=== PATIENT | female | born 1985 | race Caucasian/White ===

== ENCOUNTER 2017-06-24 13:00 | Outpatient (RCR) | payer OTHER, SELFPAY ==
--- NOTE | 2017-06-10 14:56 | HP.PTEVAL_ITS ---
Patient's Visit Information ANIYA LOVETT is a 31 year old F referred to Physical Therapy by Olaf CHING with a diagnosis of vertigo. Date of Evaluation: 06/10/17 Physical Therapist: Antonio Parker DPT, OC - Visit Plan Frequency: 1x/Week Duration: 4-6 Weeks Plan: weekly x 4-6 for adaptationa nd habituation as needed progression of HEP - Subjective Subjective: Vertigo. Had baby 7 weeks old. 10 days after baby while sitting for dinner got dizzy all of a sudden and could not open eyes. Went to ER, had CTscan, diagnosed with vertigo. Was then 80% better and manageable. 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 Has had three episodes of severe dizzyness sitting up in bed since. Severe dizzyness lasts a couple of hours. Has just slight goofy feeling all the time. Sleep is OK form the vertigo. Spends day taking care of child and can do this. Dr. Pina thought it was ear virus weeks ago. Doesn't want to move as much becasue of dizzy feeling. Jose and crafts are OK. 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 No falls but could not walk straight with first incident 6 weeks ago. - Objective Walks I and trasnfers I without balance problems. 30/30 FGA. foam stance ec 30 sec. - B hallpike ethan. - roll test. Oculomotor: no nystagmus today with gaze or head shake. - skew eye deviation. convergence OK. + R head thrust slight. Pursuit and saccades normal. VOR is symptomatic with mild speed horizontal at 20 seconds 2/10 for 10 seconds. Worse with walking VOR and VOR x 2 - Balance Scores Functional Gait Assessment Score: 30 % Disability: 0 CATSIB Score (Max score 120 seconds): 120 - Goals Goal 1:: abolish dizzyness with normal daily activites Goal Time Frame: 4-6 Weeks Goal 2:: Exit bed in am safely and feeling normal Goal Time Frame: 4-6 Weeks Goal 3:: 100% back to normal Goal Time Frame: 4-6 Weeks - Rehabilitation Potential Physical Therapy Diagnosis: Unilateral vestibular hypofucntion Rehabilitation Potential: Fair - Anticipated Interventions Patient/Client Instruction: Educate patient on: Condition, Plan of Care For the Purpose of:: To increase tolerance to activity/condition/position Comment: adaptation adn habituation For the Purpose of:: To increase tolerance to activity/condition/position, To decrease level of supervision to perform tasks, To improve ability of physical actions for home/community/work/leisure Thank you for the opportunity to evaluate your patient. For Medicare and Medicare HMO plans, please review the plan of care and approve it. It will need to be FAXED BACK to us at [phone] for Medicare purposes. Please let me know if there are questions or concerns regarding this plan of care. Physician Signature: Date:
--- NOTE | 2017-08-24 18:30 | HP.PT.NRP ---
HP - Discharge Summary (1) - Patient Information ANIYA LOVETT was seen in my office for initial evaluation on 06/10/17. The following Plan of Care was established for this patient: Initial Frequency: 1x/Week Initial Duration: 4-6 Weeks - Anticipated Interventions Patient/Client Instruction: Educate patient on: Condition, Plan of Care For the Purpose of:: To increase tolerance to activity/condition/position For the Purpose of:: To increase tolerance to activity/condition/position, To decrease level of supervision to perform tasks, To improve ability of physical actions for home/community/work/leisure This patient was last seen in our office 06/24/17. Pertinent comments regarding their Physical therapy will appear below: Pt seen two visits of plan of care and neglected to attend and further visits. It has been over two months and I will discontinue her due to nonattendance. At this point I will be discontinuing this patient from physical therapy. I would be happy to see this patient again in the future if found appropriate by the physician. Thank you! Antonio Parker, DPT, OC
== END 2017-06-24 19:00 | disposition home or self-care (01) ==
LOC: PT 13:00
PROVIDERS: Family Provider Family Medicine; PCP Family Medicine; Visit Provider Family Medicine
DX: R42 Dizziness and giddiness (principal)
CPT/HCPCS: 97110; 97162; 97530

== ENCOUNTER → 2018-03-17 10:52 | Outpatient (CLI) | payer OTHER, SELFPAY ==
[2018-03-22 03:07] LABS: HPV Genotype 16, Aptima Positive (Negative)
[2018-03-22 10:00] LABS: HPV APTIMA, High Risk Positive (Negative); HPV Genotype 18,45 Aptima Negative (Negative)
== END ==
PROVIDERS: Visit Provider Obstetrics & Gynecology
DX: Z12.4 Encounter for screening for malignant neoplasm of cervix (principal)
CPT/HCPCS: 87624; 88175; G0145

== ENCOUNTER → 2018-05-11 09:53 | Outpatient (CLI) | payer OTHER, SELFPAY ==
[2017-05-04 20:20] VITALS: BMI 32.3
[2018-05-11 17:15] LABS: Chlamydia Trachomatis by PCR Negative (Negative); Neisserai gonorrhoeae by PCR Negative (Negative); Probe Check PASS; Sample Adequacy Control PASS; Specimen Processing Control PASS
== END ==
PROVIDERS: Visit Provider Obstetrics & Gynecology
DX: Z32.01 Encounter for pregnancy test, result positive (principal); Z11.3 Encounter for screening for infections with a predominantly sexual mode of transmission
CPT/HCPCS: 87491; 87591

== ENCOUNTER 2018-06-09 20:01 | Emergency (ER) | payer OTHER, SELFPAY ==
[2018-06-09 20:02] VITALS: BP 163/77; PULSE 106; RESP 16; TEMP 36.2; O2SAT 99; BMI 29.8
--- NOTE | 2018-06-09 21:25 | EKG12_ITS ---
Test Reason : CP Blood Pressure : / mmHG Vent. Rate : 094 BPM Atrial Rate : 094 BPM P-R Int : 126 ms QRS Dur : 096 ms QT Int : 362 ms P-R-T Axes : 061 052 044 degrees QTc Int : 452 ms Normal sinus rhythm Possible Left atrial enlargement Nonspecific ST abnormality Abnormal ECG Confirmed by BOLIVAR DENNIS, MARILOU ([id number]), manuscript editor ANGELICA ARMENTA ([id number]) on 06/12/2018 1:13:51 PM Referred By: Sheridan Guerrero Confirmed By:MARILOU LUTZ MD
--- NOTE | 2018-06-09 21:35 | RAD_ITS ---
STUDY: X-RAY CHEST REASON FOR EXAM: Female, 32 years old. Chest pain, shortness of breath TECHNIQUE: Portable chest COMPARISON: None. FINDINGS: The lungs are clear and expanded. There is no demonstrated pleural abnormality. Normal size heart. Normal mediastinum and kassi. Normal visualized pulmonary arteries. Normal visualized aortic arch and descending thoracic aorta. Normal visualized thoracic spine. Normal visualized ribs, clavicles, and shoulders. There is no demonstrated abnormality of the visualized soft tissue structures of the upper abdomen. RAD/Chest 1 View (Portable) IMPRESSION: Normal x-ray examination of the chest. Electronically Signed: Tito Gil, at 22:51 EST Tel , Service support ,
[2018-06-09 21:40] VITALS: BP 129/70; PULSE 75; RESP 16; O2SAT 98
--- NOTE | 2018-06-09 21:48 | US_ITS ---
STUDY: VENOUS DOPPLER ULTRASOUND - BILATERAL LOWER EXTREMITIES REASON FOR EXAM: Female, 32 years old. Chest pain TECHNIQUE: Ultrasound evaluation of the deep vein system to include pacheco-scale imaging and compression was performed. Pacheco-scale imaging and Doppler sonographic evaluation, including duplex spectral analysis and qualitative color flow sonography, was performed. COMPARISON: None. FINDINGS: RIGHT LEG Common Femoral Vein: Normal compression, spontaneity and augmentation. Normal color Doppler. Common Femoral Vein/Greater Saphenous Junction: Normal compression, spontaneity and augmentation. Normal color Doppler. Deep Femoral Vein: Normal compression, spontaneity and augmentation. Normal color Doppler. Femoral Proximal: Normal compression, spontaneity and augmentation. Normal color Doppler. Femoral Middle: Normal compression, spontaneity and augmentation. Normal color Doppler. Femoral Distal: Normal compression, spontaneity and augmentation. Normal color Doppler. Popliteal Vein: Normal compression, spontaneity and augmentation. Normal color Doppler. Posterior Tibial Vein: Normal compression, spontaneity and augmentation. Normal color Doppler. Peroneal Vein: Normal compression, spontaneity and augmentation. Normal color Doppler. LEFT LEG Common Femoral Vein: Normal compression, spontaneity and augmentation. Normal color Doppler. Common Femoral Vein/Greater Saphenous Junction: Normal compression, spontaneity and augmentation. Normal color Doppler. Deep Femoral Vein: Normal compression, spontaneity and augmentation. Normal color Doppler. Femoral Proximal: Normal compression, spontaneity and augmentation. Normal color Doppler. Femoral Middle: Normal compression, spontaneity and augmentation. Normal color Doppler. Femoral Distal: Normal compression, spontaneity and augmentation. Normal color Doppler. Popliteal Vein: Normal compression, spontaneity and augmentation. Normal color Doppler. Posterior Tibial Vein: Normal compression, spontaneity and augmentation. Normal color Doppler. Peroneal Vein: Normal compression, spontaneity and augmentation. Normal color Doppler. US/Venous Duplex Imag/Ash Extrem IMPRESSION: Normal venous Doppler ultrasound of the bilateral lower extremities. No DVT Electronically Signed: Tito Gil, at 23:00 EST Tel , Service support ,
[2018-06-09 21:56] LABS: Absolute Lymphocyte Count 2.15 X10^3/ul (0.83-4.51); Absolute Neutrophil Count 6.6 X10^3/uL (2.0-7.7); Eosinophil# 0.16 X10^3/uL; Eosinophils% 1.7 % (0-5); Hematocrit 34.4 % (37-47); Hemoglobin 11.7 g/dl (12.0-15.0); Lymphocyte # 2.15 X10^3/ul (4.0); Lymphocyte % 22.4 % (19-41); Mean Corpuscular Hgb 28.8 pg (27.0-32.0); Mean Corpuscular Volume 84.7 fL (81-99); Mean Platelet Vol. 9.7 fl (6.2-12.0); Monocyte# 0.66 X10^3/uL; Monocyte% 6.9 % (0-10); Neutrophil # 6.61 X10^3/uL (2.7-7.7); Neutrophil % 68.7 % (47-70); Platelet Count 245 K/mm3 (150-450); RBC Distribution Width CV 13.8 % (11.6-14.6); RBC Distribution Width SD 42.2 fl (35.1-43.9); Red Blood Count 4.06 M/mm3 (4.2-5.4); White Blood Count 9.6 K/mm3 (4.4-11.0)
[2018-06-09] MEDS: Famotidine 20 MG Tablet 40 MG PO (21:57)
[2018-06-09 22:02] LABS: POSITIVE COUNT NO; POSITIVE DIFFERENTIAL NO; POSITIVE MORPHOLOGY NO
[2018-06-09 22:18] LABS: Anion Gap 8 (5-15); BUN 10 mg/dL (7-18); BUN/Creat Ratio 20.8 RATIO (10-20); Calcium,Total 8.6 mg/dL (8.5-10.1); Chloride 109 mmol/L (98-107); Creatinine, Serum 0.48 mg/dL (0.55-1.02); EST Glomerular Filtration Rate 157 mL/min (>60); Est Glom Filt Rate - Afr Amer 190 mL/min (>60); Estimated Creatinine Clearance 156.06 ml/min; Glucose 87 mg/dL (74-106); Potassium 3.3 mmol/L (3.5-5.1); Sodium Level 139 mmol/L (136-145); Thyroid Stim Hormone (TSH) 1.11 uIU/mL (0.358-3.74)
[2018-06-09 22:43] VITALS: BP 119/77; PULSE 72; RESP 15; O2SAT 95
--- NOTE | 2018-06-09 22:44 | ED.RN ---
OB RN UNABLE TO OBTAIN FHT; MD YEUNG AWARE. U/S TO BEDSIDE FOR MD USE.
--- NOTE | 2018-06-09 22:55 | ED.VISSUMM ---
- ER Visit Summary Date of Service: 06/09/18 Chief Complaint: Chest pain History of Present Illness: The patient is a [address] Winsome Pereira and Dr. Olaf Fernandez. She is a at 14 weeks . She reports that she has chest pain that began 1-2 weeks ago. Sick continuous tightness. She reports is 4-10 hours and 2 out of 10 currently. Is worsened by stress. She reports that it is unchanged by exertion, movement, or breathing. Relieved by nothing. She has had nausea without vomiting. She denies any diaphoresis or shortness of breath. Patient reports that she is been having palpitations over the past 2-3 weeks as well. She describes this as a constant fluttering with strong heartbeats that last 1-2 minutes that are occurring 2-3 times per week. She reports that her chest is fluttering at this time. Patient reports that she has had chest pain and palpitations with prior pregnancies. She is never seen a field education director. No personal or family history of DVT. No recent travel. No ankle swelling or calf pain. Physical Examination: Vitals: Stable. Afebrile. General: Well-nourished and well-developed. Head: Normocephalic atraumatic. Neck: Supple, no lymphadenopathy. No JVD. Nontender. Cardiovascular: Regular rate and rhythm. No murmurs. Respiratory: No respiratory distress. Clear to auscultation bilaterally. Abdominal: Soft, nontender, nondistended, normal bowel sounds. No guarding, rebound, or peritoneal signs. Gravid uterus. Back: Nontender. Extremities: Nontender, no edema. Skin: Normal color, no rash. Neurologic: Alert and oriented ?3. Cranial nerves II through XII are intact. Normal strength and sensation. Psych: Normal affect. Test Results: EKG is sinus at [address] changes. Its unchanged from 2016. Troponin is negative. TSH is normal. Chem-7 is more for potassium 3.3, chloride 109, creatinine 0.48. CBC is more for an H&H 12.7 34.4. Bilateral lower extreme Dopplers negative. Chest x-ray shows no acute disease. Emergency Department Course and Treatment: Had a prolonged discussion the patient about the possibility of a PE. Her pain is not pleuritic in nature. She has no other lower extremity edema. I do not think that exposing her to the radiation of a CT is in her best interest. Because of this a d-dimer was not ordered. I did discuss the patient the possibility of reflux as the source of some of the symptoms. She was given Pepcid p.o. We were unable to obtain heart tones by Doppler. Because of this bedside ultrasound was obtained which showed good movement and heartbeat. Treatment Plan: Patient be discharged on Pepcid. Instructed follow-up Dr. Winsome Pereira as previously scheduled. Follow-up with Dr. Fernandez in 1 week if not improving. Return to the emergency department for any worsening symptoms. Disposition: To home in improved and stable condition. Impression: 1. Atypical chest pain. 2. Palpitations. 3. Second trimester . This note was generated with [employer] dictation software. It may contain incorrect words, spelling, and punctuation that were not noted in review of the chart prior to signing ED Disposition - Plan for ED Patient: Disposition: Home or Assisted Living Instructions: ED Chest Pain Atypical Unkn Cause Prescriptions: Famotidine [Pepcid] 40 mg PO DAILY #30 tablet Referrals: Olaf Pina MD [Primary Care Provider] - 3-5 Days if not improving Sheridan Guerrero MD [STAFF PHYSICIAN] - Keep Thanh appointment
[2018-06-09 23:12] VITALS: BP 120/76; PULSE 80; RESP 14; O2SAT 96
== END 2018-06-09 23:13 | disposition home or self-care (01) ==
PROVIDERS: Emergency Provider Emergency Medicine; Family Provider Family Medicine; PCP Family Medicine; Referring Provider Obstetrics & Gynecology
DX: O26.892 Other specified pregnancy related conditions, second trimester (principal); R07.89 Other chest pain; R00.2 Palpitations; O21.9 Vomiting of pregnancy, unspecified; Z79.899 Other long term (current) drug therapy; Z3A.14 14 weeks gestation of pregnancy
CPT/HCPCS: 71045; 80048; 84443; 84484; 85025; 93005; 93970; 99285; J7030; A4216

== ENCOUNTER → 2018-06-15 10:08 | Outpatient (CLI) | payer OTHER, SELFPAY ==
[2018-06-09 20:02] VITALS: BMI 29.8
[2018-06-15 10:56] LABS: Color, Urine Yellow (Yellow); Glucose, Dipstick Normal (Normal); Ketone-Dipstick Negative (Negative); Leukocyte Esterase-Dipstick 25 /ul (Negative); Nitrite-Dipstick Negative (Negative); Occult Blood-Urine Negative /ul (Negative); Protein-Dipstick Negative (Negative); Urine Bilirubin Dipstick Negative (Negative); Urine Clarity Clear (Clear); Urine Urobilinogen Normal (Normal)
[2018-06-15 11:17] LABS: Amphetamine Urine VISTA NEGATIVE (<1000 ng/mL); Barbiturate Urine VISTA NEGATIVE (< 200 ng/mL); Benzodiazepine Urine VISTA NEGATIVE (< 200 ng/mL); Cocaine Urine VISTA NEGATIVE (< 300 ng/mL); Ecstacy Urine VISTA NEGATIVE (< 500 ng/mL); Methadone Urine VISTA NEGATIVE (< 300 ng/mL); PCP Urine VISTA NEGATIVE (< 25 ng/mL); THC Urine VISTA NEGATIVE (< 50 ng/mL); Vista UDS pH Range 6
[2018-06-15 12:14] LABS: HIV - WCH Non-Reactive (Nonreactive); Vitamin D,25 Hydroxy 19.1 ng/mL (29.95-100.01)
[2018-06-16 01:32] LABS: Prenatal RPR NONREACTIVE (NONREACTIVE)
[2018-06-16 12:40] LABS: HEPATITIS B SURFACE AG Negative (Negative); Hep C Antibodies <0.1 s/co ratio (0.0-0.9)
== END ==
PROVIDERS: Visit Provider Obstetrics & Gynecology
DX: Z34.82 Encounter for supervision of other normal pregnancy, second trimester (principal)
CPT/HCPCS: 36415; 80307; 81002; 82306; 86703; 86762; 86803; 87340

== ENCOUNTER → 2018-06-20 09:18 | Outpatient (CLI) | payer OTHER, SELFPAY ==
[2018-06-09 20:02] VITALS: BMI 29.8
== END ==
PROVIDERS: Family Provider Family Medicine; PCP Family Medicine; Referring Provider Obstetrics & Gynecology; Visit Provider Obstetrics & Gynecology
DX: O26.899 Other specified pregnancy related conditions, unspecified trimester (principal); R00.2 Palpitations; R07.9 Chest pain, unspecified; R06.00 Dyspnea, unspecified; Z3A.00 Weeks of gestation of pregnancy not specified
CPT/HCPCS: 93225; 93226

== ENCOUNTER → 2018-06-26 12:57 | Outpatient (CLI) | payer OTHER, SELFPAY ==
[2018-06-09 20:02] VITALS: BMI 29.8
[2018-06-21 10:43] VITALS: BMI 30.4
--- NOTE | 2018-06-26 12:59 | ECHOD_ITS ---
Reason For Study: ARRHYTHMIA Procedure This was a 2D Doppler, Color Flow transthoracic echocardiogram. Exam performed in department. Left Ventricle Normal LV size. Left ventricular systolic function is normal. The estimated ejection fraction is 55 %. Normal diastology for age. No regional wall motion abnormalities noted. Right Ventricle Normal RV size. Normal systolic function. Atria Normal left atrium. Normal right atrium. Mitral Valve Normal mitral valve. Tricuspid Valve Normal tricuspid valve. Mild tricuspid valve insufficiency. Aortic Valve Normal aortic valve. Trisinus/trileaflet aortic valve. Pulmonic Valve Normal pulmonic valve. Great Vessels Normal aortic root. The pulmonary artery is normal size. Normal inferior vena cava. Pericardium/Pleural No pericardial effusion. MMode/2D Measurements & Calculations LVIDd: 4.3 cm IVSd: 1.0 cm Ao root diam: 3.3 cm LVIDs: 3.1 cm LVPWd: 1.0 cm FS: 26.8 % LAV(MOD-bp): 43.9 ml LVAd ap4: 38.8 cm2 SV(MOD-sp4): 66.3 ml LAV(MOD-bp) Indexed: 23.0 ml/m2 EDV(MOD-sp4): 129.4 ml LAV(MOD-sp2): 52.8 ml EDV(sp4-el): 136.2 ml LAV(MOD-sp4): 32.6 ml LVAs ap4: 24.2 cm2 ESV(MOD-sp4): 63.1 ml ESV(sp4-el): 65.7 ml EF(MOD-sp4): 51.3 % EF(sp4-el): 51.7 % SV(sp4-el): 70.4 ml LA A4 area: 14.1 cm2 LA dimension(2D): 3.2 cm RA A4 area: 13.9 cm2 Time Measurements MV dec time: 0.21 sec Doppler Measurements & Calculations MV E max paulie: 66.5 cm/sec Lat Peak E' Paulie: 19.8 cm/sec Med Peak E' Paulie: 12.5 cm/sec MV A max paulie: 60.5 cm/sec E/E' lat: 3.4 E/E' med: 5.3 MV E/A: 1.1 Ao V2 max: 124.7 cm/sec LV V1 max: 116.7 cm/sec PA V2 max: 106.9 cm/sec Ao max P.2 mmHg LV V1 max P.4 mmHg TR max paulie: 198.2 cm/sec TR max P.7 mmHg Interpretation Summary Normal LV size. Left ventricular systolic function is normal. The estimated ejection fraction is 55 %. Normal diastology for age. Mild tricuspid valve insufficiency. Ordering Physician: Booker Drake Referring Physician: Sheridan Guerrero Performed By: Ayde Pete RDCS
== END ==
PROVIDERS: Family Provider Family Medicine; PCP Family Medicine; Referring Provider Obstetrics & Gynecology; Visit Provider Obstetrics & Gynecology
DX: O26.899 Other specified pregnancy related conditions, unspecified trimester (principal); R00.2 Palpitations; R07.9 Chest pain, unspecified; R06.00 Dyspnea, unspecified
CPT/HCPCS: 93306

== ENCOUNTER → 2018-09-14 13:27 | Outpatient (CLI) | payer OTHER, SELFPAY ==
[2018-06-21 10:43] VITALS: BMI 30.4
[2018-09-14 15:47] LABS: Mean Corp Hgb Conc 33.3 g/gl (32-36); Mean Corpuscular Hgb 28.2 pg (27.0-32.0); Mean Corpuscular Volume 84.5 fL (81-99); Platelet Count 240 K/mm3 (150-450); RBC Distribution Width CV 14.1 % (11.6-14.6); RBC Distribution Width SD 43.6 fl (35.1-43.9); Red Blood Count 4.26 M/mm3 (4.2-5.4); White Blood Count 12.1 K/mm3 (4.4-11.0)
[2018-09-14 15:51] LABS: Scan Indicated on CBC? Y/N NO
[2018-09-14 15:56] LABS: Glucose Challenge Gest 1H 50g 82 mg/dL (70-140)
== END ==
PROVIDERS: Family Provider Family Medicine; PCP Family Medicine; Visit Provider Obstetrics & Gynecology
DX: Z34.82 Encounter for supervision of other normal pregnancy, second trimester (principal)
CPT/HCPCS: 36415; 82950; 85027

== ENCOUNTER → 2018-11-08 13:03 | Outpatient (CLI) | payer OTHER, SELFPAY ==
[2018-06-21 10:43] VITALS: BMI 30.4
[2018-11-08 13:28] LABS: Mucous, Urine 0 SEEN /hpf (<or=2+)
[2018-11-08 13:58] LABS: Color, Urine Yellow (Yellow); Glucose, Dipstick Normal (Normal); Ketone-Dipstick Negative (Negative); Leukocyte Esterase-Dipstick 100 /ul (Negative); Nitrite-Dipstick Negative (Negative); Occult Blood-Urine Negative /ul (Negative); Protein-Dipstick Negative (Negative); Urine Bilirubin Dipstick Negative (Negative); Urine Clarity Sl. Cloudy (Clear); Urine Urobilinogen Normal (Normal); Urine pH 6.5 (5.0 - 8.0)
[2018-11-08 14:05] LABS: White Blood Cells 50-100 SEEN /hpf (0-5)
[2018-11-08 14:06] LABS: Red Blood Cells-Urine 0-5 SEEN /hpf (0-5); Squamous Epithelial Cells - UA 25-50 SEEN /hpf (5-10)
[2018-11-08 14:07] LABS: Bacteria 3+ /hpf (None Seen)
== END ==
PROVIDERS: Family Provider Family Medicine; PCP Family Medicine; Referring Provider Obstetrics & Gynecology; Visit Provider Obstetrics & Gynecology
DX: O23.43 Unspecified infection of urinary tract in pregnancy, third trimester (principal); Z3A.00 Weeks of gestation of pregnancy not specified
CPT/HCPCS: 81001; 87086; 87088

== ENCOUNTER → 2018-11-20 13:25 | Outpatient (CLI) | payer OTHER, SELFPAY ==
[2018-06-21 10:43] VITALS: BMI 30.4
== END ==
PROVIDERS: Family Provider Family Medicine; PCP Family Medicine; Referring Provider Obstetrics & Gynecology; Visit Provider Obstetrics & Gynecology
DX: Z36.85 Encounter for antenatal screening for Streptococcus B (principal)
CPT/HCPCS: 87081

== ENCOUNTER 2018-11-27 11:00 | Inpatient (IN) | payer OTHER, SELFPAY ==
[2018-06-21 10:43] VITALS: BMI 30.4
[2018-11-27] VITALS (16 sets, daily range): BP systolic 95–120; BP diastolic 46–74; PULSE 64–107; RESP 10–18; TEMP 36.1–37.5; O2SAT 96–99; BMI 35.9
[2018-11-27] MEDS: Lactated Ringers 1,000 ML 999 ML IV (11:20)
[2018-11-27 11:34] LABS: Absolute Lymphocyte Count 1.94 X10^3/uL (0.83-4.51); Absolute Neutrophil Count 10.1 X10^3/uL (2.0-7.7); Basophil# 0.03 X10^3/uL; Basophil% 0.2 % (0-1); Eosinophil# 0.11 X10^3/uL; Eosinophils% 0.8 % (0-5); Hematocrit 38.3 % (37-47); Hemoglobin 12.9 g/dL (12.0-15.0); Lymphocyte # 1.94 X10^3/ul (4.0); Lymphocyte % 14.7 % (19-41); Mean Corp Hgb Conc 33.7 g/dL (32-36); Mean Corpuscular Hgb 28.3 pg (27.0-32.0); Mean Platelet Vol. 10.1 fl (6.2-12.0); Monocyte# 0.85 X10^3/uL; Monocyte% 6.4 % (0-10); NRBC Flagged by Analyzer 0 % (0-5); Neutrophil # 10.12 X10^3/uL (2.7-7.7); Neutrophil % 76.8 % (47-70); Platelet Count 194 K/mm3 (150-450); RBC Distribution Width CV 14.4 % (11.6-14.6); RBC Distribution Width SD 43.9 fl (35.1-43.9); Red Blood Count 4.56 M/mm3 (4.2-5.4); White Blood Count 13.2 K/mm3 (4.4-11.0)
[2018-11-27 11:42] LABS: Partial Thromboplast Time 31.5 Seconds (24.1-36.2)
[2018-11-27] MEDS: Sodium Citrate/Citric Acid 30 ML UDC PO (11:43)
[2018-11-27 11:50] LABS: International Normalized Ratio 1.1; Prothrombin Time (Protime)PT. 13.6 SECONDS (11.7-14.9)
[2018-11-27] MEDS: Lactated Ringers 1,000 ML 150 ML IV (11:50)
--- NOTE | 2018-11-27 12:00 | NURSING ---
Clindamycin started in room. Pt transported to C/S room for Repeat C/S. When pt got to OR started to complain of itching to her eyes which then progressed to itching of her side and legs. Clindamycin stopped at that time. Only approximately 1/[address] Guerrero updated on pts reaction to antibiotic. Ok to not give pt remainder of bag but wants Gentamycin to be hung. Antibiotic hung per anesthesia. No reaction noted.
--- NOTE | 2018-11-27 12:55 | OP.PCM_ITS ---
Delivery Classification: NICHOLE Final SARIKA Source: US <20 weeks Indications for : Repeat Elective Description of Procedure: The patient was taken to the operating room and spinal analgesia was administered. She is placed in a dorsal supine position with left lateral tilt. The perineum and abdomen were prepped and draped in sterile fashion. And the spinal was found to be adequate. A Pfannenstiel incision was made using a scalpel and brought down to incise the subcutaneous tissue and rectus fascia at the midline. Subcutaneous tissue was bluntly dissected off the fascia laterally. The fascial incision was dissected laterally and cephalad using curved Meyers scissors. The superior leaflet of the rectus fascia was grasped using Cassandra clamps and bluntly dissected and sharply dissected from the underlying rectus muscle. In a similar fashion the inferior rectus fascia was dissected from the underlying muscle. The rectus muscles were bluntly at the midline. The peritoneum was identified and entered [sharply]. The bladder blade was placed into the abdomen and the vesicouterine peritoneal fold identified. The fold was incised and a bladder flap created. Bladder blade was then repositioned to the abdomen. A low transverse hysterotomy was made using the [Metzenbaum scissors] to level of the membranes. The hysterotomy was extended bluntly cephalad and caudad. The membranes were then ruptured revealin g clear fluid. The head was elevated and brought to the level of the hysterotomy and the infant delivered revealing vigorous [male] infant. The cord was doubly clamped and cut after 30 seconds. The was passed to awaiting [nursery personnel]. The placenta was [expressed] from the uterus and appeared intact on inspection. The uterus was cleared of debris. The hysterotomy was then repaired using 0 Vicryl running lock suture. A second imbricating layer was also placed for additional hemostasis. The bladder blade was removed. The anterior cul-de-sac was cleared of debris. The peritoneum and rectus muscles were reapproximated using 2-0 Vicryl running suture. The rectus fascia was closed using 0 Stratafix running suture. The subcutaneous tissue was sponge irrigated and small capillary bleeding controlled using the Bovie device. The subcutaneous tissue was reapproximated using 2-0 Vicryl. The skin was closed using 4-0 Monocryl subcuticularly by the CONCRETE PAVING MACHINE OPERATOR under my supervision. A Mepilex occlusive dressing was placed over the incision. The fundus was firm. The patient was then transferred to the recovery room without complication. Sponge, instrument, and needle counts were correct ?2. Amniotic Membrane Rupture Type: Spontaneous Amniotic Fluid Description: Clear Placenta Disposition: [facility] Drain: Blank to straight drain Fluids Replaced: 1000 ml Cord Entanglement: None, Around neck x 1, loose Nuchal Cord Compression: Without compression Cord Vessel Description: 3 Vessels Esitmated Blood Loss (ml): 500 Infant Gender: Male (1 minute): 9 (5 minute): 9 Pre-op Antibiotic Given: Ancef 2 grams IV x1 Pt instructed on risks of surgery: Bleeding, Anesthesia Risks, Infection, Failure Rate of 1 to 2%, Injury to surrounding structure(s) including bowel and bladder Complications: None - Admit VTE Documentation VTE Present on Admission: Yes VTE Mechan Device Prophylaxis: SCD's VTE Pharm Prophylaxis ordered?: No
--- NOTE | 2018-11-27 13:03 | PCM.HP.OB ---
- Problem List (1) 38 weeks gestation of Status: Acute (2) Previous section Status: Acute History Date of Admission: 11/27/18 Final SARIKA: 12/10/18 Final SARIKA Source: US <20 weeks Gestational age: 41 Weeks and 3 Days History of this : This is a 33 year-old, G [3], P [2], at 38+ weeks gestational age with c/o painful contractions. Medical History: Medical History (Last Updated 06/21/18 @ 10:50 by Josseline Bravo) ADHD (attention deficit hyperactivity disorder) F90.9 Simms teeth extracted K08.409 Surgical History: Surgical History (Last Updated 06/21/18 @ 10:50 by Josseline Bravo) History of Z98.891 x 2 History of tonsillectomy and adenoidectomy Z98.890 Allergies Penicillins Allergy (Verified 11/27/18 09:39) Rash rash and hives morphine Adverse Reaction (Verified 11/27/18 09:39) Nausea Home Medications: Home Medications Vits [Prenatabs FA ] 1 tab PO DAILY 06/09/18 methylphenidate 10 mg tablet 10 mg PO DAILY 30 Days #30 tab 06/21/18 Ibuprofen [Motrin] 600 mg PO Q6 PRN #30 tab 11/29/18 Senna/Docusate Sodium [Senokot-S] 1 - 2 tab PO DAILY PRN #60 tab 11/29/18 Smoking Status: Former smoker Alcohol: None Number of Fetus(es): 1 NST - FHR Rate Baby A Baseline: 130 Variability:: Moderate Accelerations:: 15 x 15 Decelerations:: None NST Reactive:: Yes FHR Category:: Category I Uterine Activity:: 2-07/19 History Past Pregnancies: Past Pregnancies Delivery Date Name GA/Weeks Outcome Route Weight Infant Gender Labor Length Anesthesia Delivery Location Provider FOB 07/22/15 Vimal 39 Living C/S 8#3 M 28 Epidural [facility] [place] 04/22/17 Larry 38 Living C/S 7#12 M 2 Spinal [facility] [place] Labs: Mom's Current Diagnoses Attention-deficit hyperactivity disorder, unspecified type 11/27/18 Maternal care for unspecified type scar from previous delivery 11/27/18 Labor and delivery complicated by cord around neck, without compression, not applicable or unspecified 11/27/18 Other mental disorders complicating childbirth 11/27/18 Single live 11/27/18 38 weeks gestation of 11/27/18 Other skilled nursing (current) drug therapy 11/27/18 Personal history of nicotine dependence 11/27/18 Mom's Labs & Results 11/27/18 11/27/18 11/27/18 11:20 11:20 11:20 WBC 13.2 H RBC 4.56 Hgb 12.9 Hct 38.3 MCV 84.0 MCH 28.3 MCHC 33.7 RDW Std Deviation 43.9 RDW Coeff of Tiffanie 14.4 Plt Count 194 MPV 10.1 Immature Gran % (Auto) 1.100 H Neut % (Auto) 76.8 H Lymph % (Auto) 14.7 L [place] % (Auto) 6.4 Eos % (Auto) 0.8 Baso % (Auto) 0.2 Absolute Neuts (auto) 10.1 H Absolute Lymphs (auto) 1.94 Nucleated RBC % 0 PT 13.6 INR 1.1 APTT 31.5 Blood Type A POSITIVE Antibody Screen NEGATIVE 11/28/18 06:30 WBC 13.6 H RBC 4.23 Hgb 11.9 L Hct 35.8 L MCV 84.6 MCH 28.1 MCHC 33.2 RDW Std Deviation 45.0 H RDW Coeff of Tiffanie 14.7 H Plt Count 160 MPV 10.0 Immature Gran % (Auto) Neut % (Auto) Lymph % (Auto) [place] % (Auto) Eos % (Auto) Baso % (Auto) Absolute Neuts (auto) Absolute Lymphs (auto) Nucleated RBC % PT INR APTT Blood Type Antibody Screen Course Did the patient receive Yes care? Labs Blood Type: A RH: POSITIVE RPR/VDRL/Syphilis Nonreactive Rubella status Immune HbSAg Negative Date Done: 06/15/18 Chlamydia Negative Gonorrhea Negative HIV/AIDS Non-Reactive Group B Strep: Negative Current Obstetrical History Gestational Diabetes No Incompetent Cervix No Infertility No IUGR No Macrosomia No Hypertension/Pre-eclampsia No Placenta Previa/Abruption No PTL/PROM No Uterine anomaly No Oligohydramnios No Polyhydramnios No Multiple gestation No Past Medical History Asthma No Diabetes No Hypertension No Heart disease No Mitral valve prolapse No Neurologic/Seizure disorder/ No Migraines Kidney disease No Liver disease No Varicosities No Clotting disorders/Hx of DVT No Thyroid Dysfunction No Other medical diseases No Psychiatric disorders Yes: DEPRESSION Major trauma No Abnormal PAP smear Yes Sleep apnea No Mammogram in the last 2 years No Social History Marital Status: Alleged father SERVANDO Hx Smoking No Smoking Status Former smoker How long have you used NA substances (years)? Expected Infant Delivery Method: NICHOLE Section Number of Visits: 10 Physical Exam Vitals: avss General: Alert, No apparent distress HEENT: Atraumatic, Normocephalic Cardiovascular: Regular rate, Regular Rhythm Lungs: Clear to auscultation, Normal air movement Abdomen: Soft, Non Tender, Non-Distended, Gravid Neurological: Neuro grossly intact FIBER OPTICS ENGINEER: Normal external genitalia Estimated gestational size: Appropriate for gestational size Presentation: Cephalic Cervix Dilation (cm): 4 Assessment/Plan All Active Problems (Last Updated 06/21/18 @ 10:50 by Josseline Bravo) 38 weeks gestation of (Acute) Previous section (Acute) Dehiscence of section wound, (Resolved) Previous delivery affecting , delivered (Resolved) Wound infection/hemorrhage, obstetric surgical, delivered/ (Resolved) This is a 33 year-old, G [3], P [2], at 38+ weeks gestational age.-hx 2 prior section in active labor -Proceed with repeat section as planned.
[2018-11-27] MEDS: Oxytocin 30 units/NS 500 ml 30 UNITS/500 ML IV.SOLN 167 UNITS IV (13:10)
[2018-11-27] MEDS: HYDROmorphone 1 MG/ML Syringe IV (15:34)
[2018-11-27] MEDS: 0.9% Saline Lock 10 ML Syringe 5 ML IV ×2 (15:37→18:56)
[2018-11-27] MEDS: Lactated Ringers 1,000 ML 100 ML IV (16:34)
[2018-11-27] MEDS: Ketorolac 30 MG/ML Syringe IV (18:55)
[2018-11-27] MEDS: HYDROmorphone 2 MG TABLET PO ×2 (19:19→22:39)
[2018-11-27] MEDS: Acetaminophen 500 MG Tablet 1000 MG PO (20:49)
[2018-11-28] MEDS: Ketorolac 30 MG/ML Syringe IV ×2 (01:38→06:18)
[2018-11-28] MEDS: 0.9% Saline Lock 10 ML Syringe 5 ML IV ×2 (01:39→06:19)
[2018-11-28] MEDS: HYDROmorphone 2 MG TABLET PO ×2 (02:30→07:14)
[2018-11-28 04:45] VITALS: BP 105/56; PULSE 74; RESP 16; TEMP 36.5; O2SAT 98
[2018-11-28 06:47] LABS: Hematocrit 35.8 % (37-47); Hemoglobin 11.9 g/dL (12.0-15.0); Mean Corp Hgb Conc 33.2 g/dL (32-36); Mean Corpuscular Hgb 28.1 pg (27.0-32.0); Mean Corpuscular Volume 84.6 fL (81-99); Platelet Count 160 K/mm3 (150-450); RBC Distribution Width CV 14.7 % (11.6-14.6); Red Blood Count 4.23 M/mm3 (4.2-5.4); White Blood Count 13.6 K/mm3 (4.4-11.0)
--- NOTE | 2018-11-28 07:25 | PCM.PN.OB ---
Patient Problems: Active and Suspected Problems (Last Updated 06/21/18 @ 10:50 by Josseline Bravo) 38 weeks gestation of (Acute) Previous section (Acute) Subjective: Patient without complaints. Minimal vaginal bleeding. Pain marginally controlled with oral Dilaudid. Tolerating diet well. - Physical Exam Vital Signs Temp Pulse Resp BP Pulse Ox 97.7 F L 74 16 105/56 L 98 11/28/18 04:45 11/28/18 04:45 11/28/18 04:45 11/28/18 04:45 11/28/18 04:45 Oxygen Delivery Method Room Air Weight: 222 lb 14.197 oz Body Mass Index (BMI) 35.9 Intake and Output for Last 24 Hours 11/26/18 11/27/18 11/28/18 23:59 23:59 23:59 Intake Total 1500 / 1500 1700 / 1700 Output Total 500 / 500 1500 / 1500 Balance 1000 / 1000 200 / 200 Laboratory Tests Past 24 Hrs 11/27/18 11/27/18 11/27/18 11:20 11:20 11:20 WBC 13.2 H RBC 4.56 Hgb 12.9 Hct 38.3 MCV 84.0 MCH 28.3 MCHC 33.7 RDW Std Deviation 43.9 RDW Coeff of Tiffanie 14.4 Plt Count 194 MPV 10.1 Immature Gran % (Auto) 1.100 H Neut % (Auto) 76.8 H Lymph % (Auto) 14.7 L [place] % (Auto) 6.4 Eos % (Auto) 0.8 Baso % (Auto) 0.2 Absolute Neuts (auto) 10.1 H Absolute Lymphs (auto) 1.94 Nucleated RBC % 0 PT 13.6 INR 1.1 APTT 31.5 Blood Type A POSITIVE Antibody Screen NEGATIVE 11/28/18 06:30 WBC 13.6 H RBC 4.23 Hgb 11.9 L Hct 35.8 L MCV 84.6 MCH 28.1 MCHC 33.2 RDW Std Deviation 45.0 H RDW Coeff of Tiffanie 14.7 H Plt Count 160 MPV 10.0 Immature Gran % (Auto) Neut % (Auto) Lymph % (Auto) [place] % (Auto) Eos % (Auto) Baso % (Auto) Absolute Neuts (auto) Absolute Lymphs (auto) Nucleated RBC % PT INR APTT Blood Type Antibody Screen Wound is clean, dry, intact. Covered with Mepilex bandage. Hemoglobin okay. Medical Necessity - Tobacco Use Smoking Status: Former smoker Assessment/Plan All Active Problems (Last Updated 06/21/18 @ 10:50 by Josseline Bravo) 38 weeks gestation of (Acute) Previous section (Acute) 14 weeks gestation of (Acute) Intermittent palpitations (Acute) Dehiscence of section wound, (Resolved) Previous delivery affecting , delivered (Resolved) Wound infection/hemorrhage, obstetric surgical, delivered/ (Resolved) Doing well postoperative day #1 status post repeat . Continuing present care.
[2018-11-28 08:00] VITALS: BP 114/64; PULSE 94; RESP 18; TEMP 36.3; O2SAT 95
[2018-11-28] MEDS: Acetaminophen 500 MG Tablet 1000 MG PO ×2 (08:19→16:22)
--- NOTE | 2018-11-28 08:42 | PN.OBGYN_ITS ---
Patient Problems: Active and Suspected Problems (Last Updated 06/21/18 @ 10:50 by Josseline Bravo) 38 weeks gestation of (Acute) Previous section (Acute) Subjective: Kimmy reports no sleep last night. She is sore. OOB and ambulating, voiding without difficulty. No flatus yet. Denies nausea or vomiting. Objective: avss - Physical Exam General: Alert, Oriented x3, Cooperative, No apparent distress HEENT: Atraumatic, Normocephalic Lungs: Clear to auscultation, Normal air movement Cardiovascular: Regular rate, Regular Rhythm, Normal S1, Normal S2 Abdomen: Soft, Non Tender, Non-Distended, Hypoactive Bowel Sounds, - - fundus firm and nontender, incisional dressing minimally saturated < 10 % Extremities: No Calf Tenderness, - - trace LE edema Neurological: Neuro grossly intact Psych/Mental Status: Normal Affect, Appropriate, Alert and oriented to time, place, person, mood and affect Vital Signs Temp Pulse Resp BP Pulse Ox 97.3 F L 94 18 114/64 95 11/28/18 08:00 11/28/18 08:00 11/28/18 08:00 11/28/18 08:00 11/28/18 08:00 Oxygen Delivery Method Room Air Weight: 101.1 kg Body Mass Index (BMI) 35.9 Intake and Output for Last 24 Hours 11/26/18 11/27/18 11/28/18 23:59 23:59 23:59 Intake Total 1500 / 1500 1940 / 1940 Output Total 500 / 500 1675 / 1675 Balance 1000 / 1000 265 / 265 Laboratory Tests Past 24 Hrs 11/27/18 11/27/18 11/27/18 11:20 11:20 11:20 WBC 13.2 H RBC 4.56 Hgb 12.9 Hct 38.3 MCV 84.0 MCH 28.3 MCHC 33.7 RDW Std Deviation 43.9 RDW Coeff of Tiffanie 14.4 Plt Count 194 MPV 10.1 Immature Gran % (Auto) 1.100 H Neut % (Auto) 76.8 H Lymph % (Auto) 14.7 L [place] % (Auto) 6.4 Eos % (Auto) 0.8 Baso % (Auto) 0.2 Absolute Neuts (auto) 10.1 H Absolute Lymphs (auto) 1.94 Nucleated RBC % 0 PT 13.6 INR 1.1 APTT 31.5 Blood Type A POSITIVE Antibody Screen NEGATIVE 11/28/18 06:30 WBC 13.6 H RBC 4.23 Hgb 11.9 L Hct 35.8 L MCV 84.6 MCH 28.1 MCHC 33.2 RDW Std Deviation 45.0 H RDW Coeff of Tiffanie 14.7 H Plt Count 160 MPV 10.0 Immature Gran % (Auto) Neut % (Auto) Lymph % (Auto) [place] % (Auto) Eos % (Auto) Baso % (Auto) Absolute Neuts (auto) Absolute Lymphs (auto) Nucleated RBC % PT INR APTT Blood Type Antibody Screen Medical Necessity - Tobacco Use Smoking Status: Former smoker Assessment/Plan All Active Problems (Last Updated 06/21/18 @ 10:50 by Josseline Bravo) 38 weeks gestation of (Acute) Previous section (Acute) Dehiscence of section wound, (Resolved) Previous delivery affecting , delivered (Resolved) Wound infection/hemorrhage, obstetric surgical, delivered/ (Resolved) This is a 33 year-old, G [3], P [3],POD#1 s/p RLTCS doing well. -Routine postop care -A positive -
[2018-11-28] MEDS: oxyCODONE 5 MG Tablet PO ×4 (10:55→23:57)
[2018-11-28 12:13] VITALS: BP 117/69; PULSE 87; RESP 18; TEMP 36.3
--- NOTE | 2018-11-28 12:17 | NURSING ---
Patient ambulated to bathroom to take shower. Tolerated well. Sitting up in bed now holding . Call light in reach. Denies further needs at this time.
[2018-11-28] MEDS: Ibuprofen 600 MG Tablet PO ×3 (12:49→23:25)
[2018-11-28 16:08] VITALS: BP 121/64; PULSE 86; RESP 18; TEMP 36.2
[2018-11-28 20:45] VITALS: BP 142/75; PULSE 90; RESP 16; TEMP 36.6; O2SAT 95
[2018-11-29 01:56] VITALS: BP 100/57; PULSE 89; RESP 16; TEMP 36.7; O2SAT 96
[2018-11-29] MEDS: oxyCODONE 5 MG Tablet PO ×2 (04:19→08:35)
[2018-11-29] MEDS: Ibuprofen 600 MG Tablet PO (06:02)
[2018-11-29 08:50] VITALS: BP 114/65; PULSE 93; RESP 16; TEMP 36.9
--- NOTE | 2018-11-29 08:50 | PCM.PN.OB ---
Patient Problems: Active and Suspected Problems (Last Updated 06/21/18 @ 10:50 by Josseline Bravo) 38 weeks gestation of (Acute) Previous section (Acute) Subjective: Kimmy is sore, but pain overall controlled. Passing flatus. No bowel movement yet. She reports anxiety about returning home and how to manage parenting 3 young boys. She notes her is off the rest of the week and her parents are available to assist as needed. Objective: AVSS - Physical Exam General: Alert, Oriented x3, Cooperative, No apparent distress HEENT: Atraumatic, Normocephalic Lungs: Clear to auscultation, Normal air movement Cardiovascular: Regular rate, Regular Rhythm, Normal S1, Normal S2 Abdomen: Soft, Non Tender, Non-Distended, - - Fundus firm and nontender, incisional dressing unchanged from prior Extremities: No edema, No Calf Tenderness Neurological: Neuro grossly intact Psych/Mental Status: Normal Affect, Appropriate, Alert and oriented to time, place, person, mood and affect Vital Signs Temp Pulse Resp BP Pulse Ox 98.0 F 89 16 100/57 L 96 11/29/18 01:56 11/29/18 01:56 11/29/18 01:56 11/29/18 01:56 11/29/18 01:56 Oxygen Delivery Method Room Air Weight: 101.1 kg Body Mass Index (BMI) 35.9 Intake and Output for Last 24 Hours 11/27/18 11/28/18 11/29/18 23:59 23:59 23:59 Intake Total 1500 / 1500 1940 / 1940 Output Total 500 / 500 1675 / 1675 Balance 1000 / 1000 265 / 265 Medical Necessity - Tobacco Use Smoking Status: Former smoker Assessment/Plan All Active Problems (Last Updated 06/21/18 @ 10:50 by Josseline Bravo) 38 weeks gestation of (Acute) Previous section (Acute) Dehiscence of section wound, (Resolved) Previous delivery affecting , delivered (Resolved) Wound infection/hemorrhage, obstetric surgical, delivered/ (Resolved) This is a 33 year-old, G [3], P [3],POD#2 s/p RLTCS doing well. -Routine postop care -A positive - -Maternal anxiety. Support offered, Social work consult pending -d/c home today -Will f/u next week
--- NOTE | 2018-11-29 09:03 | DCINST_ITS ---
Discharge Diet: No Restrictions Discharge Activity: Return to Normal Activity, May not drive while taking narcotic pain medications., May Shower, - - No tub bath May resume sexual activity in: 4-6 weeks Lifting Restrictions: 10-20 lb Call your doctor if your incision/area has: Continuous Slow Oozing, Sudden Increased Bleeding, Increased Pain/ Swelling, Increased Redness, Foul Smelling Discharge Suture Line Care: Avoid Pulling/Pushing Remove Dressing in (days):: 7 - will remove in office Cleanse incision/area with: Soap & Water Additional Instructions: If you experience any of the following, contact your healthcare provider. * Bleeding that soaks a pad every hour for 2 hours * Fever 100.4 or higher * Unrelieved incision or abdominal pain * Swelling, redness, discharge or bleeding from your incision or episiotomy site * Your incision begins to separate * Problems urinating (including inability to urinate or burning while urinatin g). * Visual changes * Severe headache * Flu-like symptoms * Pain or redness in one of both of your breasts * Pain, warmth, tenderness or swelling in your legs, especially the calf area * Frequent nausea and vomiting * Symptoms of depression or anxiety If you experience any of the following, call 911 or go to the nearest Emergency Room. * Chest pain * Problems breathing * Seizure activity * Partial or complete paralysis of a body part, slurred speech, weakness or drooping of the face, or a sudden inability to walk or hold your balance Allergies/Adverse Reactions: Allergies Penicillins Allergy (Verified 11/27/18 09:39) Rash rash and hives morphine Adverse Reaction (Verified 11/27/18 09:39) Nausea Medications to take at Discharge Vits [Prenatabs FA ] 1 tab PO DAILY 06/09/18 methylphenidate 10 mg tablet 10 mg PO DAILY 30 Days #30 tab 06/21/18 Ibuprofen [Motrin] 600 mg PO Q6 PRN #30 tab 11/29/18 Oxycodone [Oxyir] 1 tab PO Q4H PRN PRN 7 Days #28 tablet 11/29/18 Senna/Docusate Sodium [Senokot-S] 1 - 2 tab PO DAILY PRN #60 tab 11/29/18 The following prescriptions were given: Ibuprofen [Motrin] 600 mg PO Q6 PRN #30 tab PRN Reason: Pain Transmission Status: Pending to [facility] Oxycodone [Oxyir] 1 tab PO Q4H PRN PRN 7 Days #28 tablet PRN Reason: Severe Pain (-01/18) Transmission Status: Sent to [facility]30 Senna/Docusate Sodium [Senokot-S] 1 - 2 tab PO DAILY PRN #60 tab PRN Reason: Constipation Transmission Status: Pending to [facility]30 Follow-Up: Call to make an appointment with your doctor for an incision check in 1-2 weeks. You will also need a 6 week post- follow up appointment. Test results from this visit will be discussed in further detail at your follow- up appointment, if applicable. Please Follow Up With: Sheridan Guerrero MD When: 1 weeks Primary Care Physician: Olaf Pina MD [Primary Care Provider] -
--- NOTE | 2018-11-29 10:57 | CASEMGMT ---
Social Work Labor and Delivery Unit Brief Assessment Date of Referral/Notification: 11/27/2018 Time of Referral: 1524 Referred By: Dr. Guerrero Reason for Referral: Anxious and history of depression Date of Intervention: 11/29/2018 Time of Intervention: 1015 Informant: Medical record, mother of baby (MOB) Kimmy Priest, and father of baby (FOB) Miko Priest History: MOB is a 33 year old female, G3, P2 to 3 after delivering baby boy Deysi Priest this admission. MOB is to FOB, Miko Priest who is 37 years old. MOB and FOB now have 3 children together: Valdemar (born 11[birth year]27-18), Larry (born 04-22-2017), and Vimal (born 07-21-2018). MOB with closely spaced pregnancies between 2 and 3 pregnancies, with care starting at 14 weeks in the third . MOB has a bachelors degree in business and [employer]. MOB currently stays at home to care for the children. FOB works fulltime for an [employer], working up to 60 hours a week. Record indicates DOC has a history of ADHD, depression, and anxiety. MOB endorses some anxiety after Larry was born that surfaced about 6 months . MOB denies any thoughts of harming the children, the anxiety was more MOB worried that something would happen to the kids on MOB's watch. MOB endorses isolation, being at home with the kids, and not getting out much as other factors contributing to mood and anxiety issues. MOB denies any thoughts of suicide or thoughts of harm to others. Noted in care record that an [place] [employer] screen was done in April with a score of 3 and then in June a score of 8 (score of 10 or higher indicative of depression). Assessment: Met with MOB and FOB together. MOB endorses history of anxiety. Risk factors reviewed, discussing interventions that have been known to help women with mood and anxiety disorders. Medications discussed, as well as counseling. MOB reports would be open to either and did a few counseling sessions years ago form some anxiety. MOB reports at this time just wants to wait and see how things go at home, hoping that as MOB adjusts to the new norm of having three kids that MOB will be okay and not need intervention. Encouraged MOB to talk about symptoms, and to consider interventions if symptoms arise or worsen at home. Let MOB know that many women experience some form of mood and anxiety issue, that many of the thoughts and worries MOB has discussed today are common, that MOB has done nothing wrong, and okay to let others know what MOB is experiencing. MOB reports to talk to FOB, as well as has support from MOB's parents, and also has some friends in the area. MOB reports it is really helpful to share thoughts and worries with others and talking seems to be MOB's main coping skills. Encouraged MOB to get fresh air every day, as well as some movement. Discussed scheduling things to do and getting out of the house as other ways to reduces feelings of isolation. 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 FOB presented as supportive of MOB, offered input at appropriate times, and voiced recognition that FOB's long work hours do not help MOB and that FOB feels badly for how much he has to work. FOB reports to try and play with the older kids when he gets home but knows this is not a lot. FOB will be home the rest of the week to help out and then over the next couple of weeks MOB's parents will be staying the night a few nights each week to give MOB some breaks and help. MOB and FOB reports to have needed supplies for the baby, no issues with housing, or resource needs. electroplating worker provided MOB with resource packet on depression and counseling. MOB reports will read through the information. MOB tearful at appropriate times in conversation, held good eye contact, polite, pleasant, congruent affect to content being discussed. Plan: MOB and baby to home today with help from FOB and then from MOB's parents. MOB accepting of depression/anxiety resources. MOB reports would be willing to do medicine or counseling if needed, and agrees to talk with doctor if symptoms arise at home and MOB feels not coping well. No further needs requested or indicated. -STEFFEN Haines, STOCK SUPERVISOR
== END 2018-11-29 10:25 | disposition home or self-care (01) | DRG 788 ==
LOC: WPOUT 11:09 → WP 12:29
PROVIDERS: Admitting Provider Obstetrics & Gynecology; Family Provider Family Medicine; PCP Family Medicine; Referring Provider Obstetrics & Gynecology; Visit Provider Obstetrics & Gynecology
DX: O34.219 Maternal care for unspecified type scar from previous cesarean delivery (principal); O69.81X0 Labor and delivery complicated by cord around neck, without compression, not applicable or unspecified; O99.344 Other mental disorders complicating childbirth; F90.9 Attention-deficit hyperactivity disorder, unspecified type; Z79.899 Other long term (current) drug therapy; Z87.891 Personal history of nicotine dependence; Z3A.38 38 weeks gestation of pregnancy; Z37.0 Single live birth
CPT/HCPCS: 59050; 85025; 85027; 85610; 85730; 86850; 86900; 86901; 99218; J7120; A4216; G0378; J2405

== ENCOUNTER → 2019-01-11 10:13 | Outpatient (CLI) | payer OTHER, SELFPAY ==
[2018-11-27 09:37] VITALS: BMI 35.9
[2019-01-16 19:13] LABS: HPV Genotype 16, Aptima Positive (Negative)
[2019-01-17 12:59] LABS: HPV APTIMA, High Risk Positive (Negative); HPV Genotype 18,45 Aptima Negative (Negative)
== END ==
PROVIDERS: Family Provider Family Medicine; PCP Family Medicine; Visit Provider Obstetrics & Gynecology
DX: R87.810 Cervical high risk human papillomavirus (HPV) DNA test positive (principal)
CPT/HCPCS: 87624; 88175; G0145

== ENCOUNTER → 2021-01-08 09:54 | Outpatient (CLI) | payer OTHER, SELFPAY ==
[2021-01-08 12:37] LABS: Absolute Lymphocyte Count 1.87 X10^3/uL (0.83-4.51); Absolute Neutrophil Count 4.3 X10^3/uL (2.0-7.7); Basophil# 0.02 X10^3/uL; Basophil% 0.3 % (0-1); Eosinophil# 0.15 X10^3/uL; Eosinophils% 2.2 % (0-5); Hematocrit 42.1 % (37-47); Hemoglobin 13.7 g/dL (12.0-15.0); Lymphocyte # 1.87 X10^3/ul (0.83-4.51); Lymphocyte % 27.5 % (19-41); Mean Corp Hgb Conc 32.5 g/dL (32-36); Mean Corpuscular Hgb 28.1 pg (27.0-32.0); Mean Corpuscular Volume 86.3 fL (81-99); Mean Platelet Vol. 10.9 fl (6.2-12.0); Monocyte# 0.47 X10^3/uL; Monocyte% 6.9 % (0-10); NRBC Flagged by Analyzer 0 % (0-5); Neutrophil # 4.26 X10^3/uL (2.7-7.7); Neutrophil % 62.8 % (47-70); Platelet Count 308 K/mm3 (150-450); RBC Distribution Width CV 13.2 % (11.6-14.6); RBC Distribution Width SD 41.3 fl (35.1-43.9); Red Blood Count 4.88 M/mm3 (4.2-5.4); White Blood Count 6.8 K/mm3 (4.4-11.0)
[2021-01-08 13:14] LABS: Anion Gap 7 (5-15); BUN 12 mg/dL (7-18); BUN/Creat Ratio 17.9 RATIO (10-20); Calcium,Total 9.4 mg/dL (8.5-10.1); Chloride 105 mmol/L (98-107); Cholesterol 182 mg/dL (200); Creatinine, Serum 0.67 mg/dL (0.55-1.02); EST Glomerular Filtration Rate 106 mL/min (>60); Est Glom Filt Rate - Afr Amer 128 mL/min (>60); Glucose 87 mg/dL (74-106); High Density Lipoprotein 42 mg/dL; Potassium 4.1 mmol/L (3.5-5.1); Sodium Level 137 mmol/L (136-145); Thyroid Stim Hormone (TSH) 1.11 uIU/mL (0.358-3.74); Triglycerides 128 mg/dL; Very Low Density Lipoprotein 26 mg/dL (5-40)
== END ==
PROVIDERS: PCP Family Medicine; Referring Provider Family Medicine; Visit Provider Family Medicine
DX: Z00.00 Encounter for general adult medical examination without abnormal findings (principal); R53.83 Other fatigue
CPT/HCPCS: 36415; 80048; 80061; 84443; 85025

== ENCOUNTER → 2021-03-11 | Outpatient (CLI) | payer OTHER, SELFPAY ==
[2021-03-18 16:55] LABS: HPV APTIMA, High Risk Positive (Negative)
== END | disposition home or self-care (01) ==
LOC: LABSPEC 16:13
PROVIDERS: PCP Family Medicine; Visit Provider Obstetrics & Gynecology
DX: Z12.4 Encounter for screening for malignant neoplasm of cervix (principal)
CPT/HCPCS: 87624; 88175; G0145

== ENCOUNTER → 2021-04-07 14:16 | Outpatient (CLI) | payer OTHER, SELFPAY ==
--- NOTE | 2021-04-07 14:21 | BI_ITS ---
MAMMOGRAPHY - BILATERAL DIAGNOSTIC REASON FOR EXAM: Female, 35 years old. LUMP PERTINENT HISTORY: Non-contributory. TECHNIQUE: Digital examination. Mediolateral oblique (MLO) and craniocaudad (CC) views of both breasts were obtained. CAD: CAD was performed on this study. COMPARISON: None. FINDINGS: Breast Composition: The breasts are heterogeneously dense, which may obscure small masses. There are no dominant masses or suspicious calcifications. No other significant abnormalities are identified. BI/DIAG MAMM W/CAD, BILAT IMPRESSION: Stable bilateral diagnostic mammogram. Ultrasound of the palpable abnormality will be performed. ASSESSMENT CATEGORY: BIRADS Category 0: Incomplete. Need additional imaging evaluation. A letter regarding these results will be sent to the patient by the facility within 30 days. FOLLOW UP RECOMMENDATION: Ultrasound Recommended. (I) Approximately 10% of breast cancers are not detected by mammography. A normal mammogram should not delay biopsy of a clinically suspicious abnormality. Electronically Signed: David Holt MD at 15:03 EST Tel , Service support ,
--- NOTE | 2021-04-07 14:21 | US_ITS ---
STUDY: ULTRASOUND BREAST - LEFT REASON FOR EXAM: Female, 35 years old. Palpable mass TECHNIQUE: Axial and longitudinal images of the LEFT breast were performed with a high resolution ultrasound transducer. # OF IMAGES: 30 COMPARISON: Diagnostic mammogram earlier today FINDINGS: LEFT Breast: Heterogeneous background echotexture. Multiple longitudinal and transverse ultrasound images of the lower inner quadrant of the left breast failed to demonstrate a discrete solid or cystic mass.: US/Breast Limited Unilateral IMPRESSION: Normal diagnostic mammogram left breast ultrasound. ASSESSMENT CATEGORY: BIRADS Category 1: Negative. A letter regarding these results will be sent to the patient by the facility within 30 days. Electronically Signed: David Holt MD at 16:22 EST Tel , Service support ,
== END ==
PROVIDERS: PCP Family Medicine; Referring Provider Obstetrics & Gynecology; Visit Provider Obstetrics & Gynecology
DX: N63.20 Unspecified lump in the left breast, unspecified quadrant (principal)
CPT/HCPCS: 76642; 77062; 77066; G0279

== ENCOUNTER 2021-10-13 12:30 | Day surgery (SDC) | payer OTHER, SELFPAY ==
[2021-10-13 12:54] LABS: Internal QC Validated? YES +Cl - CLEAR BKGD; Pregnancy, Urine Negative Negative
--- NOTE | 2021-10-13 12:55 | HP.PCM_ITS ---
History and Physical Date of Admission: 10/13/21 ANIYA LOVETT, is a 35 F who presents to the office today for Initial consult. Aniya established with this clinic 07.23.21 with referral from her PCP for evaluation of a feeling of fullness and pressure in her LUQ. PCP started her on omeprazole 20mg QHS for one month without effect. Symptoms at presentation include bloating, discomfort and feeling full in her epigastric region since early 2020. No aggravating or alleviating factors. Weight has been stable but she would like to discuss weight loss options. Diet does include hot sauce and coffee, she has been working on reducing intake of these items. She has had three recent pregnancies during which she had significantly worse reflux. Medical history includes ADHD. Weight 07.23.2021 218 lbs ROS Const Constitutional: No anorexia, fatigue, fever(s), weight change or sleep problems Eyes Eyes: No change in vision ENT ENT: No abnormal hearing, difficulty swallowing, mouth lesions, tongue swelling or throat swelling Resp Respiratory: No cough or shortness of breath Cardio Cardiology: No chest pain at rest, chest pain with exertion, shortness of breath or dyspnea on exertion Gastro GI: No difficulty swallowing Genitourinary-Female: No difficulty urinating or burning urination Musc Musculoskeletal: No joint pain, joint swelling, muscle weakness or decreased muscle mass Skin Skin: No hair loss in leg, yellowing of the eye, itchy eyes, rash, skin ulcer or skin swelling Neuro Neurology: No abnormal hearing, abnormal movements, confusion, unsteady gait/balance or memory loss Psych Psychiatric: No anxiety, No confusion and No memory loss Endo Endocrine: No fatigue or weight change Aller/Imm Allergy/Immunologic: No itchy eyes, throat swelling or tongue swelling Osbaldo/Lymp Hematologic/Lymphatic: No easy bleeding, easy bruising or enlarged lymph nodes Exam Const General: cooperative and comfortable Nutritional Appearance: average body habitus and well nourished HENMT Head: normal to inspection Ears: hearing grossly normal bilaterally Nose: external nose normal Face and sinus: normal facial exam Mouth: oral mucosae normal Throat: posterior oropharynx normal Eyes General: appearance normal, both eyes and all related structures Neck Neck: normal visual inspection Chest Chest palpation & inspection: normal inspection of the chest and normal palpation of entire chest wall Resp Effort & Inspection: normal respiratory effort Auscultation: Bilateral: Clear to Auscultation Cardio Palpation: normal PMI Rate: regular rate Rhythm: regular rhythm GI Inspection: normal to inspection Auscultation: normal bowel sounds Percussion: normal to percussion Palpation: no hepatosplenomegaly Skin General: no rashes or lesions noted Neuro General: patient alert Extrem General: normal to inspection Psych Affect: normal affect Quality Reporting Tobacco Screening ([facility] 138) Smoking Status: Former smoker Assessment and Plan Assessment and Plan (1) GERD (gastroesophageal reflux disease): ?Status:?Inactive ?Plan - Dr. Schreiber Friend, DO: The differential diagnosis for her symptoms she is experiencing would be a hia javy hernia secondary to weight gain, atypical gastritis, bile gastritis, functional disease, gastroparesis.? We will get an upper endoscopy evaluate upper GI tract.? We will also get her a prescription for sulcal fate liquid to balance out her omeprazole and Pepcid that she is taking.? She will undergo an upper endoscopy.? She was explained alternatives and risks, benefits including not withstanding bleeding, infection, sepsis, perforation, need for urgent .? Have an ASA 1. Plan Details Other Medications: ?New: ? sucralfate 10 mL PO BID 1,000 mL 1RF ? ? I have re-examined the patient. There are no clinical changes since date of exam.
[2021-10-13 12:59] VITALS: BP 131/80; PULSE 89; RESP 16; TEMP 36.7; O2SAT 96; BMI 35.2
[2021-10-13] MEDS: Lactated Ringers 1,000 ML 15 ML IV (13:00)
--- NOTE | 2021-10-13 13:30 | EGD_PTH ---
PATIENT: ANIYA LOVETT LOC: EN U#:[id number] AGE/SX: 36/F ROOM: RE10/13/[address]: Dr. Abdoul Mcmanus DO : 1985 BED: DIS: 10/13/2021 SPEC #: [id number] RECD: 10/13/21 14:52 STATUS: PAIGE JAIME #: [id number] INGA: 10/13/21 13:[address]: Abdoul Mcmanus DEPT: SURGICAL PATHOLOGY RECD BY: Betty Luque ENTERED: 10/14/21 12:07 SP TYPE: EGD BIOPSY [facility] DR: Dr. Olaf Pina MD Tissues: A - Duodenum, NOS B - Esophagus, NOS Procedures: Special Stain Group II Surgery Specimen Level IV Alcian Blue/PAS (control) HEADER OPERATION: EGD ([facility] [place]) with biopsies PRE-OP DIAGNOSIS: GERD TISSUE SUBMITTED: A ? Duodenum biopsy, B ? Distal esophagus biopsy MICROSCOPIC DIAGNOSIS A. 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 B. Distal esophagus, biopsy: Gastroesophageal junctional mucosa with mild chronic inflammation. Focal changes of reflux. No evidence of goblet cell metaplasia. See comment. AM:heather 10/15/2021 COMMENT B. Alcian blue/PAS stain with matched control supports the above diagnosis. MICROSCOPIC DESCRIPTION Slides are reviewed. GROSS DESCRIPTION A - Received in fixative is one container labeled with the patient's name and designated duodenum biopsy. The specimen consists of two irregular fragments of light calvo soft tissue that in aggregate measure 0.6 x 0.3 x 0.1 cm. The specimen is totally submitted in one cassette. B - Received in fixative is one container labeled with the patient's name and designated distal esophagus. The specimen consists of multiple irregular fragments of light calvo soft tissue that in aggregate measure 2 x 0.7 x 0.1 cm. The specimen is totally submitted in one cassette. / SJ:heather 10/14/2021 TC:3 CPT: 12456 x2, 87018
[2021-10-13 13:55] VITALS: BP 113/78; BP 131/80; PULSE 98; RESP 16; TEMP 36.1; O2SAT 98
--- NOTE | 2021-10-13 13:55 | OP.EGD_ITS ---
Patient Name: Kimmy Priest Procedure Date: 10/13/2021 1:22 PM Date of : 1985 Age: 36 Procedure: Upper GI endoscopy Indications: Dysphagia, Heartburn Providers: Abdoul Mcmanus DO Medicines: Monitored Anesthesia Care Patient Profile: This is a 36 year old female. Refer to note in patient chart for documentation of history and physical. Patient has symptoms. Complications: No immediate complications. Procedure: Pre-Anesthesia Assessment: - Prior to the procedure, a History and Physical was performed, and patient medications and allergies were reviewed. The risks and benefits of the procedure and the sedation options and risks were discussed with the patient. All questions were answered and informed consent was obtained. Patient identification and proposed procedure were verified by the physician in the pre-procedure area. Mental Status Examination: alert and oriented. Airway Examination: normal oropharyngeal airway and neck mobility. Respiratory Examination: clear to auscultation. CV Examination: normal. Prophylactic Antibiotics: The patient does not require prophylactic antibiotics. Prior Anticoagulants: The patient has taken no previous anticoagulant or antiplatelet agents. ASA Grade Assessment: II - A patient with mild systemic disease. After reviewing the risks and benefits, the patient was deemed in satisfactory condition to undergo the procedure. The anesthesia plan was to use moderate sedation / analgesia (conscious sedation). Immediately prior to administration of medications, the patient was re-assessed for adequacy to receive sedatives. The heart rate, respiratory rate, oxygen saturations, blood pressure, adequacy of pulmonary ventilation, and response to care were monitored throughout the procedure. The physical status of the patient was re-assessed after the procedure. After obtaining informed consent, the endoscope was passed under direct vision. Throughout the procedure, the patient's blood pressure, pulse, and oxygen saturations were monitored continuously. The Endoscope was introduced through the mouth, and advanced to the second part of duodenum. The upper GI endoscopy was accomplished without difficulty. The patient tolerated the procedure well. Scope In: 1:37:40 PM Scope Out: 1:47:27 PM Total Procedure Duration Time 0 hours 9 minutes 47 seconds Findings: LA Grade B (one or more mucosal breaks greater than 5 mm, not extending between the tops of two mucosal folds) esophagitis with no bleeding was found 36 to 38 cm from the incisors. Biopsies were taken with a cold forceps for histology. Verification of patient identification for the specimen was done. Estimated blood loss was minimal. A moderate Schatzki ring was found in the lower third of the esophagus. A guidewire was placed and the scope was withdrawn. Dilation was performed with a Savary dilator with no resistance at 36 Fr. The entire examined stomach was normal. Patchy mildly erythematous mucosa without active bleeding and with no stigmata of bleeding was found in the first portion of the duodenum. Impression: - LA Grade B reflux esophagitis. Biopsied. - Moderate Schatzki ring. Dilated. - Normal stomach. - Erythematous duodenopathy. Recommendation: - Discharge patient to home. - Resume previous diet. - Continue present medications. - Return to my office. Procedure Code(s): --- Professional --- 83947, Esophagogastroduodenoscopy, flexible, transoral; with insertion of guide wire followed by passage of dilator(s) through esophagus over guide wire 98337, 59,51, Esophagogastroduodenoscopy, flexible, transoral; with biopsy, single or multiple CPT copyright 2017 [employer]. All rights reserved. The codes documented in this report are preliminary and upon pastry cook review may be revised to meet current compliance requirements. Abdoul Mcmanus DO 10/13/2021 1:55:03 PM This report has been signed electronically. Number of Addenda: 1 Note Initiated On: 10/13/2021 1:22 PM Addendum Number: 1 Addendum Date: 01/13/2022 6:31:25 AM MAC was used as sedation for this procedure. Abdoul Mcmanus DO 01/13/2022 6:31:31 AM This report has been signed electronically.
--- NOTE | 2021-10-13 13:56 | OP.CCLET_ITS ---
01/13/2022 Olaf Pina MD [address] [place] [address] Re : Upper GI endoscopy procedure for Kimmy Priets Dear Dr. Pina This procedure was performed on Wednesday, October 13, 2021. My impressions and recommendations are as follows: Impressions : - LA Grade B reflux esophagitis. Biopsied. - Moderate Schatzki ring. Dilated. - Normal stomach. - Erythematous duodenopathy. Recommendations : - Discharge patient to home. - Resume previous diet. - Continue present medications. - Return to my office. My findings are described in the full procedure note, which is enclosed. If I can be of further assistance, please feel free to contact me at . Sincerely, Abdoul Mcmanus, 10/13/2021 1:55:03 PM This report has been signed electronically.
[2021-10-13 14:00] VITALS: BP 116/78; BP 131/80; PULSE 77; RESP 16; O2SAT 98
[2021-10-13 14:05] VITALS: BP 114/78; BP 131/80; PULSE 74; RESP 16; O2SAT 97
[2021-10-13 14:10] VITALS: BP 110/82; BP 131/80; PULSE 73; RESP 16; TEMP 36.1; O2SAT 98
[2021-10-13 14:27] VITALS: BP 131/80
== END 2021-10-13 14:30 | disposition home or self-care (01) ==
LOC: EN 12:31 → AC 12:33
PROVIDERS: Anesthesiology; PCP Family Medicine; Referring Provider Family Medicine; Visit Provider Internal Medicine Gastroenterology
PROC: 0DJ08ZZ Inspection of Upper Intestinal Tract, Via Natural or Artificial Opening Endoscopic (ICD-10-PCS; CPT 43235; principal; 2021-10-13 13:25)
DX: K22.2 Esophageal obstruction (principal); K21.00 Gastro-esophageal reflux disease with esophagitis, without bleeding; R13.10 Dysphagia, unspecified; F90.9 Attention-deficit hyperactivity disorder, unspecified type; Z79.899 Other long term (current) drug therapy; Z87.891 Personal history of nicotine dependence
CPT/HCPCS: 43248; 43239; 81025; 88305; 88313; J7120; J2405

== ENCOUNTER 2024-02-02 10:17 | Day surgery (SDC) | payer OTHER, SELFPAY ==
--- NOTE | 2024-01-06 12:44 | PCM.HP.BLA ---
History and Physical Date of Admission: 02/02/24 HPI: The patient is a 38 year old female presenting for pre-operative visit. She is scheduled for LEEP, for high grade cervical dysplasia on 02/01/25. Procedure discussed along with risks, benefits and complications. Other alternatives discussed for management. Consent form signed? Yes. PAST MEDICAL HISTORY PAST MEDICAL HISTORY Diagnosis Date ? 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 GERD (gastroesophageal reflux disease) ? HSIL (high grade squamous intraepithelial lesion) on Pap smear of cervix 03/202103/24/2023 PAST SURGICAL HISTORY PAST SURGICAL HISTORY Procedure Laterality Date ? EGD W/O BRSH SPEC VARICIES INJ GERD ? VAGINOSCOPY 04/21/2023 CURRENT MEDICATIONS Current Outpatient Medications Medication Sig Dispense Refill ? SEMAGLUTIDE, WEIGHT LOSS, SUBCUTANEOUS Inject 0.5 mg subcutaneously. ? NYSTOP powder USE ONE GRAM TWICE DAILY ? clindamycin (CLEOCIN-T) 1 % gel Apply to the face once in the evening ? tretinoin (RETIN-A) 0.025 % topical cream ? dextroamphetamine-amphetamine (ADDERALL) 10 mg tablet TAKE TWO TABLETS BY MOUTH EVERY MORNING AND AT NOON, AND TAKE ONE TABLET AT 4pm ? sertraline (ZOLOFT) 25 mg tablet Take 1 tablet by mouth every afternoon. ? SOOLANTRA 1 % Apply a thin layer to the face twice a day. No current facility-administered medications for this visit. ALLERGIES: Morphine and Penicillins PERSONAL HISTORY: SOCIAL HISTORY Social History Tobacco Use ? Smoking status: Former ? Smokeless tobacco: Never Vaping Use ? Vaping status: Never Used Substance Use Topics ? Alcohol use: Yes Comment: seldom ? Drug use: Never FAMILY HISTORY: FAMILY HISTORY History reviewed. No pertinent family history. REVIEW OF SYMPTOMS: GENERAL: denies fevers or chills ENDOCRINOLOGY: has not been on steroids Cardiology : denies palpitations or chest pain Respiratory: denies SOB or cough Hematology: denies history of prolonged bleeding or easy bruising or VTE Allergy: Denies history of personal or family history of allergy to anesthesia PHYSICAL EXAMINATION: VITALS: Blood pressure 120/70, pulse 86, resp. rate 20, height 167 cm (5' 5.75 ), weight 99.5 kg (219 lb 6.4 oz), last menstrual period 05/18/2023, SpO2 96%. GENERAL: The patient is well nourished, well hydrated in no acute distress. , The patient is oriented to time, place, and person. NECK: Supple. No lynphadenopathy, normal thyroid, no thyromegaly. LUNGS: Clear to auscultation bilaterally. no wheezes, rhonchi or rales HEART: Regular rate and rhythm, Normal heart sounds, and No murmurs or gallops IMPRESSION: +HRHPV 16, high grade squamous intraepithelial lesion of the cervix PLAN: The risks/benefits/alternatives and personal involved for the planned LEEP in the operating room were reviewed with the patient. Her questions were answered to her satisfaction and she desires to proceed. Consent was signed. I reviewed with her postop instructions and expectations. I have reviewed and updated past medical and surgical history, medications and allergies Assessment & Plan Assessment/Plan (1) High grade squamous intraepithelial lesion of cervix:
[2024-02-02] VITALS (9 sets, daily range): BP systolic 126–141; BP diastolic 66–86; PULSE 96–102; RESP 16; TEMP 36.3; O2SAT 98–100; BMI 35.2
--- NOTE | 2024-02-02 | IMM_PTH ---
PATHOLOGY RESULTS PATIENT: ANIYA LOVETT LOC: [facility] [place] U#:[id number] AGE/SX: 38/F ROOM: RE02/02/[address]: Dr. Jacinta Thompson MD : 1985 BED: DIS: 02/02/2024 SPEC #: [id number] RECD: 02/03/24 12:37 STATUS: PAIGE REQ #: [id number] INGA: 02/02/24 00:[address]: Jacinta Thompson DEPT: IMMUNOHISTOCHEMISTRY RECD BY: Rich Lee ENTERED: 02/03/24 12:37 SP TYPE: IMMUNO OTHR DR: Dr. Olaf Pina MD Tissues: UTERINE CERVIX LEEP Procedures: p16 (initial) KI-67 (add) PHYSICIAN & INSTITUTION [place] [address] SPECIMEN INFORMATION: Tissue Source: A- Exocervix Clinical Info: High grade squamous intraepithelial lesion of cervix Specimen Number: [id number] A 1 CPT code: 48774,54852 METHODOLOGY: Deparaffinized sections of prefer/formalin-fixed tissue or PAP/DQ stained slides are incubated with monoclonal/polyclonal antibodies/oligonucleotide probes. Localization is made via biotin free immunoperoxidase method. Appropriate controls are performed and reacted as expected. Results on target cell population are indicated in the following table: RESULTS: ANTIBODY / CLONE RESULT Block A 1 P16 (E6H4) positive, block staining Ki-67 (30-9) positive, moderate These tests were developed and their performance characteristics determined by [facility]. They may not have been cleared or approved by the U.S. Food and Drug Administration. The FDA has determined that such clearance or approval is not necessary. The above immunohistochemical/dualISH markers are ordered and reviewed by the Pathologist. INTERPRETATION: Awa Exocervix, leep colonization: Moderate squamous dysplasia (DOLORES II). 02/06/2024
[2024-02-02 10:50] LABS: Internal QC Validated? YES +Cl - CLEAR BKGD; Pregnancy, Urine Negative Negative
[2024-02-02] MEDS: Ketorolac 30 MG/ML Syringe IV (10:52)
[2024-02-02 11:04] LABS: Hematocrit 40.5 % (37-47); Hemoglobin 13.4 g/dL (12.0-15.0); Mean Corp Hgb Conc 33.1 g/dL (32-36); Mean Corpuscular Hgb 27.7 pg (27.0-32.0); Mean Corpuscular Volume 83.7 fL (81-99); Mean Platelet Vol. 9.9 fl (6.2-12.0); Platelet Count 312 K/mm3 (150-450); RBC Distribution Width SD 39.3 fl (35.1-43.9); Red Blood Count 4.84 M/mm3 (4.2-5.4); White Blood Count 8.4 K/mm3 (4.4-11.0)
--- NOTE | 2024-02-02 11:39 | PCM.DC ---
Discharge Instructions Diet Discharge Diet: No restrictions Activity Discharge Activity: May Drive, May Shower and May Take a Tub Bath (in 2 weeks) Return to work on:: 02/03/24 May shower in (days): 1 August resume sexual activity in: 2 weeks Lifting Restrictions: 20 lbx for 1 week Additional Activity Instructions:: Use ibuprofen, heating pad and tylenol as needed for pain Dressing / Incision Call your doctor if your incision/area has: Sudden Increased Bleeding and Foul Smelling Discharge Call your doctor if you observe: Fever of 101 or Higher and Using more than 1 pad per hour Follow Up Care Please Follow Up With: Jacinta Thompson MD When: in 3-4 weeks or as needed. We will contact you next week with the pathology. Send a [employer] message or call [phone] as needed for nonemergent question Test Results: Test results from this visit will be discussed in further detail at your follow-up appointment, if applicable. Discharge Plan Admission Primary Reason for Your Visit: LEEP of the cervix Attending Provider: Jacinta Thompson Primary Care Provider: Olaf Pina Instructions Print Language: Sudanese Discharge Orders/Prescriptions Prescriptions: Continued multivitamin Tablet 1 tab PO DAILY dextroamphetamine-amphetamine 10 mg tablet 30 - 40 mg PO DAILY Patient Comments: TAKE 2 (TWO) TABLETS BY MOUTH EVERY DAY IN THE MORNING, 1 (ONE) TABLET at noon and 1 (ONE) TABLET at AT 4 PM semaglutide 0.25 mg or 0.5 mg (2 mg/3 mL) pen injector 0.25 mg subcut WE Rx Instructions: for 4 weeks Referrals / Follow Up: Olaf Pina MD [Primary Care Provider] - Disposition Disposition (needs filled in before D/C Order can be placed): Home, Self Care
--- NOTE | 2024-02-02 11:40 | CONE_PTH ---
PATHOLOGY RESULTS PATIENT: ANIYA LOVETT [place] [facility] [place][id number] AGE/SX: 38/F ROOM: RE02/02/[address]: Dr. Jacinta Thompson MD : 1985 BED: DIS: 02/02/2024 SPEC #: [id number] RECD: 02/02/24 13:47 STATUS: PAIGE SANDOVAL #: [id number] INGA: 02/02/24 11:[address]: Jacinta Thompson DEPT: SURGICAL PATHOLOGY RECD BY: Roque Fraser ENTERED: 02/02/24 14:40 SP TYPE: Leep Cone WON DR: Dr. Olaf Pina MD Tissues: UTERINE CERVIX LEEP Endocervical Procedures: Surgery Specimen Level IV Surgery Specimen Level V HEADER OPERATION: Leep cone PRE-OP DIAGNOSIS: High grade squamous intraepithelial lesion of cervix TISSUE SUBMITTED: A- Exocervix *stitch in anterior*, B- Endocervical curettings MICROSCOPIC DIAGNOSIS A. 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 Resection margins are free of dysplastic changes. See comment. B. Endocervical curettings: Fragments of benign ecto and endocervical epithelium, blood and mucous. Negative for dysplasia. AM.02/03/2024 COMMENT A. Immunohistochemistry ([id number]) for surrogate HPV marker (p16) supports the above diagnosis. Detached fragments of tissue with dysplastic changes are also noted adjacent to the resection margin. Dysplastic changes are noted predominantly in the anterior cervix (block 1&4). Clinical correlation and appropriate follow up are necessary. Case has been reviewed in consultation with Dr. Cade who concurs with the above diagnosis. IDC:AM MICROSCOPIC DESCRIPTION Slides are reviewed. GROSS DESCRIPTION A. Received in fixative is one container labeled with the patient's name and designated Exocervix. The specimen consists of two pieces of calvo indurated tissue measuring 2.5 x 1.0 x .6cm (anterior cervix) and 1.5 x 1.0 x 0.5cm (posterior cervix). No mucosal lesions are identified. Non-mucosal surface is inked black. Stitch is presumed to be at 12o'clock. The specimen is serially sectioned and submitted entirely in four cassettes as follows: 1- 12-3o'clock, 2- 3-6o'clock, 3-6-9o'clock, 4-9-12o'clock. B. Received in fixative is one container labeled with the patient's name and designated Endocervical curettings. The specimen consists of multiple irregular fragments of hemorrhagic soft tissue that in aggregate measure 3.0 x 2.5 x 0.2 cm. The specimen is totally submitted in one cassette. SJ 02/02/2024 TC:5 CPT: 56616,53508
[2024-02-02] MEDS: Lidocaine 1% /Epi 1:100 (20ml) 20 ML Vial (11:49)
[2024-02-02] MEDS: Iodine/Potassium Iodide 14ML Bottle 1 DRP TOPICAL (11:49)
[2024-02-02] MEDS: FERRIC SUBSULFATE 8 GM SOLN (11:55)
--- NOTE | 2024-02-02 12:07 | PCM.OPRPT ---
Problems Associated Problem List Diagnoses (1) High grade squamous intraepithelial lesion of cervix: Operative Report (Standard) Operative Information Surgery/Procedure Performed: LEEP of the cervix Surgeon: Jacinta Thompson Date of Procedure: 02/02/24 Procedure Start Time: 11:44 Procedure Stop Time: 12:05 Pre-Operative Diagnosis: High grade dysplasia of the cervix Post-Operative Diagnosis: same Select all DRAINS/GRAFTS/IMPLANTS that apply: None Type of Anesthesia: Local Special Medications: none Estimated Blood Loss: 10 Fluids Replaced: 0 Specimen collected: Yes Description of specimen(s) removed: ectocervix and endocervical curettings Description of surgery: The patient was taken to the operating room where she was prepped and draped in a dorsal lithotomy position. The LEEP speculum was placed in the vagina. A paracervical block was performed with 1% Xylocaine with 1-100,000 epinephrine solution. The ectocervix was amputated with large Celeste exact loop. An endocervical curettage was then performed. The specimens were handed off and labeled and sent to pathology. Hemostasis of the cervix was obtained with ball cautery. Some Monsel solution was placed over the cauterized cervix. Hemostasis was assured. The instruments were removed from the vagina. A vaginal sweep was completed by me. Sponge and needle counts were correct. Surgical Findings: normal vagina, cervix flush w/ the vagina Eye Specialist solar energy engineer: Yes Sandblasting Supervisor: Brent Ann MS3 Tasks completed by furniture removalist's assistant: Retracting Additional preschool assistant?: No Complications Complications: No Admit VTE Documentation VTE Present on Admission: No VTE Mechan Device Prophylaxis: SCD's VTE Pharm Prophylaxis ordered?: No
== END 2024-02-02 12:38 | disposition home or self-care (01) ==
LOC: SDC 10:23 → AC 10:24
PROVIDERS: PCP Family Medicine; Referring Provider Obstetrics & Gynecology; Visit Provider Obstetrics & Gynecology
PROC: 0UBC7ZZ Excision of Cervix, Via Natural or Artificial Opening (ICD-10-PCS; CPT 57522; principal; 2024-02-02 11:25)
DX: N87.1 Moderate cervical dysplasia (principal); K21.9 Gastro-esophageal reflux disease without esophagitis; Z79.85 Long-term (current) use of injectable non-insulin antidiabetic drugs; Z79.899 Other long term (current) drug therapy; Z87.891 Personal history of nicotine dependence
CPT/HCPCS: 57522; 81025; 85027; 88305; 88307; 88341; 88342; A4216; J2405

== ENCOUNTER → 2024-10-18 | Outpatient (CLI) | payer OTHER, SELFPAY ==
--- OUTSIDE RECORDS SUMMARY | 2024-10-18 09:14 | XMS RPT_ITS | CCD ---
Author Organization [facility] Care Team Providers Care Fish Farm Manager Name Role Phone MISTI Orona RN, Akua Larios Unavailable Unavailamanda Orona RN RN, Akua Larios Unavailable UnavailFelix Blum Unavailable Unavailable Rob Parsons Unavailable Unavailable MISTI Orona RN, Akua Larios Unavailable Unavailamanda Galloway, Dr. Babin Primary Care Provider Dr. Olaf Galloway Referring Provider [phone] Friend, Dr. Schreiber Attending Provider [phone] FriendDr. Schreiber Other Provider [phone] Olaf Galloway MD Primary Care Provider Olaf Galloway MD Primary Care Provider Olaf Galloway Referring Unavailable Jailene Ruano Attending Unavailable Olaf Galloway Primary Care Unavailable Dre Buenrostro Attending Unavailable Dre Buenrostro Referring Unavailable Olaf Galloway Primary Care Unavailable Dre Buenrostro Attending Unavailable Olaf Galloway Primary Care Unavailable OLAF GALLOWAY Primary Care Unavailable CHITRA DER L Attending Unavailable CHITRA DRE L Attending Unavailable OLAF GALLOWAY Primary Care Unavailable DRE BUENROSTRO L Referring Unavailable DRE BUENROSTRO Attending Unavailable OLAF GALLOWAY Primary Care Unavailable DRE BUENROSTRO L Referring Unavailable OLAF GALLOWAY Primary Care Unavailable LAVERNE, OLAF Winter Primary Care Unavailable LAVERNE, OLAF Winter Primary Care Unavailable DRE BUENROSTRO Attending Unavailable OLAF GALLOWAY Primary Care Unavailable FRANCES[place] Referring Unavailable OLAF GALLOWAY Primary Care Unavailable Allergies Allergy Classification Reported Allergen(s) Allergy Type Date of Onset Reaction(s) Facility (3 sources) [facility] drug [facility] Work Phone: (18 sources) Penicillins; Translations: [penicillins] Propensity to adverse reactions to drug (disorder) 7 Hives [facility] Repository (15 sources) Morphine; Translations: [MORPHINE] Drug Allergy 2 Vomiting [facility] (1 source) Morphine Drug Allergy 4 [facility] Repository Medications Current Medications Medication Drug Class(es) Dates Sig (Normalized) Sig (Original) amphetamine aspartate 2.5 mg / amphetamine sulfate 2.5 mg / dextroamphetamine saccharate 2.5 mg / dextroamphetamine sulfate 2.5 mg oral tablet (15 sources) Central Nervous System Stimulant Start: 03-06-2023 dextroamphetamin e-amphetamine (ADDERALL) 10 mg tablet TAKE TWO TABLETS BY MOUTH EVERY MORNING AND AT NOON, AND TAKE ONE TABLET AT 4pm 03/06/2023 Active Start: 10-08-2021 take 30-40 mg by duglas th once daily Dextroamphetamine-Amphetamine Active 30 - 40 MG PO DAILY October 08, 2021 12:00am take 1 tablet by duglas th twice daily ADDERALL 10 MG TABS One tablet by mouth twice daily AMPHETAMINE-DEXTROAMPHETAMINE [id number] Sabino Nava Comment on above: TAKE TWO TABLETS BY MOUTH EVERY MORNING AND AT NOON, AND TAKE ONE TABLET AT 4pm dapsone-spironolacton e-niacin 6-5-2 % crea (2 sources) dapsone-spironol acto ne-niacin 6-5-2 % crea Apply to affected area. Active Multivitamin preparation (1 source) Start: 10-09-19 take 1 tablet by mouth once daily Multivitamin Active 1 TABLET PO DAILY October 08, 2021 12:00am nystatin 100 unt/mg topical powder (12 sources) Polyene Antifungal Start: 05-11-19 24 NYSTOP powder USE ONE GRAM TWICE DAILY 05/11/2023 Active Comment on above: USE ONE GRAM TWICE D AILY oseltamivir 75 mg oral capsule (1 source) Neuraminidase Inhibitor Start: 03-30-20 End: 04-04-20 take 1 capsule by mouth twice daily oseltamivir (TAMIFLU) 75 mg capsule Take 1 capsule by mouth two times a day for 5 days. 10 capsule 03/30/2024 04/04/2024 Active SEMAGLUTIDE, WEIGHT LOSS, SUBCUTANEOUS (9 sources) SEMAGLUTIDE, GABE GHT LOSS, SUBCUTANEOUS Inject 0.5 mg subcutaneously. Active tretinoin 0.25 mg/ml topical cream (12 sources) Retinoid Start: 04-19-19 tretinoin (RETIN-A) 0.025 % topical cream 04/19/2023 Active Completed/Discontinued Medications Medication Drug Class(es) Dates Sig (Normalized) Sig (Original) AMPHETAMINE-DEXTROAM PHETAMINE (2 sources) Central Nervous System Stimulant take 1 tablet by mouth twice daily ADDERALL 10 MG TABS One tablet by mouth twice daily AMPHETAMINE-DEXTROAM PHETAMINE [id number] Sabino Nava clindamycin 0.01 mg/mg topical gel (11 sources) Lincosamide Antibacterial Start: 04-18-2023 End: 02-27-2024 clindamycin (CLEOCIN-T) 1 % gel Apply to the face once in the evening 04/18/2023 02/27/2024 Discontinued Comment on above: Apply to the face on ce in the evening famotidine 40 mg oral tablet (1 source) Histamine-2 Receptor Antagonist Start: 06-09-2018 End: 11-29-2018 take 40 mg by mouth once daily Famotidine Discontinued 40 MG PO DAILY June 09, 2018 1:00am November 29, 2018 9:02am ivermectin 10 mg/ml topical cream (5 sources) Antiparasitic, Pediculicide Start: 02-22-2023 End: 01-06-2024 SOOLANTRA 1 % Apply a thin layer to the face twice a day. 02/22/2023 01/06/2024 Discontinued Comment on above: Apply a thin layer t o the face twice a day. loratadine 10 mg oral tablet (2 sources) Start: 08-02-2018 End: 03-24-2023 take 1 tablet by mouth once daily loratadine (CLARITIN) 10 mg tablet Indications: Nasal congestion , Eustachian tube disorder, left Take 1 tablet by mouth once daily. 30 tablet 08/02/2018 03/24/2023 Discontinued (Other) Comment on above: Take 1 tablet by [facility] once daily. 8 hr methylphenidate hydrochloride 10 mg extended release oral tablet (1 source) Central Nervous System Stimulant Start: 06-09-2018 End: 06-21-2018 take 10 mg by mouth every other day Methylphenidate Hcl Discontinued 10 MG PO EVERY OTHER DAY June 09, 2018 1:00am June 21, 2018 10:44am oxyCODONE hydrochloride 5 mg oral tablet (2 sources) Opioid Agonist Start: 11-29-2018 End: 12-09-2018 take 1 tablet by mouth every four hours as needed Oxycodone Discontinued 1 TABLET PO EVERY 4 HOURS NEEDED 28 7 November 29, 2018 December 09, 2018 12:08am Start: 07-24-2015 End: 04-22-2017 take 1 tablet by mouth every four hours as needed for pain Oxycodone Discontinued 1 - 2 TABLET PO EVERY 4 HOURS NEEDED July 24, 2015 12:00am April 22, 2017 7:48pm For severe pain sertraline 25 mg oral tablet (6 sources) Serotonin Reuptake Inhibitor Start: 03-30-2023 End: 01-06-2024 take 1 tablet by mouth once sertraline (ZOLOFT) 25 mg tablet Take 1 tablet by mouth every afternoon. 03/30/2023 01/06/2024 Discontinued Start: 02-28-2023 End: 03-24-2023 take 1 tablet by mouth once sertraline (ZOLOFT) 25 mg tablet Take 1 tablet by mouth every afternoon. 0 02/28/2023 03/24/2023 Discontinued (Other) Start: 07-02-2021 take 25 mg by mouth once daily Sertraline Active 25 MG PO DAILY July 02, 2021 12:00am Comment on above: Take 1 tablet by duglas th every afternoon. sodium chloride 0.111 meq/ml nasal spray (2 sources) Start: 08-02-2018 End: 03-24-2023 sodium chloride (SALINE MIST) 0.65 % nasal spray Indications: Nasal congestion , Eustachian tube disorder, left Use 1 [place] in the nose as needed for Cold/Allergy Symptoms. 1 Bottle 08/02/2018 03/24/2023 Discontinued (Other) Comment on above: Use 1 [place] in the n ose as needed for Cold/Allergy Symptoms. Problems Active Problems Problem Classification Problem Date Documented Date Episodic/Chronic Cardiac dysrhythmias (1 source) Intermittent palpitations; Translations: [Palpitations] Episodic Esophageal disorders (1 source) Gastroesophageal reflux disease; Translations: [Gastro-esophageal reflux disease without esophagitis] Chronic Immunizations and screening for infectious disease (2 sources) Patient encounter status; Translations: [Encounter for screening for human papillomavirus (HPV)] 03-24-2023 Episodic Influenza (1 source) Influenza due to Influenza A virus; Translations: [Influenza due to other identified influenza virus with other respiratory manifestations] 03-30-2024 Episodic Other bone disease and musculoskeletal deformities (4 sources) Segmental and somatic dysfunction; Translations: [Segmental and somatic dysfunction of cervical region] Episodic Other bone disease and musculoskeletal deformities (1 source) Segmental and somatic dysfunction of pelvic region; Translations: [Segmental and somatic dysfunction of pelvic region] Onset: 02-29-2024 Episodic Other bone disease and musculoskeletal deformities (1 source) Segmental and somatic dysfunction of lumbar region; Translations: [Segmental and somatic dysfunction of lumbar region] Onset: 02-29-2024 Episodic Other bone disease and musculoskeletal deformities (1 source) Segmental and somatic dysfunction of thoracic region; Translations: [Segmental and somatic dysfunction of thoracic region] Onset: 02-29-2024 Episodic Other bone disease and musculoskeletal deformities (1 source) Segmental and somatic dysfunction of cervical region; Translations: [Segmental and somatic dysfunction of cervical region] Onset: 02-29-2024 Episodic Other complications of ; puerperium affecting management of mother (1 source) wound disruption ; Translations: [Disruption of delivery wound] Episodic Other injuries and conditions due to external causes (1 source) Injury of left ankle; Translations: [Unspecified injury of left ankle, initial encounter] 01-09-2024 Episodic Other injuries and conditions due to external causes (1 source) Injury of right ankle; Translations: [Unspecified injury of right ankle, initial encounter] 01-09-2024 Episodic Other non-traumatic joint disorders (1 source) Acute ankle pain; Translations: [Pain in right ankle and joints of right foot] 02-11-2020 Episodic Other nutritional; endocrine; and metabolic disorders (3 sources) Overweight; Translations: [Overweight] Onset: 08-25-2016 08-25-2016 Chronic Other screening for suspected conditions (not mental disorders or infectious disease) (1 source) Cancer cervix screening status; Translations: [Encounter for screening for malignant neoplasm of cervix] 03-24-2023 Episodic Other skin disorders (1 source) Cystic acne; Translations: [Acne vulgaris] 03-24-2023 Episodic Residual codes; unclassified (1 source) Gestation period, 38 weeks; Translations: [38 weeks gestation of ] Episodic Residual codes; unclassified (1 source) Postoperative state; Translations: [Other specified postprocedural states] 02-27-2024 Episodic Spondylosis; intervertebral disc disorders; other back problems (1 source) Backache; Translations: [Dorsalgia, unspecified] Episodic Past or Other Problems Problem Classification Problem Date Documented Date Episodic/Chronic Cancer of cervix (20 sources) High grade squamous intraepithelial lesion on cervical Papanicolaou smear; Translations: [High grade squamous intraepithelial lesion on cytologic smear of cervix (HGSIL)] Onset: 03-24-2023 03-24-2023 Episodic Nonmalignant breast conditions (2 sources) Cyst of breast; Translations: [Solitary cyst of left breast] Onset: 08-25-2016 09-07-2016 Episodic Other skin disorders (1 source) Acne vulgaris; Translations: [Cystic acne] Onset: 04-21-2023 Episodic Sexually transmitted infections (not HIV or hepatitis) (15 sources) Human papillomavirus deoxyribonucleic acid test positive, high risk on cervical specimen; Translations: [Cervical high risk human papillomavirus (HPV) DNA test positive] Onset: 03-24-2023 03-24-2023 Episodic Unclassified (1 source) Wound infection/hemorrhage, obstetric surgical, delivered/; Translations: [Wound infection/hemorrhage, obstetric surgical, delivered/] Results Test Name Value Interpretation Reference Range Facility [facility] 03-30-2024 CNOV Office Visit (UCWSTR ) ANIYA LOVETT ([id number]) 1985 F Date Time Provider Department 03/30/24 8:00 AM MARGY ASHBY WSTR During your visit today, we recorded the following information about you: Temperature Pulse Respiration Blood pressure 99.8 degrees 120/minute 18/minute 123/83 Weight 95.8 kg Margy Ashby PA-C 03/30/2024 8:38 AM Signed This note was created using NoteWriter. Subjective Aniya Lovett is a 38 year old female. HPI Presents with a chief complaint of bodyaches, fever, sore throat cough over the past day. She did fly home from [place] yesterday. She took a home COVID test which was negative. No diarrhea or vomiting. Denies chest pain or shortness of breath. She is got muscle aches as well. Review of Systems Constitutional: Positive for chills, fatigue and fever. HENT: Positive for congestion, ear pain, rhinorrhea and sore throat. Respiratory: Positive for cough. Negative for shortness of breath and wheezing. Cardiovascular: Negative. Gastrointestinal: Negative. Genitourinary: Negative. Musculoskeletal: Positive for myalgias. Neurological: Positive for headaches. All other systems reviewed and are negative. PAST MEDICAL HISTORY Diagnosis Date Cervical high risk human papillomavirus (HPV) DNA test positive 03/202103/24/2023 GERD (gastroesophageal reflux disease) HSIL (high grade squamous intraepithelial lesion) on Pap smear of cervix 03/202103/24/2023 Current Outpatient Medications Medication Sig Dispense Refill SEMAGLUTIDE, WEIGHT LOSS, SUBCUTANEOUS Inject 0.5 mg subcutaneously. tretinoin (RETIN-A) 0.025 % topical cream dextroamphetamine-amphetamine (ADDERALL) 10 mg tablet TAKE TWO TABLETS BY MOUTH EVERY MORNING AND AT NOON, AND TAKE ONE TABLET AT 4pm oseltamivir (TAMIFLU) 75 mg capsule Take 1 capsule by mouth two times a day for 5 days. 10 capsule 0 zjmsxzr-iuqsdkyxujrmqs-mmpbyj 6-5-2 % crea Apply to affected area. NYSTOP powder USE ONE GRAM TWICE DAILY No current facility-administered medications for this visit. PAST SURGICAL HISTORY Procedure Laterality Date CERVIX UTERI CONIZA LP ELCTRO EXCI CERVIX UTERI CONIZA LP ELCTRO EXCI 02/02/2024 LEEP, cervix very flush and leep difficult EGD [facility]/O [facility] SPEC VARICIES INJ GERD VAGINOSCOPY 04/21/2023 No family history on file. Social History Tobacco Use Smoking status: Former Smokeless tobacco: Never Vaping Use Vaping status: Never Used Substance Use Topics Alcohol use: Yes Comment: seldom Drug use: Never Objective BP 123/83 Pulse 120 Temp 37.7 ?C (99.8 ?F) Resp 18 Wt 95.8 kg (211 lb 3.2 oz) LMP 02/19/2024 (Exact Date) SpO2 98% BMI 34.09 kg/m? Physical Exam Vitals reviewed. Constitutional: Appearance: Normal appearance. She is ill-appearing. HENT: Head: Normocephalic and atraumatic. Right Ear: Tympanic membrane, ear canal and external ear normal. Left Ear: Tympanic membrane, ear canal and external ear normal. Nose: Nose normal. Mouth/Throat: Mouth: Mucous membranes are moist. Pharynx: Posterior oropharyngeal erythema present. No oropharyngeal exudate. Cardiovascular: Rate and Rhythm: Regular rhythm. Tachycardia present. Heart sounds: Normal heart sounds. Pulmonary: Effort: Pulmonary effort is normal. Breath sounds: Normal breath sounds. Musculoskeletal: Cervical back: Neck supple. Lymphadenopathy: Cervical: No cervical adenopathy. Skin: General: Skin is warm and dry. Findings: No rash. Neurological: General: No focal deficit present. Mental Status: She is alert. Assessment and Plan ASSESSMENT/PLAN: 1. Influenza A - ICD9: 487.1, ICD10: J10.1 Influenza A positive. Strep test was negative. Will treat with Tamiflu. Discussed gsea-rvp-xogzwrm medications to help with symptoms. Follow-up with PCP if not improving. Discussed contagiousness. Patient agreeable with plan. - STREP A MOLECULAR (POC) - INFLUENZA AANDB MOLECULAR (POC) GAYATRI PettitC Allergies As of Date: 03/30/2024 Noted Allergy Reaction MORPHINE 07/02/2021 11 - Vomiting PENICILLINS 02/20/2017 4 - Hives Date Reviewed: 03/30/2024 Reviewed by: Ivette Langston MA - Fully Assessed Reason for Visit: Cough [28] Cmt: ST, bodyaches, MAGAÑA, chills, fever x2 days, recent travel Primary Visit Diagnosis:Influenza A [J10.1] Order(s):STREP A MOLECULAR (POC) [2313497] Order #: [id number]. #:[id number] INFLUENZA AANDB MOLECULAR (POC) [[id number]] Order #: [id number]. #:[id number] oseltamivir (TAMIFLU) 75 mg capsuleTake 1 capsule by mouth two times a day for 5 days.Disp: 10 capsuleRfl: 0 Prescriptions as of 03/30/2024 - oseltamivir (TAMIFLU) 75 mg capsule Take 1 capsule by mouth two times a day for 5 days. - bwgzgaa-mdnbtqeacscnpy-gepvbv 6-5-2 % crea Apply to affected area. - SEMAGLUTIDE, WEIGHT LOSS, SUBCUTANEOUS Inj (more content not included)... Normal [facility] INFLUENZA A&B MOLECULAR (POC )on 03-30-2024 Flu A (POCT) Positive Abnormal Negative [facility] Comment on above: Location:[place] [address] Interpretation and review of laboratory results Abnormal [facility] Procedural Control Valid [facility] Location:[address] POINT OF CARE [facility] STREP A MOLECULAR (POC)on Procedural Control Valid [facility] Strep A (POCT) Negative Negative [facility] Chiropractic Reporton 2023 Chiropractic Report [facility] [address] [place] [address] OFFICE VISIT Date of Service: 02/29/24 MR#: [id number] Acct: [id number] Name: BONYANIYA K Rep #: [id number] : 1985 Provider: BRUNA Daniels Age/Sex: 38/F Location: [facility] Status: Signed Intake Vital Signs 02/02/24 10:43 02/29/24 09:41 Height 5 ft 6 in 5 ft 6 in Weight: 213 lb BMI 34.3 BP 120/76 Blood Pressure Location Lt brachial Position Sitting Intake Visit Reasons: reeval Chief Complaint: Upper back pain/ dizziness Is patient in pain?: Yes Pain scale (1-10): 1 Allergies Penicillins Allergy (Verified 02/29/24 09:42) Rash morphine Adverse Reaction (Verified 02/29/24 09:42) Nausea Patient : No PFSH Medical History High grade squamous intraepithelial lesion of cervix Anxiety Alcohol use Gastric reflux Former smoker Normal Holter exam History of echocardiogram Cardiology follow-up encounter GERD (gastroesophageal reflux disease) Vertigo History of frequent headaches ADHD (attention deficit hyperactivity disorder) Surgical History History of esophagogastroduodenoscopy (EGD) [place] teeth extracted History of tonsillectomy and adenoidectomy History of Social History Smoking Status: Former smoker quit date: 04/11/14 alcohol intake: never substance use type: does not use what type of physical activity do you participate in: none HPI reeval Chief Complaint: Upper back pain Visit Number: 1 Details: Aniya is a 38 year old female here today for reevaluation of upper back pain/dizziness. Pt states that she has intermittent pain and tightness in her BL upper back mostly around the shoulder blade area. She states that the pain sometimes feels like a dull ache, but other times she will get sharp pains. She denies any radiculopathy into her arms at this time. She states that her neck and trap area feel fine and she is not having any low back issues. She also has complains of some periodic dizziness, almost like vertigo but not full on. She states that if she turns her head too fast or makes sudden movements, she will become dizzy. She is a side sleeper and there are multiple dogs in the bed every night so this causes her to sleep in some unfavorable positions which can exacerbate her discomfort. 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 At home she uses ibuprofen and stretching to help alleviate her symptoms. She recently slide down a couple stairs at her [employer] and wants her low back checked out. Minimal pain, but may be misaligned. She has used chiropractic treatment in the past and found that it helped relieve some of her symptoms. Location: Back Duration: intermittent Aggravating or associated factors: ADL's, sleeping Relieving factors: ibuprofen, stretching Pain Quality: aching, dull and sharp Exam Musc General: Yes normal posture, normal gait, joint tenderness and decreased range of motion; No muscle weakness Cervical Spine: Yes loss of normal cervical lordosis, Yes cervical muscular tenderness right greater than left diffuse , Yes pain with cervical ROM with lateral flexion to right, with lateral flexion to left and with anterior flexion, Yes cervical spasm right greater than left diffuse trapezius and paracervical muscles and Yes misalignment misalignment: C5, C6 and C7 Thoracic/Lumber: Yes thoracic and lumbar spine normal to inspection, Yes Lasegue's sign negative, Yes straight leg raise negative bilaterally, Yes pain with thoraco-lumbar ROM with forward flexion, Yes paraspinal tenderness bilaterally (minimal) in the lower lumbar and on the right greater than left (upper/mid thoracic), No thoraco-lumbar ROM limited, No scoliosis, Yes thoraco-lumbar spasm on the right greater than left (trap, rhomboid) and on the left greater than right (lumbar paraspinal) and Yes misalignment T2, T3, T4, T5, T6, L3, L4 and L5 Office Procedures Procedures - Chiropractic Procedures Manipulation: Cervical C6, Lumbar L3 and L5 and Thoracic T3 and T6 Manipulation: 3-4 regions Electronic Stimulation: Yes Electrical Stimulation: Cervical 15 mins (11) mA and Thoracic 15 mins (11) mA Therapy Performed by:: Dr. Jailene Ruano DC Traction, Mechanical: Yes Patient Response: positive Assessment and Plan Assessment and Plan (1) Segmental and somatic dysfunction of cervical region: Status: Acute (2) Segmental and somatic dysfunction of thoracic region: Status: Acute (3) Segmental and somatic dysfunction of lumbar region: Status: Acute (4) Segmental and somatic dysfunction of pelvic region: S (more content not included)... [facility] (OB[facility] ) ANIYA LOVETT ([id number]) 1985 F Date Time Provider Department 02/27/24 9:20 AM DRE BUENROSTRO OBGYWM During your visit today, we recorded the following information about you: Blood pressure Weight Height Last Period 11260 97.1 kg 1.676 m 02/19/24 Dre Buenrostro MD 02/27/2024 9:46 AM Signed Manager Federal offered: Patient declines. Aniya is a 38 year old who presents for an annual gynecologic exam without complaints. S/p LEEP last month for DOLORES 2 w/ negative margins. Has had some cystic acne, started by derm on spironolactone Menses: cycles every 28-30 days and 3-5 days of flow. Contraception: none- plans vasectomy HPV vaccine: Yes Last Pap: 04/05/2023 HSIL HPV: 03/30/2023 +Type 16 History of abnormal pap: yes Last mammogram: 2 years Sexually active: Yes OB History T3 L3 SAB0 IAB0 Ectopic0 Multiple0 Live Births3 Pulp Tester History LMP: 02/19/2024 (Exact Date), Having periods Age at Menarche: Age at First : Age at Menopause: Pulp Tester History Comments: Sexual Activity: Yes; Male Contraception: No contraception data on record PAST MEDICAL HISTORY Diagnosis Date Cervical high risk human papillomavirus (HPV) DNA test positive 03/202103/24/2023 GERD (gastroesophageal reflux disease) HSIL (high grade squamous intraepithelial lesion) on Pap smear of cervix 03/202103/24/2023 PAST SURGICAL HISTORY Procedure Laterality Date CERVIX UTERI CONIZA LP ELCTRO EXCI CERVIX UTERI CONIZA LP ELCTRO EXCI 02/02/2024 LEEP, cervix very flush and leep difficult EGD W/O [facility] SPEC VARICIES INJ GERD VAGINOSCOPY 04/21/2023 No family history on file.SOCIAL HISTORY Social History Tobacco Use Smoking status: Former Smokeless tobacco: Never Vaping Use Vaping status: Never Used Substance Use Topics Alcohol use: Yes Comment: seldom Drug use: Never REVIEW OF SYSTEMS Abdomen: No abdominal pain, nausea, vomiting, diarrhea, or constipation. No bloating, early satiety, indigestion, or increased flatulence. Bladder: No dysuria, gross hematuria, urinary frequency, urinary urgency, or incontinence. Breast: No breast lumps, nipple d/c, overlying skin changes, redness or skin retraction. Allergies and current medication updated:Yes SENSITIVE EXAM: The sensitive examination was discussed with the Patient or Patient's Authorized Door To Door Salesperson. As applicable, any other physician, advance practice provider, medical student, or other health professional student that will be observing or involved in the sensitive examination for educational or training purposes was discussed with the Patient or Authorized Door To Door Salesperson. The Patient or Authorized Door To Door Salesperson has agreed to proceed with the sensitive examination. (Sensitive examination includes inspection and/or palpation of the breasts, pelvis, prostate and anorectal regions). EXAM: BP 112/60 Wt 214 lb (97.1kg) LMP 02/19/2024 GENERAL: pleasant, female in no apparent distress HEENT: Normocephalic, atraumatic, mucus membranes moist, and no lesions NECK: Supple, full range of motion, no adenopathy, and thyroid normal DERMATOLOGY: Normal, without lesions, non-icteric, and non-hirsute BREAST: soft, non-tender, symmetric, no dominant mass, normal nipple-areolar complex, no lymphadenopathy, and no nipple discharge CHEST: Normal inspiratory effort ABDOMEN: soft, non-tender, and no masses PELVIC: external genitalia normal, normal Bartholin's glands, urethra, Liborio Negron Torres's glands, no vulvar lesions, no cervical lesions, good vaginal support, physiologic discharge present, normal appearing perineal body and perianal region, cervix healed, flush BIMANUAL: uterus normal size, shape and consistency, no adnexal masses, and non-tender RECTOVAGINAL: deferred. NEURO: alert and oriented x3,exam grossly non-focal EXTREMITIES: normal ASSESSMENT/PLAN: 1) Health maintenance: Pap/HPV up to date. Mammogram starting age 40. HPV vaccine: completed series HPV in 1 year 2) Contraception: plans vasectomy. Contraceptive options reviewed and information provided. 3) STD screening: Declined STD check. 4) Follow up one year or sooner as needed Dre Buenrostro MD Allergies As of Date: 02/27/2024 Noted Allergy Reaction MORPHINE 07/02/2021 11 - Vomiting PENICILLINS 02/20/2017 4 - Hives Date Reviewed: 02/27/2024 Reviewed by: Dre Buenrostro MD - Fully Assessed Reason for Visit: Yearly Exam [187] Primary Visit Diagnosis:Post-operative state [Z98.890] Other Visit Diagnoses:Encounter for gynecological examination (general) (routine) without abnormal findings [Z01.419] Encounter for screening mammogram for breast cancer [Z12.31] Order(s):ADENIKE SCREENING W DOM [[id number]] Order #: [id number] FUTURE Prescriptions as of 02/27/2024 - nihoqwg-tsgsrajiljvcua-lneili 6-5-2 % crea (more content not included)... Normal [facility] CBC-Complete Blood Cnt No Di ffon 02-02-2024 Erythrocyte distribution width (RBC) [Ratio] 13.0 % Normal 11.6-14.6 [facility] Comment on above: Performed By: #### L 400.7600, L100.0500 #### [facility] [address] [place], [address] Hematocrit (Bld) [Volume fraction] 40.5 % Normal 37-47 [facility] Comment on above: Performed By: #### L 400.7600, L100.0500 #### [facility] [address] [place], [address] Hemoglobin (Bld) [Mass/Vol] 13.4 g/dL Normal 12.0-15.0 [facility] Comment on above: Performed By: #### L 400.7600, L100.0500 #### [facility] [address] [place], [address] MCH (RBC) [Entitic mass] 27.7 pg Normal 27.0-32.0 [facility] Comment on above: Performed By: #### L 400.7600, L100.0500 #### [facility] [address] [place], [address] MCHC (RBC) [Mass/Vol] 33.1 g/dL Normal 32-36 [facility] Comment on above: Performed By: #### L 400.7600, L100.0500 #### [facility] [address] [place], [address] MCV (RBC) [Entitic vol] 83.7 fL Normal 81-99 [facility] Comment on above: Performed By: #### L 400.7600, L100.0500 #### [facility] [address] [place], [address] Platelet mean volume (Bld) [Entitic vol] 9.9 fL Normal 6.2-12.0 [facility] Comment on above: Performed By: #### L 400.7600, L100.0500 #### [facility] [address] [place], [address] Platelets (Bld) [#/Vol] 312 10*3/uL Normal 150-450 [facility] Comment on above: Performed By: #### L 400.7600, L100.0500 #### [facility] [address] [place], [address] RBC (Bld) [#/Vol] 4.84 10*6/uL Normal 4.2-5.4 [facility] Comment on above: Performed By: #### L 400.7600, L100.0500 #### [facility] [address] [place], [address] RDW SD 39.3 fl Normal 35.1-43.9 [facility] Comment on above: Performed By: #### L 400.7600, L100.0500 #### [facility] [address] [place], [address] WBC (Bld) [#/Vol] 8.4 10*3/uL Normal 4.4-11.[address] [facility] Comment on above: Performed By: #### L 400.7600, L100.0500 #### [facility] [address] [place], [address] CNOPon 02-02-2024 CNOP Operative Note (Enc) (OBGYWM) Encounter Status:Closed by DRE BUENROSTRO on 02/02/24 Normal [facility] Discharge Instructionon 01-10 Discharge Instruction [facility] Medical Records Department [address] [place] [address] Instructions for Home/Discharge Instructions 02/02/24 1139 MR#: [id number] Acct: [id number] Name: ANIYA LOVETT Rep #: [id number] : 1985 38 From: Dre Buenrostro MD PCP: Dr. Olaf Galloway MD Status:REG [facility] [place] Discharge Instructions Diet Discharge Diet: No restrictions Activity Discharge Activity: May Drive, May Shower and May Take a Tub Bath (in 2 weeks) Return to work on:: 02/03/24 May shower in (days): 1 May resume sexual activity in: 2 weeks Lifting Restrictions: 20 lbx for 1 week Additional Activity Instructions:: Use ibuprofen, heating pad and tylenol as needed for pain Dressing / Incision Call your doctor if your incision/area has: Sudden Increased Bleeding and Foul Smelling Discharge Call your doctor if you observe: Fever of 101 or Higher and Using more than 1 pad per hour Follow Up Care Please Follow Up With: Dre Buenrostro MD When: in 3-4 weeks or as needed. We will contact you next week with the pathology. Send a Pockether[employer] message or call [phone] as needed for nonemergent question Test Results: Test results from this visit will be discussed in further detail at your follow-up appointment, if applicable. Discharge Plan Admission Primary Reason for Your Visit: LEEP of the cervix Attending Provider: Dre Buenrostro Primary Care Provider: Olaf Galloway Instructions Print Language: Micronesian Discharge Orders/Prescriptions Prescriptions: Continued multivitamin Tablet 1 tab PO DAILY dextroamphetamine-amphetamine 10 mg tablet 30 - 40 mg PO DAILY Patient Comments: TAKE 2 (TWO) TABLETS BY MOUTH EVERY DAY IN THE MORNING, 1 (ONE) TABLET at noon and 1 (ONE) TABLET at AT 4 PM semaglutide 0.25 mg or 0.5 mg (2 mg/3 mL) pen injector 0.25 mg subcut WE Rx Instructions: for 4 weeks Referrals / Follow Up: Olaf Galloway MD [Primary Care Provider] - Disposition Disposition (needs filled in before D/C Order can be placed): Home, Self Care 02/02/24 1210 Dre Buenrostro MD CC: Dr. Olaf aGlloway MD Signed Normal [facility] Operative Reporton 4 Operative Report [facility] Medical Records Department [address] [place] [address] Operative Report 02/02/24 1207 MR#: [id number] Acct: [id number] Name: ANIYA LOVETT Rep #: [id number] : 1985 38 From: Dre Buenrostro MD PCP: Dr. Olaf Galloway MD Status:[facility] Location: [place] [address] Problems Associated Problem List Diagnoses (1) High grade squamous intraepithelial lesion of cervix: Operative Report (Standard) Operative Information Surgery/Procedure Performed: LEEP of the cervix Surgeon: Dre Buenrostro Date of Procedure: 02/02/24 Procedure Start Time: 11:44 Procedure Stop Time: 12:05 Pre-Operative Diagnosis: High grade dysplasia of the cervix Post-Operative Diagnosis: same Select all DRAINS/GRAFTS/IMPLANTS that apply: None Type of Anesthesia: Local Special Medications: none Estimated Blood Loss: 10 Fluids Replaced: 0 Specimen collected: Yes Description of specimen(s) removed: ectocervix and endocervical curettings Description of surgery: The patient was taken to the operating room where she was prepped and draped in a dorsal lithotomy position. The LEEP speculum was placed in the vagina. A paracervical block was performed with 1% Xylocaine with 1-100,000 epinephrine solution. The ectocervix was amputated with large Celeste exact loop. An endocervical curettage was then performed. The specimens were handed off and labeled and sent to pathology. Hemostasis of the cervix was obtained with ball cautery. Some Monsel solution was placed over the cauterized cervix. Hemostasis was assured. The instruments were removed from the vagina. A vaginal sweep was completed by me. Sponge and needle counts were correct. Surgical Findings: normal vagina, cervix flush w/ the vagina Apartment Leasing Consultant food services manager: Yes Special Needs Bus Driver: Brent Ann Tasks completed by airplane first officer: Retracting Additional title assistant?: No Complications Complications: No Admit VTE Documentation VTE Present on Admission: No VTE Mechan Device Prophylaxis: SCD's VTE Pharm Prophylaxis ordered?: No 02/02/24 2808 Cosigner Signature (if applicable): CC: Dr. Olaf Galloway MD; Dr. Dre Buenrostro MD Signed Normal [facility] ,Urineon 02-02-2024 Beta HCG ( test) Ql (U) Negative Normal [facility] Comment on above: Result Comment: Very dilute urine specimens, as indicated by a low specific gravity, may not contain area representative levels of hCG. If is still suspected, a first morning urine specimen should be collected 48 hours later and tested. Performed By: #### L 400.7600, L100.0500 #### [facility] [place], [address] Surgery Specimen Level Charity 02-02-2024 Surgery Specimen Level IV ----- Patient Age/Sex Location Account Attending Physician ----- ANIYA LOVETT 38/F [facility] [place] [id number] Dr. Dre Buenrostro MD ----- Specimen: [id number] Received: 02/02/24 Status: PAIGE Levine Num: [id number] Spec Type: Leep Cone Subm Dr: Dr. Dre Buenrostro MD HEADER OPERATION: Leep cone PRE-OP DIAGNOSIS: High grade squamous intraepithelial lesion of cervix TISSUE SUBMITTED: A- Exocervix *stitch in anterior*, B- Endocervical curettings ----- MICROSCOPIC DIAGNOSIS A. 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 Resection margins are free of dysplastic changes. See comment. B. Endocervical curettings: Fragments of benign ecto and endocervical epithelium, blood and mucous. Negative for dysplasia. AM.02/03/2024 COMMENT A. Immunohistochemistry ([id number]) for surrogate HPV marker (p16) supports the above diagnosis. Detached fragments of tissue with dysplastic changes are also noted adjacent to the resection margin. Dysplastic changes are noted predominantly in the anterior cervix (block 1 4). Clinical correlation and appropriate follow up are necessary. Case has been reviewed in consultation with Dr. Cade who concurs with the above diagnosis. IDC:AM MICROSCOPIC DESCRIPTION Slides are reviewed. GROSS DESCRIPTION A. Received in fixative is one container labeled with the patient's name and designated Exocervix. The specimen consists of two pieces of calvo indurated tissue measuring 2.5 x 1.0 x .6cm (anterior cervix) and 1.5 x 1.0 x 0.5cm (posterior cervix). No mucosal lesions are identified. Non-mucosal surface is inked black. Stitch is presumed to be at 12o'clock. The specimen is serially sectioned and submitted entirely in four cassettes as follows: 1- 12-3o'clock, 2- 3-6o'clock, 3-6-9o'clock, 4-9-12o'clock. B. Received in fixative is one container labeled with the patient's name and designated Endocervical curettings. The specimen consists of multiple irregular fragments of hemorrhagic soft tissue that in aggregate measure 3.0 x 2.5 x 0.2 cm. The specimen is totally submitted in one cassette. 02/02/2024 TC:5 ----- Patient Age/Sex Location Account Attending Physician ----- ANIYA LOVETT 38/F [facility] [place] [id number] Dr. Dre Buenrostro MD ----- CPT: 66473,07272 ----- Patient Age/Sex Location Account Attending Physician ----- ANIYA LOVETT 38/F [facility] [place] [id number] Dr. Dre Buenrostro MD ----- Signed (signature on file) Dr. Moo Gonzalez MD 02/06/24 1236 ----- Normal [facility] Comment on above: Performed By: #### P SUIV #### [facility] [address] [place], [place], [id number] p16 (initial)on 02-02-2024 p16 (initial) --------- ----- Patient Age/Sex Location Account Attending Physician ----- MIRA LOVETTHELEN Gaxiola 38/F [facility] [place] [facility] [id number] Dr. Dre Buenrostro MD ----- Specimen: [id number] Received: 02/03/24 Status: PAIGE Levine Num: [id number] Spec Type: IMMUNO Subm Dr: Dr. Dre Buenrostro MD PHYSICIAN INSTITUTION [place] [address] SPECIMEN INFORMATION: Tissue Source: A- Exocervix Clinical Info: High grade squamous intraepithelial lesion of cervix Specimen Number: [id number] A 1 CPT code: 24164,84210 METHODOLOGY: Deparaffinized sections of prefer/formalin-fixed tissue or PAP/DQ stained slides are incubated with monoclonal/polyclonal antibodies/oligonucleotide probes. Localization is made via biotin free immunoperoxidase method. Appropriate controls are performed and reacted as expected. Results on target cell population are indicated in the following table: RESULTS: ANTIBODY / CLONE RESULT Block A 1 P16 (E6H4) positive, block staining Ki-67 (30-9) positive, moderate These tests were developed and their performance characteristics determined by [facility]. They may not have been cleared or approved by the U.S. Food and Drug Administration. The FDA has determined that such clearance or approval is not necessary. The above immunohistochemical/dualISH markers are ordered and reviewed by the Pathologist. INTERPRETATION: A. Exocervix, leep colonization: Moderate squamous dysplasia (DOLORES II). 02/06/2024 Signed (signature on file) Dr. Moo Gonzalez MD 02/06/24 1236 ----- Normal [facility] Comment on above: Performed By: #### P P16 #### [facility] [place], [address] [facility] 01-24-2024 CNPN Telephone (OBGYWM) ANIYA LOVETT ([id number]) 1985 F Date Time Provider Department 01/24/24 DRE BUENROSTRO OBGameoticWM During your visit today, we recorded the following information about you: Marychuy Roger RN 01/24/2024 2:47 PM Addendum Patient is scheduled for LEEP procedure on 02/01 at [facility]. Patient had her PAT with [facility] today, PAT nurse calling to relay to office that patient told her that she is very confused to why she is having a LEEP under anesthesia and that she does not want to be put to sleep on the day of the surgery. KHRIS. MISTI Bourgeois Rebecca L, MD 01/24/2024 2:52 PM Signed Patient and I have discussed this. They can do some IV sedation perhaps. Thanks. Mostly it is so I have adequate light and equipment. Dre Buenrostro MD Allergies As of Date: 01/24/2024 Noted Allergy Reaction MORPHINE 07/02/2021 11 - Vomiting PENICILLINS 02/20/2017 4 - Hives Date Reviewed: 01/09/2024 Reviewed by: Gregoria Garcia MA - Fully Assessed Reason for Visit: upcoming surgery [Other] Prescriptions as of 01/24/2024 - SEMAGLUTIDE, WEIGHT LOSS, SUBCUTANEOUS Inject 0.5 mg subcutaneously. - NYSTOP powder USE ONE GRAM TWICE DAILY - clindamycin (CLEOCIN-T) 1 % gel Apply to the face once in the evening - tretinoin (RETIN-A) 0.025 % topical cream - dextroamphetamine-amphetamine (ADDERALL) 10 mg tablet TAKE TWO TABLETS BY MOUTH EVERY MORNING AND AT NOON, AND TAKE ONE TABLET AT 4pm Problem List As Of Date 01/24/2024 Noted Resolved High grade squamous intraepithelial cervical dy*03/24/2023 Cervical high risk HPV (human papillomavirus) t*03/24/2023 High grade squamous intraepithelial lesion (HGS*05/19/2023 Encounter Status:Closed by DRE BUENROSTRO on 01/24/24 [facility] 01-16-2024 [facility] Telephone [facility] ANIYA LOVETT ([id number]) 1985 F Date Time Provider Department 01/16/24 [facility] [place] [facility] [[email or web address]] During your visit today, we recorded the following information about you: Andrea Jordan MA 01/16/2024 10:35 AM Signed Pt requesting report and disk with images of x-ray done 01/09/2024. She has appt with [facility] tomorrow at 1pm. Will come in at 12 tomorrow to waste picker. 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 - NYSTOP powder USE ONE GRAM TWICE DAILY - clindamycin (CLEOCIN-T) 1 % gel Apply to the face once in the evening - tretinoin (RETIN-A) 0.025 % topical cream - dextroamphetamine-amphetamine (ADDERALL) 10 mg tablet TAKE TWO TABLETS BY MOUTH EVERY MORNING AND AT NOON, AND TAKE ONE TABLET AT 4pm Problem List As Of Date 01/16/2024 Noted Resolved High grade squamous intraepithelial cervical dy*03/24/2023 Cervical high risk HPV (human papillomavirus) t*03/24/2023 High grade squamous intraepithelial lesion (HGS*05/19/2023 Encounter Status:Closed by ANDREA JORDAN on 01/17/24 [facility] CNOVon 01-09-2024 CNOV Office Visit (WSTR ) ANIYA LOVETT ([id number]) 1985 F Date Time Provider Department 01/09/24 10:45 AM [place] [facility] [[email or web address]] During your visit today, we recorded the following information about you: Temperature Pulse Respiration Blood pressure 98.1 degrees 115/minute 21/minute 124/78 Weight 102.1 kg Francesco Ny APRN.CNP 01/09/2024 12:01 PM Signed Subjective HPI HPI Aniya Gaxiola Bony is a 38 year old female who presents today for CC of bilat ankle injury/rolled today. Has tried nothing for relief. Symptoms are worsened by rom/walking. Risk factors hx of ankle sprains. .Patient presents with: Trauma: Bilateral ankle injury from fall PAST MEDICAL HISTORY Diagnosis Date Cervical high risk human papillomavirus (HPV) DNA test positive 03/202103/24/2023 GERD (gastroesophageal reflux disease) HSIL (high grade squamous intraepithelial lesion) on Pap smear of cervix 03/202103/24/2023 PAST SURGICAL HISTORY Procedure Laterality Date EGD W/O BRSH SPEC VARICIES INJ GERD VAGINOSCOPY 04/21/2023 ALLERGIES Morphine and Penicillins MEDICATIONS SEMAGLUTIDE, WEIGHT LOSS, SUBCUTANEOUS Inject 0.5 mg subcutaneously. NYSTOP powder USE ONE GRAM TWICE DAILY clindamycin (CLEOCIN-T) 1 % gel Apply to the face once in the evening tretinoin (RETIN-A) 0.025 % topical cream dextroamphetamine-amphetamine (ADDERALL) 10 mg tablet TAKE TWO TABLETS BY MOUTH EVERY MORNING AND AT NOON, AND TAKE ONE TABLET AT 4pm No family history on file. Social History Tobacco Use Smoking status: Former Smokeless tobacco: Never Vaping Use Vaping status: Never Used Substance Use Topics Alcohol use: Yes Comment: seldom Drug use: Never ROS Objective Blood pressure 124/78, pulse 115, temperature 36.7 ?C (98.1 ?F), resp. rate 21, weight 102.1 kg (225 lb 1.4 oz), last menstrual period 05/18/2023, SpO2 99%. Physical Exam Constitutional: General: She is not in acute distress. Appearance: She is not toxic-appearing or diaphoretic. HENT: Head: Normocephalic and atraumatic. Pulmonary: Effort: Pulmonary effort is normal. No accessory muscle usage or respiratory distress. Musculoskeletal: Legs: Neurological: Mental Status: She is alert and oriented to person, place, and time. ASSESSMENT/PLAN: 1. Injury of left ankle, initial encounter - ICD9: 959.7, ICD10: S99.912A (primary diagnosis) -no bony abnormality noted on xray -Rest, Ice, Compression, Elevation discussed -discussed use of ibuprofen -follow up with primary care if symptoms persist/worsen in 10-14 days - XR ANKLE GENERAL 3V AP/LAT/OBL LEFT IMPRESSION: No acute osseous abnormality Dictated by : ELMER GUNN MD - XR ANKLE GENERAL 3V AP/LAT/OBL BILATERAL 2. Ankle injuries, right, initial encounter - ICD9: 959.7, ICD10: S99.911A Francesco Ny APRN.CHIEF OF PARTY Allergies As of Date: 01/09/2024 Noted Allergy Reaction MORPHINE 07/02/2021 11 - Vomiting PENICILLINS 02/20/2017 4 - Hives Date Reviewed: 01/09/2024 Reviewed by: Gregoria Garcia MA - Fully Assessed Reason for Visit: Trauma [112] Cmt: Bilateral ankle injury from fall Primary Visit Diagnosis:Injury of left ankle, initial encounter [S99.912A] Other Visit Diagnosis:Ankle injuries, right, initial encounter [S99.911A] Order(s):XR ANKLE GENERAL 3V AP/LAT/OBL LEFT [[id number]] Order #: [id number] XR ANKLE GENERAL 3V AP/LAT/OBL RIGHT [[id number]] Order #: [id number] XR ANKLE GENERAL 3V AP/LAT/OBL BILATERAL [[id number]] Order #: [id number]. #:[id number] Prescriptions as of 01/09/2024 - SEMAGLUTIDE, WEIGHT LOSS, SUBCUTANEOUS Inject 0.5 mg subcutaneously. - NYSTOP powder USE ONE GRAM TWICE DAILY - clindamycin (CLEOCIN-T) 1 % gel Apply to the face once in the evening - tretinoin (RETIN-A) 0.025 % topical cream - dextroamphetamine-amphetamine (ADDERALL) 10 mg tablet TAKE TWO TABLETS BY MOUTH EVERY MORNING AND AT NOON, AND TAKE ONE TABLET AT 4pm Problem List As Of Date 01/09/2024 Noted Resolved High grade squamous intraepithelial cervical dy*03/24/2023 Cervical high risk HPV (human papillomavirus) t*03/24/2023 High grade squamous intraepithelial lesion (HGS*05/19/2023 Encounter Status:Closed by [place] on 01/09/24 [facility] XR ANKLE 3V AP/LAT/OBL BILon 01-09-2024 XR ANKLE 3V AP/LAT/OBL MARY * * *Final Report* * * DATE OF EXAM: Jan 09 2024 11:04AM WOX 5553 - XR ANKLE 3V AP/LAT/OBL MARY / PROCEDURE REASON: multiple diagnoses * * * * Physician Interpretation * * * * EXAMINATION: XR ANKLE 3V AP/LAT/OBL MARY CLINICAL HISTORY: Bilateral ankle pain Technique: XR ANKLE 3V AP/LAT/OBL MARY -- BILATERAL with 3 views on 5 images Comparison: X-ray right ankle 02/11/2020 RESULT: No acute fracture or dislocation. Unchanged appearance of a well-corticated bone fragment adjacent to the right lateral malleolus most likely due to remote trauma. Small left plantar calcaneal spur. IMPRESSION: No acute osseous abnormality Cylinder Loader: [facility] Transcribe Date/Time: Jan 09 2024 11:30A Dictated by : ELMER GUNN MD This examination was interpreted and the report reviewed and electronically signed by: ELMER GUNN MD on Jan 09 2024 11:33AM EST [id number] Normal [facility] XR Ankle - bilateral AP and Lateral and obliqueon 01-09-2024 IMPRESSION: No acute osseous abnormality Cylinder Loader: [facility] Transcribe Date/Time: Jan 09 2024 11:30A Dictated by : ELMER GUNN MD This examination was interpreted and the report reviewed and electronically signed by: ELMER GUNN MD on Jan 09 2024 11:33AM EST DIVISION OF RADIOLOGY * * *Final Report* * * DATE OF EXAM: Jan 09 2024 11:04AM WOX 5553 - XR ANKLE 3V AP/LAT/OBL MARY / PROCEDURE REASON: multiple diagnoses * * * * Physician Interpretation * * * * EXAMINATION: XR ANKLE 3V AP/LAT/OBL MARY CLINICAL HISTORY: Bilateral ankle pain Technique: XR ANKLE 3V AP/LAT/OBL MARY -- BILATERAL with 3 views on 5 images Comparison: X-ray right ankle 02/11/2020 RESULT: No acute fracture or dislocation. Unchanged appearance of a well-corticated bone fragment adjacent to the right lateral malleolus most likely due to remote trauma. Small left plantar calcaneal spur. DIVISION OF RADIOLOGY Provider, [facility] [facility] * *Final Report* * * DATE OF EXAM: Jan 09 2024 11:04AM WOX 5553 - XR ANKLE 3V AP/LAT/OBL MARY / PROCEDURE REASON: multiple diagnoses * * * * Physician Interpretation * * * * EXAMINATION: XR ANKLE 3V AP/LAT/OBL MARY CLINICAL HISTORY: Bilateral ankle pain Technique: XR ANKLE 3V AP/LAT/OBL MARY -- BILATERAL with 3 views on 5 images Comparison: X-ray right ankle 02/11/2020 RESULT: No acute fracture or dislocation. Unchanged appearance of a well-corticated bone fragment adjacent to the right lateral malleolus most likely due to remote trauma. Small left plantar calcaneal spur. IMPRESSION IMPRESSION: No acute osseous abnormality Cylinder Loader: PSCB Transcribe Date/Time: Jan 09 2024 11:30A Dictated by : ELMER GUNN MD This examination was interpreted and the report reviewed and electronically signed by: ELMER GUNN MD on Jan 09 2024 11:33AM EST [facility] Radiology Study observation (narrative) [facility] XR Ankle - bilateral AP and Lateral and obliqueOrdered By: Ccf Provider on 01-09-2024 [facility] CNOVon 01-06-2024 CNOV Office Visit (OBGYWM ) ANIYA LOVETT ([id number]) 1985 F Date Time Provider Department 01/06/24 10:10 AM DRE BUENROSTRO OBGYWM During your visit today, we recorded the following information about you: Pulse Respiration Blood pressure Weight 86/minute 20/minute 120/70 99.5 kg Height 1.67 m Dre Buenrostro MD 01/06/2024 12:44 PM Signed Aniya Gaxiola Bony is a 38 year old female who presents for problem visit for HSIL. HPI: 38-year old female with history of HSIL of the cervix. Has a history of cryo before her C-sections. Has a very high and difficult to access cervix. Presents to discuss options. OB History T3 L3 SAB0 IAB0 Ectopic0 Multiple0 Live Births3 Pulp Tester History LMP: 05/18/2023 (Exact Date), Having periods Age at Menarche: Age at First : Age at Menopause: Pulp Tester History Comments: Sexual Activity: Yes; Male Contraception: No contraception data on record PAST MEDICAL HISTORY Diagnosis Date Cervical high risk human papillomavirus (HPV) DNA test positive 03/202103/24/2023 GERD (gastroesophageal reflux disease) HSIL (high grade squamous intraepithelial lesion) on Pap smear of cervix 03/202103/24/2023 PAST SURGICAL HISTORY Procedure Laterality Date EGD W/O [facility]SH SPEC VARICIES INJ GERD VAGINOSCOPY 04/21/2023 History reviewed. No pertinent family history. Social History Tobacco Use Smoking status: Former Smokeless tobacco: Never Vaping Use Vaping status: Never Used Substance Use Topics Alcohol use: Yes Comment: seldom Drug use: Never Current Outpatient Medications Medication Sig SEMAGLUTIDE, WEIGHT LOSS, SUBCUTANEOUS Inject 0.5 mg subcutaneously. NYSTOP powder USE ONE GRAM TWICE DAILY clindamycin (CLEOCIN-T) 1 % gel Apply to the face once in the evening tretinoin (RETIN-A) 0.025 % topical cream dextroamphetamine-amphetamine (ADDERALL) 10 mg tablet TAKE TWO TABLETS BY MOUTH EVERY MORNING AND AT NOON, AND TAKE ONE TABLET AT 4pm sertraline (ZOLOFT) 25 mg tablet Take 1 tablet by mouth every afternoon. SOOLANTRA 1 % Apply a thin layer to the face twice a day. No current facility-administered medications for this visit. Allergies As of Date: 01/06/2024 Allergen Noted Reaction MORPHINE 07/02/2021 Vomiting PENICILLINS 02/20/2017 Hives Fully Assessed 05/19/2023 Allergies and current medication updated:Yes SENSITIVE EXAM: Sensitive exam not performed. EXAM: BP 120/70 Pulse 86 Resp 20 Ht 5' 5.748 (1.67m) Wt 219 lb 6.4 oz (99.5kg) SpO2 96% LMP 05/18/2023 BMI 35.68 kg/(m2). GENERAL: pleasant, female in no apparent distress H ASSESSMENT AND PLAN: [place] LEEP and HRHPV and High-grade squamous intraepithelial lesion of the cervix, difficult to access cervix. Risk benefits and alternatives to LEEP in the operating room were discussed with the patient, her questions were answered to her satisfaction she desires to proceed. She is anxious about being in surgery and risks of anesthesia and being in the operating room. I again offered patient consult with [facility] to see if they would be more comfortable performing the procedure in the office. Patient declines this and agrees to proceed in the operating room. Decision for surgery today. See HANDP note. MD Chitra Godinez Rebecca L, MD 01/06/2024 12:44 PM Signed Pre-Op History and Physical HPI: The patient is a 38 year old female presenting for pre-operative visit. She is scheduled for LEEP, for high grade cervical dysplasia on 02/01/25. Procedure discussed along with risks, benefits and complications. Other alternatives discussed for management. Consent form signed? Yes. PAST MEDICAL HISTORY Diagnosis Date Cervical high risk human papillomavirus (HPV) DNA test positive 03/202103/24/2023 GERD (gastroesophageal reflux disease) HSIL (high grade squamous intraepithelial lesion) on Pap smear of cervix 03/202103/24/2023 PAST SURGICAL HISTORY Procedure Laterality Date EGD W/O [facility] SPEC VARICIES INJ GERD VAGINOSCOPY 04/21/2023 Current Outpatient Medications Medication Sig Dispense Refill SEMAGLUTIDE, WEIGHT LOSS, SUBCUTANEOUS Inject 0.5 mg subcutaneously. NYSTOP powder USE ONE GRAM TWICE DAILY clindamycin (CLEOCIN-T) 1 % gel Apply to the face once in the evening tretinoin (RETIN-A) 0.025 % topical cream dextroamphetamine-amphetamine (ADDERALL) 10 mg tablet TAKE TWO TABLETS BY MOUTH EVERY MORNING AND AT NOON, AND TAKE ONE TABLET AT 4pm sertraline (ZOLOFT) 25 mg tablet Take 1 tablet by mouth every afternoon. SOOLANTRA 1 % Apply a thin layer to the face twice a day. No current facility-administered medications for this visit. ALLERGIES: Morphine and Penicillins PERSONAL HISTORY: Social History Tobacco Use Smoking status: Former Smokeless tobacco: Never Vaping Use Vaping status: Never Used Substance Use T (more content not included)... Normal [facility] [place] 01-06-2024 [facility] Telephone (OBGYWM) ANIYA LOVETT ([id number]) 1985 F Date Time Provider Department 01/06/24 DRE BUENROSTRO OBGYWM During your visit today, we recorded the following information about you: Dre Buenrostro MD 01/06/2024 12:39 PM Signed Please let patient know that she needs to be off her Semaglutide for one week before surgery. She should be of the Qymia for a 3 days. I saw that in her history and not sure if she is still on that. If on adderall then off of that for 3 days as well. MD Kemar Godinez Trisha, RN 01/06/2024 1:06 PM Signed Left message for patient to call office. MISTI Segovia Trisha, RN 01/06/2024 1:22 PM Signed Patient notified. She no longer take Qymia. For adderall, she said she is unable to stop it for 3 days and that she would not be able to function. States with previous surgeries she has never stopped it before. Stated that she may be able to decrease her dose, but not able to stop it. MISTI Segovia Rebecca L, MD 01/06/2024 1:28 PM Signed Reasonable, should be able to continue w/ it. I am ok w/ her taking it if anesthesia is. PAT nurse will review anesthesia guidelines. MD Kemar Godinez Trisha, RN 01/06/2024 3:05 PM Signed Patient notified. Mary Reinoso RN Allergies As of Date: 01/06/2024 Noted Allergy Reaction MORPHINE 07/02/2021 11 - Vomiting PENICILLINS 02/20/2017 4 - Hives Date Reviewed: 05/19/2023 Reviewed by: Dre Buenrostro MD - Fully Assessed Reason for Visit: Appointment [186] Prescriptions as of 01/06/2024 - SEMAGLUTIDE, WEIGHT LOSS, SUBCUTANEOUS Inject 0.5 mg subcutaneously. - NYSTOP powder USE ONE GRAM TWICE DAILY - clindamycin (CLEOCIN-T) 1 % gel Apply to the face once in the evening - tretinoin (RETIN-A) 0.025 % topical cream - dextroamphetamine-amphetamine (ADDERALL) 10 mg tablet TAKE TWO TABLETS BY MOUTH EVERY MORNING AND AT NOON, AND TAKE ONE TABLET AT 4pm Problem List As Of Date 01/06/2024 Noted Resolved High grade squamous intraepithelial cervical dy*03/24/2023 Cervical high risk HPV (human papillomavirus) t*03/24/2023 High grade squamous intraepithelial lesion (HGS*05/19/2023 Encounter Status:Closed by MARY REINOSO on 01/06/24 [facility] HISTORY PHYSICALon HISTORY PHYSICAL HNO ID: [id number] Author: DRE BUENROSTRO MD Service: ? Author Type: Physician Type: H&P Filed: 01/06/2024 12:44 Note Text: Pre-Op History and Physical HPI: The patient is a 38 year old female presenting for pre-operative visit. She is scheduled for LEEP, for high grade cervical dysplasia on 02/01/25. Procedure discussed along with risks, benefits and complications. Other alternatives discussed for management. Consent form signed? Yes. PAST MEDICAL HISTORY Diagnosis Date Cervical high risk human papillomavirus (HPV) DNA test positive 03/202103/24/2023 GERD (gastroesophageal reflux disease) HSIL (high grade squamous intraepithelial lesion) on Pap smear of cervix 03/202103/24/2023 PAST SURGICAL HISTORY Procedure Laterality Date EGD W/O [facility] SPEC VARICIES INJ GERD VAGINOSCOPY 04/21/2023 Current Outpatient Medications Medication Sig Dispense Refill SEMAGLUTIDE, WEIGHT LOSS, SUBCUTANEOUS Inject 0.5 mg subcutaneously. NYSTOP powder USE ONE GRAM TWICE DAILY clindamycin (CLEOCIN-T) 1 % gel Apply to the face once in the evening tretinoin (RETIN-A) 0.025 % topical cream dextroamphetamine-amphetamine (ADDERALL) 10 mg tablet TAKE TWO TABLETS BY MOUTH EVERY MORNING AND AT NOON, AND TAKE ONE TABLET AT 4pm sertraline (ZOLOFT) 25 mg tablet Take 1 tablet by mouth every afternoon. SOOLANTRA 1 % Apply a thin layer to the face twice a day. No current facility-administered medications for this visit. ALLERGIES: Morphine and Penicillins PERSONAL HISTORY: Social History Tobacco Use Smoking status: Former Smokeless tobacco: Never Vaping Use Vaping status: Never Used Substance Use Topics Alcohol use: Yes Comment: seldom Drug use: Never FAMILY HISTORY: History reviewed. No pertinent family history. REVIEW OF SYMPTOMS: GENERAL: denies fevers or chills ENDOCRINOLOGY: has not been on steroids Cardiology : denies palpitations or chest pain Respiratory: denies SOB or cough Hematology: denies history of prolonged bleeding or easy bruising or VTE Allergy: Denies history of personal or family history of allergy to anesthesia PHYSICAL EXAMINATION: VITALS: Blood pressure 120/70, pulse 86, resp. rate 20, height 167 cm (5' 5.75), weight 99.5 kg (219 lb 6.4 oz), last menstrual period 05/18/2023, SpO2 96%. GENERAL: The patient is well nourished, well hydrated in no acute distress. , The patient is oriented to time, place, and person. NECK: Supple. No lynphadenopathy, normal thyroid, no thyromegaly. LUNGS: Clear to auscultation bilaterally. no wheezes, rhonchi or rales HEART: Regular rate and rhythm, Normal heart sounds, and No murmurs or gallops IMPRESSION: +HRHPV 16, high grade squamous intraepithelial lesion of the cervix PLAN: The risks/benefits/alternatives and personal involved for the planned LEEP in the operating room were reviewed with the patient. Her questions were answered to her satisfaction and she desires to proceed. Consent was signed. I reviewed with her postop instructions and expectations. I have reviewed and updated past medical and surgical history, medications and allergies Dre Buenrostro M.D. [facility] 12-23-2023 [facility] Telephone (OBGYWM) ANIYA LOVETT ([id number]) 1985 F Date Time Provider Department 12/23/23 DRE BUENROSTRO OBTRAVIS During your visit today, we recorded the following information about you: Sheree Dumont RN 12/23/2023 10:31 AM Signed Patient is wanting her LEEP moved 1-2 weeks out because she will be on her menses. Advised that she can most likely be on her menses, but patient would not feel comfortable with this. MISTI Cope Rebecca L, MD 12/23/2023 12:32 PM Signed Would probably be better if not at height of menstrual flow but at end would be ok. Please move it to suit her when I have OR time. [place] in [place] I have openings as well. MD Acacia Godinez Lindsey, RN 12/23/2023 2:27 PM Signed ordnance corps officer notified and surgery changed. Designated Broker will notify patient. Marychuy Roger RN Allergies As of Date: 12/23/2023 Noted Allergy Reaction MORPHINE 07/02/2021 11 - Vomiting PENICILLINS 02/20/2017 4 - Hives Date Reviewed: 05/19/2023 Reviewed by: Dre Buenrostro MD - Fully Assessed Reason for Visit: Preparations For Surgery [898] Prescriptions as of 12/23/2023 - NYSTOP powder USE ONE GRAM TWICE DAILY - sertraline (ZOLOFT) 25 mg tablet Take 1 tablet by mouth every afternoon. - clindamycin (CLEOCIN-T) 1 % gel Apply to the face once in the evening - tretinoin (RETIN-A) 0.025 % topical cream - dextroamphetamine-amphetamine (ADDERALL) 10 mg tablet TAKE TWO TABLETS BY MOUTH EVERY MORNING AND AT NOON, AND TAKE ONE TABLET AT 4pm - SOOLANTRA 1 % Apply a thin layer to the face twice a day. Problem List As Of Date 12/23/2023 Noted Resolved High grade squamous intraepithelial cervical dy*03/24/2023 Cervical high risk HPV (human papillomavirus) t*03/24/2023 High grade squamous intraepithelial lesion (HGS*05/19/2023 Encounter Status:Closed by DRE BUENROSTRO on 12/23/23 [facility] [place] 11-30-2023 [facility] Telephone (WOOB) ANIYA LOVETT ([id number]) 1985 F Date Time Provider Department 11/30/23 DRE BUENROSTRO During your visit today, we recorded the following information about you: Brigida Mathews 11/30/2023 9:12 AM Signed Patient called requesting an order for a leep procedure please advise Mary Reinoso RN 11/30/2023 9:19 AM Signed Spoke to patient to clarify. She does want to proceed with LEEP in OR as previously discussed with RR. Surgery sheet to provider to complete. She wants [facility] and is flexible with next available date. MISTI Segovia Rebecca L, MD 11/30/2023 9:27 AM Signed done. MD Kemar Godinez Trisha, RN 11/30/2023 9:37 AM Signed Surgery sheet placed in raised printer's mailbox. Mary Reinoso RN Allergies As of Date: 11/30/2023 Noted Allergy Reaction MORPHINE 07/02/2021 11 - Vomiting PENICILLINS 02/20/2017 4 - Hives Date Reviewed: 05/19/2023 Reviewed by: Dre Buenrostro MD - Fully Assessed Reason for Visit: Orders [681] Cmt: leep Prescriptions as of 11/30/2023 - NYSTOP powder USE ONE GRAM TWICE DAILY - sertraline (ZOLOFT) 25 mg tablet Take 1 tablet by mouth every afternoon. - clindamycin (CLEOCIN-T) 1 % gel Apply to the face once in the evening - tretinoin (RETIN-A) 0.025 % topical cream - dextroamphetamine-amphetamine (ADDERALL) 10 mg tablet TAKE TWO TABLETS BY MOUTH EVERY MORNING AND AT NOON, AND TAKE ONE TABLET AT 4pm - SOOLANTRA 1 % Apply a thin layer to the face twice a day. Problem List As Of Date 11/30/2023 Noted Resolved High grade squamous intraepithelial cervical dy*03/24/2023 Cervical high risk HPV (human papillomavirus) t*03/24/2023 High grade squamous intraepithelial lesion (HGS*05/19/2023 Encounter Status:Closed by DRE BUENROSTRO on 11/30/23 [facility] CNOVon 05-19-2023 CNOV Office Visit (OBGYWM ) ANIYA LOVETT ([id number]) 1985 F Date Time Provider Department 05/19/23 11:30 AM DRE BUENROSTRO OBGYWM During your visit today, we recorded the following information about you: Pulse Respiration Blood pressure Weight 110/minute 16/minute 108/70 108.9 kg Height Last Period 1.676 m 05/18/23 Dre Buenrostro MD 05/19/2023 12:25 PM Signed Dre Monroy MD 05/19/2023 12:25 PM Signed Aniya Smithfer is a 37 year old female who presents for problem visit for f/u LEEP. HPI: did well after surgery. Has a h/o of 3 c/s and prior cryo. Had cryo before c/s and in office. Wants to have in office LEEP. Denies abnormal dsicharge or problems after colp and bxs. No other c/o today. OB History T3 L3 SAB0 IAB0 Ectopic0 Multiple0 Live Births3 Pulp Tester History LMP: 05/18/2023 (Exact Date), Having periods Age at Menarche: Age at First : Age at Menopause: Pulp Tester History Comments: Sexual Activity: Yes; Male Contraception: No contraception data on record PAST MEDICAL HISTORY Diagnosis Date Cervical high risk human papillomavirus (HPV) DNA test positive 03/202103/24/2023 GERD (gastroesophageal reflux disease) HSIL (high grade squamous intraepithelial lesion) on Pap smear of cervix 03/202103/24/2023 PAST SURGICAL HISTORY Procedure Laterality Date EGD W/O [facility] SPEC VARICIES INJ GERD VAGINOSCOPY 04/21/2023 History reviewed. No pertinent family history. Social History Tobacco Use Smoking status: Former Smokeless tobacco: Never Vaping Use Vaping Use: Never used Substance Use Topics Alcohol use: Yes Comment: seldom Drug use: Never Current Outpatient Medications Medication Sig NYSTOP powder USE ONE GRAM TWICE DAILY sertraline (ZOLOFT) 25 mg tablet Take 1 tablet by mouth every afternoon. clindamycin (CLEOCIN-T) 1 % gel Apply to the face once in the evening tretinoin (RETIN-A) 0.025 % topical cream dextroamphetamine-amphetamine (ADDERALL) 10 mg tablet TAKE TWO TABLETS BY MOUTH EVERY MORNING AND AT NOON, AND TAKE ONE TABLET AT 4pm SOOLANTRA 1 % Apply a thin layer to the face twice a day. No current facility-administered medications for this visit. Allergies As of Date: 05/19/2023 Allergen Noted Reaction MORPHINE 07/02/2021 Vomiting PENICILLINS 02/20/2017 Hives Fully Assessed 05/19/2023 Allergies and current medication updated:Yes EXAM: BP 108/70 Pulse 110 Resp 16 Ht 5' 6 (1.68m) Wt 240 lb (108.9kg) SpO2 98% LMP 05/18/2023 BMI 38.76 kg/(m2). GENERAL: pleasant, female in no apparent distress ASSESSMENT AND PLAN: high grade cervical dysplasia Risk benefits and alternatives to resection with LEEP were reviewed. I discussed with her because of the position and difficulty in getting to her cervix high in her vagina, likely due to scarring of her uterus from previous sections, not for comfortable proceeding in the office. She can consult with another provider. I recommend MAC anesthesia and operating room for better lighting patient positioning and access. Patient states she would like to wait until summer when her schedule is more flexible. I discussed with her this very reasonable and there is very minimal risk of progression in the next 6 months. She will contact the office with preferred dates for the summer.mar revieewed pap/;leep had gardasil series in the past Dre Buenrostro MD Allergies As of Date: 05/19/2023 Noted Allergy Reaction MORPHINE 07/02/2021 11 - Vomiting PENICILLINS 02/20/2017 4 - Hives Date Reviewed: 05/19/2023 Reviewed by: Dre Buenrostro MD - Fully Assessed Reason for Visit: Pre-Op Visit [1235] Primary Visit Diagnosis:High grade squamous intraepithelial lesion (HGSIL), grade 3 DOLORES, on biopsy of cervix [D06.9] Prescriptions as of 05/19/2023 - NYSTOP powder USE ONE GRAM TWICE DAILY - sertraline (ZOLOFT) 25 mg tablet Take 1 tablet by mouth every afternoon. - clindamycin (CLEOCIN-T) 1 % gel Apply to the face once in the evening - tretinoin (RETIN-A) 0.025 % topical cream - dextroamphetamine-amphetamine (ADDERALL) 10 mg tablet TAKE TWO TABLETS BY MOUTH EVERY MORNING AND AT NOON, AND TAKE ONE TABLET AT 4pm - SOOLANTRA 1 % Apply a thin layer to the face twice a day. Problem List As Of Date 05/19/2023 Noted Resolved High grade squamous intraepithelial cervical dy*03/24/2023 Cervical high risk HPV (human papillomavirus) t*03/24/2023 High grade squamous intraepithelial lesion (HGS*05/19/2023 Encounter Status:Closed by DRE BUENROSTRO on 05/19/23 [facility] HISTORY PHYSICALon HISTORY PHYSICAL HNO ID: [id number] Author: DRE BUENROSTRO MD Service: ? Author Type: Physician Type: H&P Filed: 05/19/2023 12:25 Note Text: v Normal [facility] CNPNon 04-26-2023 CNPN Telephone (OBGYWM) ANIYA LOVETT ([id number]) 1985 F Date Time Provider Department 04/26/23 DRE BUENROSTRO OBGYWM During your visit today, we recorded the following information about you: Sheree Dumont RN 04/26/2023 3:33 PM Signed ----- Message from Dre Buenrostro MD sent at 04/26/2023 2:33 PM EST ----- Her biopsy shows high grade dysplasia. I would recommend a LEEP to remove the cells. However, b/c of the location of her cervix and difficulty getting good visualization, I would recommend we do this in the operating room if she is in agreement. We can schedule, I have May 16 in or June at [facility]. Please let me know her preferenece. If she wants a virtual or in office visit to discuss, we can do that. MD Julia Godinez Jennifer, RN 04/26/2023 3:33 PM Signed Left message for patient to call office. MISTI Cope Kimberly, LPN 04/26/2023 3:43 PM Signed Pt returned call and wanted to wait until June and have this done at [facility]. Pt voiced understanding of results. Surgery paper placed on providers desk. RILEY Buckley Rebecca L, MD 04/26/2023 4:55 PM Signed Noted. Surgery sheet completed. Dre Buenrostro MD Allergies As of Date: 04/26/2023 Noted Allergy Reaction MORPHINE 07/02/2021 11 - Vomiting PENICILLINS 02/20/2017 4 - Hives Date Reviewed: 04/21/2023 Reviewed by: Dre Buenrostro MD - Fully Assessed Reason for Visit: Results [95] Prescriptions as of 04/26/2023 - sertraline (ZOLOFT) 25 mg tablet Take 1 tablet by mouth every afternoon. - clindamycin (CLEOCIN-T) 1 % gel Apply to the face once in the evening - tretinoin (RETIN-A) 0.025 % topical cream - dextroamphetamine-amphetamine (ADDERALL) 10 mg tablet TAKE TWO TABLETS BY MOUTH EVERY MORNING AND AT NOON, AND TAKE ONE TABLET AT 4pm - SOOLANTRA 1 % Apply a thin layer to the face twice a day. Problem List As Of Date 04/26/2023 Noted Resolved High grade squamous intraepithelial cervical dy*03/24/2023 Cervical high risk HPV (human papillomavirus) t*03/24/2023 Encounter Status:Closed by DRE BUENROSTRO on 04/26/23 Normal [facility] Basic metabolic 2000 panelon 04-21-2023 Anion gap [Moles/Vol] 14 mmol/L Normal 9-18 [facility] Comment on above: Order Comment: Speci men Type: BLOOD SPECIMENOrdering Facility: [facility] Address: [address] [place] [address] Performed By: #### 2 4321-2 ####[facility] LABCLIA [id number] [place] [address] [place] Calcium [Mass/Vol] 9.8 mg/dL Normal 8.5-10.2 [facility] Comment on above: Order Comment: Speci men Type: BLOOD SPECIMENOrdering Facility: [facility] Address: [address] [place] [address] Performed By: #### 2 4321-2 ####[facility] LABCLIA [id number] [place] [address] [place] Chloride [Moles/Vol] 104 mmol/L Normal 97-105 [facility] Comment on above: Order Comment: Speci men Type: BLOOD SPECIMENOrdering Facility: [facility] Address: [address] [place] [address] Performed By: #### 2 4321-2 ####[facility] LABCLIA [id number] [place] [address] [place] CO2 [Moles/Vol] 22 mmol/L Normal 22-30 [facility] Comment on above: Order Comment: Speci men Type: BLOOD SPECIMENOrdering Facility: [facility] Address: [address] [place] [address] Performed By: #### 2 4321-2 ####[facility] LABCLIA [id number] [place] [address] [place] Creatinine [Mass/Vol] 0.85 mg/dL Normal 0.58-0.96 [facility] Comment on above: Order Comment: Speci men Type: BLOOD SPECIMENOrdering Facility: [facility] Address: [address] [place] [address] Performed By: #### 2 4321-2 ####[facility] LABCLIA [id number] [place] [address] [place] Creatinine and Glomerular filtration rate.predicted panel (S/P/Bld) 90 mL/min/1.73m??? Normal >=60 [facility] Comment on above: Order Comment: Micheal rahman Type: BLOOD SPECIMENOrdering Facility: [facility] Address: [address] [place] [address] Result Comment: Alida mated Glomerular Filtration Rate (eGFR) is calculated using the 2020 CKD-EPI creatinine equation. This equation utilizes serum creatinine, sex, and age as parameters. The creatinine assay has traceable calibration to isotope dilution-mass spectrometry. Refer to KDIGO guidelines for clinical interpretation. In patients with unstable renal function, e.g. those with acute kidney injury, the eGFR may not accurately reflect actual GFR. Performed By: #### 2 4321-2 ####[facility] [facility] LABCLIA [id number] [place] [address] [place] Glucose [Mass/Vol] 109 mg/dL High 74-99 [facility] Comment on above: Order Comment: Micheal rahman Type: BLOOD SPECIMENOrdering Facility: [facility] Address: [address] [place] [address] Result Comment: The [place] Diabetes Association (ADA) provides guidance for cutoff values for fasting glucose and random glucose. The ADA defines fasting as no caloric intake for at least 8 hours. Fasting plasma glucose results between 100 to 125 mg/dL indicate increased risk for diabetes (prediabetes). Fasting plasma glucose results greater than or equal to 126 mg/dL meet the criteria for diagnosis of diabetes. In the absence of unequivocal hyperglycemia, results should be confirmed by repeat testing. In a patient with classic symptoms of hyperglycemia or hyperglycemic crisis, random plasma glucose results greater than or equal to 200 mg/dL meet the criteria for diagnosis of diabetes. Reference: Standards of Medical Care in Diabetes 2016, [place] Diabetes Association. Diabetes Care. 2016.39(Suppl 1). Performed By: #### 2 4321-2 ####[facility] LABCLIA [id number] [place] [address] [place] Potassium [Moles/Vol] 4.1 mmol/L Normal 3.7-5.1 [facility] Comment on above: Order Comment: Speci men Type: BLOOD SPECIMENOrdering Facility: [facility] Address: [address] [place] [address] Performed By: #### 2 4321-2 ####[facility] LABCLIA [id number] [place] [address] [place] Sodium [Moles/Vol] 140 mmol/L Normal 136-144 [facility] Comment on above: Order Comment: Speci men Type: BLOOD SPECIMENOrdering Facility: [facility] Address: [address] [place] [address] Performed By: #### 2 4321-2 ####[facility] LABCLIA [id number] [place] [address] [place] Urea nitrogen [Mass/Vol] 14 mg/dL Normal 7-21 [facility] Comment on above: Order Comment: Speci men Type: BLOOD SPECIMENOrdering Facility: [facility] Address: [address] [place] [address] Performed By: #### 2 4321-2 ####[facility] LABIA [id number] [address] [place] CNOVon 04-21-2023 CNOV Office Visit (OBGYWM ) ANIYA LOVETT ([id number]) 1985 F Date Time Provider Department 04/21/23 11:50 AM DRE BUENROSTRO OBGYWM During your visit today, we recorded the following information about you: Blood pressure Weight Last Period 116/ 108.9 kg 03/26/23 Dre Buenrostro MD 04/21/2023 12:25 PM Signed Aniya is a 37 year old who presents today for a colposcopy. The patient's last pap smear was HGSIL and + HRHPV 16 from March 2023. Patient has a history of abnormal pap: Yes. The patient has had prior treatment: none. test: negative UNIVERSAL PROTOCOL / SAFETY CHECKLIST Procedure to be Performed: colposcopy with possible biopsies Sign In: A Moment of CARE was completed. Personnel directly involved with the procedure wore the appropriate PPE (Personal Protective Equipment). Patient/Surrogate Stated/Verified: PATIENT VERIFIED(optional for EMERGENT procedures): Patient name, Date of , Relevant allergies, and The intended procedure Time Out Communication: Intended patient and procedure match the source documents. Consent documented and matches the intended procedure. Relevant labs, photos, and/or imaging studies have been reviewed. No implant(s) inserted. Sign Out: SIGN OUT (optional for EMERGENT procedures): All specimen containers correctly labeled. All instruments, equipment, possible retained foreign bodies accounted for. Post-procedure follow-up management communicated and Plan of Care Visit completed when applicable. Dre Buenrostro M.D. PROCEDURE: EXTERNAL GENITALIA: Normal in appearance without lesions VAGINA: Normal in appearance without lesions CERVIX: Speculum placed in vagina and excellent visualization of cervix achieved. Cervix swabbed x 3 with 3% acetic acid solution. Cervix grossly normal. Squamocolumnar junction visualized. No acetowhite changes, punctations, mosaicism or atypical vasculature noted. BIOPSY: Done at 6:00, 9:00, and 12:00 ECC: done HEMOSTASIS: Obtained with silver nitrate and pressure Procedure Summary: Patient tolerated procedure well and colposcopy was adequate. ASSESSMENT: HPV effect PLAN: Specimens labeled and sent to Pathology. Will notify patient of results in 1-2 weeks. Post-procedure instructions reviewed and written material given to the patient. If indicated, lesion by colpo is not amenable to office LEEP. cervix very high and up to her left Dre Buenrostro MD [facility], [place] 04/21/2023 11:44 AM Signed YOUR RECOVERY It may take a few weeks for your cervix to heal. While your cervix heals, you may have: - Vaginal bleeding (less than a normal menstrual period) - Mild cramping - A brown-black vaginal discharge (similar to coffee grounds) which is a result of the paste used to help stop bleeding from the procedure Do NOT put anything in the vagina for 1 week after your colposcopy if your doctor does a biopsy of your cervix. This includes sex, tampons, and douches. If you have any discomfort, you may take an over the counter pain medication (motrin, advil, ibuprofen, tylenol, etc). If this does not relieve your discomfort, contact your doctor's office for a prescription strength pain medication. It is okay to wear a sanitary pad until the discharge and spotting stops. RISKS Although problems seldom occur with colposcopy, there can be some complications. You may feel faint during and shortly after the procedure as well as have some bleeding and vaginal discharge after the procedure. There is also a risk of infection after the procedure. These complications are rare and can be easily treated. You should contact you doctor is you have any of the following: - Heavy bleeding (more than your normal period) - Bleeding with clots - Severe abdominal pain - Fever (more than 100.4F) - Foul smelling vaginal discharge RESULTS If a biopsy was taken, we will have the results of your biopsy in 1-2 weeks. If you do not hear the results of your biopsy after 2 weeks, please contact your physicians office for the results. Depending on the biopsy results, your doctor will determine your follow up plan which may include further testing or treatments. STAYING HEALTHY After the procedure, you will need to see your doctor for follow up visits during the year. At these visits your doctor will check the health of your cervix with a pap smear. After three normal pap smears, your doctor will allow you to return to having exams once a year. If you have another abnormal pap smear, you may need closer follow up for longer or you may need additional treatment. By making a few lifestyle changes after the procedure, you can help protect the health of your cervix: - Have regular pelvic exams and pap smears as ordered by your doctor. - Stop smoking as smoking increases your risk of developing a cancer of the (more content not included)... Normal [facility] DHEA-S Madi 04-21-2023 DHEA-S [Mass/Vol] 276.3 ug/dL Normal 60.9-337.0 [facility] Comment on above: Order Comment: Speci men Type: BLOOD SPECIMENOrdering Facility: [facility] Address: [facility] [place] [address] Result Comment: Refe rence ranges are age and gender specific. For additional information, reference range tables can be found in the laboratory test directory. The normal values are based on the following source: Dehydroepiandrosterone sulfate (DHEA S) [package insert V 17.0 Micronesian]. [facility], [place], [place]: November 2012. Performed By: #### D ANA MARIA, 2986-8 ####[facility] LABIA [id number] [address] [place] SURGICAL PATHOLOGYon 024 CASE REPORT Normal [facility] Comment on above: Order Comment: Speci men Type: TISSUE SPECIMENOrdering Facility: [facility] Address: [address] [place] [address] Result Comment: Surg ical Pathology Report Case: [id number] Authorizing Provider: Dre Buenrostro MD Collected: 04/21/2023 12:33 PM Ordering Location: OB/Gynecology Received: 04/21/2023 04:28 PM Pathologist: Matias Banks MD Specimens: A) - CERVIX BIOPSY, 9, 6 and 12 oclock B) - ENDOCERVIX BIOPSY Performed By: #### S ####[facility] [id number] [address] OF [facility] CLINICAL HISTORY HGSIL HPV POS Normal [facility] Comment on above: Order Comment: Speci men Type: TISSUE SPECIMENOrdering Facility: [facility] Address: [address] [place] [address] Performed By: #### S ####[facility] [id number] [address] DIAGNOSIS COMMENT Normal [facility] Comment on above: Order Comment: Speci men Type: TISSUE SPECIMENOrdering Facility: [facility] Address: [address] [place] [address] Result Comment: p16 is strong and diffuse, MIB-1 index in increased, and chromogenic in situ hybridization for high risk HPV is negative. Laboratory Developed Test (LDT) Disclaimer: Performance characteristics of immunohistochemical, immunofluorescent and chromogenic in-situ hybridization tests have been determined by the performing laboratory within [facility]???[facility] Pathology and Laboratory Medicine [place] ([facility], [facility], [facility], [facility], [facility], [facility], or [facility]) in a manner consistent with CLIA requirements. One or more of these tests have not been cleared or approved by the FDA. [facility] is regulated under CLIA as qualified to perform high-complexity testing. These tests are used for clinical purposes. They should not be regarded as investigational or for research. Positive and negative controls stain appropriately. Performed By: #### S ####[facility] LABCLIA [id number] [address] STATES OF [facility] FINAL DIAGNOSIS Normal [facility] Comment on above: Order Comment: Speci men Type: TISSUE SPECIMENOrdering Facility: [facility] Address: [address] [place] [address] Result Comment: A. C ervix, biopsies at 9, 6 and 12 o'clock: - High-grade squamous intraepithelial lesion. B. Endocervix, biopsy: - Benign endocervix. ACV/kr 04/22/2023 Performed By: #### S ####[facility] LABCLIA [id number] [address] STATES OF [facility] FINAL PERFORMING LAB Normal [facility] Comment on above: Order Comment: Speci men Type: TISSUE SPECIMENOrdering Facility: [facility] Address: [address] [place] [address] Result Comment: Diag nostic interpretation performed at [facility], [address] [address] CLIA# [id number] Stabilizing Machine Operator: Delroy Armenta M.D. Performed By: #### S ####[facility] LABCLIA [id number] [place] [address] [place] GROSS DESCRIPTION Normal [facility] Comment on above: Order Comment: Speci men Type: TISSUE SPECIMENOrdering Facility: [facility] Address: [address] [place] [address] Result Comment: A. C ERVIX BIOPSY Received in formalin are multiple pieces of calvo, soft mucosal covered tissue aggregating to 2.4 x 0.3 x 0.3 cm. Totally submitted in one cassette. B. ENDOCERVIX BIOPSY Received in formalin are multiple calvo, soft feathery segments of tissue admixed with mucinous material aggregating to 0.5 x 0.5 x <0.1 cm. Totally submitted in one cassette. Gross examination performed at [facility], [address] [place] [address] FFS 04/21/2023 9:49 PM Performed By: #### S ####[facility] LABCLIA [id number] [place] [address] [place] Testost SerPl-mCncon 024 Testosterone [Mass/Vol] 30 ng/dL Normal <40 [facility] Comment on above: Order Comment: Speci men Type: BLOOD SPECIMENOrdering Facility: [facility] Address: [address] [place] [address] Performed By: #### D ANA MARIA, 2986-8 ####[facility] LABCLIA [id number] [address] [place] Meliton 04-05-2023 KRISTENN Telephone (OBGYWM) ANIYA LOVETT ([id number]) 1985 F Date Time Provider Department 04/05/23 NAZ KLEIN During your visit today, we recorded the following information about you: Loree Hodges LPN 04/05/2023 3:43 PM Signed See pt's pap and hpv results. Main campus called with abnormal values. Please see in RR absence. Loree Hodges LPN' Naz Klein APRN.CNP 04/05/2023 3:56 PM Signed I already sent a phone encounter. Naz Klein APRN.CNP Allergies As of Date: 04/05/2023 Noted Allergy Reaction MORPHINE 07/02/2021 11 - Vomiting PENICILLINS 02/20/2017 4 - Hives Date Reviewed: 03/24/2023 Reviewed by: Dre Buenrostro MD - Fully Assessed Reason for Visit: Results [95] Prescriptions as of 04/05/2023 - dextroamphetamine-amphetamine (ADDERALL) 10 mg tablet TAKE TWO TABLETS BY MOUTH EVERY MORNING AND AT NOON, AND TAKE ONE TABLET AT 4pm - SOOLANTRA 1 % Apply a thin layer to the face twice a day. Problem List As Of Date 04/05/2023 Noted Resolved Papanicolaou smear of cervix with high grade sq*03/24/2023 Cervical high risk HPV (human papillomavirus) t*03/24/2023 Encounter Status:Closed by SHEREE DUMONT on 04/05/23 [facility] YOSEPH Telephone (OBGYWM) ANIYA LOVETT ([id number]) 1985 F Date Time Provider Department 04/05/23 NAZ KLEIN OBGYWM During your visit today, we recorded the following information about you: Naz Klein APRN.CNP 04/05/2023 12:56 PM Signed RR pt- Pap high grade and HPV 16+, she will need a colp. WANDA Ferguson Jennifer, RN 04/05/2023 1:44 PM Signed Patient is scheduled for a colp with RR in April already. Sheree Dumont RN Allergies As of Date: 04/05/2023 Noted Allergy Reaction MORPHINE 07/02/2021 11 - Vomiting PENICILLINS 02/20/2017 4 - Hives Date Reviewed: 03/24/2023 Reviewed by: Dre Buenrostro MD - Fully Assessed Reason for Visit: Results [95] Primary Visit Diagnosis:Papanicolaou smear of cervix with high grade squamous intraepithelial lesion (HGSIL) [R87.613] Order(s):COLPOSCOPY [[id number]] Order #: [id number] Prescriptions as of 04/05/2023 - dextroamphetamine-amphetamine (ADDERALL) 10 mg tablet TAKE TWO TABLETS BY MOUTH EVERY MORNING AND AT NOON, AND TAKE ONE TABLET AT 4pm - SOOLANTRA 1 % Apply a thin layer to the face twice a day. 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 If is still suspected, a first morning urinespecimen should be collected 48 hours later and tested. XR Ankle - right AP and Late ral and obliqueon 02-11-2020 IMPRESSION: Well marginated calcification adjacent to the lateral malleolus likely sequelae of prior ligamentous injury. No acute fracture identified. Soft tissue swelling of the lateral ankle. Cylinder Loader: PSCB Transcribe Date/Time: Feb 11 2020 8:14P Dictated by : LYNDSAY LEON MD This examination was interpreted and the report reviewed and electronically signed by: LYNDSAY LEON MD on Feb 11 2020 8:16PM [facility] DIVISION OF RADIOLOGY * * *Final Report* * * DATE OF EXAM: Feb 11 2020 7:51PM WOX 5297 - XR ANKLE 3V AP/LAT/OBL RT / PROCEDURE REASON: Acute right ankle pain * * * * Physician Interpretation * * * * Right ankle radiographs HISTORY: 34 years old Clinical information: Acute right ankle pain Right lateral ankle pain after falling off a sidewalk yesterday. TECHNIQUE: Images: XR ANKLE 3V AP/LAT/OBL RT Comparison: None. RESULT: Findings: Well marginated calcification adjacent to the lateral malleolus likely sequelae of prior ligamentous injury. No acute fracture or dislocation identified. Ankle mortise is congruent. Soft tissue swelling of the lateral ankle. DIVISION OF RADIOLOGY Provider, [facility] - 02/11/2020 * * *Final Report* * * DATE OF EXAM: Feb 11 2020 7:51PM WOX 5297 - XR ANKLE 3V AP/LAT/OBL RT / PROCEDURE REASON: Acute right ankle pain * * * * Physician Interpretation * * * * Right ankle radiographs HISTORY: 34 years old Clinical information: Acute right ankle pain Right lateral ankle pain after falling off a sidewalk yesterday. TECHNIQUE: Images: XR ANKLE 3V AP/LAT/OBL RT Comparison: None. RESULT: Findings: Well marginated calcification adjacent to the lateral malleolus likely sequelae of prior ligamentous injury. No acute fracture or dislocation identified. Ankle mortise is congruent. Soft tissue swelling of the lateral ankle. IMPRESSION IMPRESSION: Well marginated calcification adjacent to the lateral malleolus likely sequelae of prior ligamentous injury. No acute fracture identified. Soft tissue swelling of the lateral ankle. 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 Tobacco use [facility] Former smoker Invalid Interpretation Code [facility] Work Phone: Office Visit: Abnormal Breas t US-lefton 08-25-2016 Dietary management education, guidance, and counseling (procedure) yes Invalid Interpretation Code [facility] Work Phone: Documentation of current medications (procedure) Done Invalid Interpretation Code [facility] Work Phone: Fall risk assessment No [facility] Work Phone: Tobacco smoking status NHIS Never [facility] Work Phone: Tobacco smoking status NHIS Former smoker [facility] Work Phone: Tobacco use [facility] Former smoker Invalid Interpretation Code [facility] Work Phone: Office Visit: Abnormal Breas t -kurt 03-20-2016 General categories [interpretation] of Cervical or vaginal smear or scraping by Cyto stain Normal [facility] Work Phone: Vital Signs Date Time Vital Sign Value Performing Clinician Facility 03-30-2024 08:00-0500 Body mass index (BMI) [Ratio] 34.09 kg/m2 Margy Athy PA-C Work Phone: [facility] 03-30-2024 08:00-0500 Body temperature 99.81 [degF] Margy Athy PA-C Work Phone: [facility] 03-30-2024 08:00-0500 Body weight 95.8 kg Margy Athy PA-C Work Phone: [facility] 03-30-2024 08:00-0500 Diastolic blood pressure 83 mm[Hg] Margy Athy PA-C Work Phone: [facility] 03-30-2024 08:00-0500 Heart rate 120 /min Margy Athy PA-C Work Phone: [facility] 03-30-2024 08:00-0500 Respiratory rate 18 /min Margy Athy PA-C Work Phone: [facility] 03-30-2024 08:00-0500 SaO2% (BldA) [Mass fraction] 98 % Margy Athy PA-C Work Phone: [facility] 03-30-2024 08:00-0500 Systolic blood pressure 123 mm[Hg] Margy Athy PA-C Work Phone: [facility] 02-27-2024 09:24-0500 Body height 167.6 cm Dre Buenrostro MD Work Phone: [facility] 02-27-2024 09:24-0500 Body mass index (BMI) [Ratio] 34.54 kg/m2 Dre Buenrostro MD Work Phone: [facility] 02-27-2024 09:24-0500 Body weight 97.07 kg Dre Buenrostro MD Work Phone: [facility] 02-27-2024 09:24-0500 Diastolic blood pressure 60 mm[Hg] Dre Buenrostro MD Work Phone: [facility] 02-27-2024 09:24-0500 Systolic blood pressure 112 mm[Hg] Dre Buenrostro MD Work Phone: [facility] 01-09-2024 10:43-0400 Body mass index (BMI) [Ratio] 36.61 kg/m2 Francesco Ny APRN.CHIEF OF PARTY Work Phone: [facility] 01-09-2024 10:43-0400 Body temperature 98.1 [degF] Francesco Ny MILIEU TECHNICIAN.CHIEF OF PARTY Work Phone: [facility] 01-09-2024 10:43-0400 Body weight 102.1 kg Francesco Ny APRN.CHIEF OF PARTY Work Phone: [facility] 01-09-2024 10:43-0400 Diastolic blood pressure 78 mm[Hg] Francecso Ny APRN.CHIEF OF PARTY Work Phone: [facility] 01-09-2024 10:43-0400 Heart rate 115 /min Francesco Ny MILIEU TECHNICIAN.CHIEF OF PARTY Work Phone: [facility] 01-09-2024 10:43-0400 Respiratory rate 21 /min Francesco Ny APRN.CHIEF OF PARTY Work Phone: [facility] 01-09-2024 10:43-0400 SaO2% (BldA) [Mass fraction] 99 % Francesco Ny MILIEU TECHNICIAN.CHIEF OF PARTY Work Phone: [facility] 01-09-2024 10:43-0400 Systolic blood pressure 124 mm[Hg] Francesco King WANDA Work Phone: [facility] 01-06-2024 10:25-0400 Body height 167 cm Dre Buenrostro MD Work Phone: [facility] 01-06-2024 10:25-0400 Body mass index (BMI) [Ratio] 35.68 kg/m2 Dre Buenrostro MD Work Phone: [facility] 01-06-2024 10:25-0400 Body weight 99.52 kg Dre Buenrostro MD Work Phone: [facility] 01-06-2024 10:25-0400 Diastolic blood pressure 70 mm[Hg] Dre Buenrostro MD Work Phone: [facility] 01-06-2024 10:25-0400 Heart rate 86 /min Dre Buenrostro MD Work Phone: [facility] 01-06-2024 10:25-0400 Respiratory rate 20 /min Dre Buenrostro MD Work Phone: [facility] 01-06-2024 10:25-0400 SaO2% (BldA) [Mass fraction] 96 % Dre Buenrostro MD Work Phone: [facility] 01-06-2024 10:25-0400 Systolic blood pressure 120 mm[Hg] Dre Buenrostro MD Work Phone: [facility] 05-19-2023 11:34-0500 Body height 167.6 cm Dre Buenrostro MD Work Phone: [facility] 05-19-2023 11:34-0500 Body weight 108.86 kg Dre Buenrostro MD Work Phone: [facility] 05-19-2023 11:34-0500 Diastolic blood pressure 70 mm[Hg] Dre Buenrostro MD Work Phone: [facility] 05-19-2023 11:34-0500 Heart rate 110 /min Dre Buenrostro MD Work Phone: [facility] 05-19-2023 11:34-0500 Respiratory rate 16 /min Dre Buenrostro MD Work Phone: [facility] 05-19-2023 11:34-0500 SaO2% (BldA) [Mass fraction] 98 % Dre Buenrostro MD Work Phone: [facility] 05-19-2023 11:34-0500 Systolic blood pressure 108 mm[Hg] Dre Buenrostro MD Work Phone: [facility] 03-24-2023 15:06-0500 Body height 167.6 cm Dre Buenrostro MD Work Phone: [facility] 03-24-2023 15:06-0500 Body weight 107.05 kg Dre Buenrostro MD Work Phone: [facility] 03-24-2023 15:06-0500 Diastolic blood pressure 78 mm[Hg] Dre Buenrostro MD Work Phone: [facility] 03-24-2023 15:06-0500 Systolic blood pressure 116 mm[Hg] Dre Buenrostro MD Work Phone: [facility] 10-13-2021 14:10-0400 Body temperature 97 [degF] Dr. Olaf Galloway Work Phone: [facility] Work Phone: 10-13-2021 14:10-0400 Diastolic blood pressure 82 mm[Hg] Dr. Olaf Galloway Work Phone: [facility] Work Phone: 10-13-2021 14:10-0400 Heart rate 73 /min Dr. Olaf Galloway Work Phone: [facility] Work Phone: 10-13-2021 14:10-0400 Respiratory rate 16 /min Dr. Olaf Galloway Work Phone: [facility] Work Phone: 10-13-2021 14:10-0400 SaO2% (BldA) [Mass fraction] 98 % Dr. Olaf Galloway Work Phone: [facility] Work Phone: 10-13-2021 14:10-0400 Systolic blood pressure 110 mm[Hg] Dr. Olaf Galloway Work Phone: [facility] Work Phone: 10-13-2021 12:59-0400 Body height 167.[address] Olaf Galloway Work Phone: [facility] Work Phone: 10-13-2021 12:59-0400 Body mass index (BMI) [Ratio] 35.2 kg/m2 Dr. Olaf Galloway Work Phone: [facility] Work Phone: 10-13-2021 12:59-0400 Body weight 98.[address] Olaf Galloway Work Phone: [facility] Work Phone: 08-25-2016 11:08-0400 BMI (Body Mass Index) 28.46 kg/m2 Akua Orona RN RN [facility] Work Phone: 08-25-2016 11:08-0400 Body Temperature 98 [degF] Akua Orona RN RN [facility] Work Phone: 08-25-2016 11:08-0400 Body Temperature 98.01 [degF] Akua Orona RN RN [facility] Work Phone: 08-25-2016 11:08-0400 Body weight 79.38 kg Akua Orona RN RN [facility] Work Phone: 08-25-2016 11:08-0400 BP Diastolic 81 mm[Hg] Akua Orona RN RN [facility] Work Phone: 08-25-2016 11:08-0400 BP Systolic 117 mm[Hg] Akua Orona RN RN [facility] Work Phone: 08-25-2016 11:08-0400 BSA (Body Surface Area) 1.89 m2 Akua Orona RN RN [facility] Work Phone: 08-25-2016 11:08-0400 Height 167 cm Akua Orona RN RN [facility] Work Phone: 08-25-2016 11:08-0400 Height 167.01 cm Akua Orona RN RN [facility] Work Phone: 08-25-2016 11:08-0400 Pulse (Heart Rate) 98 /min Akua Orona RN RN [facility] Work Phone: 08-25-2016 11:08-0400 Pulse Oximetry 98 % Akua Orona RN RN [facility] Work Phone: 08-25-2016 11:08-0400 Respiratory Rate 16 /min Akua Orona RN RN [facility] Work Phone: 08-25-2016 11:08-0400 Weight 79.38 kg Akua Orona RN RN [facility] Work Phone: Encounters Encounter Date Encounter Type Care Provider Facility Start: 03-30-2024 End: 03-30-2024 ambulatory OLAF Moy GALLOWAY Facility:[facility] Start: 03-30-2024 End: 03-30-2024 Patient encounter procedure Margy Ashby PA-C Work Phone: [facility] Comment on above: Influenza A (Primary Dx) Start: 02-29-2024 End: 02-29-2024 ambulatory Olaf Galloway Facility:[facility] [place] Start: 02-27-2024 End: 02-27-2024 ambulatory OLAF GALLOWAY Facility:[facility] Start: 02-27-2024 End: 02-27-2024 Patient encounter procedure Dre Buenrostro MD Work Phone: OB/Gynecology Comment on above: Post-operative state (Primary Dx); Encounter for gynecological examination (general) (routine) without abnormal findings; Encounter for screening mammogram for breast cancer Start: 02-27-2024 End: 02-27-2024 Patient encounter status Dre Buenrostro MD Work Phone: [facility] Start: 02-02-2024 End: 02-02-2024 Patient encounter procedure Dre Buenrostro MD Work Phone: OB/Gynecology Start: 02-02-2024 End: 02-02-2024 ambulatory Dre Buenrostro MD Work Phone: OB/Gynecology Comment on above: High grade squamous intraepithelial lesion (HGSIL), grade 3 DOLORES, on biopsy of cervix (Primary Dx) Start: 01-24-2024 End: 01-24-2024 Telephone encounter Dre Buenrostro MD Work Phone: OB/Gynecology Comment on above: upcoming surgery Start: 01-16-2024 End: 01-17-2024 Telephone encounter Francesco Ny APRN.CHIEF OF PARTY Work Phone: [facility] Comment on above: X_Ray disc Start: 01-09-2024 End: 01-09-2024 Subsequent hospital visit by physician Xr [facility] Work Phone: Radiology Comment on above: Injury of left ankle , initial encounter [S99.912A] Start: 01-09-2024 End: 01-09-2024 ambulatory OLAF GALLOWAY Facility:[facility] Start: 01-09-2024 End: 01-09-2024 Patient encounter procedure Francesco Ny APRN.CHIEF OF PARTY Work Phone: [facility] Comment on above: Injury of left ankle , initial encounter (Primary Dx); Ankle injuries, right, initial encounter Start: 01-06-2024 End: 01-06-2024 Telephone encounter Dre Buenrostro MD Work Phone: OB/Gynecology Comment on above: Appointment Start: 01-06-2024 End: 01-06-2024 ambulatory OLAF GALLOWAY Facility:[facility] Start: 01-06-2024 End: 01-06-2024 Patient encounter procedure Dre Buenrostro MD Work Phone: OB/Gynecology Comment on above: Cervical high risk H PV (human papillomavirus) test positive (Primary Dx); High grade squamous intraepithelial cervical dysplasia Start: 12-23-2023 End: 12-23-2023 Telephone encounter Dre Buenrostro MD Work Phone: OB/Gynecology Comment on above: Preparations For Tiffanie shakira Start: 11-30-2023 End: 11-30-2023 Telephone encounter Dre Buenrostro MD Work Phone: OB/Gynecology Comment on above: Orders (leep) Start: 06-09-2023 ambulatory Dre Buenrostro Facilit y:[facility] Start: 05-19-2023 End: 05-19-2023 ambulatory DRE BUENROSTRO Facility:[facility] Start: 05-19-2023 End: 05-19-2023 Patient encounter procedure Dre Buenrostro MD Work Phone: OB/Gynecology Comment on above: High grade squamous intraepithelial lesion (HGSIL), grade 3 DOLORES, on biopsy of cervix (Primary Dx) Start: 04-21-2023 End: 04-21-2023 ambulatory DRE BUENROSTRO Facility:[facility] Start: 03-24-2023 End: 03-24-2023 Patient encounter procedure Dre Buenrostro MD Work Phone: OB/Gynecology Comment on above: Encounter for gyneco logical examination (general) (routine) without abnormal findings (Primary Dx); Papanicolaou smear of cervix with high grade squamous intraepithelial lesion (HGSIL); Cervical high risk HPV (human papillomavirus) test positive; Screening for cervical cancer; Encounter for screening for human papillomavirus (HPV); HSIL on Pap smear of cervix; Cystic acne Start: 03-24-2023 End: 03-24-2023 Patient encounter status Dre Buenrostro MD Work Phone: [facility] Start: 10-13-2021 Non-patient / Non-visit Dr. Feliciano Galloway Work Phone: [facility] Start: 10-13-2021 End: 10-13-2021 Admission to same day surgery center Dr. Olaf Galloway Work Phone: [facility] Start: 07-23-2021 End: 07-23-[address] Olaf Galloway Work Phone: [facility] G[facility] Start: 02-11-2020 End: 02-11-2020 Subsequent hospital visit by physician [facility] Work Phone: Radiology Comment on above: Acute right ankle pa in [M25.571] Start: 01-04-2018 Patient encounter Felix Kent Facility:[facility] Internal Medicine Procedures Date Procedure Procedure Detail Performing Clinician Start: 03-30-2024 INFLUENZA A&B MOLECULAR (POC) Margy R Ath y PA-C Work Phone: Start: 03-30-2024 STREP A MOLECULAR (POC) Margy R Athy PA-C Work Phone: Start: 01-09-2024 Radex ankle complete minimum 3 views Francesco Ny MILIEU TECHNICIAN.CHIEF OF PARTY Work Phone: Start: 10-13-[address] Olaf quinteros Work Phone: Start: 02-11-2020 Radex ankle complete minimum 3 views Kenna Chavira MILIEU TECHNICIAN.CHIEF OF PARTY Work Phone: Start: 08-25-2016 End: 08-25-2016 Dietary management education, guidance, and counseling Akua Orona RN RN Start: 08-25-2016 End: 08-25-2016 Documentation of current medications Akua Orona RN RN H/O: section Previous c esarean delivery affecting , delivered Dr. Olaf Galloway Work Phone: H/O: section Previous c esarean section Dr. Olaf Galloway Work Phone: Plan of Treatment Date Care Activity Detail Author Start: 03-24-2028 Screening for malignant neoplasm of cervix [facility] Start: 03-24-2024 Screening for malignant neoplasm of cervix Cervical Cancer Screening [facility] Start: 02-27-2024 End: 02-27-2024 Patient encounter procedure 02/27/2024 9:20 AM EST Office Visit OB/Gynecology [address] [place] [address] Dre Buenrostro MD [address] [place] [address] Post Op OB/Gynecology Comment on above: Post Op Start: 01-06-2024 End: 01-06-2024 Patient encounter procedure 01/06/2024 10:10 AM EDT Office Visit OB/Gynecology [address] [place] [address] Dre Buenrostro MD [address] [place] [address] surgery 01/18 @[facility] OB/Gynecology Comment on above: surgery 01/18 @[facility] Start: 12-11-2023 Covid-19 Vaccine ( season) Covid-19 Vaccine () [facility] Start: 12-11-2023 Covid-19 Vaccine () Covid-19 Vaccine () [facility] Start: 12-11-2023 Influenza vaccination Influenza Vacc ine (#1) [facility] Start: 04-11-2023 Depression Assessment Depression Ass essment [facility] Start: 03-24-2023 End: 06-23-2023 Basic metabolic 2000 panel - Serum or Plasma BASIC METABOLIC PNL Lab Routine Cystic acne Expected: 03/24/2023, Expires: 06/23/2023 [facility] Work Phone: Comment on above: Expected: 03/24/2023 , Expires: 06/23/2023 Start: 03-24-2023 End: 06-23-2023 DHEA-S BLD DHEA-S BLD Lab Routine Cystic acne Expected: 03/24/2023, Expires: 06/23/2023 [facility] Work Phone: Comment on above: Expected: 03/24/2023 , Expires: 06/23/2023 Start: 03-24-2023 End: 06-23-2023 Testosterone [Mass/volume] in Serum or Plasma TESTOSTERONE TOTAL Lab Routine Cystic acne Expected: 03/24/2023, Expires: 06/23/2023 [facility] Work Phone: Comment on above: Expected: 03/24/2023 , Expires: 06/23/2023 Start: 12-10-2022 Covid-19 Vaccine ( season) Covid-19 Vaccine ( season) [facility] Start: 12-10-2022 Influenza vaccination Influenza Vacc ine (#1) [facility] Start: 04-11-2022 Depression Assessment Depression Ass essment [facility] Start: 10-13-2021 [facility] Start: 08-25-2016 End: 08-25-2016 Appointment Appointment [facility] Work Phone: Start: 08-25-2016 End: 09-07-2016 Follow Up Appt 2 weeks Follow Up Appt 2 weeks [facility] Work Phone: Start: 2014 Screening for malignant neoplasm of cervix HPV Testing [facility] Start: 2005 Screening for malignant neoplasm of cervix Pap Testing [facility] Start: 10-08-2003 Hepatitis B Vaccine (1 of 3 - 19+ 3-dose series) Hepatitis B Vaccine (1 of 3 - 19+ 3-dose series) [facility] Start: 10-08-2003 Urine microalbumin profile DTaP,Tdap,Td Vaccine (1 - Tdap) [facility] Start: 2002 Anxiety Screening Anxiety Screening [facility] Start: 2002 Depression Screening Depression Scre ening [facility] Start: 2002 Hepatitis C screening Hepatitis C Sc reening [facility] Start: 2002 HIV screening HIV Screening [facility] Start: 1984 Hepatitis B Vaccine (1 of 3 - 3-dose series) Hepatitis B Vaccine (1 of 3 - 3-dose series) [facility] COLPOSCOPY COLPOSCOPY Shahbaz rubio Routine HSIL on Pap smear of cervix Ordered: 03/24/2023 [facility] Work Phone: Comment on above: Ordered: 03/24/2023 End: 03-28-2025 DBT Breast - bilateral screening ADENIKE SCREENING W [facility] Radiology Routine Encounter for screening mammogram for breast cancer 1 Occurrences starting 02/27/2024 until 03/28/2025 [facility] Work Phone: Comment on above: 1 Occurrences starti ng 02/27/2024 until 03/28/2025 PAP TEST PAP TEST Lab Vandana bullard Papanicolaou smear of cervix with high grade squamous intraepithelial lesion (HGSIL) Cervical high risk HPV (human papillomavirus) test positive Ordered: 03/24/2023 [facility] Work Phone: Comment on above: Ordered: 03/24/2023 Patient Education WEIGHT%20MANAGEMENT [facility] Work Phone: Patient referral [facility] Work Phone: XR Ankle - left AP a nd Lateral and oblique XR ANKLE GENERAL 3V AP/LAT/OBL LEFT Radiology STAT Injury of left ankle, initial encounter Ordered: 01/09/2024 [facility] Work Phone: Comment on above: Ordered: 01/09/2024 XR Ankle - right AP and Lateral and oblique XR ANKLE GENERAL 3V AP/LAT/OBL RIGHT Radiology STAT Ankle injuries, right, initial encounter Ordered: 01/09/2024 [facility] Comment on above: Ordered: 01/09/2024 [facility] c Payers Date Payer Category Payer Self-pay [id number] 2018 Unknown 2015 Unknown [id number] Unknown [id number] Unknown [id number] Unknown [id number] Social History Date Type Detail Facility [facility] Work Phone: Start: 10-08-2021 Tobacco smoking status NHIS Unknown if ever smoked [facility] Work Phone: Start: 08-12-[address] [facility] Work Phone: Start: 08-12-2015 Spouse/ Signif icant Other [facility] Work Phone: Start: 09-10-2015 Non-smoker [facility] Work Phone: Start: 1985 Sex Assigned At Female [facility] Work Phone: Start: 08-02-2018 End: 01-06-2024 Tobacco smoking status NHIS Ex-smoker [facility] History of tobacco use Current smoker [facility] Start: 08-02-2018 End: 01-06-2024 Tobacco use and exposure Smokeless tobacco non-user [facility] Start: 03-24-2023 End: 03-30-2024 Alcohol intake Current drinker of alcohol (finding) [facility] Start: 03-24-2023 End: 03-30-2024 History of Social function [facility] Start: 03-24-2023 End: 03-30-2024 Tobacco use panel [facility] National Score (1-100), lower number is lower risk 54 [facility] Start: 03-24-2023 Alcohol Comment seldom [facility] Start: 1985 Sex Assigned At Not on file C [facility] Start: 01-12-2020 End: 02-11-2020 Exposure to SARS-CoV-2 (event) Not sure [facility] Goals Date Patient Goal Desired Activity /State Mental Status Date Assessment Result Facility 10-13-2021 Cognitive function Voice/Name [facility] Work Phone: Clinical Notes 02-11-2020 to 03-30-2024 Margy Ashby PA-C - 03/30/2024 8:35 AM Dre Vernon MD - 02/27/2024 9:22 AM Dre Vernon MD - 02/02/2024 5:51 PM SHAHIDATFrancesco Ny APRN.CNP - 01/09/2024 11:55 AM EDT Note Date & Type Note Facility 03-30-2024 Note HNO ID: [id number] Author: MARGY ASHBY PA-C Service: ? Author Type: Physician Blood Bank Technologist Type: Progress Notes Filed: 03/30/2024 08:38 Note Text: This note was created using Livevolriter. Subjective Aniya Lovett is a 38 year old female. HPI Presents with a chief complaint of bodyaches, fever, sore throat cough over the past day. She did fly home from [place] yesterday. She took a home COVID test which was negative. No diarrhea or vomiting. Denies chest pain or shortness of breath. She is got muscle aches as well. Review of Systems Constitutional: Positive for chills, fatigue and fever. HENT: Positive for congestion, ear pain, rhinorrhea and sore throat. Respiratory: Positive for cough. Negative for shortness of breath and wheezing. Cardiovascular: Negative. Gastrointestinal: Negative. Genitourinary: Negative. Musculoskeletal: Positive for myalgias. Neurological: Positive for headaches. All other systems reviewed and are negative. PAST MEDICAL HISTORY Diagnosis Date Cervical high risk human papillomavirus (HPV) DNA test positive 03/202103/24/2023 GERD (gastroesophageal reflux disease) HSIL (high grade squamous intraepithelial lesion) on Pap smear of cervix 03/202103/24/2023 Current Outpatient Medications Medication Sig Dispense Refill SEMAGLUTIDE, WEIGHT LOSS, SUBCUTANEOUS Inject 0.5 mg subcutaneously. tretinoin (RETIN-A) 0.025 % topical cream dextroamphetamine-amphetamine (ADDERALL) 10 mg tablet TAKE TWO TABLETS BY MOUTH EVERY MORNING AND AT NOON, AND TAKE ONE TABLET AT 4pm oseltamivir (TAMIFLU) 75 mg capsule Take 1 capsule by mouth two times a day for 5 days. 10 capsule 0 irnsjvw-yjhlxotaslihdk-pqoqct 6-5-2 % crea Apply to affected area. NYSTOP powder USE ONE GRAM TWICE DAILY No current facility-administered medications for this visit. PAST SURGICAL HISTORY Procedure Laterality Date CERVIX UTERI CONIZA LP ELCTRO EXCI CERVIX UTERI CONIZA LP ELCTRO EXCI 02/02/2024 LEEP, cervix very flush and leep difficult EGD [facility] SPEC VARICIES INJ GERD VAGINOSCOPY 04/21/2023 No family history on file. Social History Tobacco Use Smoking status: Former Smokeless tobacco: Never Vaping Use Vaping status: Never Used Substance Use Topics Alcohol use: Yes Comment: seldom Drug use: Never Objective BP 123/83 Pulse 120 Temp 37.7 ?C (99.8 ?F) Resp 18 Wt 95.8 kg (211 lb 3.2 oz) LMP 02/19/2024 (Exact Date) SpO2 98% BMI 34.09 kg/m? Physical Exam Vitals reviewed. Constitutional: Appearance: Normal appearance. She is ill-appearing. HENT: Head: Normocephalic and atraumatic. Right Ear: Tympanic membrane, ear canal and external ear normal. Left Ear: Tympanic membrane, ear canal and external ear normal. Nose: Nose normal. Mouth/Throat: Mouth: Mucous membranes are moist. Pharynx: Posterior oropharyngeal erythema present. No oropharyngeal exudate. Cardiovascular: Rate and Rhythm: Regular rhythm. Tachycardia present. Heart sounds: Normal heart sounds. Pulmonary: Effort: Pulmonary effort is normal. Breath sounds: Normal breath sounds. Musculoskeletal: Cervical back: Neck supple. Lymphadenopathy: Cervical: No cervical adenopathy. Skin: General: Skin is warm and dry. Findings: No rash. Neurological: General: No focal deficit present. Mental Status: She is alert. Assessment and Plan ASSESSMENT/PLAN: 1. Influenza A - ICD9: 487.1, ICD10: J10.1 Influenza A positive. Strep test was negative. Will treat with Tamiflu. Discussed mkde-lba-uhdjkne medications to help with symptoms. Follow-up with PCP if not improving. Discussed contagiousness. Patient agreeable with plan. - STREP A MOLECULAR (POC) - INFLUENZA AANDB MOLECULAR (POC) Margy Ashby PA-C [facility] 03-30-2024 History of Presen t illness Narrative This note was created using Livevolriter. Subjective Aniya Lovett is a 38 year old female. HPI Presents with a chief complaint of bodyaches, fever, sore throat cough over the past day. She did fly home from [place] yesterday. She took a home COVID test which was negative. No diarrhea or vomiting. Denies chest pain or shortness of breath. She is got muscle aches as well. Review of Systems Constitutional: Positive for chills, fatigue and fever. HENT: Positive for congestion, ear pain, rhinorrhea and sore throat. Respiratory: Positive for cough. Negative for shortness of breath and wheezing. Cardiovascular: Negative. Gastrointestinal: Negative. Genitourinary: Negative. Musculoskeletal: Positive for myalgias. Neurological: Positive for headaches. All other systems reviewed and are negative. PAST MEDICAL HISTORY Diagnosis Date Cervical high risk human papillomavirus (HPV) DNA test positive 03/202103/24/2023 GERD (gastroesophageal reflux disease) HSIL (high grade squamous intraepithelial lesion) on Pap smear of cervix 03/202103/24/2023 Current Outpatient Medications Medication Sig Dispense Refill SEMAGLUTIDE, WEIGHT LOSS, SUBCUTANEOUS Inject 0.5 mg subcutaneously. tretinoin (RETIN-A) 0.025 % topical cream dextroamphetamine-amphetamine (ADDERALL) 10 mg tablet TAKE TWO TABLETS BY MOUTH EVERY MORNING AND AT NOON, AND TAKE ONE TABLET AT 4pm oseltamivir (TAMIFLU) 75 mg capsule Take 1 capsule by mouth two times a day for 5 days. 10 capsule 0 kyaelbe-euacwspkcsjthd-qmendv 6-5-2 % crea Apply to affected area. NYSTOP powder USE ONE GRAM TWICE DAILY No current facility-administered medications for this visit. PAST SURGICAL HISTORY Procedure Laterality Date CERVIX UTERI CONIZA LP ELCTRO EXCI CERVIX UTERI CONIZA LP ELCTRO EXCI 02/02/2024 LEEP, cervix very flush and leep difficult EGD [facility] SPEC VARICIES INJ GERD VAGINOSCOPY 04/21/2023 No family history on file. Social History Tobacco Use Smoking status: Former Smokeless tobacco: Never Vaping Use Vaping status: Never Used Substance Use Topics Alcohol use: Yes Comment: seldom Drug use: Never Objective BP 123/83 Pulse 120 Temp 37.7 C (99.8 F) Resp 18 Wt 95.8 kg (211 lb 3.2 oz) LMP 02/19/2024 (Exact Date) SpO2 98% BMI 34.09 kg/m Physical Exam Vitals reviewed. Constitutional: Appearance: Normal appearance. She is ill-appearing. HENT: Head: Normocephalic and atraumatic. Right Ear: Tympanic membrane, ear canal and external ear normal. Left Ear: Tympanic membrane, ear canal and external ear normal. Nose: Nose normal. Mouth/Throat: Mouth: Mucous membranes are moist. Pharynx: Posterior oropharyngeal erythema present. No oropharyngeal exudate. Cardiovascular: Rate and Rhythm: Regular rhythm. Tachycardia present. Heart sounds: Normal heart sounds. Pulmonary: Effort: Pulmonary effort is normal. Breath sounds: Normal breath sounds. Musculoskeletal: Cervical back: Neck supple. Lymphadenopathy: Cervical: No cervical adenopathy. Skin: General: Skin is warm and dry. Findings: No rash. Neurological: General: No focal deficit present. Mental Status: She is alert. Assessment and Plan ASSESSMENT/PLAN: 1. Influenza A - ICD9: 487.1, ICD10: J10.1 Influenza A positive. Strep test was negative. Will treat with Tamiflu. Discussed stfy-viw-xxrsbcv medications to help with symptoms. Follow-up with PCP if not improving. Discussed contagiousness. Patient agreeable with plan. - STREP A MOLECULAR (POC) - INFLUENZA A&B MOLECULAR (POC) Margy Ashby PA-C documented in this encounter [facility] 02-27-2024 Note HNO ID: [id number] Author: DRE BUENROSTRO MD Service: ? Author Type: Physician Type: Progress Notes Filed: 02/27/2024 09:46 Note Text: Manager Federal offered: Patient declines. Aniya is a 38 year old who presents for an annual gynecologic exam without complaints. S/p LEEP last month for DOLORES 2 w/ negative margins. Has had some cystic acne, started by derm on spironolactone Menses: cycles every 28-30 days and 3-5 days of flow. Contraception: none- plans vasectomy HPV vaccine: Yes Last Pap: 04/05/2023 HSIL HPV: 03/30/2023 +Type 16 History of abnormal pap: yes Last mammogram: 2 years Sexually active: Yes OB History T3 L3 SAB0 IAB0 Ectopic0 Multiple0 Live Births3 Pulp Tester History LMP: 02/19/2024 (Exact Date), Having periods Age at Menarche: Age at First : Age at Menopause: Pulp Tester History Comments: Sexual Activity: Yes; Male Contraception: No contraception data on record PAST MEDICAL HISTORY Diagnosis Date Cervical high risk human papillomavirus (HPV) DNA test positive 03/202103/24/2023 GERD (gastroesophageal reflux disease) HSIL (high grade squamous intraepithelial lesion) on Pap smear of cervix 03/202103/24/2023 PAST SURGICAL HISTORY Procedure Laterality Date CERVIX UTERI CONIZA LP ELCTRO EXCI CERVIX UTERI CONIZA LP ELCTRO EXCI 02/02/2024 LEEP, cervix very flush and leep difficult EGD [facility]/O [facility] SPEC VARICIES INJ GERD VAGINOSCOPY 04/21/2023 No family history on file.SOCIAL HISTORY Social History Tobacco Use Smoking status: Former Smokeless tobacco: Never Vaping Use Vaping status: Never Used Substance Use Topics Alcohol use: Yes Comment: seldom Drug use: Never REVIEW OF SYSTEMS Abdomen: No abdominal pain, nausea, vomiting, diarrhea, or constipation. No bloating, early satiety, indigestion, or increased flatulence. Bladder: No dysuria, gross hematuria, urinary frequency, urinary urgency, or incontinence. Breast: No breast lumps, nipple d/c, overlying skin changes, redness or skin retraction. Allergies and current medication updated:Yes SENSITIVE EXAM: The sensitive examination was discussed with the Patient or Patient's Authorized Door To Door Salesperson. As applicable, any other physician, advance practice provider, medical student, or other health professional student that will be observing or involved in the sensitive examination for educational or training purposes was discussed with the Patient or Authorized Door To Door Salesperson. The Patient or Authorized Door To Door Salesperson has agreed to proceed with the sensitive examination. (Sensitive examination includes inspection and/or palpation of the breasts, pelvis, prostate and anorectal regions). EXAM: BP 112/60 Wt 214 lb (97.1kg) LMP 02/19/2024 GENERAL: pleasant, female in no apparent distress HEENT: Normocephalic, atraumatic, mucus membranes moist, and no lesions NECK: Supple, full range of motion, no adenopathy, and thyroid normal DERMATOLOGY: Normal, without lesions, non-icteric, and non-hirsute BREAST: soft, non-tender, symmetric, no dominant mass, normal nipple-areolar complex, no lymphadenopathy, and no nipple discharge CHEST: Normal inspiratory effort ABDOMEN: soft, non-tender, and no masses PELVIC: external genitalia normal, normal Bartholin's glands, urethra, Liborio Negron Torres's glands, no vulvar lesions, no cervical lesions, good vaginal support, physiologic discharge present, normal appearing perineal body and perianal region, cervix healed, flush BIMANUAL: uterus normal size, shape and consistency, no adnexal masses, and non-tender RECTOVAGINAL: deferred. NEURO: alert and oriented x3,exam grossly non-focal EXTREMITIES: normal ASSESSMENT/PLAN: 1) Health maintenance: Pap/HPV up to date. Mammogram starting age 40. HPV vaccine: completed series HPV in 1 year 2) Contraception: plans vasectomy. Contraceptive options reviewed and information provided. 3) STD screening: Declined STD check. 4) Follow up one year or sooner as needed Dre Buenrostro MD [facility] 02-27-2024 History of Presen t illness Narrative Manager Federal offered: Patient declines. Aniya is a 38 year old who presents for an annual gynecologic exam without complaints. S/p LEEP last month for DOLORES 2 w/ negative margins. Has had some cystic acne, started by derm on spironolactone Menses: cycles every 28-30 days and 3-5 days of flow. Contraception: none- plans vasectomy HPV vaccine: Yes Last Pap: 04/05/2023 HSIL HPV: 03/30/2023 +Type 16 History of abnormal pap: yes Last mammogram: 2 years Sexually active: Yes OB History T3 L3 SAB0 IAB0 Ectopic0 Multiple0 Live Births3 Pulp Tester History LMP: 02/19/2024 (Exact Date), Having periods Age at Menarche: Age at First : Age at Menopause: Pulp Tester History Comments: Sexual Activity: Yes; Male Contraception: No contraception data on record PAST MEDICAL HISTORY Diagnosis Date Cervical high risk human papillomavirus (HPV) DNA test positive 03/202103/24/2023 GERD (gastroesophageal reflux disease) HSIL (high grade squamous intraepithelial lesion) on Pap smear of cervix 03/202103/24/2023 PAST SURGICAL HISTORY Procedure Laterality Date CERVIX UTERI CONIZA LP ELCTRO EXCI CERVIX UTERI CONIZA LP ELCTRO EXCI 02/02/2024 LEEP, cervix very flush and leep difficult EGD W/O [facility] SPEC VARICIES INJ GERD VAGINOSCOPY 04/21/2023 No family history on file.SOCIAL HISTORY Social History Tobacco Use Smoking status: Former Smokeless tobacco: Never Vaping Use Vaping status: Never Used Substance Use Topics Alcohol use: Yes Comment: seldom Drug use: Never REVIEW OF SYSTEMS Abdomen: No abdominal pain, nausea, vomiting, diarrhea, or constipation. No bloating, early satiety, indigestion, or increased flatulence. Bladder: No dysuria, gross hematuria, urinary frequency, urinary urgency, or incontinence. Breast: No breast lumps, nipple d/c, overlying skin changes, redness or skin retraction. Allergies and current medication updated:Yes SENSITIVE EXAM: The sensitive examination was discussed with the Patient or Patient's Authorized Door To Door Salesperson. As applicable, any other physician, advance practice provider, medical student, or other health professional student that will be observing or involved in the sensitive examination for educational or training purposes was discussed with the Patient or Authorized Door To Door Salesperson. The Patient or Authorized Door To Door Salesperson has agreed to proceed with the sensitive examination. (Sensitive examination includes inspection and/or palpation of the breasts, pelvis, prostate and anorectal regions). EXAM: BP 112/60 Wt 214 lb (97.1kg) LMP 02/19/2024 GENERAL: pleasant, female in no apparent distress HEENT: Normocephalic, atraumatic, mucus membranes moist, and no lesions NECK: Supple, full range of motion, no adenopathy, and thyroid normal DERMATOLOGY: Normal, without lesions, non-icteric, and non-hirsute BREAST: soft, non-tender, symmetric, no dominant mass, normal nipple-areolar complex, no lymphadenopathy, and no nipple discharge CHEST: Normal inspiratory effort ABDOMEN: soft, non-tender, and no masses PELVIC: external genitalia normal, normal Bartholin's glands, urethra, Liborio Negron Torres's glands, no vulvar lesions, no cervical lesions, good vaginal support, physiologic discharge present, normal appearing perineal body and perianal region, cervix healed, flush BIMANUAL: uterus normal size, shape and consistency, no adnexal masses, and non-tender RECTOVAGINAL: deferred. NEURO: alert and oriented x3,exam grossly non-focal EXTREMITIES: normal ASSESSMENT/PLAN: 1) Health maintenance: Pap/HPV up to date. Mammogram starting age 40. HPV vaccine: completed series HPV in 1 year 2) Contraception: plans vasectomy. Contraceptive options reviewed and information provided. 3) STD screening: Declined STD check. 4) Follow up one year or sooner as needed Dre Buenrostro MD documented in this encounter [facility] 02-02-2024 Note HNO ID: [id number] Author: DRE BUENROSTRO MD Service: ? Author Type: Physician Type: Progress Notes Filed: 02/02/2024 17:54 Note Text: Patient underwent a LEEP procedure at [facility] in the operating room today. Cervix was very high in the vagina difficult to reach and very flush with the vagina. I was able to do a LEEP and ECC in the cervical os was identified. Pathology is pending. Would be very difficult to do another excisional procedure in the future. Dre Buenrostro MD [facility] 02-02-2024 History of Presen t illness Narrative Patient underwent a LEEP procedure at [facility] in the operating room today. Cervix was very high in the vagina difficult to reach and very flush with the vagina. I was able to do a LEEP and ECC in the cervical os was identified. Pathology is pending. Would be very difficult to do another excisional procedure in the future. Dre Buenrostro MD documented in this encounter [facility] 01-24-2024 Telephone encounter Note Patient and I have discussed this. They can do some IV sedation perhaps. Thanks. Mostly it is so I have adequate light and equipment. Dre Buenrostro MD [facility] 01-24-2024 Miscellaneous Notes Patient and I have discussed this. They can do some IV sedation perhaps. Thanks. Mostly it is so I have adequate light and equipment. Dre Buenrostro MD Patient is scheduled for LEEP procedure on 02/01 at [facility]. Patient had her PAT with [facility] today, PAT nurse calling to relay to office that patient told her that she is very confused to why she is having a LEEP under anesthesia and that she does not want to be put to sleep on the day of the surgery. KHRIS. Marychuy Roger RN documented in this encounter [facility] 01-24-2024 Telephone encounter Note Patient is scheduled for LEEP procedure on 02/01 at [facility]. Patient had her PAT with [facility] today, PAT nurse calling to relay to office that patient told her that she is very confused to why she is having a LEEP under anesthesia and that she does not want to be put to sleep on the day of the surgery. KHRIS. 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 She has appt with [facility] tomorrow at 1pm. Will come in at 12 tomorrow to waste picker. Andrea Jordan MA documented in this encounter [facility] 01-16-2024 Telephone encounter Note Pt requesting report and disk with images of x-ray done 01/09/2024. She has appt with [facility] tomorrow at 1pm. Will come in at 12 tomorrow to waste picker. Andrea Jordan MA [facility] 01-09-2024 Note HNO ID: [id number] Author: FRANCESCO [place] APRN.CHIEF OF PARTY Service: ? Author Type: Nurse Practitioner Type: Progress Notes Filed: 01/09/2024 12:01 Note Text: Subjective HPI HPI Aniya Lovett is a 38 year old female who presents today for CC of bilat ankle injury/rolled today. Has tried nothing for relief. Symptoms are worsened by rom/walking. Risk factors hx of ankle sprains. 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 NYSTOP powder USE ONE GRAM TWICE DAILY clindamycin (CLEOCIN-T) 1 % gel Apply to the face once in the evening tretinoin (RETIN-A) 0.025 % topical cream dextroamphetamine-amphetamine (ADDERALL) 10 mg tablet TAKE TWO TABLETS BY MOUTH EVERY MORNING AND AT NOON, AND TAKE ONE TABLET AT 4pm No family history on file. Social History Tobacco Use Smoking status: Former Smokeless tobacco: Never Vaping Use Vaping status: Never Used Substance Use Topics Alcohol use: Yes Comment: seldom Drug use: Never ROS Objective Blood pressure 124/78, pulse 115, temperature 36.7 ?C (98.1 ?F), resp. rate 21, weight 102.1 kg (225 lb 1.4 oz), last menstrual period 05/18/2023, SpO2 99%. Physical Exam Constitutional: General: She is not in acute distress. Appearance: She is not toxic-appearing or diaphoretic. HENT: Head: Normocephalic and atraumatic. Pulmonary: Effort: Pulmonary effort is normal. No accessory muscle usage or respiratory distress. Musculoskeletal: Legs: Neurological: Mental Status: She is alert and oriented to person, place, and time. ASSESSMENT/PLAN: 1. Injury of left ankle, initial encounter - ICD9: 959.7, ICD10: S99.912A (primary diagnosis) -no bony abnormality noted on xray -Rest, Ice, Compression, Elevation discussed -discussed use of ibuprofen -follow up with primary care if symptoms persist/worsen in 10-14 days - XR ANKLE GENERAL 3V AP/LAT/OBL LEFT IMPRESSION: No acute osseous abnormality Dictated by : ELMER GUNN MD - XR ANKLE GENERAL 3V AP/LAT/OBL BILATERAL 2. Ankle injuries, right, initial encounter - ICD9: 959.7, ICD10: S99.911A Francesco Ny APRN.CHIEF OF PARTY [facility] 01-09-2024 History of Presen t illness Narrative Images from the original note were not included. Subjective HPI HPI Aniya Lovett is a 38 year old female who presents today for CC of bilat ankle injury/rolled today. Has tried nothing for relief. Symptoms are worsened by rom/walking. Risk factors hx of ankle sprains. 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 NYSTOP powder USE ONE GRAM TWICE DAILY clindamycin (CLEOCIN-T) 1 % gel Apply to the face once in the evening tretinoin (RETIN-A) 0.025 % topical cream dextroamphetamine-amphetamine (ADDERALL) 10 mg tablet TAKE TWO TABLETS BY MOUTH EVERY MORNING AND AT NOON, AND TAKE ONE TABLET AT 4pm No family history on file. Social History Tobacco Use Smoking status: Former Smokeless tobacco: Never Vaping Use Vaping status: Never Used Substance Use Topics Alcohol use: Yes Comment: seldom Drug use: Never ROS Objective Blood pressure 124/78, pulse 115, temperature 36.7 C (98.1 F), resp. rate 21, weight 102.1 kg (225 lb 1.4 oz), last menstrual period 05/18/2023, SpO2 99%. Physical Exam Constitutional: General: She is not in acute distress. Appearance: She is not toxic-appearing or diaphoretic. HENT: Head: Normocephalic and atraumatic. Pulmonary: Effort: Pulmonary effort is normal. No accessory muscle usage or respiratory distress. Musculoskeletal: Legs: Neurological: Mental Status: She is alert and oriented to person, place, and time. ASSESSMENT/PLAN: 1. Injury of left ankle, initial encounter - ICD9: 959.7, ICD10: S99.912A (primary diagnosis) -no bony abnormality noted on xray -Rest, Ice, Compression, Elevation discussed -discussed use of ibuprofen -follow up with primary care if symptoms persist/worsen in 10-14 days - XR ANKLE GENERAL 3V AP/LAT/OBL LEFT IMPRESSION: No acute osseous abnormality Dictated by : ELMER GUNN MD - XR ANKLE GENERAL 3V AP/LAT/OBL BILATERAL 2. Ankle injuries, right, initial encounter - ICD9: 959.7, ICD10: S99.911A Francesco Ny APRN.CHIEF OF PARTY documented in this encounter [facility] 01-09-2024 History of Presen t illness Narrative Radiology Service Progress Note PATIENT NAME: Aniya Lovett DATE OF SERVICE: January 09, 2024 TIME: 10:56 AM PATIENT IDENTITY VERIFICATION COMPLETED USING TWO (2) IDENTIFIERS: Name and Date of confirmed by patient verbally. FALL SCREENING: Has the patient had 2 falls in the last year or 1 fall with injury or currently using an Ambulatory Assistive Device (Walker, Cane, Wheelchair, Crutches, etc.)? No PATIENT GENDER DATA: Female. status: : No status: NO. PATIENT RELEVANT IMPLANT DATA REVIEWED: Yes PATIENT PRESENTS WITH AN IMPLANTABLE OR ATTACHED RADIO FREQUENCY ENGINEER: No RADIOLOGY DEPARTMENT: General X-ray: Exam(s) Completed: Lower Extremity X-Ray(s): Ankle, Bilateral and Wt. Bearing PERIPHERAL IV DATA: Not applicable SIGNED BY: RT Yesenia(R) January 09, 2024 10:56 AM documented in this encounter [facility] 01-09-2024 Note HNO ID: [id number] Author: AGUEDA LOVE RT(R) Service: Radiology Author Type: Technologist Type: Progress Notes Filed: 01/09/2024 11:05 Note Text: Radiology Service Progress Note PATIENT NAME: Aniya Lovett DATE OF SERVICE: January 09, 2024 TIME: 10:56 AM PATIENT IDENTITY VERIFICATION COMPLETED USING TWO (2) IDENTIFIERS: Name and Date of confirmed by patient verbally. FALL SCREENING: Has the patient had 2 falls in the last year or 1 fall with injury or currently using an Ambulatory Assistive Device (Walker, Cane, Wheelchair, Crutches, etc.)? No PATIENT GENDER DATA: Female. status: : No status: NO. PATIENT RELEVANT IMPLANT DATA REVIEWED: Yes PATIENT PRESENTS WITH AN IMPLANTABLE OR ATTACHED RADIO FREQUENCY ENGINEER: No RADIOLOGY DEPARTMENT: General X-ray: Exam(s) Completed: Lower Extremity X-Ray(s): Ankle, Bilateral and Wt. Bearing PERIPHERAL IV DATA: Not applicable SIGNED BY: RT Yesenia(R) January 09, 2024 10:56 AM [facility] 01-06-2024 Telephone encounter Note Patient notified. Mary Reinoso RN [facility] 01-06-2024 Miscellaneous Notes Patient notified. Mary Reinoso RN Reasonable, should be able to continue w/ it. I am ok w/ her taking it if anesthesia is. PAT nurse will review anesthesia guidelines. Dre Buenrostro MD Patient notified. She no longer take Qymia. For adderall, she said she is unable to stop it for 3 days and that she would not be able to function. States with previous surgeries she has never stopped it before. Stated that she may be able to decrease her dose, but not able to stop it. Mary Reinoso RN Left message for patient to call office. Mary Reinoso RN Please let patient know that she needs to be off her Semaglutide for one week before surgery. She should be of the Qymia for a 3 days. I saw that in her history and not sure if she is still on that. If on adderall then off of that for 3 days as well. Dre Buenrostro MD documented in this encounter [facility] 01-06-2024 Telephone encounter Note Reasonable, should be able to continue w/ it. I am ok w/ her taking it if anesthesia is. PAT nurse will review anesthesia guidelines. Dre Buenrostro MD [facility] 01-06-2024 Telephone encounter Note Patient notified. She no longer take Qymia. For adderall, she said she is unable to stop it for 3 days and that she would not be able to function. States with previous surgeries she has never stopped it before. Stated that she may be able to decrease her dose, but not able to stop it. Mary Reinoso RN [facility] 01-06-2024 Telephone encounter Note Left message for patient to call office. Mary Reinoso RN [facility] 01-06-2024 Note [facility] Medical Records Department [address] [place] [address] History Physical Exam 01/06/24 1244 MR#: [id number] Acct: [id number] Name: ANIYA LOVETT Rep #: [id number] : 1985 38 From: Dre Buenrostro MD PCP: Dr. Olaf Galloway MD Status:[facility] Location: [place] [address] History and Physical Date of Admission: 02/02/24 HPI: The patient is a 38 year old female presenting for pre-operative visit. She is scheduled for LEEP, for high grade cervical dysplasia on 02/01/25. Procedure discussed along with risks, benefits and complications. Other alternatives discussed for management. Consent form signed? Yes. PAST MEDICAL HISTORY PAST MEDICAL HISTORY Diagnosis Date ??? 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 GERD (gastroesophageal reflux disease) ??? HSIL (high grade squamous intraepithelial lesion) on Pap smear of cervix 03/202103/24/2023 PAST SURGICAL HISTORY PAST SURGICAL HISTORY Procedure Laterality Date ??? EGD W/O [facility] SPEC VARICIES INJ GERD ??? VAGINOSCOPY 04/21/2023 CURRENT MEDICATIONS Current Outpatient Medications Medication Sig Dispense Refill ??? SEMAGLUTIDE, WEIGHT LOSS, SUBCUTANEOUS Inject 0.5 mg subcutaneously. ??? NYSTOP powder USE ONE GRAM TWICE DAILY ??? clindamycin (CLEOCIN-T) 1 % gel Apply to the face once in the evening ??? tretinoin (RETIN-A) 0.025 % topical cream ??? dextroamphetamine-amphetamine (ADDERALL) 10 mg tablet TAKE TWO TABLETS BY MOUTH EVERY MORNING AND AT NOON, AND TAKE ONE TABLET AT 4pm ??? sertraline (ZOLOFT) 25 mg tablet Take 1 tablet by mouth every afternoon. ??? SOOLANTRA 1 % Apply a thin layer to the face twice a day. No current facility-administered medications for this visit. ALLERGIES: Morphine and Penicillins PERSONAL HISTORY: SOCIAL HISTORY Social History Tobacco Use ??? Smoking status: Former ??? Smokeless tobacco: Never Vaping Use ??? Vaping status: Never Used Substance Use Topics ??? Alcohol use: Yes Comment: seldom ??? Drug use: Never FAMILY HISTORY: FAMILY HISTORY History reviewed. No pertinent family history. REVIEW OF SYMPTOMS: GENERAL: denies fevers or chills ENDOCRINOLOGY: has not been on steroids Cardiology : denies palpitations or chest pain Respiratory: denies SOB or cough Hematology: denies history of prolonged bleeding or easy bruising or VTE Allergy: Denies history of personal or family history of allergy to anesthesia PHYSICAL EXAMINATION: VITALS: Blood pressure 120/70, pulse 86, resp. rate 20, height 167 cm (5' 5.75), weight 99.5 kg (219 lb 6.4 oz), last menstrual period 05/18/2023, SpO2 96%. GENERAL: The patient is well nourished, well hydrated in no acute distress. , The patient is oriented to time, place, and person. NECK: Supple. No lynphadenopathy, normal thyroid, no thyromegaly. LUNGS: Clear to auscultation bilaterally. no wheezes, rhonchi or rales HEART: Regular rate and rhythm, Normal heart sounds, and No murmurs or gallops IMPRESSION: +HRHPV 16, high grade squamous intraepithelial lesion of the cervix PLAN: The risks/benefits/alternatives and personal involved for the planned LEEP in the operating room were reviewed with the patient. Her questions were answered to her satisfaction and she desires to proceed. Consent was signed. I reviewed with her postop instructions and expectations. I have reviewed and updated past medical and surgical history, medications and allergies Assessment Plan Assessment/Plan (1) High grade squamous intraepithelial lesion of cervix: 01/06/24 1245 Cosigner Signature (if applicable): CC: Dr. Olaf Galloway MD; Dr. Dre Buenrostro MD Signed ADDENDUM by Dr. Dre Buenrostro MD on 02/02/24 at 1041 Addendum UPDATE- I have seen the patient and performed any clinically relevant updates to the history and physical exam. 02/02/24 1041 Cosigner Signature (if applicable): cc: Dr. Olaf Galloway MD; Dr. Dre Buenrostro MD * Signed [facility] 01-06-2024 Telephone encounter Note Please let patient know that she needs to be off her Semaglutide for one week before surgery. She should be of the Qymia for a 3 days. I saw that in her history and not sure if she is still on that. If on adderall then off of that for 3 days as well. Dre Buenrostro MD [facility] 01-06-2024 History and physical note Pre-Op History and Physical HPI: The patient is a 38 year old female presenting for pre-operative visit. She is scheduled for LEEP, for high grade cervical dysplasia on 02/01/25. Procedure discussed along with risks, benefits and complications. Other alternatives discussed for management. Consent form signed? Yes. PAST MEDICAL HISTORY Diagnosis Date Cervical high risk human papillomavirus (HPV) DNA test positive 03/202103/24/2023 GERD (gastroesophageal reflux disease) HSIL (high grade squamous intraepithelial lesion) on Pap smear of cervix 03/202103/24/2023 PAST SURGICAL HISTORY Procedure Laterality Date EGD W/O [facility] SPEC VARICIES INJ GERD VAGINOSCOPY 04/21/2023 Current Outpatient Medications Medication Sig Dispense Refill SEMAGLUTIDE, WEIGHT LOSS, SUBCUTANEOUS Inject 0.5 mg subcutaneously. NYSTOP powder USE ONE GRAM TWICE DAILY clindamycin (CLEOCIN-T) 1 % gel Apply to the face once in the evening tretinoin (RETIN-A) 0.025 % topical cream dextroamphetamine-amphetamine (ADDERALL) 10 mg tablet TAKE TWO TABLETS BY MOUTH EVERY MORNING AND AT NOON, AND TAKE ONE TABLET AT 4pm sertraline (ZOLOFT) 25 mg tablet Take 1 tablet by mouth every afternoon. SOOLANTRA 1 % Apply a thin layer to the face twice a day. No current facility-administered medications for this visit. ALLERGIES: Morphine and Penicillins PERSONAL HISTORY: Social History Tobacco Use Smoking status: Former Smokeless tobacco: Never Vaping Use Vaping status: Never Used Substance Use Topics Alcohol use: Yes Comment: seldom Drug use: Never FAMILY HISTORY: History reviewed. No pertinent family history. REVIEW OF SYMPTOMS: GENERAL: denies fevers or chills ENDOCRINOLOGY: has not been on steroids Cardiology : denies palpitations or chest pain Respiratory: denies SOB or cough Hematology: denies history of prolonged bleeding or easy bruising or VTE Allergy: Denies history of personal or family history of allergy to anesthesia PHYSICAL EXAMINATION: VITALS: Blood pressure 120/70, pulse 86, resp. rate 20, height 167 cm (5' 5.75), weight 99.5 kg (219 lb 6.4 oz), last menstrual period 05/18/2023, SpO2 96%. GENERAL: The patient is well nourished, well hydrated in no acute distress. , The patient is oriented to time, place, and person. NECK: Supple. No lynphadenopathy, normal thyroid, no thyromegaly. LUNGS: Clear to auscultation bilaterally. no wheezes, rhonchi or rales HEART: Regular rate and rhythm, Normal heart sounds, and No murmurs or gallops IMPRESSION: +HRHPV 16, high grade squamous intraepithelial lesion of the cervix PLAN: The risks/benefits/alternatives and personal involved for the planned LEEP in the operating room were reviewed with the patient. Her questions were answered to her satisfaction and she desires to proceed. Consent was signed. I reviewed with her postop instructions and expectations. I have reviewed and updated past medical and surgical history, medications and allergies Dre Buenrostro M.D. T [facility] 01-06-2024 History and physical note Pre-Op History and Physical HPI: The patient is a 38 year old female presenting for pre-operative visit. She is scheduled for LEEP, for high grade cervical dysplasia on 02/01/25. Procedure discussed along with risks, benefits and complications. Other alternatives discussed for management. Consent form signed? Yes. PAST MEDICAL HISTORY Diagnosis Date Cervical high risk human papillomavirus (HPV) DNA test positive 03/202103/24/2023 GERD (gastroesophageal reflux disease) HSIL (high grade squamous intraepithelial lesion) on Pap smear of cervix 03/202103/24/2023 PAST SURGICAL HISTORY Procedure Laterality Date [facility] INJ GERD VAGINOSCOPY 04/21/2023 Current Outpatient Medications Medication Sig Dispense Refill SEMAGLUTIDE, WEIGHT LOSS, SUBCUTANEOUS Inject 0.5 mg subcutaneously. NYSTOP powder USE ONE GRAM TWICE DAILY clindamycin (CLEOCIN-T) 1 % gel Apply to the face once in the evening tretinoin (RETIN-A) 0.025 % topical cream dextroamphetamine-amphetamine (ADDERALL) 10 mg tablet TAKE TWO TABLETS BY MOUTH EVERY MORNING AND AT NOON, AND TAKE ONE TABLET AT 4pm sertraline (ZOLOFT) 25 mg tablet Take 1 tablet by mouth every afternoon. SOOLANTRA 1 % Apply a thin layer to the face twice a day. No current facility-administered medications for this visit. ALLERGIES: Morphine and Penicillins PERSONAL HISTORY: Social History Tobacco Use Smoking status: Former Smokeless tobacco: Never Vaping Use Vaping status: Never Used Substance Use Topics Alcohol use: Yes Comment: seldom Drug use: Never FAMILY HISTORY: History reviewed. No pertinent family history. REVIEW OF SYMPTOMS: GENERAL: denies fevers or chills ENDOCRINOLOGY: has not been on steroids Cardiology : denies palpitations or chest pain Respiratory: denies SOB or cough Hematology: denies history of prolonged bleeding or easy bruising or VTE Allergy: Denies history of personal or family history of allergy to anesthesia PHYSICAL EXAMINATION: VITALS: Blood pressure 120/70, pulse 86, resp. rate 20, height 167 cm (5' 5.75), weight 99.5 kg (219 lb 6.4 oz), last menstrual period 05/18/2023, SpO2 96%. GENERAL: The patient is well nourished, well hydrated in no acute distress. , The patient is oriented to time, place, and person. NECK: Supple. No lynphadenopathy, normal thyroid, no thyromegaly. LUNGS: Clear to auscultation bilaterally. no wheezes, rhonchi or rales HEART: Regular rate and rhythm, Normal heart sounds, and No murmurs or gallops IMPRESSION: +HRHPV 16, high grade squamous intraepithelial lesion of the cervix PLAN: The risks/benefits/alternatives and personal involved for the planned LEEP in the operating room were reviewed with the patient. Her questions were answered to her satisfaction and she desires to proceed. Consent was signed. I reviewed with her postop instructions and expectations. I have reviewed and updated past medical and surgical history, medications and allergies Dre Buenrostro M.D. documented in this encounter [facility] 01-06-2024 Note HNO ID: [id number] Author: DRE BUENROSTRO MD Service: ? Author Type: Physician Type: Progress Notes Filed: 01/06/2024 12:44 Note Text: Aniya Lovett is a 38 year old female who presents for problem visit for HSIL. HPI: 38-year old female with history of HSIL of the cervix. Has a history of cryo before her C-sections. Has a very high and difficult to access cervix. Presents to discuss options. OB History T3 L3 SAB0 IAB0 Ectopic0 Multiple0 Live Births3 Pulp Tester History LMP: 05/18/2023 (Exact Date), Having periods Age at Menarche: Age at First : Age at Menopause: Pulp Tester History Comments: Sexual Activity: Yes; Male Contraception: No contraception data on record PAST MEDICAL HISTORY Diagnosis Date Cervical high risk human papillomavirus (HPV) DNA test positive 03/202103/24/2023 GERD (gastroesophageal reflux disease) HSIL (high grade squamous intraepithelial lesion) on Pap smear of cervix 03/202103/24/2023 PAST SURGICAL HISTORY Procedure Laterality Date EGD W/O [facility] SPEC VARICIES INJ GERD VAGINOSCOPY 04/21/2023 History reviewed. No pertinent family history. Social History Tobacco Use Smoking status: Former Smokeless tobacco: Never Vaping Use Vaping status: Never Used Substance Use Topics Alcohol use: Yes Comment: seldom Drug use: Never Current Outpatient Medications Medication Sig SEMAGLUTIDE, WEIGHT LOSS, SUBCUTANEOUS Inject 0.5 mg subcutaneously. NYSTOP powder USE ONE GRAM TWICE DAILY clindamycin (CLEOCIN-T) 1 % gel Apply to the face once in the evening tretinoin (RETIN-A) 0.025 % topical cream dextroamphetamine-amphetamine (ADDERALL) 10 mg tablet TAKE TWO TABLETS BY MOUTH EVERY MORNING AND AT NOON, AND TAKE ONE TABLET AT 4pm sertraline (ZOLOFT) 25 mg tablet Take 1 tablet by mouth every afternoon. SOOLANTRA 1 % Apply a thin layer to the face twice a day. No current facility-administered medications for this visit. Allergies As of Date: 01/06/2024 Allergen Noted Reaction MORPHINE 07/02/2021 Vomiting PENICILLINS 02/20/2017 Hives Fully Assessed 05/19/2023 Allergies and current medication updated:Yes SENSITIVE EXAM: Sensitive exam not performed. EXAM: BP 120/70 Pulse 86 Resp 20 Ht 5' 5.748 (1.67m) Wt 219 lb 6.4 oz (99.5kg) SpO2 96% LMP 05/18/2023 BMI 35.68 kg/(m2). GENERAL: pleasant, female in no apparent distress H ASSESSMENT AND PLAN: [facility] LEEP and HRHPV and High-grade squamous intraepithelial lesion of the cervix, difficult to access cervix. Risk benefits and alternatives to LEEP in the operating room were discussed with the patient, her questions were answered to her satisfaction she desires to proceed. She is anxious about being in surgery and risks of anesthesia and being in the operating room. I again offered patient consult with [facility] to see if they would be more comfortable performing the procedure in the office. Patient declines this and agrees to proceed in the operating room. Decision for surgery today. See HANDP note. Dre Buenrostro MD [facility] 01-06-2024 History of Presen t illness Narrative Aniya Lovett is a 38 year old female who presents for problem visit for HSIL. HPI: 38-year old female with history of HSIL of the cervix. Has a history of cryo before her C-sections. Has a very high and difficult to access cervix. Presents to discuss options. OB History T3 L3 SAB0 IAB0 Ectopic0 Multiple0 Live Births3 Pulp Tester History LMP: 05/18/2023 (Exact Date), Having periods Age at Menarche: Age at First : Age at Menopause: Pulp Tester History Comments: Sexual Activity: Yes; Male Contraception: No contraception data on record PAST MEDICAL HISTORY Diagnosis Date Cervical high risk human papillomavirus (HPV) DNA test positive 03/202103/24/2023 GERD (gastroesophageal reflux disease) HSIL (high grade squamous intraepithelial lesion) on Pap smear of cervix 03/202103/24/2023 PAST SURGICAL HISTORY Procedure Laterality Date [facility] INJ GERD VAGINOSCOPY 04/21/2023 History reviewed. No pertinent family history. Social History Tobacco Use Smoking status: Former Smokeless tobacco: Never Vaping Use Vaping status: Never Used Substance Use Topics Alcohol use: Yes Comment: seldom Drug use: Never Current Outpatient Medications Medication Sig SEMAGLUTIDE, WEIGHT LOSS, SUBCUTANEOUS Inject 0.5 mg subcutaneously. NYSTOP powder USE ONE GRAM TWICE DAILY clindamycin (CLEOCIN-T) 1 % gel Apply to the face once in the evening tretinoin (RETIN-A) 0.025 % topical cream dextroamphetamine-amphetamine (ADDERALL) 10 mg tablet TAKE TWO TABLETS BY MOUTH EVERY MORNING AND AT NOON, AND TAKE ONE TABLET AT 4pm sertraline (ZOLOFT) 25 mg tablet Take 1 tablet by mouth every afternoon. SOOLANTRA 1 % Apply a thin layer to the face twice a day. No current facility-administered medications for this visit. Allergies As of Date: 01/06/2024 Allergen Noted Reaction MORPHINE 07/02/2021 Vomiting PENICILLINS 02/20/2017 Hives Fully Assessed 05/19/2023 Allergies and current medication updated:Yes SENSITIVE EXAM: Sensitive exam not performed. EXAM: BP 120/70 Pulse 86 Resp 20 Ht 5' 5.748 (1.67m) Wt 219 lb 6.4 oz (99.5kg) SpO2 96% LMP 05/18/2023 BMI 35.68 kg/(m^2). GENERAL: pleasant, female in no apparent distress H ASSESSMENT AND PLAN: [facility] LEEP and HRHPV and High-grade squamous intraepithelial lesion of the cervix, difficult to access cervix. Risk benefits and alternatives to LEEP in the operating room were discussed with the patient, her questions were answered to her satisfaction she desires to proceed. She is anxious about being in surgery and risks of anesthesia and being in the operating room. I again offered patient consult with [facility] to see if they would be more comfortable performing the procedure in the office. Patient declines this and agrees to proceed in the operating room. Decision for surgery today. See H&P note. Dre Buenrostro MD documented in this encounter [facility] 12-23-2023 Telephone encounter Note ordnance corps officer notified and surgery changed. Designated Broker will notify patient. Marychuy Roger RN [facility] 12-23-2023 Miscellaneous Notes ordnance corps officer notified and surgery changed. Designated Broker will notify patient. Marychuy Roger RN Would probably be better if not at height of menstrual flow but at end would be ok. Please move it to suit her when I have OR time. [place] in [place] I have openings as well. Dre Buenrostro MD Patient is wanting her LEEP moved 1-2 weeks out because she will be on her menses. Advised that she can most likely be on her menses, but patient would not feel comfortable with this. Sheree Dumont RN documented in this encounter [facility] 12-23-2023 Telephone encounter Note Would probably be better if not at height of menstrual flow but at end would be ok. Please move it to suit her when I have OR time. [place] in [place] I have openings as well. Dre Buenrostro MD [facility] 12-23-2023 Telephone encounter Note Patient is wanting her LEEP moved 1-2 weeks out because she will be on her menses. Advised that she can most likely be on her menses, but patient would not feel comfortable with this. Sheree Dumont RN [facility] 11-30-2023 Telephone encounter Note Surgery sheet placed in raised printer's mailbox. Mary Reinoso RN [facility] 11-30-2023 Miscellaneous Notes Surgery sheet placed in raised printer's mailbox. Mary Reinoso RN done. Dre Buenrostro MD Spoke to patient to clarify. She does want to proceed with LEEP in OR as previously discussed with RR. Surgery sheet to provider to complete. She wants WC and is flexible with next available date. Mary Reinoso RN Patient called requesting an order for a leep procedure please advise documented in this encounter [facility] 11-30-2023 Telephone encounter Note done. Dre Buenrostro MD [facility] 11-30-2023 Telephone encounter Note Spoke to patient to clarify. She does want to proceed with LEEP in OR as previously discussed with RR. Surgery sheet to provider to complete. She wants [facility] and is flexible with next available date. Mary Reinoso RN [facility] 11-30-2023 Telephone encounter Note Patient called requesting an order for a leep procedure please advise [facility] Work Phone: 05-19-2023 Note HNO ID: [id number] Author: DRE BUENROSTRO MD Service: ? Author Type: Physician Type: Progress Notes Filed: 05/19/2023 12:25 Note Text: Aniya Lovett is a 37 year old female who presents for problem visit for f/u LEEP. HPI: did well after surgery. Has a h/o of 3 c/s and prior cryo. Had cryo before c/s and in office. Wants to have in office LEEP. Denies abnormal dsicharge or problems after colp and bxs. No other c/o today. OB History T3 L3 SAB0 IAB0 Ectopic0 Multiple0 Live Births3 Pulp Tester History LMP: 05/18/2023 (Exact Date), Having periods Age at Menarche: Age at First : Age at Menopause: Pulp Tester History Comments: Sexual Activity: Yes; Male Contraception: No contraception data on record PAST MEDICAL HISTORY Diagnosis Date Cervical high risk human papillomavirus (HPV) DNA test positive 03/202103/24/2023 GERD (gastroesophageal reflux disease) HSIL (high grade squamous intraepithelial lesion) on Pap smear of cervix 03/202103/24/2023 PAST SURGICAL HISTORY Procedure Laterality Date EGD W/O [facility] SPEC VARICIES INJ GERD VAGINOSCOPY 04/21/2023 History reviewed. No pertinent family history. Social History Tobacco Use Smoking status: Former Smokeless tobacco: Never Vaping Use Vaping Use: Never used Substance Use Topics Alcohol use: Yes Comment: seldom Drug use: Never Current Outpatient Medications Medication Sig NYSTOP powder USE ONE GRAM TWICE DAILY sertraline (ZOLOFT) 25 mg tablet Take 1 tablet by mouth every afternoon. clindamycin (CLEOCIN-T) 1 % gel Apply to the face once in the evening tretinoin (RETIN-A) 0.025 % topical cream dextroamphetamine-amphetamine (ADDERALL) 10 mg tablet TAKE TWO TABLETS BY MOUTH EVERY MORNING AND AT NOON, AND TAKE ONE TABLET AT 4pm SOOLANTRA 1 % Apply a thin layer to the face twice a day. No current facility-administered medications for this visit. Allergies As of Date: 05/19/2023 Allergen Noted Reaction MORPHINE 07/02/2021 Vomiting PENICILLINS 02/20/2017 Hives Fully Assessed 05/19/2023 Allergies and current medication updated:Yes EXAM: BP 108/70 Pulse 110 Resp 16 Ht 5' 6 (1.68m) Wt 240 lb (108.9kg) SpO2 98% LMP 05/18/2023 BMI 38.76 kg/(m2). GENERAL: pleasant, female in no apparent distress ASSESSMENT AND PLAN: high grade cervical dysplasia Risk benefits and alternatives to resection with LEEP were reviewed. I discussed with her because of the position and difficulty in getting to her cervix high in her vagina, likely due to scarring of her uterus from previous sections, not for comfortable proceeding in the office. She can consult with another provider. I recommend MAC anesthesia and operating room for better lighting patient positioning and access. Patient states she would like to wait until summer when her schedule is more flexible. I discussed with her this very reasonable and there is very minimal risk of progression in the next 6 months. She will contact the office with preferred dates for the summer.mar revieewed pap/;leep had gardasil series in the past Dre Buenrostro MD [facility] 05-19-2023 History of Presen t illness Narrative Aniya Lovett is a 37 year old female who presents for problem visit for f/u LEEP. HPI: did well after surgery. Has a h/o of 3 c/s and prior cryo. Had cryo before c/s and in office. Wants to have in office LEEP. Denies abnormal dsicharge or problems after colp and bxs. No other c/o today. OB History T3 L3 SAB0 IAB0 Ectopic0 Multiple0 Live Births3 Pulp Tester History LMP: 05/18/2023 (Exact Date), Having periods Age at Menarche: Age at First : Age at Menopause: Pulp Tester History Comments: Sexual Activity: Yes; Male Contraception: No contraception data on record PAST MEDICAL HISTORY Diagnosis Date Cervical high risk human papillomavirus (HPV) DNA test positive 03/202103/24/2023 GERD (gastroesophageal reflux disease) HSIL (high grade squamous intraepithelial lesion) on Pap smear of cervix 03/202103/24/2023 PAST SURGICAL HISTORY Procedure Laterality Date EGD W/O [facility] SPEC VARICIES INJ GERD VAGINOSCOPY 04/21/2023 History reviewed. No pertinent family history. Social History Tobacco Use Smoking status: Former Smokeless tobacco: Never Vaping Use Vaping Use: Never used Substance Use Topics Alcohol use: Yes Comment: seldom Drug use: Never Current Outpatient Medications Medication Sig NYSTOP powder USE ONE GRAM TWICE DAILY sertraline (ZOLOFT) 25 mg tablet Take 1 tablet by mouth every afternoon. clindamycin (CLEOCIN-T) 1 % gel Apply to the face once in the evening tretinoin (RETIN-A) 0.025 % topical cream dextroamphetamine-amphetamine (ADDERALL) 10 mg tablet TAKE TWO TABLETS BY MOUTH EVERY MORNING AND AT NOON, AND TAKE ONE TABLET AT 4pm SOOLANTRA 1 % Apply a thin layer to the face twice a day. No current facility-administered medications for this visit. Allergies As of Date: 05/19/2023 Allergen Noted Reaction MORPHINE 07/02/2021 Vomiting PENICILLINS 02/20/2017 Hives Fully Assessed 05/19/2023 Allergies and current medication updated:Yes EXAM: BP 108/70 Pulse 110 Resp 16 Ht 5' 6 (1.68m) Wt 240 lb (108.9kg) SpO2 98% LMP 05/18/2023 BMI 38.76 kg/(m^2). GENERAL: pleasant, female in no apparent distress ASSESSMENT AND PLAN: high grade cervical dysplasia Risk benefits and alternatives to resection with LEEP were reviewed. I discussed with her because of the position and difficulty in getting to her cervix high in her vagina, likely due to scarring of her uterus from previous sections, not for comfortable proceeding in the office. She can consult with another provider. I recommend MAC anesthesia and operating room for better lighting patient positioning and access. Patient states she would like to wait until summer when her schedule is more flexible. I discussed with her this very reasonable and there is very minimal risk of progression in the next 6 months. She will contact the office with preferred dates for the summer.mar revieewed pap/;leep had gardasil series in the past Dre Buenrostro MD documented in this encounter [facility] 05-19-2023 History and physical note v documented in this encounter [facility] 04-21-2023 Note HNO ID: [id number] Author: DRE BUENROSTRO MD Service: ? Author Type: Physician Type: Progress Notes Filed: 04/21/2023 12:25 Note Text: Aniya is a 37 year old who presents today for a colposcopy. The patient's last pap smear was HGSIL and + HRHPV 16 from March 2023. Patient has a history of abnormal pap: Yes. The patient has had prior treatment: none. test: negative UNIVERSAL PROTOCOL / SAFETY CHECKLIST Procedure to be Performed: colposcopy with possible biopsies Sign In: A Moment of CARE was completed. Personnel directly involved with the procedure wore the appropriate PPE (Personal Protective Equipment). Patient/Surrogate Stated/Verified: PATIENT VERIFIED(optional for EMERGENT procedures): Patient name, Date of , Relevant allergies, and The intended procedure Time Out Communication: Intended patient and procedure match the source documents. Consent documented and matches the intended procedure. Relevant labs, photos, and/or imaging studies have been reviewed. No implant(s) inserted. Sign Out: SIGN OUT (optional for EMERGENT procedures): All specimen containers correctly labeled. All instruments, equipment, possible retained foreign bodies accounted for. Post-procedure follow-up management communicated and Plan of Care Visit completed when applicable. Dre Buenrostro M.D. PROCEDURE: EXTERNAL GENITALIA: Normal in appearance without lesions VAGINA: Normal in appearance without lesions CERVIX: Speculum placed in vagina and excellent visualization of cervix achieved. Cervix swabbed x 3 with 3% acetic acid solution. Cervix grossly normal. Squamocolumnar junction visualized. No acetowhite changes, punctations, mosaicism or atypical vasculature noted. BIOPSY: Done at 6:00, 9:00, and 12:00 ECC: done HEMOSTASIS: Obtained with silver nitrate and pressure Procedure Summary: Patient tolerated procedure well and colposcopy was adequate. ASSESSMENT: HPV effect PLAN: Specimens labeled and sent to Pathology. Will notify patient of results in 1-2 weeks. Post-procedure instructions reviewed and written material given to the patient. If indicated, lesion by colpo is not amenable to office LEEP. cervix very high and up to her left Dre Buenrostro MD [facility] 03-24-2023 History of Presen t illness Narrative Aniya is a 37 year old who presents for an annual gynecologic exam without complaints. Has h/o abnormal paps and 2 colps. Did not have treatment of abnormal paps that she can remember. Menses: cycles every 28-30 days and 5-6 days of flow. first 2 days heavy Contraception: planning vasectomy HPV vaccine: done age 17 Last Pap: abnormal, HSIl History of abnormal pap: No Last mammogram: never Sexually active: Yes OB History T3 L3 SAB0 IAB0 Ectopic0 Multiple0 Live Births3 Pulp Tester History LMP: 02/28/2023 (Exact Date), Having periods Age at Menarche: Age at First : Age at Menopause: Pulp Tester History Comments: Sexual Activity: Yes; Male Contraception: No contraception data on record PAST MEDICAL HISTORY Diagnosis Date Cervical high risk human papillomavirus (HPV) DNA test positive 03/2021 GERD (gastroesophageal reflux disease) HSIL (high grade squamous intraepithelial lesion) on Pap smear of cervix 03/2021 PAST SURGICAL HISTORY Procedure Laterality Date EGD W/O [facility] SPEC VARICIES INJ GERD History reviewed. No pertinent family history.SOCIAL HISTORY Social History Tobacco Use Smoking status: Former Smokeless tobacco: Never Vaping Use Vaping Use: Never used Substance Use Topics Alcohol use: Yes Comment: seldom Drug use: Never REVIEW OF SYSTEMS Abdomen: No abdominal pain, nausea, vomiting, diarrhea, or constipation. No bloating, early satiety, indigestion, or increased flatulence. Bladder: No dysuria, gross hematuria, urinary frequency, urinary urgency, or incontinence. Breast: No breast lumps, nipple d/c, overlying skin changes, redness or skin retraction. Allergies and current medication updated:Yes EXAM: BP 116/78 Ht 5' 6 (1.68m) Wt 236 lb (107.0kg) LMP 02/28/2023 BMI 38.11 kg/(m^2). GENERAL: pleasant, female in no apparent distress HEENT: Normocephalic, atraumatic, mucus membranes moist, and no lesions NECK: Supple, full range of motion, no adenopathy, and thyroid normal DERMATOLOGY: Normal, without lesions, non-icteric, and non-hirsute BREAST: soft, non-tender, symmetric, no dominant mass, normal nipple-areolar complex, no lymphadenopathy, and no nipple discharge CHEST: Normal inspiratory effort ABDOMEN: soft, non-tender, and no masses PELVIC: external genitalia normal, normal Bartholin's glands, urethra, Liborio Negron Torres's glands, no vulvar lesions, no cervical lesions, good vaginal support, physiologic discharge present, normal appearing perineal body and perianal region BIMANUAL: uterus normal size, shape and consistency, no adnexal masses, and non-tender RECTOVAGINAL: deferred. NEURO: alert and oriented x3,exam grossly non-focal EXTREMITIES: normal ASSESSMENT/PLAN: 1) Health maintenance: Pap done with HPV. Mammogram starting age 40. 2) Contraception: none. Contraceptive options reviewed and information provided. plans vasectomy 3) STD screening: Declined STD check. 4) Follow up one year or sooner as needed Dre Buenrostro MD documented in this encounter [facility] 02-11-2020 History of Presen t illness Narrative Radiology Service Progress Note PATIENT NAME: Aniya Lovett DATE OF SERVICE: February 11, 2020 TIME: 7:46 PM PATIENT IDENTITY VERIFICATION COMPLETED USING TWO (2) IDENTIFIERS: Name and Date of confirmed by patient verbally. FALL SCREENING: Has the patient had 2 falls in the last year or 1 fall with injury or currently using an Ambulatory Assistive Device (Walker, Cane, Wheelchair, Crutches, etc.)? Yes, Patient High Risk for Falls What interventions were put in place to prevent falls during this visit? Instructed Patient to Call for Help if Needed, Offered Assistance with Transfers/Clothing and Increased Observations by Caregivers PATIENT GENDER DATA: Female. status: : No status: NO. PATIENT RELEVANT IMPLANT DATA REVIEWED: Yes RADIOLOGY DEPARTMENT: General X-ray: Exam(s) Completed: Lower Extremity X-Ray(s): Ankle, Right: PERIPHERAL IV DATA: Not applicable SIGNED BY: RT Yesenia February 11, 2020 7:46 PM documented in this encounter [facility] Evaluation note No assessment inform ation available [facility] Work Phone: Evaluation note Diagnosis Encounter for gynecological examination (general) (routine) without abnormal findings- Primary Papanicolaou smear of cervix with high grade squamous intraepithelial lesion (HGSIL) Cervical high risk HPV (human papillomavirus) test positive Cervical high risk human papillomavirus (HPV) DNA test positive Screening for cervical cancer Screening for malignant neoplasm of the cervix Encounter for screening for human papillomavirus (HPV) Special screening examination for human papillomavirus (HPV) HSIL on Pap smear of cervix Papanicolaou smear of cervix with high grade squamous intraepithelial lesion (HGSIL) Cystic acne Other acne [facility] Diagnosis High grade squamous intraepithelial lesion (HGSIL), grade 3 DOLORES, on biopsy of cervix- Primary [facility] Diagnosis Cervical high risk HPV (human papillomavirus) test positive- Primary Cervical high risk human papillomavirus (HPV) DNA test positive High grade squamous intraepithelial cervical dysplasia [facility] Diagnosis Injury of left ankle, initial encounter- Primary Ankle injuries, right, initial encounter [facility] Diagnosis Acute right ankle pain [facility] Diagnosis High grade squamous intraepithelial lesion (HGSIL), grade 3 DOLORES, on biopsy of cervix- Primary [facility] Diagnosis Post-operative state- Primary Other postprocedural status Encounter for gynecological examination (general) (routine) without abnormal findings Encounter for screening mammogram for breast cancer [facility] Diagnosis Influenza A- Primary Influenza with other respiratory manifestations documented in this encounter [facility] for referral (narrative)* Outpatient Procedure (Routine) - Authorized Specialty Diagnoses / Procedures Referred By Juana davis Referred To Contact [facility] Diagnoses HSIL on Pap smear of cervix Procedures COLPOSCOPY COLPOSCOPY CERVIX BX CERVIX & ENDOCRV CURRETAGE Dre Buenrostro MD [address] [place], [place] [address] [place] [address] [address] Referral ID Status Reason Start Date Expiration Date Visits Requested Visits Authorized [id number] Authorized Auto-Generat ed Referral 3 03/23/2024 1 1 [facility] Diagnostic Procedure Only (Urgent) - Closed Specialty Diagnoses / Procedures Referred By Contac t Referred To Contact [facility]AGING Diagnoses Injury of left ankle, initial encounter Ankle injuries, right, initial encounter Procedures XR ANKLE GENERAL 3V AP/LAT/OBL BILATERAL RADEX ANKLE COMPLETE MINIMUM 3 VIEWS Francesco Ny APRN.[employer] [address] [place] [address] [place] [address] Referral ID Status Reason Start Date Expiration Date V isits Requested Visits Authorized [id number] Closed Auto-Generate d Referral 01/09/2024 02/07/2025 1 1 * Diagnostic Procedure Only (Urgent) - Closed Specialty Diagnoses / Procedures Referred By Contac t Referred To Contact XR IMAGING Diagnoses Ankle injuries, right, initial encounter Procedures XR ANKLE GENERAL 3V AP/LAT/OBL RIGHT RADEX ANKLE COMPLETE MINIMUM 3 VIEWS Francesco Ny APRN.[employer] [address] [place] [address] [place] [address] Referral ID Status Reason Start Date Expiration Date V isits Requested Visits Authorized [id number] Closed Auto-Generate d Referral 01/09/2024 02/07/2025 1 1 * Diagnostic Procedure Only (Urgent) - Closed Specialty Diagnoses / Procedures Referred By Contac t Referred To Contact XR IMAGING Diagnoses Injury of left ankle, initial encounter Procedures XR ANKLE GENERAL 3V AP/LAT/OBL LEFT RADEX ANKLE COMPLETE MINIMUM 3 VIEWS Francesco Ny APRN.[employer] [address] [place] [address] [place] [address] Referral ID Status Reason Start Date Expiration Date V isits Requested Visits Authorized [id number] Closed Auto-Generate d Referral 01/09/2024 02/07/2025 1 1 [facility] for referral (narrative)* Diagnostic Procedure Only (Routine) - New Request Specialty Diagnoses / Procedures Referred By Contac t Referred To Contact [facility] Diagnoses Encounter for screening mammogram for breast cancer Procedures ADENIKE SCREENING W DOM SCREENING DIGITAL BREAST TOMOSYNTHESIS BI SCREENING MAMMOGRAPHY BI 2-VIEW BREAST INC CAD Dre Buenrostro MD [address] [place] [address] [facility] [address] [place] [address] Referral ID Status Reason Start Date Expiration Date Visits Requested Visits Authorized [id number] New Request Auto-Generat ed Referral 4 03/28/2025 1 1 [facility] for visit Narrative* Diagnostic Procedure Only (Urgent) - Closed Specialty Diagnoses / Procedures Referred By Juana t Referred To Contact XR IMAGING Diagnoses Ankle injuries, right, initial encounter Procedures XR ANKLE GENERAL 3V AP/LAT/OBL RIGHT RADEX ANKLE COMPLETE MINIMUM 3 VIEWS Francesco Ny APRN.[employer] [address] [place] [address] [place] [address] Referral ID Status Reason Start Date Expiration Date V isits Requested Visits Authorized [id number] Closed Auto-Generate d Referral 01/09/2024 02/07/2025 1 1 [facility] Summary Purpose Family History No Family History Records Found Relationship Condition Age at Onset Recorded Date/T regina Unknown Family History?No pertinent history Unkno wn August 12, 2015 9:22am Family History?No pertinent history Unkno wn August 12, 2015 9:22am Advance Directives No Advanced Directives Records Found Advance Directive Response Recorded Date/ Time Living Will No October 08, 2021 10:29am Power of Circular Saw Edge Fuser No October 08 10:29am Chief Complaint and Reason for Visit Chief Complaint ABD FULLNESS & PAIN (DR Brenda GALLOWAY) Additional Source Comments INFORMATION SOURCE (unrecogn ized section and content) DATE CREATED AUTHOR 02/03/2018 [facility] DATE CREATED AUTHOR AUTHOR'S ORGANIZ ATION 03/01/2024 [facility] DATE CREATED AUTHOR AUTHOR'S ORGANIZ ATION 04/02/2024 [facility] Source Comments (unrecognize d section and content) In the event this informatio n is protected by the Federal Confidentiality of Alcohol and Drug Abuse Patient Records regulations: The Federal rules restrict any use of the information to criminally investigate or prosecute any alcohol or drug abuse patient.[facility] the event this information is protected by the Federal Confidentiality of Alcohol and Drug Abuse Patient Records regulations: The Federal rules restrict any use of the information to criminally investigate or prosecute any alcohol or drug abuse patient.[facility] the event this information is protected by the Federal Confidentiality of Alcohol and Drug Abuse Patient Records regulations: The Federal rules restrict any use of the information to criminally investigate or prosecute any alcohol or drug abuse patient.[facility] the event this information is protected by the Federal Confidentiality of Alcohol and Drug Abuse Patient Records regulations: The Federal rules restrict any use of the information to criminally investigate or prosecute any alcohol or drug abuse patient.[facility] the event this information is protected by the Federal Confidentiality of Alcohol and Drug Abuse Patient Records regulations: The Federal rules restrict any use of the information to criminally investigate or prosecute any alcohol or drug abuse patient.[facility] the event this information is protected by the Federal Confidentiality of Alcohol and Drug Abuse Patient Records regulations: The Federal rules restrict any use of the information to criminally investigate or prosecute any alcohol or drug abuse patient.[facility] the event this information is protected by the Federal Confidentiality of Alcohol and Drug Abuse Patient Records regulations: The Federal rules restrict any use of the information to criminally investigate or prosecute any alcohol or drug abuse patient.[facility] the event this information is protected by the Federal Confidentiality of Alcohol and Drug Abuse Patient Records regulations: The Federal rules restrict any use of the information to criminally investigate or prosecute any alcohol or drug abuse patient.[facility] the event this information is protected by the Federal Confidentiality of Alcohol and Drug Abuse Patient Records regulations: The Federal rules restrict any use of the information to criminally investigate or prosecute any alcohol or drug abuse patient.[facility] the event this information is protected by the Federal Confidentiality of Alcohol and Drug Abuse Patient Records regulations: The Federal rules restrict any use of the information to criminally investigate or prosecute any alcohol or drug abuse patient.[facility] the event this information is protected by the Federal Confidentiality of Alcohol and Drug Abuse Patient Records regulations: The Federal rules restrict any use of the information to criminally investigate or prosecute any alcohol or drug abuse patient.[facility] the event this information is protected by the Federal Confidentiality of Alcohol and Drug Abuse Patient Records regulations: The Federal rules restrict any use of the information to criminally investigate or prosecute any alcohol or drug abuse patient.[facility] the event this information is protected by the Federal Confidentiality of Alcohol and Drug Abuse Patient Records regulations: The Federal rules restrict any use of the information to criminally investigate or prosecute any alcohol or drug abuse patient.[facility] the event this information is protected by the Federal Confidentiality of Alcohol and Drug Abuse Patient Records regulations: The Federal rules restrict any use of the information to criminally investigate or prosecute any alcohol or drug abuse patient.[facility] Reason for Visit (unrecogniz ed section and content) Reason Comments Yearly Exam Reason Comments Pre-Op Visit Reason Comments Orders leep Reason Comments Preparations For Surgery Reason Comments Appointment Reason Comments Trauma Bilateral ankle inju ry from fall Reason Comments X_Ray disc Reason Comments upcoming surgery Reason Comments Cough ST, bodyaches, MAGAÑA, c hills, fever x2 days, recent travel Care Teams (unrecognized sec tion and content) [employer] Relationship Specialty Start Date End Date Olaf Galloway MD PCP - General Family Medicine 02/20/17 [employer] Relationship Specialty Start Date End Date Olaf Galloway MD PCP - General Family Medicine 02/20/17 [employer] Relationship Specialty Start Date End Date Olaf Galloway MD PCP - General Family Medicine 02/20/17 [employer]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 Relationship Specialty Start Date End Date Olaf Galloway MD PCP - General Family Medicine 02/20/17 [employer] 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 Relationship Specialty Start Date End Date Olaf Galloway MD PCP - General Family Medicine 02/20/17 [employer] Manager Relationship Specialty Start Date End Date Olaf Galloway MD PCP - General Family Medicine 02/20/17 [employer] Manager Relationship Specialty Start Date End Date Olaf Galloway MD PCP - General Family Medicine 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 This clinical summary was aggregated from multiple sources. Caution should be exercised in using it in the provision of clinical care. This summary normalizes information from multiple sources, and as a consequence, information in this document may materially change the coding, format and clinical context of patient data. In addition, data may be omitted in some cases. CLINICAL DECISIONS SHOULD BE BASED ON THE PRIMARY CLINICAL RECORDS. [facility] [employer] [facility]. provides no warranty or guarantee of the accuracy or completeness of information in this document.
[2024-10-18 10:34] LABS: Hematocrit 40.0 % (37-47); Hemoglobin 13.4 g/dL (12.0-15.0); Immature Granulocytes Count 0.030 X10^3/uL (0.0-0.0); Mean Corp Hgb Conc 33.5 g/dL (32-36); Mean Corpuscular Volume 84.4 fL (81-99); Mean Platelet Vol. 10.6 fl (6.2-12.0); NRBC Flagged by Analyzer 0 % (0-5); Platelet Count 314 K/mm3 (150-450); RBC Distribution Width CV 13.2 % (11.6-14.6); RBC Distribution Width SD 40.9 fl (35.1-43.9); Red Blood Count 4.74 M/mm3 (4.2-5.4); White Blood Count 8.3 K/mm3 (4.4-11.0)
[2024-10-18 11:41] LABS: Anion Gap 10 (5-15); BUN 11 mg/dL (4-19); BUN/Creat Ratio 12.2 RATIO (10-20); Calcium,Total 9.3 mg/dL (7.6-11.0); Carbon Dioxide 22.6 mmol/L (21.0-32.0); Chloride 105 mmol/L (98-108); Cholesterol 127 mg/dL (<=200); Glucose 83 mg/dL (70-99); Low Density Lipoprotein Calc. 69 mg/dL; Potassium 4.3 mmol/L (3.3-5.1); Triglycerides 109 mg/dL; Very Low Density Lipoprotein 22 mg/dL (5-40); cholesterol:hdl ratio screen 3.55
== END | disposition home or self-care (01) ==
LOC: MFPLAB 08:39
PROVIDERS: PCP Family Medicine; Referring Provider Family Medicine; Visit Provider Family Medicine
DX: E66.9 Obesity, unspecified (principal); R53.83 Other fatigue
CPT/HCPCS: 36415; 80048; 80061; 84443; 85025

== ENCOUNTER → 2024-12-18 | Outpatient (CLI) | payer OTHER, SELFPAY ==
--- NOTE | 2024-12-18 10:30 | BI_ITS ---
EXAM: SCRN MAMM (CAD)W/DOM BILAT DATE: 12/18/2024 CLINICAL HISTORY: F, Age 39 y/o , SCREENING No family history. Prior left breast biopsy and aspiration. TECHNIQUE: Procedure Code: [id number] Modality: MG Procedure: SCRN MAMM (CAD)W/DOM BILAT COMPARISON: Prior exam(s) dated April 07, 2021.. FINDINGS: TISSUE DENSITY: The breasts are extremely dense, which lowers the sensitivity of mammography. Bilateral Breast Mammographic Findings: No significant masses, calcifications or other abnormalities are identified. Stable microcalcifications in the central lateral aspect of the left breast. No suspicious masses, areas of developing architectural distortion, or suspicious calcifications. There has been no significant interval change. BI/SCRN MAMM (CAD)W/DOM BILAT IMPRESSION: Stable screening bilateral mammogram. OVERALL FINAL ASSESSMENT BI-RADS 2: BENIGN RECOMMENDATION: Routine annual follow-up in 1 Year A letter with findings and recommendations will be mailed to the patient. Reading Location: [facility]
== END | disposition home or self-care (01) ==
PROVIDERS: PCP Family Medicine; Referring Provider Obstetrics & Gynecology; Visit Provider Obstetrics & Gynecology
DX: Z12.31 Encounter for screening mammogram for malignant neoplasm of breast (principal)
CPT/HCPCS: 77063; 77067

== ENCOUNTER 2025-02-01 09:03 | Emergency (ER) | payer OTHER, SELFPAY ==
[2025-02-01 09:05] VITALS: BP 126/78; PULSE 94; RESP 16; TEMP 36.5; O2SAT 99; BMI 31.4
--- NOTE | 2025-02-01 09:21 | CT_ITS ---
PROCEDURE: BRAIN/HEAD WITHOUT CONTRAST 02/01/2025 REASON FOR EXAM: HEADACHE TECHNIQUE: Procedure Code: CTBR Modality: CT Procedure: BRAIN/HEAD WITHOUT CONTRAST Coronal and Sagittal reconstruction series were provided. One or more dose reduction techniques were used (e.g., Automated exposure control, adjustment of the mA and/or kV according to patient size, use of iterative reconstruction technique. RADIATION DOSE SUMMARY: CTDlvol: 44.99 mGy DLP: 812.98 mGycm COMPARISON: None FINDINGS: Brain: Normal CSF Spaces: Normal Sinuses/Mastoids: Minimal maxillary sinusitis Bones: No skull fracture or scalp hematoma CT/Brain/Head without Contrast IMPRESSION: No acute intracranial abnormalities Minimal paranasal sinusitis Reading Location: [id number]
--- NOTE | 2025-02-01 09:22 | EX.ED.VIS.HA ---
HPI History of Present Illness Chief Complaint: Headache Informant: patient Narrative Narrative: 39-year-old female presenting to the emergency room for the evaluation of headache. Patient states for the past 3 days she has had a pain in the right frontal aspect of her head generalized fatigue and a feeling that her bilateral eyelids are drooping. She states that she feels congested but is not congested. She denies any rhinorrhea cough sneezing or ear pain. She denies any arm leg speech or vision changes. She states that she has not started any new medications recently. She did not go to PCP because "they cannot do anything there like blood work or brain imaging". She states that she is has dogs at home and she is concerned that she has a parasite in her brain. She denies any fever or rash. No seizure history. She has been utilizing ibuprofen. She does have a history of migraine headaches but states this feels differently. She states that her migraines typically is frontal pressure that goes away with going into a dark room and sleeping. She notes no associated nausea or vomiting. No difficulties eating. [facility] Medical History High grade squamous intraepithelial lesion of cervix Anxiety Alcohol use Gastric reflux Former smoker Normal Holter exam History of echocardiogram Cardiology follow-up encounter GERD (gastroesophageal reflux disease) Vertigo History of frequent headaches ADHD (attention deficit hyperactivity disorder) Home Medications Medication Instructions Recorded Last Taken Type dextroamphetamine-amphetamine 10 30 - 40 mg PO DAILY 10/08/21 Unknown History mg tablet multivitamin 1 tab PO DAILY 10/08/21 Unknown History semaglutide 0.25 mg or 0.5 mg (2 0.25 mg subcut WE 01/24/24 01/25/24 History mg/3 mL) subcutaneous pen injector Allergy/AdvReac Type Severity Reaction Status Date / Time Penicillins Allergy Rash Verified 02/01/25 09:04 cephalexin (From Keflex) AdvReac Intermediate Itching Verified 02/01/25 09:04 morphine AdvReac Nausea Verified 02/01/25 09:04 Surgical History History of esophagogastroduodenoscopy (EGD) Maria Stein teeth extracted History of tonsillectomy and adenoidectomy History of Social History Smoking Status: Former smoker quit date: 04/11/14 alcohol intake: never substance use type: does not use what type of physical activity do you participate in: none ROS ROS ED Constitutional Constitutional ED: Denies chills, fever(s) or weight loss Eyes Eyes: Reports other Details: Sensation that eyelids are drooping ; Denies change in vision or diplopia ENT ENT ED: Reports other Details: "Congestion without congestion feeling" ; Denies ear pain, rhinorrhea or sore throat Cardiovascular Cardiovascular: Denies chest pain, orthopnea, palpitations or racing heartbeat Respiratory/Chest Respiratory/Chest: Denies cough, dyspnea or orthopnea Gastrointestinal Gastrointestinal: Denies abdominal pain, diarrhea, nausea or vomiting Genitourinary Genitourinary ED: Denies dysuria, hematuria or urinary frequency Musculoskeletal Musculoskeletal: Denies arthralgias or myalgias Integumentary Denies abscess or rash Neurologic Neurologic: Reports headache(s); Denies paresthesias or weakness Psychiatric Psychiatric: Denies anxiety, depression, suicidal ideation or suicidal thoughts Endocrine Endocrinology: Denies polydipsia, polyphagia or polyuria Allergic/Immunologic Allergic/Immunologic ED: Denies mouth swelling, tongue swelling or urticaria EXAM Physical Exam Const Vital Signs: 02/01/25 09:05 Temperature 97.7 F L Temperature Source Temporal Pulse Rate 94 Respiratory Rate 16 Blood Pressure 126/78 H Blood Pressure Mean 94 Pulse Ox 99 Oxygen Delivery Method Room Air Positive well nourished and well developed General Appearance ED: well developed; Negative for pallor HEENT Reports normocephalic, head/scalp atraumatic and moist mucous membranes HEENT Narrative: I do not appreciate any turbinate edema Eyes PERRL and EOMs intact bilaterally Eyes Narrative: I do not appreciate periorbital weakness or swelling. General Eye ED: Negative for pale conjunctiva or scleral icterus Neck no lymphadenopathy, supple and no JVD Resp normal respiratory effort and clear to auscultation bilaterally Cardio regular rate, regular rhythm and no murmurs GI normal to inspection, nondistended, normoactive bowel sounds and non-tender Palpation: soft Back/Spine no CVA tenderness and normal ROM Extremity normal to inspection General Extremety ED: Negative for edema General Extremity: Negative for edema Neuro oriented x3, CN's II-XII intact bilaterally and no sensory deficits noted [place] Coma Scale: document GCS findings Spontaneous Obeys Commands Oriented 15 Sensorium / Orientation: alert Speech: speech normal Motor Exam: strength 5/5 throughout Psych mental status grossly normal Mood & Affect: anxious and tearful; Negative for depressed Skin no rashes or lesions noted and no wounds General Skin Exam: Negative for jaundice or pallor MDM MDM MDM Narrative Medical decision making narrative: Differential diagnosis includes but not limited to primary headache disorder sinusitis malignancy viral syndrome viral CT of the brain was negative for intracranial pathology. Minimal paranasal sinusitis is noted. Clinically however she does not appear to have bacterial sinusitis. Turbinates are not significantly swollen and there is no nasal drainage tenderness dental pain or fever. I recommend rest ibuprofen for pain. We talked about other medications but she is hesitant on medicines at this time. She will follow-up with primary care 3 to 5 days if not improving monitor for worsening symptoms. History & Record Review Discussion w/independent historian: Patient Radiography Diagnostic Testing: Clinical Impression(s) from Imaging Studies Brain CT 02/01/25 09:21 IMPRESSION: No acute intracranial abnormalities Minimal paranasal sinusitis Reading Location: [facility] Discharge Plan Triage Chief Complaint: Headache ED Provider: Huey Lewis Dx/Rx/DC Orders Clinical Impression: Headache, Fatigue Instructions: Understanding Headache Pain, ED Weakness Uncertain Cause Prescriptions: No Action multivitamin Tablet 1 tab PO DAILY dextroamphetamine-amphetamine 10 mg tablet 30 - 40 mg PO DAILY Patient Comments: TAKE 2 (TWO) TABLETS BY MOUTH EVERY DAY IN THE MORNING, 1 (ONE) TABLET at noon and 1 (ONE) TABLET at AT 4 PM semaglutide 0.25 mg or 0.5 mg (2 mg/3 mL) pen injector 0.25 mg subcut WE Rx Instructions: for 4 weeks Primary Care Provider: Olaf Pina Referrals: Olaf Pina MD [Primary Care Provider, Family Practice] - 3-5 Days if not improving Print Language: [place] Disposition Disposition: Home, Self Care
--- OUTSIDE RECORDS SUMMARY | 2025-02-01 10:04 | XMS RPT_ITS | CCD ---
Author Organization [facility] CliniSynv Care Team Providers Care Election Supervisor Name Role Phone MISTI Orona RN, Akua Larios Unavailable Unavailamanda Orona RN RN, Akua Larios Unavailable Unavailabl e Felix Kent Unavailable Unavailable Rob Parsons Unavailable Unavailable MISTI Orona RN, Akua Larios Unavailable UnavailDr. Olaf Sinha Primary Care Provider [phone] Olaf Pina Referring Provider [phone] Friend, Dr. Schreiber Attending Provider Friend, Dr. Schreiber Other Provider [phone] Olaf Pina MD Primary Care Provider [phone] Olaf Pina MD Primary Care Provider [phone] OLAF PINA Primary Care Unavailable DRE BUENROSTRO Attending Unavailable DRE BUENROSTRO Attending Unavailable OLAF PINA Primary Care Unavailable DRE BUENROSTRO Referring Unavailable DRE BUENROSTRO Attending Unavailable OLAF PINA Primary Care Unavailable DRE BUENROSTRO Referring Unavailable OLAF PINA Primary Care Unavailable OLAF PINA Primary Care Unavailable OLAF PINA Primary Care Unavailable DRE BUENROSTRO Attending Unavailable OLAF PINA Primary Care Unavailable [place] Referring Unavailable OLAF PINA Primary Care Unavailable Dr. Olaf Pina MD Primary Care Provider [phone] Dr. Olaf Pina MD Attending Provider Dr. Olaf Pina MD Referring Provider Olaf Pina MD Primary Care Provider [phone] Alden MCFARLAND, Dr. Dent Attending Provider [phone] Silvana DENNIS, Dr. Babin Primary Care Physician [phone] Silvana DENNIS, Dr. Babin Attending Physician Alden MCFARLAND, Dr. Dent Attending Physician Jay DENNIS, Dr. Workman Attending Physician Jay DENNIS, Dr. Workman Referring Provider Silvana, Olaf Primary Care Unavailable Dre Buenrostro Attending Unavailable Dre Buenrostro Referring Unavailable Silvana, Olaf Primary Care Unavailable Pina, Olaf Attending Unavailable Silvana, Olaf Referring Unavailable Pina, Olaf Primary Care Unavailable Dre Buenrostro Attending Unavailable Dre Buenrostro Referring Unavailable Silvana, Olaf Referring Unavailable Silvana, Olaf Primary Care Unavailable Jailene Ruano Attending Unavailable Silvana, Olaf Primary Care Unavailable Silvana, Olaf Referring Unavailable Dosmelvin, Jailene Attending Unavailable Allergies Allergy Classification Reported Allergen(s) Allergy Type Date of Onset Reaction(s) Facility (3 sources) penicillin drug allergy [address] [facility] Work Phone: (20 sources) Penicillins; Translations: [penicillins] Propensity to adverse reactions to drug (disorder) 7 [facility] Repository Comment on above: rash and hives (19 sources) Morphine; Translations: [MORPHINE] Drug Allergy 2 Vomiting [facility] (1 source) Morphine Drug Allergy 5 [facility] Repository Medications Current Medications Medication Drug Class(es) Dates Sig (Normalized) Sig (Original) amphetamine aspartate 2.5 mg / amphetamine sulfate 2.5 mg / dextroamphetamine saccharate 2.5 mg / dextroamphetamine sulfate 2.5 mg oral tablet (19 sources) Central Nervous System Stimulant Start: 03-06-2023 dextroamphetamin e-amphetamine (ADDERALL) 10 mg tablet TAKE TWO TABLETS BY MOUTH EVERY MORNING AND AT NOON, AND TAKE ONE TABLET AT 4pm 03/06/2023 Active Start: 10-08-2021 take 30-40 mg by duglas th once daily Start: 10-08-2021 take 30-40 mg by duglas th once daily Dextroamphetamine-Amphetamine Active 30 - 40 MG PO DAILY October 08, 2021 12:00am take 1 tablet by duglas th twice daily ADDERALL 10 MG TABS One tablet by mouth twice daily AMPHETAMINE-DEXTROAMPHETAMINE [id number] Sabinolynn Nava Comment on above: TAKE TWO TABLETS BY MOUTH EVERY MORNING AND AT NOON, AND TAKE ONE TABLET AT 4pm dapsone-spironolactone -niacin 6-5-2 % crea (3 sources) dapsone-spironol rigoberto e-niacin 6-5-2 % crea Apply to affected area. Active Multivitamin preparation (1 source) Start: 10-08-2021 take 1 tablet by mouth once daily Multivitamin Active 1 TABLET PO DAILY October 08, 2021 12:00am Multivitamin Tablet (3 sources) Start: 10-08-2021 Start: 10-08-2021 Multivitamin T ablet Active 1 {tbl} PO DAILY October 08, 2021 12:00am nystatin 100 unt/mg topical powder (13 sources) Polyene Antifungal Start: 05-11-2023 NYSTOP powd er USE ONE GRAM TWICE DAILY 05/11/2023 Active Comment on above: USE ONE GRAM TWICE D AILY oseltamivir 75 mg oral capsule (1 source) Neuraminidase Inhibitor Start: 03-30-2024 End: 04-04-2024 take 1 capsule by mouth twice daily oseltamivir (TAMIFLU) 75 mg capsule Take 1 capsule by mouth two times a day for 5 days. 10 capsule 03/30/2024 04/04/2024 Active Semaglutide (3 sources) Start: 01-24-2024 Start: 01-24-2024 Semaglutide 0. 25 mg or 0.5 mg (2 mg/3 mL) pen injector Active 0.25 mg SC WE January 24, 2024 12:00am for 4 weeks SEMAGLUTIDE, WEIGHT LOSS, SUBCUTANEOUS (10 sources) SEMAGLUTIDE, GABE GHT LOSS, SUBCUTANEOUS Inject 0.5 mg subcutaneously. Active tretinoin 0.25 mg/ml topical cream (13 sources) Retinoid Start: 04-19-2023 tretinoin (RETIN-A) 0.025 % topical cream 04/19/2023 Active Completed/Discontinued Medications Medication Drug Class(es) Dates Sig (Normalized) Sig (Original) AMPHETAMINE-DEXTROAM PHETAMINE (2 sources) Central Nervous System Stimulant take 1 tablet by mouth twice daily ADDERALL 10 MG TABS One tablet by mouth twice daily AMPHETAMINE-DEXTROAM PHETAMINE [id number] Sabino Nava clindamycin 0.01 mg/mg topical gel (11 sources) Lincosamide Antibacterial Start: 04-18-2023 End: 02-27-2024 clindamycin (CLEOCIN-T) 1 % gel Apply to the face once in the evening 04/18/2023 02/27/2024 Discontinued Comment on above: Apply to the face on ce in the evening famotidine 40 mg oral tablet (4 sources) Histamine-2 Receptor Antagonist Start: 06-09-2018 End: 11-29-2018 take 1 tablet by mouth once daily Famotidine 40 MG tablet Discontinued 40 mg PO DAILY 30 0 June 09, 2018 1:00am November 29, 2018 [...] on above: Take 1 tablet by duglas once daily. 8 hr methylphenidate hydrochloride 10 mg extended release oral tablet (4 sources) Central Nervous System Stimulant Start: 06-09-2018 End: 06-21-2018 take 1 tablet by mouth every other day Methylphenidate Hcl 10 MG tablet extended release Discontinued 10 mg PO EVERY OTHER DAY June 09, 2018 1:00am June 21, 2018 10:44am oxyCODONE hydrochloride 5 mg oral tablet (8 sources) Opioid Agonist Start: 11-29-2018 End: 12-09-2018 Oxycodone 5 MG tablet Discontinued 1 {tbl} PO EVERY 4 HOURS NEEDED as needed for Severe Pain (6-10/10) 28 7 0 November 29, 2018 December 05, 2018 12:00am December 09, 2018 12:08am Encounter for delivery without indication Start: 07-24-2015 End: 04-22-2017 Oxycodone 5 MG tablet Discon tinued 1 - 2 {tbl} PO EVERY 4 HOURS NEEDED as needed for Severe Pain () 30 0 July 24, 2015 12:00am April 22, 2017 7:48pm For severe pain pantoprazole 40 mg delayed release oral tablet (3 sources) Proton Pump Inhibitor Start: 10-28-2021 End: 01-24-2024 Pantoprazole 40 mg tablet,delayed release (DR/EC) Discontinued 40 mg PO TWICE A DAY 120 2 October 28, 2021 12:00am January 24, 2024 2:04pm take twice a day for 2 months, then once a day in a morning sertraline 25 mg oral tablet (9 sources) Serotonin Reuptake Inhibitor Start: 07-02-2021 End: 01-24-2024 take 1 tablet by mouth once daily Sertraline 25 mg tablet Discontinued 25 mg PO DAILY July 02, 2021 12:00am January 24, 2024 2:05pm Comment on above: Take 1 tablet by duglas th every afternoon. sodium chloride 0.111 meq/ml nasal spray (2 sources) Start: 08-02-2018 End: 03-24-2023 sodium chloride (SALINE MIST) 0.65 % nasal spray Indications: Nasal congestion , Eustachian tube disorder, left Use 1 [place] in the nose as needed for Cold/Allergy Symptoms. 1 Bottle 08/02/2018 03/24/2023 Discontinued (Other) Comment on above: Use 1 [place] in the n ose as needed for Cold/Allergy Symptoms. Problems Active Problems Problem Classification Problem Date Documented Date Episodic/Chronic Cardiac dysrhythmias (4 sources) Intermittent palpitations; Translations: [Palpitations] 11-28-2018 Episodic Esophageal disorders (4 sources) Gastroesophageal reflux disease; Translations: [Gastro-esophageal reflux disease without esophagitis] 10-28-2021 Chronic Immunizations and screening for infectious disease (2 sources) Patient encounter status; Translations: [Encounter for screening for human papillomavirus (HPV)] 03-24-2023 Episodic Influenza (1 source) Influenza due to Influenza A virus; Translations: [Influenza due to other identified influenza virus with other respiratory manifestations] 03-30-2024 Episodic Other bone disease and musculoskeletal deformities (20 sources) Segmental and somatic dysfunction; Translations: [Segmental and somatic dysfunction of cervical region] 07-30-2020 Episodic Other bone disease and musculoskeletal deformities (1 source) Segmental and somatic dysfunction of pelvic region; Translations: [Segmental and somatic dysfunction of pelvic region] Onset: 11-19-2024 Episodic Other bone disease and musculoskeletal deformities (1 source) Segmental and somatic dysfunction of lumbar region; Translations: [Segmental and somatic dysfunction of lumbar region] Onset: 11-19-2024 Episodic Other bone disease and musculoskeletal deformities (1 source) Segmental and somatic dysfunction of thoracic region; Translations: [Segmental and somatic dysfunction of thoracic region] Onset: 11-19-2024 Episodic Other bone disease and musculoskeletal deformities (1 source) Segmental and somatic dysfunction of cervical region; Translations: [Segmental and somatic dysfunction of cervical region] Onset: 11-19-2024 Episodic Other complications of ; puerperium affecting management of mother (4 sources) wound disruption ; Translations: [Disruption of delivery wound] 06-20-2018 Episodic Other disorders of stomach and duodenum (3 sources) Intestinal metaplasia of gastric mucosa; Translations: [Intestinal metaplasia of stomach] 10-28-2021 Episodic Other injuries and conditions due to [...] Translations: [Overweight] Onset: 08-25-2016 08-25-2016 Chronic Other nutritional; endocrine; and metabolic disorders (1 source) Obesity, unspecified; Translations: [Obesity, unspecified] Onset: 10-24-2024 Chronic Other screening for suspected conditions (not mental disorders or infectious disease) (2 sources) Cancer cervix screening status; Translations: [Encounter for screening for malignant neoplasm of cervix] Onset: 12-27-2024 03-24-2023 Episodic Other skin disorders (1 source) Cystic acne; Translations: [Acne vulgaris] 03-24-2023 Episodic Residual codes; unclassified (4 sources) Gestation period, 38 weeks; Translations: [38 weeks gestation of ] 01-06-2024 Episodic Residual codes; unclassified (1 source) Postoperative state; Translations: [Other specified postprocedural states] 02-27-2024 Episodic Spondylosis; intervertebral disc disorders; other back problems (4 sources) Backache; Translations: [Dorsalgia, unspecified] 02-29-2024 Episodic Past or Other Problems Problem Classification [...] Sexually transmitted infections (not HIV or hepatitis) (16 sources) Human papillomavirus deoxyribonucleic acid test positive, high risk on cervical specimen; Translations: [Cervical high risk human papillomavirus (HPV) DNA test positive] Onset: 03-24-2023 03-24-2023 Episodic Unclassified (4 sources) Wound infection/hemorrhage, obstetric surgical, delivered/; Translations: [Wound infection/hemorrhage, obstetric surgical, delivered/] 06-20-2018 Results Test Name Value Interpretation Reference Range Facility Breast imaging reportOrdered By: Cristobal Morrissey on 12-18-2024 Study report [facility] Imaging Services [address] [place] [address] SCRN MAMM (CAD)W/DOM BILAT MR#: [id number] Acct: [id number] Name: ANIYA LOVETT Rep #: [id number] : 1985 F 39 From: Hawk Morrissey MD PCP: Dr. Olaf Pina MD Status: REG C ERICA Study:SCRN MAMM (CAD)W/DOM BILAT Date of Exa m: 12/18/24 Exam# [id number] Ordering Dr: Dre Buenrostro MD EXAM: SCRN MAMM (CAD)W/DOM BILAT DATE: 12/18/2024 CLINICAL HISTORY: F, Age 39 y/o , SCREENING No family history. Prior left breast biopsy and aspiration. TECHNIQUE: Procedure Code: BISMWCADBTOM Modality: MG Procedure: SCRN MAMM (CAD)W/DOM BILAT COMPARISON: Prior exam(s) dated April 07, 2021.. FINDINGS: TISSUE DENSITY: The breasts are extremely dense, which lowers the sensitivity ofmammography. Bilateral Breast Mammographic Findings: No significant masses, calcifications or other abnormalities are identified. Stable microcalcifications in the central lateral aspect of the left breast. No suspicious masses, areas of developing architectural distortion, or suspicious calcifications. There has been no significant interval change. BI/SCRN MAMM (CAD)W/DOM BILAT IMPRESSION: Stable screening bilateral mammogram. OVERALL FINAL ASSESSMENT BI-RADS 2: BENIGN RECOMMENDATION: Routine annual follow-up in 1 Year A letter with findings and recommendations will be mailed to the patient. Reading Location: [id number] CC: Dr. Olaf Pina MD; Dr. Dre Buenrostro MD ~ Bulb Tester: Signed [facility] SCRN MAMM (CAD)W/DOM BILATo n 12-18-2024 SCRN MAMM (CAD)W/DOM BILAT [facility] Imaging Services [address] [place] [address] [id number] SCRN MAMM (CAD)W/DOM BILAT MR#: [id number] Acct: [id number] Name: ANIYA LOVETT Rep #: [id number] : 1985 F 39 From: Cristobal diallo MD PCP: Dr. Olaf Pina MD Status: [facility] Study: SCRN MAMM (CAD)W/DOM BILAT Date of Exam: 01/03 Exam# [id number] Ordering Dr: Dre Buenrostro MD EXAM: SCRN MAMM (CAD)W/DOM BILAT DATE: 12/18/2024 CLINICAL HISTORY: F, Age 39 y/o , SCREENING No family history. Prior left breast biopsy and aspiration. TECHNIQUE: Procedure Code: BISMWCADBTOM Modality: MG Procedure: SCRN MAMM (CAD)W/DOM BILAT COMPARISON: Prior exam(s) dated April 07, 2021.. FINDINGS: TISSUE DENSITY: The breasts are extremely dense, which lowers the sensitivity of mammography. Bilateral Breast Mammographic Findings: No significant masses, calcifications or other abnormalities are identified. Stable microcalcifications in the central lateral aspect of the left breast. No suspicious masses, areas of developing architectural distortion, or suspicious calcifications. There has been no significant interval change. BI/SCRN MAMM (CAD)W/DOM BILAT IMPRESSION: Stable screening bilateral mammogram. OVERALL FINAL ASSESSMENT BI-RADS 2: BENIGN RECOMMENDATION: Routine annual follow-up in 1 Year A letter with findings and recommendations will be mailed to the patient. Reading Location: [id number] CC: Dr. Olaf Pina MD; Dr. Dre Buenrostro MD Bulb Tester: Signed Normal [facility] Chiropractic Reporton 2024 Chiropractic Report [facility] [address] [place] [address] OFFICE VISIT Date of Service: 11/19/24 MR#: [id number] Acct: [id number] Name: BONYANIYA Khalida Rep #: [id number] : 1985 Provider: BRUNA Daniels Age/Sex: 39/F Location: [facility] Status: Signed Intake Vital Signs 02/29/24 09:41 11/12/24 08:56 11/19/24 14:46 Height 5 ft 6 in 5 ft 6 in 5 ft 6 in Weight: 213 lb 195 lb BMI 34.3 31.4 BP 120/76 118/66 Blood Pressure Location Lt brachial Position Sitting Intake Visit Reasons: REEVAL Chief Complaint: neck/ Upper back pain Allergies Penicillins Allergy (Verified 11/19/24 14:43) Rash morphine Adverse Reaction (Verified 11/19/24 14:43) Nausea Medications ???Medication ???Instructions ???Recorded ???Confirmed ???Type dextroamphetamine-amphetami ne 10 30 - 40 mg PO DAILY 10/08/2111/19 History mg tablet multivitamin 1 tab PO DAILY 10/08/21 11/19/24 H istory semaglutide 0.25 mg or 0.5 mg (2 0.25 mg subcut WE 01/24/24 5 History mg/3 mL) subcutaneous pen injector [facility] Medical History High grade squamous intraepithelial lesion of cervix Anxiety Alcohol use Gastric reflux Former smoker Normal Holter exam History of echocardiogram Cardiology follow-up encounter GERD (gastroesophageal reflux disease) Vertigo History of frequent headaches ADHD (attention deficit hyperactivity disorder) Surgical History History of esophagogastroduodenoscopy (EGD) [place] teeth extracted History of tonsillectomy and adenoidectomy History of Social History Smoking Status: Former smoker quit date: 04/11/14 alcohol intake: never substance use type: does not use what type of physical activity do you participate in: none HPI REEVAL Chief Complaint: neck pain Visit Number: 1 Details: Aniya is a 39 year old female here today for reevaluation of upper back pain. Pt c/o stiffness in her neck, equal bilaterally. She states the discomfort extends into her upper back and shoulders bilaterally. She denies MAGAÑA's but states her neck sounds 'crunchy' with ROM. She also continues to complains of some ongoing periodic dizziness, almost like vertigo but not full on. She states that if she turns her head too fast or makes sudden movements, she will become dizzy. She has had this for years in addition to scans which were unremarkable. She is a side sleeper and there are multiple dogs in the bed every night so this causes her to sleep in some unfavorable positions which can exacerbate her discomfort. 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 No new injury. She treats her discomfort at home with Ibuprofen and stretching. She reports chiropractic treatments have been helpful in the past. Location: neck/upper back Duration: frequent Aggravating or associated factors: ADL's ROM Relieving factors: N/A Pain Quality: aching and dull Exam Musc General: Yes normal posture, normal gait, joint tenderness and decreased range of motion; No muscle weakness Cervical Spine: Yes loss of normal cervical lordosis, Yes cervical muscular tenderness bilateral diffuse , Yes pain with cervical ROM with lateral flexion to right, with lateral flexion to left and with anterior flexion, Yes cervical spasm right greater than left diffuse trapezius and paracervical muscles and Yes misalignment misalignment: C5, C6 and C7 Thoracic/Lumber: Yes thoracic and lumbar spine normal to inspection, Yes pain with thoraco-lumbar ROM with rotation to the right and with rotation to the left, Yes paraspinal tenderness on the right greater than left (upper/mid thoracic), No thoraco-lumbar ROM limited, No scoliosis, Yes thoraco- lumbar spasm on the right greater than left (trap, rhomboid) and Yes misalignment T2, T3, T4, T5 and T6 Neuro General: patient alert, patient awake, patient oriented x3, gait normal, normal light touch, pain and propioception and no focal motor deficits Cognition: normal cognition Speech: speech normal Gait: normal gait Motor: muscle tone normal throughout Sensory Exam: no sensory deficits noted Ortho Test CERVICAL Compression pain: Negative Distraction pain: relief Sandoval's pain: Negative Valsalvas: Negative Shoulder depression pain: Right (+bilaterally) Cervical Series: VBI test: -bilaterally THORACIC Kemps: Negative Valenzuela: Negative LUMBAR Office Procedures Procedures - Chiropractic Procedures Manipulation: Cervical C6 and Thoracic T2 and T6 Manipulation: 1-2 regions Patient Response: positive Assessment and Plan Assessment and Plan (1) Segmental and toi (more content not included)... Normal [facility] Absolute lymphocyte countOrd ered By: Olaf Pina on 10-18-2024 Lymphocytes Auto (Unsp spec) [#/Vol] 2.46 10*3/uL 0.83-4.51 [facility] Absolute neutrophil countOrd ered By: Olaf Pina on 10-18-2024 Neutrophils (Bld) [#/Vol] 5.1 10*3/uL 2.0-7.7 [facility] Anion gap in Serum or Plasma Ordered By: Olaf Pina on 10-18-2024 Anion gap [Moles/Vol] 10 mmol/L 5-15 [facility] Automated lymphocyte count a s percentage of total leukocytesOrdered By: Olaf Pina on 10-18-2024 Lymphocytes/100 WBC Auto (Unsp spec) 29.7 % [facility] BUN/creatinine ratioOrdered By: Olaf Pina on 10-18-2024 Urea nitrogen/Creatinine [Mass ratio] 12.2 mg/mg 01-28 [facility] Basic Metabolic Profile (BMP )on 10-18-2024 BUN/CRE 12.2 RATIO Normal 01-28 [facility] Comment on above: Performed By: #### L 501.9520, L500.2500, L500.4100, L100.0100 #### [facility] [address] [place], [address] Calcium [Mass/Vol] 9.3 mg/dL Normal 7.6-11.[address] [facility] Comment on above: Performed By: #### L [id number], L500.2500, L500.4100, L100.0100 #### [facility] [address] [place], [address] Chloride [Moles/Vol] 105 mmol/L Normal 98-108 [facility] Comment on above: Performed By: #### L [id number], L500.2500, L500.4100, L100.0100 #### [facility] [address] [place], [address] CO2 [Moles/Vol] 22.6 mmol/L Normal 21.0-32.0 [facility] Comment on above: Performed By: #### L 501.9520, L500.2500, L500.4100, L100.0100 #### [facility] [address] [place], [address] Creatinine [Mass/Vol] 0.89 mg/dL Normal 0.70-1.20 [facility] Comment on above: Performed By: #### L 501.9520, L500.2500, L500.4100, L100.0100 #### [facility] [address] [place], [address] GAP 10 Normal 5-15 [facility] Comment on above: Performed By: #### L 501.9520, L500.2500, L500.4100, L100.0100 #### [facility] [address] [place], [address] GFR/1.73 sq M.predicted among non-blacks MDRD (S/P/Bld) [Vol rate/Area] 84 mL/min/{1.73_m2} Normal >60 [facility] Comment on above: Result Comment: mL/m in/1.73m2 CKD-EPI Creatinine Equation (2020) Performed By: #### L 501.9520, L500.2500, L500.4100, L100.0100 #### [facility] [address] [place], [address] Glucose [Mass/Vol] 83 mg/dL Normal 70-[address] [facility] Comment on above: Performed By: #### L 501.9520, L500.2500, L500.4100, L100.0100 #### [facility] [address] [place], [address] Potassium [Moles/Vol] 4.3 mmol/L Normal 3.3-5.1 [facility] Comment on above: Performed By: #### L 501.9520, L500.2500, L500.4100, L100.0100 #### [facility] [address] [place], [address] Sodium [Moles/Vol] 138 mmol/L Normal 133-[address] [facility] Comment on above: Performed By: #### L 501.9520, L500.2500, L500.4100, L100.0100 #### [facility] [address] [place], [address] Urea nitrogen [Mass/Vol] 11 mg/dL Normal 4-19 [facility] Comment on above: Performed By: #### L 501.9520, L500.2500, L500.4100, L100.0100 #### [facility] [address] [place], [address] Basophil percentageOrdered B y: Olaf Pina on 10-18-2024 Basophils/100 WBC (Bld) 0.4 % 0-1 [facility] CBC W/Diff, Automatedon 10-09-2024 Absolute Lymph 2.46 X10 3/uL Normal 0.83-4.51 [facility] Comment on above: Performed By: #### L [id number], L500.2500, L500.4100, L100.0100 #### [facility] [address] [place], [address] Absolute Neut 5.1 X10 3/uL Normal 2.0-7.7 [facility] Comment on above: Performed By: #### L 501.9520, L500.2500, L500.4100, L100.0100 #### [facility] [address] [place], [address] Basophils/100 WBC (Bld) 0.4 % Normal 0-1 [facility] Comment on above: Performed By: #### L 501.9520, L500.2500, L500.4100, L100.0100 #### [facility] [address] [place], [address] Eosinophils/100 WBC (Bld) 1.9 % Normal 0-5 [facility] Comment on above: Performed By: #### L 501.9520, L500.2500, L500.4100, L100.0100 #### [facility] [address] [place], [address] Erythrocyte distribution width (RBC) [Ratio] 13.2 % Normal 11.6-14.6 [facility] Comment on above: Performed By: #### L 501.9520, L500.2500, L500.4100, L100.0100 #### [facility] [address] [place], [address] Hematocrit (Bld) [Volume fraction] 40.0 % Normal 37-47 [facility] Comment on above: Performed By: #### L 501.9520, L500.2500, L500.4100, L100.0100 #### [facility] [address] [place], [address] Hemoglobin (Bld) [Mass/Vol] 13.4 g/dL Normal 12.0-15.0 [facility] Comment on above: Performed By: #### L 501.9520, L500.2500, L500.4100, L100.0100 #### [facility] [address] [place], [address] IG% 0.400 Normal 0.0-0.9 [facility] Comment on above: Result Comment: IG% - Immature Granulocytes (promyelocytes, myelocytes and metamyelocytes) > 1% indicates that a LEFT SHIFT is Present. Performed By: #### L 501.9520, L500.2500, L500.4100, L100.0100 #### [facility] [address] [place], [address] Lymphocytes/100 WBC (Bld) 29.7 % Normal 19-41 [facility] Comment on above: Performed By: #### L 501.9520, L500.2500, L500.4100, L100.0100 #### [facility] [address] [place], [address] MCH (RBC) [Entitic mass] 28.3 pg Normal 27.0-32.0 [facility] Comment on above: Performed By: #### L 501.9520, L500.2500, L500.4100, L100.0100 #### [facility] [address] [place], [address] MCHC (RBC) [Mass/Vol] 33.5 g/dL Normal 32-36 [facility] Comment on above: Performed By: #### L 501.9520, L500.2500, L500.4100, L100.0100 #### [facility] [address] [place], [address] MCV (RBC) [Entitic vol] 84.4 fL Normal 81-99 [facility] Comment on above: Performed By: #### L 501.9520, L500.2500, L500.4100, L100.0100 #### [facility] [address] [place], [address] Monocytes/100 WBC (Bld) 6.3 % Normal 0-10 [facility] Comment on above: Performed By: #### L 501.9520, L500.2500, L500.4100, L100.0100 #### [facility] [address] [place], [address] Neutrophils/100 WBC (Bld) 61.3 % Normal 47-70 [facility] Comment on above: Performed By: #### L 501.9520, L500.2500, L500.4100, L100.0100 #### [facility] [address] [place], [address] Nucleated RBC (Bld) [#/Vol] 0 10*3/uL Normal 0-5 [facility] Comment on above: Performed By: #### L 501.9520, L500.2500, L500.4100, L100.0100 #### [facility] [address] [place], [address] Platelet mean volume (Bld) [Entitic vol] 10.6 fL Normal 6.2-12.0 [facility] Comment on above: Performed By: #### L 501.9520, L500.2500, L500.4100, L100.0100 #### [facility] [address] [place], [address] Platelets (Bld) [#/Vol] 314 10*3/uL Normal 150-450 [facility] Comment on above: Performed By: #### L 501.9520, L500.2500, L500.4100, L100.0100 #### [facility] [address] [place], [address] RBC (Bld) [#/Vol] 4.74 10*6/uL Normal 4.2-5.4 [facility] Comment on above: Performed By: #### L 501.9520, L500.2500, L500.4100, L100.0100 #### [facility] [address] [place], [address] RDW SD 40.9 fl Normal 35.1-43.9 [facility] Comment on above: Performed By: #### L 501.9520, L500.2500, L500.4100, L100.0100 #### [facility] [address] [place], [address] WBC (Bld) [#/Vol] 8.3 10*3/uL Normal 4.4-11.[address] [facility] Comment on above: Performed By: #### L 501.9520, L500.2500, L500.4100, L100.0100 #### [facility] [address] [place], [address] Calculated very low density lipoprotein (VLDL) cholesterol measurementOrdered By: Olaf Pina on 10-18-2024 Calculated very low density lipoprotein (VLDL) cholesterol measurement 22 mg/dL 5-40 [facility] Carbon dioxide, total [Moles /volume] in Central venous bloodOrdered By: Olaf Pina on 10-18-2024 CO2 [Moles/Vol] 22.6 mmol/L 21.0-32.0 [facility] Chloride assayOrdered By: Joao Pina on 10-18-2024 Chloride [Moles/Vol] 105 mmol/L 98-108 [facility] Eosinophil percentageOrdered By: Olaf Pina on 10-18-2024 Eosinophils/100 WBC (Bld) 1.9 % 0-5 [facility] Erythrocyte distribution wid th ratioOrdered By: Olaf Pina on 10-18-2024 Erythrocyte distribution width (RBC) [Ratio] 13.2 % 11.6-14.6 [facility] Erythrocyte distribution wid th standard deviationOrdered By: Olaf Pina on 10-18-2024 Erythrocyte distribution width (RBC) [Ratio] 40.9 fl 35.1-43.9 [facility] Glomerular filtration rate ( GFR) estimation/1.73 sq m using serum, plasma, or whole bOrdered By: Olaf Pina on 10-18-2024 GFR/1.73 sq M.predicted among non-blacks MDRD (S/P/Bld) [Vol rate/Area] 84 mL/min/{1.73_m2} >60 [facility] Comment on above: mL/min/1.73m2 CKD-EP I Creatinine Equation (2020) Hematocrit Auto (Bld) [Volum e fraction]Ordered By: Olaf Pina on 10-18-2024 Hematocrit (Bld) [Volume fraction] 40.0 % 37-47 [facility] Hemoglobin measurementOrdere d By: Olaf Pina on 10-18-2024 Hemoglobin (Bld) [Mass/Vol] 13.4 g/dL 12.0-15.0 [facility] Immature granulocytes/100 WB C Auto (Bld)Ordered By: Olaf Pina on 10-18-2024 Immature granulocytes/100 WBC (Bld) 0.400 % 0.0-0.9 [facility] Comment on above: IG% - Immature Granu locytes (promyelocytes, myelocytes and metamyelocytes) > 1% indicates that a LEFT SHIFT is Present. LDL calc ser/plasOrdered By: Olaf Pina on 10-18-2024 Cholesterol in LDL [Mass/Vol] 69 mg/dL [facility] Comment on above: Evmeyqfahc=155-097 m g/dL & Higher Cmvh=263 mg/dL or greater Lipid Profileon 10-18-2024 CHOL:HDL 3.55 Normal [facility] Comment on above: Performed By: #### L 501.9520, L500.2500, L500.4100, L100.0100 #### [facility] [address] [place], [address] Cholesterol [Mass/Vol] 127 mg/dL Normal <=200 [facility] Comment on above: Result Comment: Chol esterol level, Desirable <200 mg/dL Borderline high cholesterol 200-239 mg/dL High cholesterol >=240 mg/dL Recommendations of the NCEP Adult Treatment Panel for the following risk-cutoff thresholds for the [place] population. Performed By: #### L 501.9520, L500.2500, L500.4100, L100.0100 #### [facility] [address] [place], [address] Cholesterol in HDL [Mass/Vol] 36 mg/dL Low [facility] Comment on above: Result Comment: Emelyn onal Cholesterol Education Program (NCEP) guidelines: <40 mg/dL: Low HDL-cholesterol (major risk factor for CHD) >= 60 mg/dL: High HDL-cholesterol (negative risk factor for CHD) HDL-cholesterol is affected by a number of factors, e.g. smoking, exercise, hormones, sex and age. Performed By: #### L 501.9520, L500.2500, L500.4100, L100.0100 #### [facility] [address] [place], [address] Cholesterol in LDL [Mass/Vol] 69 mg/dL Normal [facility] Comment on above: Result Comment: Bord mkmmyt=448-785 mg/dL Higher Qtxl=685 mg/dL or greater Performed By: #### L 501.9520, L500.2500, L500.4100, L100.0100 #### [facility] [address] [place], [address] Cholesterol in VLDL [Mass/Vol] 22 mg/dL Normal 5-40 [facility] Comment on above: Performed By: #### L 501.9520, L500.2500, L500.4100, L100.0100 #### [facility] [address] [facility] [place], [address] Triglyceride [Mass/Vol] 109 mg/dL Normal [facility] Comment on above: Result Comment: The drugs N-Acetylcysteine and Metamizole may falsely depress this assay. Normal range: <150 mg/dL Borderline High: 150-199 mg/dL High: 200-499 mg/dL Very High: >500 mg/dL Performed By: #### L 501.9520, L500.2500, L500.4100, L100.0100 #### [facility] [address] [facility] [place], [address] MCV (mean corpuscular volume ) determinationOrdered By: Olaf Pina on 10-18-2024 MCV (RBC) [Entitic vol] 84.4 fL 81-99 [facility] Mean corpuscular hemoglobin (MCH) determinationOrdered By: Olaf Pina on 10-18-2024 MCH (RBC) [Entitic mass] 28.3 pg 27.0-32.0 [facility] Mean corpuscular hemoglobin concentration (MCHC) determinationOrdered By: Olaf Pina on 10-18-2024 MCHC (RBC) [Mass/Vol] 33.5 g/dL 32-36 [facility] Mean platelet volume determi nationOrdered By: Olaf Pina on 10-18-2024 Platelet mean volume (Bld) [Entitic vol] 10.6 fL 6.2-12.0 [facility] Monocyte percentageOrdered B y: Olaf Pina on 10-18-2024 Monocytes/100 WBC (Bld) 6.3 % 0-10 [facility] Neutrophil percentageOrdered By: Olaf Pina on 10-18-2024 Neutrophils/100 WBC (Bld) 61.3 % 47-70 [facility] Nucleated red blood cell per centageOrdered By: Olaf Pina on 10-18-2024 Nucleated RBC/100 WBC (Bld) [Ratio] 0 % 0-5 [facility] Platelet countOrdered By: Joao Pina on 10-18-2024 Platelets (Bld) [#/Vol] 314 10*3/uL 150-450 [facility] Potassium measurement (mass/ volume)Ordered By: Olaf Pina on 10-18-2024 Potassium (Unsp spec) [Mass/Vol] 4.3 mmol/L 3.3-5.1 [facility] RBC Auto (Bld) [#/Vol]Ordere d By: Olaf Pina on 10-18-2024 RBC (Bld) [#/Vol] 4.74 10*6/uL 4.2-5.4 [facility] Screening total cholesterol/ high density lipoprotein (HDL) cholesterol ratioOrdered By: Olaf Pina on 10-18-2024 Cholesterol.total/Chol esterol in HDL [Mass ratio] 3.55 {ratio} [facility] Serum creatinine measurement (mass/volume)Ordered By: Olaf Pina on 10-18-2024 Creatinine [Mass/Vol] 0.89 mg/dL 0.70-1.20 [facility] Serum glucose measurement (m ass/volume)Ordered By: Olaf Pina on 10-18-2024 Glucose [Mass/Vol] 83 mg/dL 70-[address] [facility] Serum or plasma calcium shamir urement (mass/volume)Ordered By: Olaf Pina on 10-18-2024 Calcium [Mass/Vol] 9.3 mg/dL 7.6-11.[address] [facility] Serum or plasma cholesterol in HDL measurement (mass/volume)Ordered By: Olaf Pina on 10-18-2024 Cholesterol in HDL [Mass/Vol] 36 mg/dL Low >40 [facility] Comment on above: National Cholesterol Education Program (NCEP) guidelines:<40 mg/dL: Low HDL-cholesterol (major risk factor for CHD)>= 60 mg/dL: High HDL-cholesterol (negative risk factor for CHD)HDL-cholesterol is affected by a number of factors, e.g. smoking, exercise, hormones, sex and age. Serum or plasma cholesterol measurement (mass/volume)Ordered By: Olaf Pina on 10-18-2024 Cholesterol [Mass/Vol] 127 mg/dL <201 [facility] Comment on above: Cholesterol level, D esirable <200 mg/dLBorderline high cholesterol 200-239 mg/dLHigh cholesterol >=240 mg/dLRecommendations of the NCEP Adult Treatment Panel for the following risk-cutoff thresholds for the [place] population. Serum or plasma urea nitroge n measurement (mass/volume)Ordered By: Olaf Pina on 10-18-2024 Urea nitrogen [Mass/Vol] 11 mg/dL 4-19 [facility] Sodium levelOrdered By: Olaf Pina on 10-18-2024 Sodium [Moles/Vol] 138 mmol/L 133-[address] [facility] TSH DL <= 0.005 mIU/L QnOrde red By: Olaf Pina on 10-18-2024 TSH Qn 1.210 uIU/mL 0.300-4.20 0 [facility] Thyroid Stim Hormone (TSH)on 10-18-2024 TSH 1.210 uIU/mL Normal 0.300-4.20 0 [facility] Comment on above: Performed By: #### L 501.9520, L500.2500, L500.4100, L100.0100 #### [facility] [place], [address] Triglycerides measurementOrd ered By: Olaf Pina on 10-18-2024 Triglyceride [Mass/Vol] 109 mg/dL <199 [facility] Comment on above: The drugs N-Acetylcy steine and Metamizole may falsely depress this assay. Normal range: <150 mg/dLBorderline High: 150-199 mg/dLHigh: 200-499 mg/dLVery High: >500 mg/dL White blood cell (WBC) count Ordered By: Olaf Pina on 10-18-2024 WBC (Bld) [#/Vol] 8.3 10*3/uL 4.4-11.[address] [facility] CNOVon 03-30-2024 CNOV Office Visit (UCWSTR ) ANIYA LOVETT ([id number]) 1985 F Date Time Provider Department 03/30/24 8:00 AM MARGY ASHBY [facility] During your visit today, we recorded the following information about you: Temperature Pulse Respiration Blood pressure 99.8 degrees 120/minute 18/minute 123/83 Weight 95.8 kg Margy [place] PA-C 03/30/2024 8:38 AM Signed This note was created using Telecardiariter. Subjective Aniya Lovett is a 38 year old female. HPI Presents with a chief complaint of bodyaches, fever, sore throat cough over the past day. She did fly home from [place] yesterday. She took a home COVID test [...] subcutaneously. tretinoin (RETIN-A) 0.025 % topical cream dextroamphetamine-amphetami ne (ADDERALL) 10 mg tablet TAKE TWO TABLETS BY MOUTH EVERY MORNING AND AT NOON, AND TAKE ONE TABLET AT 4pm oseltamivir (TAMIFLU) 75 mg capsule Take 1 capsule by mouth two times a day for 5 days. 10 capsule 0 yczfucs-wgaauwsfhoqxjb-rcug in 6-5-2 % crea Apply to affected area. [...] was negative. Will treat with Tamiflu. Discussed qpue-mli-wztzycy medications to help with symptoms. Follow-up with PCP if not improving. Discussed contagiousness. Patient agreeable with plan. - STREP A MOLECULAR (POC) - INFLUENZA AANDB MOLECULAR (POC) Margy [place] PA-C Allergies As of Date: 03/30/2024 Noted Allergy Reaction MORPHINE 07/02/2021 11 - Vomiting PENICILLINS 02/20/2017 4 - Hives Date Reviewed: 03/30/2024 Reviewed by: Ivette Langston MA - Fully Assessed Reason for Visit: Cough [28] Cmt: ST, bodyaches, MAGA[place], chills, fever x2 days, recent travel Primary Visit Diagnosis:Influenza A [J10.1] Order(s):STREP A MOLECULAR (POC) [2475495] Order #: [id number]. #:[id number] -LAB INFLUENZA AANDB MOLECULAR (POC) [4089773] Order #: [id number]. #:[id number] -LAB oseltamivir (TAMIFLU) 75 mg capsuleTake 1 capsule by mouth two times a day for 5 days.Disp: 10 capsuleRfl: 0 Prescriptions as of 03/30/2024 - oseltamivir (TAMIFLU) 75 mg capsule Take 1 capsule by mouth two times a day for 5 days. - kbyupfj-aylscphtliujox-pphi in 6-5-2 % crea Apply to affected area. - SEMAGLUTIDE, WEIGHT LOSS, SUBCUTANEOUS Inj (more content not included)... Normal [facility] INFLUENZA A&B MOLECULAR (POC )on 03-30-2024 Flu A (POCT) Positive Abnormal Negative [facility] Comment on above: Location:[address], [employer] Interpretation and review of laboratory results Abnormal [facility] Procedural Control Valid [facility] Location:[address], [address] [place] [address] POINT OF CARE [facility] STREP A MOLECULAR (POC)on Procedural Control Valid [facility] Strep A (POCT) Negative Negative [facility] Chiropractic Reporton 2023 Chiropractic Report [facility] Chiropractic [facility] [place] [address] OFFICE VISIT Date of Service: 02/29/24 MR#: [id number] Acct: [id number] Name: ANIYA LOVETT Rep #: [id number] : 1985 Provider: BRUNA Daniels Age/Sex: 38/F Location: [facility] Status: Signed Intake Vital Signs 02/02/24 10:43 [...] disorder) Surgical History History of esophagogastroduodenoscopy (EGD) Winn teeth extracted History of tonsillectomy and adenoidectomy [...] region: S (more content not included)... [facility] Office Visit (OBGYWM ) ANIYA LOVETT ([id number]) 1985 F Date Time Provider Department 02/27/24 9:20 AM DRE BUENROSTRO OBGYWM During your visit today, we recorded the following information about you: Blood pressure Weight Height Last Period 112 97.1 kg 1.676 m 02/19/24 Dre Buenrostro MD 02/27/2024 9:46 AM Signed Development And Housing Director offered: Patient declines. Aniya is a 38 [...] L3 SAB0 IAB0 Ectopic0 Multiple0 Live Births3 Residence Supervisor History LMP: 02/19/2024 (Exact Date), Having periods Age at Menarche: Age at First : Age at Menopause: Residence Supervisor History Comments: Sexual Activity: Yes; Male Contraception: [...] discussed with the Patient or Patient's Authorized Zipper Machine Operator. As applicable, any other physician, advance practice provider, medical student, or other health professional student that will be observing or involved in the sensitive examination for educational or training purposes was discussed with the Patient or Authorized Zipper Machine Operator. The Patient or Authorized Zipper Machine Operator has agreed to proceed with the sensitive [...] external genitalia normal, normal Bartholin's glands, urethra, [place]'s glands, no vulvar lesions, no cervical lesions, [...] breast cancer [Z12.31] Order(s):ADENIKE SCREENING W DOM [[id number]] Order #: [id number] FUTURE Prescriptions as of 02/27/2024 - wdztlko-wdibxgrsyetlbs-hpys in 6-5-2 % crea (more content not included)... Normal [facility] CBC-Complete Blood Cnt No Di ffon 02-02-2024 Erythrocyte distribution width (RBC) [Ratio] 13.0 % Normal 11.6-14.6 [facility] Comment on above: Performed By: #### L 400.7600, L100.0500 #### [facility] [address] [place], [address] Hematocrit (Bld) [Volume fraction] 40.5 % Normal 37-47 [facility] Comment on above: Performed By: #### L 400.7600, L100.0500 #### [facility] [address] [place], [address] Hemoglobin (Bld) [Mass/Vol] 13.4 g/dL Normal 12.0-15.0 [facility] Comment on above: Performed By: #### L 400.7600, L100.0500 #### [facility] [address] [place], [address] MCH (RBC) [Entitic mass] 27.7 pg Normal 27.0-32.0 [facility] Comment on above: Performed By: #### L 400.7600, L100.0500 #### [facility] [address] [place], [address] MCHC (RBC) [Mass/Vol] 33.1 g/dL Normal 32-36 [facility] Comment on above: Performed By: #### L 400.7600, L100.0500 #### [facility] [address] [place], [address] MCV (RBC) [Entitic vol] 83.7 fL Normal 81-99 [facility] Comment on above: Performed By: #### L 400.7600, L100.0500 #### [facility] [address] [place], [address] Platelet mean volume (Bld) [Entitic vol] 9.9 fL Normal 6.2-12.0 [facility] Comment on above: Performed By: #### L 400.7600, L100.0500 #### [facility] [address] [place], [address] Platelets (Bld) [#/Vol] 312 10*3/uL Normal 150-450 [facility] Comment on above: Performed By: #### L 400.7600, L100.0500 #### [facility] [address] [place], [address] RBC (Bld) [#/Vol] 4.84 10*6/uL Normal 4.2-5.4 [facility] Comment on above: Performed By: #### L 400.7600, L100.0500 #### [facility] [address] [place], [address] RDW SD 39.3 fl Normal 35.1-43.9 [facility] Comment on above: Performed By: #### L 400.7600, L100.0500 #### [facility] [address] [place], [address] WBC (Bld) [#/Vol] 8.4 10*3/uL Normal 4.4-11.[address] [facility] Comment on above: Performed By: #### L 400.7600, L100.0500 #### [facility] [address] [place], [address] CNOPon 02-02-2024 CNOP Operative Note (Enc) (OBGYWM) Encounter Status:Closed by DRE BUENROSTRO on 02/02/24 [facility] Discharge Instructionon 01-10 Discharge Instruction [facility] Medical Records Department [address] [place] [address] Instructions for Home/Discharge Instructions 02/02/24 1139 MR#: [id number] Acct: [id number] Name: ANIYA LOVETT Rep #: [id number] : 1985 38 From: Dre Buenrostro MD PCP: Dr. Olaf Pina MD Status:REG [facility] Discharge Instructions Diet [...] next week with the pathology. Send a Sleepy's message or call [phone] as needed for nonemergent question Test Results: Test results from this visit will be discussed in further detail at your follow-up appointment, if applicable. Discharge Plan Admission Primary Reason for Your Visit: LEEP of the cervix Attending Provider: Dre Buenrostro Primary Care Provider: Olaf Pina Instructions Print Language: Uzbek Discharge Orders/Prescriptions Prescriptions: Continued multivitamin Tablet 1 tab PO DAILY dextroamphetamine-amphetami ne 10 mg tablet 30 - 40 mg PO DAILY Patient Comments: TAKE 2 (TWO) TABLETS BY MOUTH EVERY DAY IN THE MORNING, 1 (ONE) TABLET at noon and 1 (ONE) TABLET at AT 4 PM semaglutide 0.25 mg or 0.5 mg (2 mg/3 mL) pen injector 0.25 mg subcut WE Rx Instructions: for 4 weeks Referrals / Follow Up: Olaf Pina MD [Primary Care Provider] - Disposition Disposition (needs filled in before D/C Order can be placed): Home, Self Care 02/02/24 1210 Dre Buenrostro MD CC: Dr. Olaf Pina MD Signed Normal [facility] Operative Reporton 4 Operative Report [facility] Medical Records Department [address] [place] [address] Operative Report 02/02/24 1207 MR#: [id number] Acct: [id number] Name: ANIYA LOVETT Rep #: [id number] : 1985 38 From: Dre Buenrostro MD PCP: Dr. Olaf Pina MD Status:[facility] Location: [place] [address] Problems Associated Problem List Diagnoses (1) High [...] normal vagina, cervix flush w/ the vagina Billing Administrator lead miner blasting: Yes Steel Plate Printer: Brent Ann MS3 Tasks completed by first line production supervisor: Retracting Additional material assistant?: No Complications Complications: No Admit VTE Documentation VTE Present on Admission: No VTE Mechan Device Prophylaxis: SCD's VTE Pharm Prophylaxis ordered?: No 02/02/24 6050 Cosigner Signature (if applicable): CC: Dr. Olaf Pina MD; Dr. Dre Buenrostro MD Signed Normal [facility] ,Urineon 02-02-2024 Beta HCG ( test) Ql (U) Negative Normal [facility] Comment on above: Result Comment: Very dilute urine specimens, as indicated by a low specific gravity, may not contain representative government relations levels of hCG. If is still suspected, a first morning urine specimen should be collected 48 hours later and tested. Performed By: #### L 400.7600, L100.0500 #### [facility] [address] [place], [address] Surgery Specimen Level Charity 02-02-2024 Surgery Specimen Level IV Patient Age/Sex Location Account Attending Physician ANIYA LOVETT 38/F [facility] [id number] Dr. Dre Buenrostro MD Specimen: [id number] Received: 02/02/24 Status: PAIGE Levine Num: [id number] Spec Type: Leep Cone Subm Dr: Dr. Dre Buenrostro MD HEADER OPERATION: Leep cone PRE-OP DIAGNOSIS: High grade squamous intraepithelial lesion of cervix TISSUE SUBMITTED: A- Exocervix *stitch in anterior*, B- Endocervical curettings MICROSCOPIC DIAGNOSIS A. 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 Resection margins are free of dysplastic changes. See comment. B. Endocervical curettings: Fragments of benign ecto and endocervical epithelium, blood and mucous. Negative for dysplasia. AM.02/03/2024 COMMENT A. Immunohistochemistry ([id number]) for surrogate HPV marker (p16) supports the [...] labeled with the patient's name and designated "Exocervix." The specimen consists of two pieces of [...] specimen is totally submitted in one cassette. SJTajmr 02/02/2024 TC:5 Patient Age/Sex Location Account Attending Physician ANIYA LOVETT 38/F [facility] [id number] Dr. Dre Buenrostro MD CPT: 50110,00595 Patient Age/Sex Location Account Attending Physician ANIYA LOVETT 38/F [facility] [id number] Dr. Dre Buenrostro MD Signed (signature on file) Dr. Moo Gonzalez MD 02/06/24 1236 Normal [facility] Comment on above: Performed By: #### P TATIANA ####[facility] [id number] [place], [address] p16 (initial)on 02-02-2024 p16 (initial) ------- Patient Age/Sex Location Account Attending Physician ANIYA LOVETT 38/F [facility] [id number] Dr. Dre Buenrostro MD Specimen: [id number] Received: 02/03/24 Status: PAIGE Levine Num: [id number] Spec Type: IMMUNO Subm Dr: Dr. Dre Buenrostro MD PHYSICIAN INSTITUTION [address] [address] SPECIMEN INFORMATION: Tissue Source: A- Exocervix Clinical Info: High grade squamous intraepithelial lesion of cervix Specimen Number: [id number] A 1 CPT code: 39747,64820 METHODOLOGY: Deparaffinized sections of prefer/formalin-fixed tissue or [...] developed and their performance characteristics determined by [facility]. They may not have been cleared or approved by the U.S. Food and Drug Administration. The FDA has determined that such clearance or approval is not necessary. The above immunohistochemical/dualISH markers are ordered and reviewed by the Pathologist. INTERPRETATION: A. Exocervix, leep colonization: Moderate squamous dysplasia (DOLORES II). SJ.mr 02/06/2024 Signed (signature on file) Dr. Moo Gonzalez MD 02/06/24 1236 Normal [facility] Comment on above: Performed By: #### P P16 ####[facility] [id number] [place], [address] [facility] 01-24-2024 CNPN Telephone (OBSpot InfluenceWCoffee Meets Bagel) ANIYA LOVETT ([id number]) 1985 F Date Time Provider Department 01/24/24 DRE BUENROSTRO OBTRAVIS During your visit today, we recorded the following information about you: Marychuy Roger RN 01/24/2024 2:47 PM Addendum Patient is scheduled for LEEP procedure on 02/[address] [facility]. Patient had her PAT with [facility] today, PAT nurse calling to relay to office that patient told her that she is very confused to why she is having a LEEP under anesthesia and that she does not want to be put to sleep on the day of the surgery. FYI. 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 She has appt with Keke Wasserman tomorrow at 1pm. Will come in at 12 tomorrow to pickling solution maker. 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) t*03/24/2023 High grade squamous intraepithelial lesion (HGS*05/19/2023 Encounter Status:Closed by ANDREA JORDAN on 01/17/24 [facility] CNOVon 01-09-2024 CNOV Office Visit (UCWSTR ) ANIYA LOVETT ([id number]) 1985 F Date Time Provider Department 01/09/24 10:45 AM [place] [facility] During your visit today, we recorded the following information about you: Temperature Pulse Respiration Blood pressure 98.1 degrees 115/minute 21/minute 124/78 Weight 102.1 kg Francesco Ny APRN.CNP 01/09/2024 12:01 PM Signed Subjective HPI HPI Aniya Lovett is a [...] evening tretinoin (RETIN-A) 0.025 % topical cream dextroamphetamine-amphetami ne (ADDERALL) 10 mg tablet TAKE TWO TABLETS [...] - ICD9: 959.7, ICD10: S99.911A Francesco Ny APRN.SOCIAL MEDIA DEVELOPER Allergies As of Date: 01/09/2024 Noted Allergy Reaction MORPHINE 07/02/2021 11 - Vomiting PENICILLINS 02/20/2017 4 - Hives Date Reviewed: 01/09/2024 Reviewed by: Gregoria Garcia MA - Fully Assessed Reason for Visit: Trauma [112] Cmt: Bilateral ankle injury from fall Primary Visit Diagnosis:Injury of left ankle, initial encounter [S99.912A] Other Visit Diagnosis:Ankle injuries, right, initial encounter [S99.911A] Order(s):XR ANKLE GENERAL 3V AP/LAT/OBL LEFT [[id number]] Order #: [id number] XR ANKLE GENERAL 3V AP/LAT/OBL RIGHT [[id number]] Order #: [id number] XR ANKLE GENERAL 3V AP/LAT/OBL BILATERAL [[id number]] Order #: [id number]. #:[id number] Prescriptions as of 01/09/2024 - SEMAGLUTIDE, WEIGHT LOSS, SUBCUTANEOUS Inject 0.5 mg subcutaneously. - NYSTOP powder USE ONE GRAM TWICE DAILY - clindamycin (CLEOCIN-T) 1 % gel Apply to the face once in the evening - tretinoin (RETIN-A) 0.025 % topical cream - dextroamphetamine-amphetami ne (ADDERALL) 10 mg tablet TAKE TWO TABLETS BY MOUTH EVERY MORNING AND AT NOON, AND TAKE ONE TABLET AT 4pm Problem List As Of Date 01/09/2024 Noted Resolved High grade squamous intraepithelial cervical dy*03/24/2023 Cervical high risk HPV (human papillomavirus) t*03/24/2023 High grade squamous intraepithelial lesion (HGS*05/19/2023 Encounter Status:Closed by RADAMES NYNATHAN on 01/09/24 Normal [facility] XR ANKLE 3V AP/LAT/OBL BILon 01-09-2024 [...] calcaneal spur. IMPRESSION: No acute osseous abnormality Bulb Tester: [facility] Transcribe Date/Time: Jan 09 2024 11:30A Dictated by : ELMER UGNN MD This examination was interpreted and the report reviewed and electronically signed by: ELMER GUNN MD on Jan 09 2024 11:33AM EST [id number] Normal [facility] XR Ankle - bilateral AP and Lateral and obliqueon 01-09-2024 IMPRESSION: No acute osseous abnormality Bulb Tester: P[facility] Transcribe Date/Time: Jan 09 2024 11:30A Dictated [...] plantar calcaneal spur. DIVISION OF RADIOLOGY Provider, Emmanuel Tavarez - 01/09/2024 * * *Final Report* * [...] spur. IMPRESSION IMPRESSION: No acute osseous abnormality Bulb Tester: PSC Transcribe Date/Time: Jan 09 2024 11:30A Dictated by : ELMER GUNN MD This examination was interpreted and the report reviewed and electronically signed by: ELMER GUNN MD on Jan 09 2024 11:33AM EST [facility] Radiology Study observation (narrative) [facility] XR Ankle - bilateral AP and Lateral and obliqueOrdered By: Ccf Provider on 01-09-2024 [facility] CNOVon 01-06-2024 CNOV Office Visit (OBGYWM ) ANIYA LOVETT ([id number]) 1985 F Date Time Provider Department 01/06/24 10:10 AM DRE BUENROSTRO OBGYWM During your visit today, we recorded the following information about you: Pulse Respiration Blood pressure Weight 86/minute 20/minute 120/70 99.5 kg Height 1.67 m Dre Buenrostro MD 01/06/2024 12:44 PM Signed Aniya Lovett is a 38 year old female who presents for problem visit for HSIL. HPI: 38-year old female with history of HSIL of the cervix. Has a history of cryo before her C-sections. Has a very high and difficult to access cervix. Presents to discuss options. OB History T3 L3 SAB0 IAB0 Ectopic0 Multiple0 Live Births3 Residence Supervisor History LMP: 05/18/2023 (Exact Date), Having periods Age at Menarche: Age at First : Age at Menopause: Residence Supervisor History Comments: Sexual Activity: Yes; Male Contraception: [...] evening tretinoin (RETIN-A) 0.025 % topical cream dextroamphetamine-amphetami ne (ADDERALL) 10 mg tablet TAKE TWO TABLETS [...] 120/70 Pulse 86 Resp 20 Ht 5' 5.748" (1.67m) Wt 219 lb 6.4 oz (99.5kg) [...] room. I again offered patient consult with [facility] oncology to see if they would be more comfortable performing the procedure in the office. Patient declines this and agrees to proceed in the operating room. Decision for surgery today. See HANDP note. MD Jay Godinez Rebecca L, MD 01/06/2024 12:44 PM [...] SURGICAL HISTORY Procedure Laterality Date EGD W/O [facility] SPEC VARICIES INJ GERD VAGINOSCOPY 04/21/2023 Current Outpatient Medications Medication Sig Dispense Refill SEMAGLUTIDE, WEIGHT LOSS, SUBCUTANEOUS Inject 0.5 mg subcutaneously. NYSTOP powder USE ONE GRAM TWICE DAILY clindamycin (CLEOCIN-T) 1 % gel Apply to the face once in the evening tretinoin (RETIN-A) 0.025 % topical cream dextroamphetamine-amphetami ne (ADDERALL) 10 mg tablet TAKE TWO TABLETS [...] Use T (more content not included)... Normal [facility] 01-06-2024 CNPN Telephone (OBGYWM) ANIYA LOVETT ([id number]) 1985 F Date Time Provider Department 01/06/24 [...] 01/06/2024 3:05 PM Signed Patient notified. Mary Viera RN Allergies As of Date: 01/06/2024 Noted [...] tretinoin (RETIN-A) 0.025 % topical cream - dextroamphetamine-amphetami ne (ADDERALL) 10 mg tablet TAKE TWO TABLETS BY MOUTH EVERY MORNING AND AT NOON, AND TAKE ONE TABLET AT 4pm Problem List As Of Date 01/06/2024 Noted Resolved High grade squamous intraepithelial cervical dy*03/24/2023 Cervical high risk HPV (human papillomavirus) t*03/24/2023 High grade squamous intraepithelial lesion (HGS*05/19/2023 Encounter Status:Closed by MARY VIERA on 01/06/24 [facility] HISTORY PHYSICALon HISTORY PHYSICAL HNO ID: [id number] Author: DRE BUENROSTRO MD Service: ? Author [...] SURGICAL HISTORY Procedure Laterality Date EGD W/O [facility] SPEC VARICIES INJ GERD VAGINOSCOPY 04/21/2023 Current Outpatient Medications Medication Sig Dispense Refill SEMAGLUTIDE, WEIGHT LOSS, SUBCUTANEOUS Inject 0.5 mg subcutaneously. NYSTOP powder USE ONE GRAM TWICE DAILY clindamycin (CLEOCIN-T) 1 % gel Apply to the face once in the evening tretinoin (RETIN-A) 0.025 % topical cream dextroamphetamine-amphetami ne (ADDERALL) 10 mg tablet TAKE TWO TABLETS [...] resp. rate 20, height 167 cm (5' 5.75"), weight 99.5 kg (219 lb 6.4 oz), [...] history, medications and allergies Dre Buenrostro M.D. [facility] [place] 12-23-2023 [facility] Telephone (OBGYWM) ANIYA LOVETT ([id number]) 1985 F Date Time Provider Department 12/23/23 DRE BUENROSTRO During your visit today, we [...] Godinez Lindsey, RN 12/23/2023 2:27 PM Signed fingernail technician notified and surgery changed. Recreational Programs Director will notify patient. Marychuy Roger RN Allergies [...] tretinoin (RETIN-A) 0.025 % topical cream - dextroamphetamine-amphetami ne (ADDERALL) 10 mg tablet TAKE TWO TABLETS [...] Encounter Status:Closed by DRE BUENROSTRO on 12/23/23 [facility]20[facility] BONYANIYA Gaxiola ([id number]) 1985 F Date Time Provider Department 11/30/23 DRE BUENROSTRO WOOB During your visit today, we recorded the following information about you: Brigida Mathews 11/30/2023 9:12 AM Signed Patient called requesting an order for a leep procedure please advise Mary Viera RN 11/30/2023 9:19 AM Signed Spoke to patient to clarify. She does want to proceed with LEEP in OR as previously discussed with RR. Surgery sheet to provider to complete. She wants [facility] and is flexible with next available date. MISTI Segovia Rebecca L, MD 11/30/2023 9:27 AM Signed done. MD Kemar Godinez Trisha, RN 11/30/2023 9:37 AM Signed Surgery sheet placed in crop production advisor's mailbox. Mary Viera RN Allergies As of Date: 11/30/2023 Noted [...] tretinoin (RETIN-A) 0.025 % topical cream - dextroamphetamine-amphetami ne (ADDERALL) 10 mg tablet TAKE TWO TABLETS [...] Encounter Status:Closed by DRE BUENROSTRO on 11/30/23 [facility] CNOVon 05-19-2023 CNOV Office Visit (OBGYWM ) ANIYA LOVETT ([id number]) 1985 F Date Time Provider Department 05/19/23 11:30 AM DRE BUENROSTRO OBGYWM During your visit today, we recorded the following information about you: Pulse Respiration Blood pressure Weight 110/minute 16/minute 108/70 108.9 kg Height Last Period 1.676 m 05/18/23 Dre Buenrostro MD 05/19/2023 12:25 PM Signed Dre Monroy MD 05/19/2023 12:25 PM Signed Aniya Lovett is a 37 year old [...] L3 SAB0 IAB0 Ectopic0 Multiple0 Live Births3 Residence Supervisor History LMP: 05/18/2023 (Exact Date), Having periods Age at Menarche: Age at First : Age at Menopause: Residence Supervisor History Comments: Sexual Activity: Yes; Male Contraception: [...] evening tretinoin (RETIN-A) 0.025 % topical cream dextroamphetamine-amphetami ne (ADDERALL) 10 mg tablet TAKE TWO TABLETS [...] 108/70 Pulse 110 Resp 16 Ht 5' 6" (1.68m) Wt 240 lb (108.9kg) SpO2 98% [...] with preferred dates for the summer.mar revieewed pap/;luis had gardasil series in the past Dre [...] tretinoin (RETIN-A) 0.025 % topical cream - dextroamphetamine-amphetami ne (ADDERALL) 10 mg tablet TAKE TWO TABLETS [...] Encounter Status:Closed by DRE BUENROSTRO on 05/19/23 [facility] HISTORY PHYSICALon 4 HISTORY PHYSICAL HNO ID: [id number] Author: DRE BUENROSTRO MD Service: ? Author Type: Physician Type: H&P Filed: 05/19/2023 12:25 Note Text: mark [facility] [place] 04-26-2023 [facility] Telephone (OBGYWM) ANIYA LOVETT ([id number]) 1985 F Date Time Provider Department 04/26/23 DRE BUENROSTRO During your visit today, we recorded the following information about you: Sheree Dumont, RN 04/26/2023 3:33 PM Signed ----- Message [...] have May [address] [facility]. Please let me know her preferenece. If she wants a virtual or in office visit to discuss, we can do that. MD Julia Godinez Jennifer, RN 04/26/2023 3:33 PM Signed Left message for patient to call office. MISTI Cope Kimberly, LPN 04/26/2023 3:43 PM Signed Pt returned call and wanted to wait until June and have this done at [facility]. Pt voiced understanding of results. Surgery paper [...] tretinoin (RETIN-A) 0.025 % topical cream - dextroamphetamine-amphetami ne (ADDERALL) 10 mg tablet TAKE TWO TABLETS BY MOUTH EVERY MORNING AND AT NOON, AND TAKE ONE TABLET AT 4pm - SOOLANTRA 1 % Apply a thin layer to the face twice a day. Problem List As Of Date 04/26/2023 Noted Resolved High grade squamous intraepithelial cervical dy*03/24/2023 Cervical high risk HPV (human papillomavirus) t*03/24/2023 Encounter Status:Closed by DRE BUENROSTRO on 04/26/23 Normal [facility] Basic metabolic 2000 panelon 04-21-2023 Anion gap [Moles/Vol] 14 mmol/L Normal 9-18 [facility] Comment on above: Order Comment: Speci men Type: BLOOD SPECIMENOrdering Facility: [facility] Address: [address] [place] [address] Performed By: #### 2 4321-2 ####[facility] LABCLIA [id number] [place] [address] [place] Calcium [Mass/Vol] 9.8 mg/dL Normal 8.5-10.2 [facility] Comment on above: Order Comment: Speci men Type: BLOOD SPECIMENOrdering Facility: [facility] Address: [address] [place] [address] Performed By: #### 2 4321-2 ####[facility] LABCLIA [id number] [place] [address] [place] Chloride [Moles/Vol] 104 mmol/L Normal 97-105 [facility] Comment on above: Order Comment: Speci men Type: BLOOD SPECIMENOrdering Facility: [facility] Address: [address] [place] [address] Performed By: #### 2 4321-2 ####[facility] LABCLIA [id number] [place] [address] [place] CO2 [Moles/Vol] 22 mmol/L Normal 22-30 [facility] Comment on above: Order Comment: Speci men Type: BLOOD SPECIMENOrdering Facility: [facility] Address: [address] [place] [address] Performed By: #### 2 4321-2 ####[facility] LABIA [id number] [place] [address] [place] Creatinine [Mass/Vol] 0.85 mg/dL Normal 0.58-0.96 [facility] Comment on above: Order Comment: Brandoni men Type: BLOOD SPECIMENOrdering Facility: [facility] Address: [address] [place] [address] Performed By: #### 2 4321-2 ####[facility] LABIA [id number] [place] [address] [place] Creatinine and Glomerular filtration rate.predicted panel (S/P/Bld) 90 mL/min/1.73m??? Normal >=60 [facility] Comment on above: Order Comment: Micheal men Type: BLOOD SPECIMENOrdering Facility: [facility] Address: [address] [place] [address] Result Comment: Alida mated Glomerular Filtration Rate [...] actual GFR. Performed By: #### 2 4321-2 ####[facility] LABIA [id number] [place] [address] [place] Glucose [Mass/Vol] 109 mg/dL High 74-99 [facility] Comment on above: Order Comment: Speci men Type: BLOOD SPECIMENOrdering Facility: [facility] Address: [address] [place] [address] Result Comment: The [place] Diabetes Association (ADA) provides guidance for cutoff [...] Standards of Medical Care in Diabetes 2016, [employer] Diabetes Association. Diabetes Care. 2016.39(Suppl 1). Performed By: #### 2 4321-2 ####[facility] LABCLIA [id number] [place] [address] [place] Potassium [Moles/Vol] 4.1 mmol/L Normal 3.7-5.1 [facility] Comment on above: Order Comment: Micheal rahman Type: BLOOD SPECIMENOrdering Facility: [facility] Address: [address] [place] [address] Performed By: #### 2 4321-2 ####[facility] LABIA [id number] [place] [address] [place] Sodium [Moles/Vol] 140 mmol/L Normal 136-144 [facility] Comment on above: Order Comment: Micheal rahman Type: BLOOD SPECIMENOrdering Facility: [facility] Address: [address] [place] [address] Performed By: #### 2 4321-2 ####[facility] LABIA [id number] [place] [address] [place] Urea nitrogen [Mass/Vol] 14 mg/dL Normal 7-21 [facility] Comment on above: Order Comment: Micheal rahman Type: BLOOD SPECIMENOrdering Facility: [facility] Address: [address] [place] [address] Performed By: #### 2 4321-2 ####[facility] LABIA [id number] [place] [address] [place] CNOVon 04-21-2023 CNOV Office Visit (OBGYWM ) ANIYA LOVETT ([id number]) 1985 F Date Time Provider Department 04/21/23 11:50 AM DRE BUENROSTRO OBGYWM During your visit today, we recorded the following information about you: Blood pressure Weight Last Period 116/74 108.9 kg 03/26/23 Dre Buenrostro MD 04/21/2023 [...] very high and up to her left MD Angela Godinez Ma, Karen 04/21/2023 11:44 AM Signed YOUR RECOVERY [...] of the (more content not included)... Normal [facility] DHEA-S BLDon 04-21-2023 DHEA-S [Mass/Vol] 276.3 ug/dL Normal 60.9-337.0 [facility] Comment on above: Order Comment: Speci men Type: BLOOD SPECIMENOrdering Facility: [facility] Address: [address] [place] [address] Result Comment: Refe rence ranges are age and gender specific. For additional information, reference range tables can be found in the laboratory test directory. The normal values are based on the following source: Dehydroepiandrosterone sulfate (DHEA S) [package insert V 17.0 Uzbek]. [employer], [place], [place]: November 2012. Performed By: #### D ANA MARIA, 2986-8 ####[facility] LABIA [id number] [place] [address] [place] SURGICAL PATHOLOGYon 024 CASE REPORT Normal [facility] Comment on above: Order Comment: Speci men Type: TISSUE SPECIMENOrdering Facility: [facility] Address: [address] [place] [address] Result Comment: Surg ica Pathology Report Case: [id number] Authorizing Provider: Dre Buenrostro MD Collected: 04/21/2023 12:33 PM Ordering Location: OB/Gynecology Received: 04/21/2023 04:28 PM Pathologist: Matias Banks MD Specimens: A) - CERVIX BIOPSY, 9, 6 and 12 oclock B) - ENDOCERVIX BIOPSY Performed By: #### S ####[facility] LABIA [id number] [place] [address] [place] CLINICAL HISTORY HGSIL HPV POS Normal [facility] Comment on above: Order Comment: Speci men Type: TISSUE SPECIMENOrdering Facility: [facility] Address: [address] [place] [address] Performed By: #### S ####[facility] LABCLIA [id number] [address] [place] DIAGNOSIS COMMENT Normal [facility] Comment on above: Order Comment: Speci men Type: TISSUE SPECIMENOrdering Facility: [facility] Address: [address] [place] [address] Result Comment: p16 is strong and diffuse, MIB-1 index in increased, and chromogenic in situ hybridization for high risk HPV is negative. Laboratory Developed Test (LDT) Disclaimer: Performance characteristics of immunohistochemical, immunofluorescent and chromogenic in-situ hybridization tests have been determined by the performing laboratory within [facility]???s [facility] Pathology and Laboratory Medicine [place] ([facility], [facility], [facility], [facility], [facility], [facility], or [facility]) in a manner consistent with CLIA requirements. One or more of these tests have not been cleared or approved by the FDA. [facility] is regulated under CLIA as qualified to perform high-complexity testing. These tests are used for clinical purposes. They should not be regarded as investigational or for research. Positive and negative controls stain appropriately. Performed By: #### S ####[facility] LABIA [id number] [address] STATES [facility] FINAL DIAGNOSIS Normal [facility] Comment on above: Order Comment: Speci men Type: TISSUE SPECIMENOrdering Facility: [facility] Address: [address] [place] [address] Result Comment: A. C ervix, biopsies at 9, 6 and 12 o'clock: - High-grade squamous intraepithelial lesion. B. Endocervix, biopsy: - Benign endocervix. ACV/kr 04/22/2023 Performed By: #### S ####[facility] LABIA [id number] [address] OF [facility] FINAL PERFORMING LAB Normal [facility] Comment on above: Order Comment: Speci men Type: TISSUE SPECIMENOrdering Facility: [facility] Address: [address] [place] [address] Result Comment: Diag nostic interpretation performed at [facility], [facility] [place] [address] CLIA# [id number] Cutting Inspector: Delroy Armenta M.D. Performed By: #### S ####[facility] LABCLIA [id number] [place] [address] [place] GROSS DESCRIPTION Normal [facility] Comment on above: Order Comment: Speci men Type: TISSUE SPECIMENOrdering Facility: [facility] Address: [address] [place] [address] Result Comment: A. C ERVIX BIOPSY Received [...] in one cassette. Gross examination performed at [facility], [address] [place] [address] FFS 04/21/2023 9:49 PM Performed By: #### S ####[facility] LABCLIA [id number] [place] [address] [place] Testost SerPl-mCncon 024 Testosterone [Mass/Vol] 30 ng/dL Normal <40 [facility] Comment on above: Order Comment: Speci men Type: BLOOD SPECIMENOrdering Facility: [facility] Address: [address] [place] [address] Performed By: #### D ANA MARIA, [id number] ####[facility] LABCLIA [id number] [place] [address] [place] Meliton 04-05-2023 CNPN Telephone (OBSpot InfluenceW) ANIYA LOVETT ([id number]) 1985 F Date Time Provider Department 04/05/23 NAZ JUNIOR During your visit today, we recorded the following information about you: Loree Hodges LPN 04/05/2023 3:43 PM Signed See pt's pap and hpv results. Main campus called with abnormal values. Please see in RR absence. CAMILLE Buckley Renee, APRN.CNP 04/05/2023 3:56 PM Signed I already sent a phone encounter. Naz Junior APRN.CNP Allergies As of Date: 04/05/2023 Noted Allergy Reaction MORPHINE 07/02/2021 11 - Vomiting PENICILLINS 02/20/2017 4 - Hives Date Reviewed: 03/24/2023 Reviewed by: Dre Buenrostro MD - Fully Assessed Reason for Visit: Results [95] Prescriptions as of 04/05/2023 - dextroamphetamine-amphetami ne (ADDERALL) 10 mg tablet TAKE TWO TABLETS [...] Encounter Status:Closed by SHEREE DUMONT on 04/05/23 [facility] (VANNESSAWOrquidea) ANIYA LOVETT ([id number]) 1985 F Date Time Provider Department 04/05/23 NAZ JUNIOR During your visit today, we recorded the following information about you: Naz Junior APRN.CNP 04/05/2023 12:56 PM Signed RR pt- Pap high grade and HPV 16+, she will need a colp. Naz Junior APRN.Sheree Fernando RN 04/05/2023 1:44 PM Signed Patient is scheduled for a colp with RR in April. Sheree Dumont RN Allergies As of Date: 04/05/2023 Noted Allergy Reaction MORPHINE 07/02/2021 11 - Vomiting PENICILLINS 02/20/2017 4 - Hives Date Reviewed: 03/24/2023 Reviewed by: Dre Buenrostro MD - Fully Assessed Reason for Visit: Results [95] Primary Visit Diagnosis:Papanicolaou smear of cervix with high grade squamous intraepithelial lesion (HGSIL) [R87.613] Order(s):COLPOSCOPY [[id number]] Order #: [id number] Prescriptions as of 04/05/2023 - dextroamphetamine-amphetami ne (ADDERALL) 10 mg tablet TAKE TWO TABLETS [...] Status:Closed by SHEREE DUMONT on 04/05/23 Normal [facility] - Chemistry and C hemistry - challengeon 10-13-2021 HCG ( test) Ql (U) Negative [facility] Work Phone: Comment on above: Very dilute urine sp ecimens, as indicated by a low specificgravity, may not contain representative government relations levels of hCG. If is still suspected, a first morning urinespecimen should be collected 48 hours later and tested. XR Ankle - right AP and Late ral and obliqueon 02-11-2020 IMPRESSION: Well marginated calcification adjacent to the lateral malleolus likely sequelae of prior ligamentous injury. No acute fracture identified. Soft tissue swelling of the lateral ankle. Bulb Tester: SANJANA Transcribe Date/Time: Feb 11 2020 8:14P Dictated by : LYNDSAY LEON MD This examination was interpreted and the report reviewed and electronically signed by: LYNDSAY LEON MD on Feb 11 2020 8:16PM [facility] OF RADIOLOGY * * *Final [...] Soft tissue swelling of the lateral ankle. Bulb Tester: SANJANA Transcribe Date/Time: Feb 11 2020 8:14P Dictated by : LYNDSAY LEON MD This examination was interpreted and the report reviewed and electronically signed by: LYNDSAY LEON MD on Feb 11 2020 8:16PM EST [facility] Radiology Study observation (narrative) [facility] XR Ankle - right AP and Late ral and obliqueOrdered By: Ccf Provider on 02-11-2020 [facility] Clinical Lists Update: Prelo travel services professional 08-25-2016 Tobacco use CPHS Former smoker Invalid Interpretation Code [facility] [employer] [place] Work Phone: Office Visit: Abnormal Breas t US-lefton 08-25-2016 Dietary management education, guidance, and counseling (procedure) yes Invalid Interpretation Code [facility] [employer] Work Phone: Documentation of current medications (procedure) Done Invalid Interpretation Code [facility] [employer] Work Phone: Fall risk assessment No [facility] [employer] [place] Work Phone: Tobacco smoking status NHIS Never [facility] [employer] Work Phone: Tobacco smoking status NHIS Former smoker [facility] [employer] Work Phone: Tobacco use HS Former smoker Invalid Interpretation Code [facility] [employer] Work Phone: Office Visit: Abnormal Breas t US-lefton 03-20-2016 General categories [interpretation] of Cervical or vaginal smear or scraping by Cyto stain Normal [facility] [employer] [place] Work Phone: Vital Signs Date Time Vital Sign Value Performing Clinician Facility 11-19-2024 14:46-0400 Body height 167.[address] Olaf Pina MD Work Phone: [facility] 11-19-2024 14:46-0400 Body mass index (BMI) [Ratio] 31.4 kg/m2 Dr. Olaf Pina MD Work Phone: [facility] 11-19-2024 14:46-0400 Body weight 88.[address] Olaf Pina MD Work Phone: [facility] 11-19-2024 14:46-0400 Diastolic blood pressure 66 mm[Hg] Dr. Olaf Pina MD Work Phone: [facility] 11-19-2024 14:46-0400 Systolic blood pressure 118 mm[Hg] Dr. Olaf Pina MD Work Phone: [facility] 03-30-2024 08:00-0500 Body mass index (BMI) [Ratio] 34.09 kg/m2 Margy Athy PA-C Work Phone: [facility] 03-30-2024 08:00-0500 Body temperature 99.81 [degF] Margy Athy PA-C Work Phone: [facility] 03-30-2024 08:00-0500 Body weight 95.8 kg Margy Athy PA-C Work Phone: [facility] 03-30-2024 08:00-0500 Diastolic blood pressure 83 mm[Hg] Margy Athy PA-C Work Phone: [facility] 03-30-2024 08:00-0500 Heart rate 120 /min Margy Athy PA-C Work Phone: [facility] 03-30-2024 08:00-0500 Respiratory rate 18 /min Margy Athy PA-C Work Phone: [facility] 03-30-2024 08:00-0500 SaO2% (BldA) [Mass fraction] 98 % Margy Athy PA-C Work Phone: [facility] 03-30-2024 08:00-0500 Systolic blood pressure 123 mm[Hg] Margy Athy PA-C Work Phone: [facility] 02-27-2024 09:24-0500 Body height 167.6 cm Dre Buenrostro MD Work Phone: [facility] 02-27-2024 09:24-0500 Body mass index (BMI) [Ratio] 34.54 kg/m2 Dre Buenrostro MD Work Phone: [facility] 02-27-2024 09:24-0500 Body weight 97.07 kg Dre Buenrostro MD Work Phone: [facility] 02-27-2024 09:24-0500 Diastolic blood pressure 60 mm[Hg] Dre Buenrostro MD Work Phone: [facility] 02-27-2024 09:24-0500 Systolic blood pressure 112 mm[Hg] Dre Buenrostro MD Work Phone: [facility] 01-09-2024 10:43-0400 Body mass index (BMI) [Ratio] 36.61 kg/m2 Francesco Ny CONCRETE ROD BUSTER.SOCIAL MEDIA DEVELOPER Work Phone: [facility] 01-09-2024 10:43-0400 Body temperature 98.1 [degF] Francesco Ny CONCRETE ROD BUSTER.SOCIAL MEDIA DEVELOPER Work Phone: [facility] 01-09-2024 10:43-0400 Body weight 102.1 kg Francesco Ny APRN.SOCIAL MEDIA DEVELOPER Work Phone: [facility] 01-09-2024 10:43-0400 Diastolic blood pressure 78 mm[Hg] Francesco Ny CONCRETE ROD BUSTER.SOCIAL MEDIA DEVELOPER Work Phone: [facility] 01-09-2024 10:43-0400 Heart rate 115 /min Francesco Ny CONCRETE ROD BUSTER.SOCIAL MEDIA DEVELOPER Work Phone: [facility] 01-09-2024 10:43-0400 Respiratory rate 21 /min Francesco Ny APRN.SOCIAL MEDIA DEVELOPER Work Phone: [facility] 01-09-2024 10:43-0400 SaO2% (BldA) [Mass fraction] 99 % Francesco Ny CONCRETE ROD BUSTER.SOCIAL MEDIA DEVELOPER Work Phone: [facility] 01-09-2024 10:43-0400 Systolic blood pressure 124 mm[Hg] Francesco Ny CONCRETE ROD BUSTER.SOCIAL MEDIA DEVELOPER Work Phone: [facility] 01-06-2024 10:25-0400 Body height 167 cm Dre Buenrostro MD Work Phone: [facility] 01-06-2024 10:25-0400 Body mass index (BMI) [Ratio] 35.68 kg/m2 Dre Buenrostro MD Work Phone: [facility] 01-06-2024 10:25-0400 Body weight 99.52 kg Dre Buenrostro MD Work Phone: [facility] 01-06-2024 10:25-0400 Diastolic blood pressure 70 mm[Hg] Dre Buenrostro MD Work Phone: [facility] 01-06-2024 10:25-0400 Heart rate 86 /min Dre Buenrostro MD Work Phone: [facility] 01-06-2024 10:25-0400 Respiratory rate 20 /min Dre Buenrostro MD Work Phone: [facility] 01-06-2024 10:25-0400 SaO2% (BldA) [Mass fraction] 96 % Dre Buenrostro MD Work Phone: [facility] 01-06-2024 10:25-0400 Systolic blood pressure 120 mm[Hg] Dre Buenrostro MD Work Phone: [facility] 05-19-2023 11:34-0500 Body height 167.6 cm Dre Buenrostro MD Work Phone: [facility] 05-19-2023 11:34-0500 Body weight 108.86 kg Dre Buenrostro MD Work Phone: [facility] 05-19-2023 11:34-0500 Diastolic blood pressure 70 mm[Hg] Dre Buenrostro MD Work Phone: [facility] 05-19-2023 11:34-0500 Heart rate 110 /min Dre Buenrostro MD Work Phone: [facility] 05-19-2023 11:34-0500 Respiratory rate 16 /min Dre Buenrostro MD Work Phone: [facility] 05-19-2023 11:34-0500 SaO2% (BldA) [Mass fraction] 98 % Dre Buenrostro MD Work Phone: [facility] 05-19-2023 11:34-0500 Systolic blood pressure 108 mm[Hg] Dre Buenrostro MD Work Phone: [facility] 03-24-2023 15:06-0500 Body height 167.6 cm Dre Buenrostro MD Work Phone: [facility] 03-24-2023 15:06-0500 Body weight 107.05 kg Dre Buenrostro MD Work Phone: [facility] 03-24-2023 15:06-0500 Diastolic blood pressure 78 mm[Hg] Dre Buenrostro MD Work Phone: [facility] 03-24-2023 15:06-0500 Systolic blood pressure 116 mm[Hg] Dre Buenrostro MD Work Phone: [facility] 10-13-2021 14:10-0400 Body temperature 97 [degF] Dr. Olaf Pina Work Phone: [facility] Work Phone: 10-13-2021 14:10-0400 Diastolic blood pressure 82 mm[Hg] Dr. Olaf Pina Work Phone: [facility] Work Phone: 10-13-2021 14:10-0400 Heart rate 73 /min Dr. Olaf Pina Work Phone: [facility] Work Phone: 10-13-2021 14:10-0400 Respiratory rate 16 /min Dr. Olaf Pina Work Phone: [facility] Work Phone: 10-13-2021 14:10-0400 SaO2% (BldA) [Mass fraction] 98 % Dr. Olaf Pina Work Phone: [facility] Work Phone: 10-13-2021 14:10-0400 Systolic blood pressure 110 mm[Hg] Dr. Olaf Pina Work Phone: [facility] Work Phone: 10-13-2021 12:59-0400 Body height 167.[address] Olaf Pina Work Phone: [facility] Work Phone: 07-05-2022 12:59-0400 Body mass index (BMI) [Ratio] 35.2 kg/m2 Dr. Olaf Pina Work Phone: [facility] Work Phone: 10-13-2021 12:59-0400 Body weight 98.[address] Olaf Pina Work Phone: [facility] Work Phone: 08-25-2016 11:08-0400 BMI (Body Mass Index) 28.46 kg/m2 Akua Orona RN RN [facility] Work Phone: 08-25-2016 11:08-0400 Body Temperature 98 [degF] Akua Orona RN RN [facility] Work Phone: 08-25-2016 11:08-0400 Body Temperature 98.01 [degF] Akua Orona RN RN [facility] Work Phone: 08-25-2016 11:08-0400 Body weight 79.38 kg Akua Orona RN RN [facility] Work Phone: 08-25-2016 11:08-0400 BP Diastolic 81 mm[Hg] Akua Orona RN RN [facility] Work Phone: 08-25-2016 11:08-0400 BP Systolic 117 mm[Hg] Akua Orona RN RN [facility] Work Phone: 08-25-2016 11:08-0400 BSA (Body Surface Area) 1.89 m2 Akua Orona RN RN [facility] Work Phone: 08-25-2016 11:08-0400 Height 167 cm Akua Orona RN RN [facility] Work Phone: 08-25-2016 11:08-0400 Height 167.01 cm Akua Orona RN RN [facility] Work Phone: 08-25-2016 11:08-0400 Pulse (Heart Rate) 98 /min Akua Orona RN RN [facility] Work Phone: 08-25-2016 11:08-0400 Pulse Oximetry 98 % Akau Orona RN RN [facility] Work Phone: 08-25-2016 11:08-0400 Respiratory Rate 16 /min Akua Orona RN RN [facility] Work Phone: 08-25-2016 11:08-0400 Weight 79.38 kg Akua Orona RN RN [facility] Work Phone: Encounters Encounter Date Encounter Type Care Provider Facility Start: 12-18-2024 End: 12-18-[address] Olaf Pina MD Work Phone: -[facility] Start: 12-18-2024 End: 12-18-[address] Dre Buenrostro MD -[facility] Work Phone: Start: 12-18-2024 End: 12-18-2024 ambulatory Olaf Pina Facility:[facility] Start: 11-19-2024 End: 11-19-[address] Jailene Ruano DC -[facility] Work Phone: Start: 11-19-2024 End: 11-19-[address] Olaf Pina MD Work Phone: -[facility] Start: 11-12-2024 End: 11-12-2024 ambulatory Dre Buenrostro MD Work Phone: OB/Gynecology Comment on above: Mammogram location q uestion Start: 10-18-2024 End: 10-18-[address] Olaf Pina MD Work Phone: -[facility] Start: 10-18-2024 End: 10-18-[address] Olaf Pina MD -[facility] Start: 10-18-2024 End: 10-18-2024 ambulatory Olaf Pina Facility:[facility] Start: 03-30-2024 End: 03-30-2024 ambulatory OLAF PINA Facility:[facility] Start: 03-30-2024 End: 03-30-2024 Patient encounter procedure Margy Moy Ashby PA-C Work Phone: [facility] Comment on above: Influenza A (Primary Dx) Start: 02-29-2024 End: 02-29-2024 ambulatory Olaf Pina Facility:[facility] Start: 02-27-2024 End: 02-27-2024 ambulatory OLAF PINA Facility:[facility] Start: 02-27-2024 End: 02-27-2024 Patient encounter procedure Dre Buenrostro MD Work Phone: OB/Gynecology Comment on above: Post-operative state (Primary Dx); Encounter for gynecological examination (general) (routine) without abnormal findings; Encounter for screening mammogram for breast cancer Start: 02-27-2024 End: 02-27-2024 Patient encounter status Dre Buenrostro MD Work Phone: [facility] Start: 02-02-2024 End: 02-02-2024 Patient encounter procedure [...] 01-16-2024 End: 01-17-2024 Telephone encounter Francesco Ny APRN.CNP Work Phone: [facility] Comment on above: X_Ray disc Start: 01-09-2024 End: 01-09-2024 Subsequent hospital visit by physician [facility] Work Phone: Radiology Comment on above: Injury of left ankle , initial encounter [S99.912A] Start: 01-09-2024 End: 01-09-2024 ambulatory OLAF PINA Facility:[facility] Start: 01-09-2024 End: 01-09-2024 Patient encounter procedure Francesco Ny APRN.CNP Work Phone: [facility] Comment on above: Injury of left ankle , initial encounter (Primary Dx); Ankle injuries, right, initial encounter Start: 01-06-2024 End: 01-06-2024 Telephone encounter Dre Buenrostro MD Work Phone: OB/Gynecology Comment on above: Appointment Start: 01-06-2024 End: 01-06-2024 ambulatory OLAF PINA Facility:[facility] Start: 01-06-2024 End: 01-06-2024 Patient encounter procedure [...] OB/Gynecology Comment on above: Orders (leep) Start: 05-19-2023 End: 05-19-2023 ambulatory DRE BUENROSTRO Facility:[facility] Start: 05-19-2023 End: 05-19-2023 Patient encounter procedure Dre Buenrostro MD Work Phone: OB/Gynecology Comment on above: High grade squamous intraepithelial lesion (HGSIL), grade 3 DOLORES, on biopsy of cervix (Primary Dx) Start: 04-21-2023 End: 04-21-2023 ambulatory DRE BUENROSTRO Facility:[facility] Start: 03-24-2023 End: 03-24-2023 Patient encounter procedure [...] encounter status Dre Buenrostro MD Work Phone: [facility] Start: 10-13-2021 Non-patient / Non-visit Dr. Joao Pina Work Phone: [facility] Start: 10-13-2021 End: 10-13-2021 Admission to same day surgery center Dr. Olaf Pina Work Phone: [facility] Start: 07-23-2021 End: 07-23-[address] Olaf Pina Work Phone: [facility] Start: 02-11-2020 End: 02-11-2020 Subsequent hospital visit by physician [facility] Work Phone: Radiology Comment on above: Acute right ankle pa in [M25.571] Start: 01-04-2018 Patient encounter Felix Kent Facility:[facility] Internal Medicine Procedures Date Procedure Procedure Detail Performing Clinician Start: 12-18-[address] Olaf Hollins Work Phone: Start: 03-30-2024 INFLUENZA A&B MOLECULAR (POC) Margy R Ath y PA-C Work Phone: Start: 03-30-2024 STREP A MOLECULAR (POC) Margy Moy Ashby PA-C Work Phone: Start: 01-09-2024 Radex ankle complete minimum 3 views Francesco Ny CONCRETE ROD BUSTER.SOCIAL MEDIA DEVELOPER Work Phone: Start: 10-13-[address] Olaf quinteros Work Phone: Start: 02-11-2020 Radex ankle complete minimum 3 views Kenna Chavira CONCRETE ROD BUSTER.SOCIAL MEDIA DEVELOPER Work Phone: Start: 08-25-2016 End: 08-25-2016 Dietary management education, guidance, and counseling Akua Orona RN RN Start: 08-25-2016 End: 08-25-2016 Documentation of current medications Akua Orona RN RN H/O: section Previous c esarean delivery affecting , delivered Dr. Olaf Pina Work Phone: H/O: section Previous c esarean section Dr. Olaf Pina Work Phone: Plan of Treatment Date Care Activity Detail Author Start: 03-24-2028 Screening for malignant neoplasm of cervix [facility] Start: 12-10-2024 Influenza vaccination Influenza Vacc ine (#1) [facility] Start: 2024 Screening for malignant neoplasm of breast Mammogram Screening [facility] Start: 03-24-2024 Screening for malignant neoplasm of cervix Cervical Cancer Screening [facility] Start: 02-27-2024 End: 02-27-2024 Patient encounter procedure 02/27/2024 9:20 AM EST Office Visit OB/Gynecology [address] [place] [address] Dre Buenrostro MD [address] [place] [place] [address] Post Op OB/Gynecology Comment on above: Post Op Start: 01-06-2024 End: 01-06-2024 Patient encounter procedure 01/06/2024 10:10 AM EDT Office Visit OB/Gynecology [address] [place] [address] Dre Buenrostro MD [address] [place] [address] surgery 01/18 @[facility] OB/Gynecology Comment on above: surgery 01/18 @[facility] Start: 12-11-2023 Covid-19 Vaccine ( season) Covid-19 Vaccine ( season) [facility] Start: 12-11-2023 Covid-19 Vaccine ( season) Covid-19 Vaccine ( season) [facility] Start: 12-11-2023 Influenza vaccination Influenza Vacc ine (#1) [facility] Start: 04-11-2023 Depression Assessment Depression Ass essment [facility] Start: 03-24-2023 End: 06-23-2023 Basic metabolic 2000 panel - Serum or Plasma BASIC METABOLIC PNL Lab Routine Cystic acne Expected: 03/24/2023, Expires: 06/23/2023 Work Phone: Comment on above: Expected: 03/24/2023 , Expires: 06/23/2023 Start: 03-24-2023 End: 06-23-2023 DHEA-S BLD DHEA-S BLD Lab Routine Cystic acne Expected: 03/24/2023, Expires: 06/23/2023 Work Phone: Comment on above: Expected: 03/24/2023 , Expires: 06/23/2023 Start: 03-24-2023 End: 06-23-2023 Testosterone [Mass/volume] in Serum or Plasma TESTOSTERONE TOTAL Lab Routine Cystic acne Expected: 03/24/2023, Expires: 06/23/2023 Work Phone: Comment on above: Expected: 03/24/2023 , Expires: 06/23/2023 Start: 12-10-2022 Covid-19 Vaccine ( season) Covid-19 Vaccine ( season) [facility] Start: 12-10-2022 Influenza vaccination Influenza Vacc ine (#1) [facility] Start: 04-11-2022 [facility] Start: 10-13-2021 Patient discharge [facility] Work Phone: Start: 08-25-2016 End: 08-25-[address] [facility] Work Phone: Start: 08-25-2016 End: 09-07-2016 Follow Up Appt 2 weeks Follow Up Appt [address] [facility] Work Phone: Start: 2014 Screening for malignant neoplasm of cervix HPV Testing [facility] Start: 2005 Screening for malignant neoplasm of cervix Pap Testing [facility] Start: 10-08-2003 Hepatitis B Vaccine (1 of 3 - 19+ 3-dose series) Hepatitis B Vaccine (1 of 3 - 19+ 3-dose series) [facility] Start: 10-08-2003 Urine microalbumin profile DTaP,Tdap,Td Vaccine (1 - Tdap) [facility] Start: 2002 Anxiety Screening Anxiety Screening [facility] Start: 2002 Depression Screening Depression Scre ening [facility] Start: 2002 Hepatitis C screening Hepatitis C Sc reening [facility] Start: 2002 HIV screening HIV Screening [facility] Start: 1984 Hepatitis B Vaccine (1 of 3 - 3-dose series) Hepatitis B Vaccine (1 of 3 - 3-dose series) [facility] Chiropractic manipulation [facility] COLPOSCOPY COLPOSCOPY Shahbaz rubio Routine HSIL on Pap smear of cervix Ordered: 03/24/2023 Work Phone: Comment on above: Ordered: 03/24/2023 End: 03-28-2025 DBT Breast - bilateral screening ADENIKE SCREENING W DOM Radiology Routine Encounter for screening mammogram for breast cancer 1 Occurrences starting 02/27/2024 until 03/28/2025 Work Phone: Comment on above: 1 Occurrences starti ng 02/27/2024 until 03/28/2025 PAP TEST PAP TEST Lab Rou juan miguel Papanicolaou smear of cervix with high grade squamous intraepithelial lesion (HGSIL) Cervical high risk HPV (human papillomavirus) test positive Ordered: 03/24/2023 Work Phone: Comment on above: Ordered: 03/24/2023 Patient Education WEIGHT%20MANAGEMENT [facility] Work Phone: Patient referral [facility] Work Phone: XR Ankle - left AP a nd Lateral and oblique XR ANKLE GENERAL 3V AP/LAT/OBL LEFT Radiology STAT Injury of left ankle, initial encounter Ordered: 01/09/2024 Work Phone: Comment on above: Ordered: 01/09/2024 XR Ankle - right AP and Lateral and oblique XR ANKLE GENERAL 3V AP/LAT/OBL RIGHT Radiology STAT Ankle injuries, right, initial encounter Ordered: 01/09/2024 [facility] Comment on above: Ordered: 01/09/2024 [place] Yvonne gary Payers Date Payer Category Payer Self-pay [id number] 2018 Private Health Insurance [employer] PPO [id number] 2018 Unknown 2015 Unknown [id number] Unknown [id number] Unknown [id number] Unknown [id number] Unknown [id number] Unknown [id number] Social History Date Type Detail Facility [facility] Work Phone: Start: 10-08-2021 Tobacco smoking status NHIS Unknown if ever smoked [facility] Work Phone: Start: 08-12-2015 None [facility] Start: 08-12-2015 Spouse/ Signif icant Other [facility] Start: 09-10-2015 Non-smoker [facility] Start: 1985 Sex Assigned At Female W [facility] Start: 08-02-2018 End: 11-12-2024 Tobacco smoking status NHIS Ex-smoker [facility] History of tobacco use Current smoker [facility] Start: 08-02-2018 End: 01-06-2024 Tobacco use and exposure Smokeless tobacco non-user [facility] Start: 03-24-2023 End: 03-30-2024 Alcohol intake Current drinker of alcohol (finding) [facility] Start: 03-24-2023 End: 03-30-2024 History of Social function [facility] Start: 03-24-2023 End: 03-30-2024 Tobacco use panel [facility] National Score (1-100), lower number is lower risk 54 [facility] Start: 03-24-2023 Alcohol Comment seldom [facility] Start: 1985 Sex Assigned At Not on file [facility] Start: 01-12-2020 End: 02-11-2020 Exposure to SARS-CoV-2 (event) Not sure [facility] Goals Date Patient Goal Desired Activity /State Mental Status Date Assessment Result Facility 10-13-2021 Cognitive function Voice/Name [facility] Work Phone: Clinical Notes 02-11-2020 to 11-19-2024 Note Date & Type Note Facility 11-19-2024 Evaluation note Diagnosis Onset Date Resolution Segmental and somatic dysfunction of cervical region acute November 19 2:29pm Segmental and somatic dysfunction of thoracic region acute November 19 2:29pm [facility] Work Phone: 1(795) 129-232912-20-2024 NoteHNO ID: [id number] Author: MARGY ASHBY PA-C Service: ? Author Type: Physician Hammer Operator Type: Progress Notes Filed: 03/30/2024 08:38 Note Text: This note was created using NoteWriter. Subjective Aniya Lovett is a 38 year old female. HPI Presents with a chief complaint of bodyaches, fever, sore throat cough over the past day. She did fly home from [place] yesterday. She took a home COVID test [...] day for 5 days. 10 capsule 0 vofjsak-gqxayqoseusyaw-zjbwrc 6-5-2 % crea Apply to affected area. NYSTOP powder USE ONE GRAM TWICE DAILY No current facility-administered medications for this visit. PAST SURGICAL HISTORY Procedure Laterality Date CERVIX UTERI CONIZA LP ELCTRO EXCI CERVIX UTERI CONIZA LP ELCTRO EXCI 02/02/2024 LEEP, cervix very flush and leep difficult EGD W/O [facility] SPEC VARICIES INJ GERD VAGINOSCOPY [...] was negative. Will treat with Tamiflu. Discussed gtmj-zdl-dlitwqz medications to help with symptoms. Follow-up with PCP if not improving. Discussed contagiousness. Patient agreeable with plan. - STREP A MOLECULAR (POC) - INFLUENZA AANDB MOLECULAR (POC) [facility]12-20-2024 History of Present illness Narrative* Margy Ashby PA-C - 03/30/2024 8:35 AM EST This note was created using Telecardiariter. Subjective Aniya Lovett is a 38 year old female. HPI Presents with a chief complaint of bodyaches, fever, sore throat cough over the past day. She did fly home from [place] yesterday. She took a home COVID test [...] day for 5 days. 10 capsule 0 swkycib-ejzhzmwqnykitj-kksnxo 6-5-2 % crea Apply to affected area. NYSTOP powder USE ONE GRAM TWICE DAILY No current facility-administered medications for this visit. PAST SURGICAL HISTORY Procedure Laterality Date CERVIX UTERI CONIZA LP ELCTRO EXCI CERVIX UTERI CONIZA LP ELCTRO EXCI 02/02/2024 LEEP, cervix very flush and leep difficult EGD W/O [facility] SPEC VARICIES INJ GERD VAGINOSCOPY [...] was negative. Will treat with Tamiflu. Discussed oski-xta-rehtmgm medications to help with symptoms. Follow-up with PCP if not improving. Discussed contagiousness. Patient agreeable with plan. - STREP A MOLECULAR (POC) - INFLUENZA A&B MOLECULAR (POC) Margy Ashby PA-C documented in this encounterNationwide [facility]11-18-2024 NoteHNO ID: [id number] Author: DRE BUENROSTRO MD Service: ? Author Type: Physician Type: Progress Notes Filed: 02/27/2024 09:46 Note Text: Development And Housing Director offered: Patient declinesTaj Oneal is a 38 year old who presents [...] L3 SAB0 IAB0 Ectopic0 Multiple0 Live Births3 Residence Supervisor History LMP: 02/19/2024 (Exact Date), Having periods Age at Menarche: Age at First : Age at Menopause: Residence Supervisor History Comments: Sexual Activity: Yes; Male Contraception: [...] very flush and leep difficult [facility] GERD VAGINOSCOPY 04/21/2023 No [...] discussed with the Patient or Patient's Authorized Zipper Machine Operator. As applicable, any other physician, advance practice provider, medical student, or other health professional student that will be observing or involved in the sensitive examination for educational or training purposes was discussed with the Patient or Authorized Zipper Machine Operator. The Patient or Authorized Zipper Machine Operator has agreed to proceed with the sensitive [...] external genitalia normal, normal Bartholin's glands, urethra, [place]'s glands, no vulvar lesions, no cervical lesions, [...] year or sooner as needed Dre Buenrostro [facility]11-18-2024 History of Present illness Narrative* Dre Buenrostro MD - 02/27/2024 9:22 AM EST Development And Housing Director offered: Patient declines. Aniya is a 38 year old who presents for an annual gynecologic exam without complaints. S/pLEEP last month for DOLORES 2 w/ negative [...] L3 SAB0 IAB0 Ectopic0 Multiple0 Live Births3 Residence Supervisor History LMP: 02/19/2024 (Exact Date), Having periods Age at Menarche: Age at First : Age at Menopause: Residence Supervisor History Comments: Sexual Activity: Yes; Male Contraception: [...] discussed with the Patient or Patient's Authorized Zipper Machine Operator. As applicable, any other physician, advance practice provider, medical student, or other health professional student that will be observing or involved in the sensitive examination for educational or training purposes was discussed with the Patient or Authorized Zipper Machine Operator. The Patient or Authorized Zipper Machine Operator has agreed to proceed with the sensitive [...] external genitalia normal, normal Bartholin's glands, urethra, [place]'s glands, no vulvar lesions, no cervical lesions, [...] needed Dre Buenrostro MD documented in this encounterNationwide Children'[facility] Hospital10-24-2024 NoteHNO ID: [id number] Author: DRE BUENROSTRO MD Service: ? Author Type: Physician Type: Progress Notes Filed: 02/02/2024 17:54 Note Text: Patient underwent a LEEP procedure at [facility] in the operating room today. Cervix was very high in the vagina difficult to reach and very flush with the vagina. I was able to do a LEEP and ECC in the cervical os was identified. Pathology is pending. Would be very difficult to do another excisional procedure in the future. Dre Buenrostro [facility]10-24-2024 History of Present illness Narrative* Dre Buenrostro MD - 02/02/2024 5:51 PM EDT Patient underwent a LEEP procedure at [facility] in the operating room today. Cervix was very high in the vagina difficult to reach and very flush with the vagina. I was able to do a LEEP and ECC in the cervical os was identified. Pathology is pending. Would be very difficult to do another excisional procedure in the future. Dre Buenrostro MD documented in this encounterNationwide Children'[facility] Hospital10-15-2024 Telephone encounter Note * Telephone Encounter - Dre Buenrostro MD - 01/24/2024 2:52 PM EDT Patient and I have discussed this. They can do some IV sedation perhaps. Thanks. Mostly it is so I have adequate light and equipment. Dre Buenrostro MD [facility]10-15-2024 Miscellaneous Notes* Telephone Encounter - Dre Buenrostro MD - 01/24/2024 2:52 PM EDT Patient and I have discussed this. They can do some IV sedation perhaps. Thanks. Mostly it is so I have adequate light and equipment. Dre Buenrostro MD * Telephone Encounter - Marychuy Roger RN - 01/24/2024 2:25 PM EDT Patient is scheduled for LEEP procedure on 02/[address] [facility]. Patient had her PAT with [facility] today, PAT nurse calling to relay to office that patient told her that she is very confused to why she is having a LEEP under anesthesia and that she does not want to be put to sleep on the day of the surgery. ROSHANI. Marychuy Roger RN documented in this encounterNationwide Children'S Hospital10-15-2024 Telephone encounter Note * Telephone Encounter - Marychuy Roger RN - 01/24/2024 2:25 PM EDT Patient is scheduled for LEEP procedure on 02/[address] [facility]. Patient had her PAT with [facility] today, PAT nurse calling to relay to office that patient told her that she is very confused to why she is having a LEEP under anesthesia and that she does not want to be put to sleep on the day of the surgery. ROSHANI. Marychuy Roger RN [facility]2024 Telephone encounter Note* Telephone Encounter - Anel Ibarra PSS - 01/16/2024 12:57 PM EDT CD READY FOR NAIL GALVANIZER AT [facility] RADIOLOGY [facility]2024 Miscellaneous Notes* Telephone Encounter - Anel Ibarra PSS - 01/16/2024 12:57 PM EDT CD READY FOR NAIL GALVANIZER AT [facility] RADIOLOGY * Telephone Encounter - Andrea Jordan MA - 01/16/2024 10:34 AM EDT Pt requesting report and disk with images of x-ray done 01/09/2024. She has appt with [facility] tomorrow at 1pm. Will come in at 12 tomorrow to pickling solution maker. Andrea Jordan MA documented in this encounterNationwide Children'S Hospital2024 Telephone encounter Note * Telephone Encounter - Andrea Jordan MA - 01/16/2024 10:34 AM EDT Pt requesting report and disk with images of x-ray done 01/09/2024. She has appt with [facility] tomorrow at 1pm. Will come in at 12 tomorrow to pickling solution maker. Andrea Jordan MA [facility]09-30-2024 NoteHNO ID: [id number] Author: FRANCESCO [place] APRN.SOCIAL MEDIA DEVELOPER Service: ? Author Type: Nurse Practitioner Type: [...] SURGICAL HISTORY Procedure Laterality Date EGD W/O [facility] SPEC VARICIES INJ GERD VAGINOSCOPY [...] - ICD9: 959.7, ICD10: S99.911A Francesco Ny APRN.[facility] History of Present illness Narrative* Francesco Ny APRN.SOCIAL MEDIA DEVELOPER - 01/09/2024 11:55 AM EDT Images from the original note were not [...] SURGICAL HISTORY Procedure Laterality Date EGD W/O [facility] SPEC VARICIES INJ GERD VAGINOSCOPY [...] - ICD9: 959.7, ICD10: S99.911A Francesco Ny APRN.SOCIAL MEDIA DEVELOPER documented in this encounterNationwide Children'S Hospital09-30-2024 History of Present illness Narrative* Agueda Scales, RT(R) - 01/09/2024 11:00 AM EDT Radiology Service Progress Note PATIENT NAME: Aniya Lovett DATE OF SERVICE: January 09, 2024 TIME: 10:56 AM PATIENT IDENTITY VERIFICATION COMPLETED USING TWO (2) IDENTIFIERS: Name and Date of confirmedby patient verbally. FALL SCREENING: Has the patient had 2 falls in the last year or 1 fall with injury or currently using an Ambulatory Assistive Device (Walker, Cane, Wheelchair, Crutches, etc.)? No PATIENT GENDER DATA: Female. status: : No status: NO. PATIENT RELEVANT IMPLANT DATA REVIEWED: Yes PATIENT PRESENTS WITH AN IMPLANTABLE OR ATTACHED SEO COORDINATOR: No RADIOLOGY DEPARTMENT: General X-ray: Exam(s) Completed: Lower Extremity X- Ray(s): Ankle, Bilateral and Wt. Bearing PERIPHERAL IV DATA: Not applicable SIGNED BY: TATYANA Patterson) January 09, 2024 10:56 AM documented in this encounterNationwide Children'S Hospital09-30-2024 NoteHNO ID: [id number] Author: AGUEDA SCALES RT (R) Service: Radiology Author Type: Technologist Type: Progress [...] PATIENT PRESENTS WITH AN IMPLANTABLE OR ATTACHED SEO COORDINATOR: No RADIOLOGY DEPARTMENT: General X-ray: Exam(s) Completed: Lower Extremity X-Ray(s): Ankle, Bilateral and Wt. Bearing PERIPHERAL IV DATA: Not applicable SIGNED BY: TATYANA Patterson) January 09, 2024 10:56 [facility]09-27-2024 Telephone encounter Note* Telephone Encounter - Mary Viera RN - 01/06/2024 3:04 PM EDT Patient notified. Mary Viera RN [facility]09-27-2024 Miscellaneous Notes* Telephone Encounter - Mary Viera RN - 01/06/2024 3:04 PM EDT Patient notified. Mary Viera RN * Telephone Encounter - Dre Buenrostro MD - 01/06/2024 1:27 PM EDT Reasonable, should be able to continue w/ it. I am ok w/ her taking it if anesthesia is. PAT nurse will review anesthesia guidelines. Dre Buenrostro MD * Telephone Encounter - Mary Viera RN - 01/06/2024 1:20 PM EDT Patient notified. She no longer take Qymia. For adderall, she said she is unable to stop it for 3 days and that she would not be able to function. States with previous surgeries she has never stoppedit before. Stated that she may be able to decrease her dose, but not able to stop it. Mary Viera RN * Telephone Encounter - Mary Viera RN - 01/06/2024 1:05 PM EDT Left message for patient to call office. Mary Viera RN * Telephone Encounter - Dre Buenrostro MD - 01/06/2024 12:35 PM EDT Please let patient know that she needs to be off her Semaglutide for one week before surgery. She should be of the Qymia for a 3 days. I saw that in her history and not sure if she is still on that. If on adderall then off of that for 3 days as well. Dre Buenrostro MD documented in this encounterNationwide Children'S Hospital09-27-2024 Telephone encounter Note * Telephone Encounter - Dre Buenrostro MD - 01/06/2024 1:27 PM EDT Reasonable, should be able to continue w/ it. I am ok w/ her taking it if anesthesia is. PAT nurse will review anesthesia guidelines. Dre Buenrostro MD [facility]09-27-2024 Telephone encounter Note* Telephone Encounter - Mary Viera RN - 01/06/2024 1:20 PM EDT Patient notified. She no longer take Qymia. For adderall, she said she is unable to stop it for 3 days and that she would not be able to function. States with previous surgeries she has never stoppedit before. Stated that she may be able to decrease her dose, but not able to stop it. Mary Viera RN [facility]09-27-2024 Telephone encounter Note* Telephone Encounter - Mary Viera RN - 01/06/2024 1:05 PM EDT Left message for patient to call office. Mary Viera RN [facility]09-27-2024 [facility] Medical Records Department [address] [place] [address] History Physical Exam 01/06/24 1244 MR#: [id number] Acct: [id number] Name: ANIYA LOVETT Rep #: [id number] : 1985 38 From: Dre Buenrostro MD PCP: Dr. Olaf Pina MD Status:[facility] Location: [place] [address] History and Physical Date of Admission: 02/02/24 [...] resp. rate 20, height 167 cm (5' 5.75"), weight 99.5 kg (219 lb 6.4 oz), [...] Cosigner Signature (if applicable): CC: Dr. Olaf Pina MD; Dr. Dre Buenrostro MD Signed ADDENDUM by Dr. Dre Buenrostro MD on 02/02/24 at 1041 Addendum UPDATE- I have seen the patient and performed any clinically relevant updates to the history and physical exam. 02/02/24 1041 Cosigner Signature (if applicable): cc: Dr. Olaf Pina MD; Dr. Dre Buenrostro MD * [facility]igned[facility] Telephone encounter Note* Telephone Encounter - Dre Buenrostro MD - 01/06/2024 12:35 PM EDT Please let patient know that she needs to be off her Semaglutide for one week before surgery. She should be of the Qymia for a 3 days. I saw that in her history and not sure if she is still on that. If on adderall then off of that for 3 days as well. Dre Buenrostro MD [facility]09-27-2024 History and physical note* Dre Buenrostro MD - 01/06/2024 12:28 PM EDT Pre-Op History and Physical HPI: The patient [...] SURGICAL HISTORY Procedure Laterality Date EGD W/O [facility] SPEC VARICIES INJ GERD VAGINOSCOPY [...] resp. rate 20, height 167 cm (5' 5.75"), weight 99.5 kg (219 lb 6.4 oz), [...] history, medications and allergies Dre Buenrostro M.D. [facility]09-27-2024 History and physical note* Dre Buenrostro MD - 01/06/2024 12:28 PM EDT Pre-Op History and Physical HPI: The patient [...] [facility] SPEC VARICIES INJ GERD VAGINOSCOPY 04/21/2023 Current [...] resp. rate 20, height 167 cm (5' 5.75"), weight 99.5 kg (219 lb 6.4 oz), [...] allergies Dre Buenrostro M.D. documented in this encounterNationwide Children'S Hospital09-27-2024 NoteHNO ID: [id number] Author: DRE BUENROSTRO MD Service: ? 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 I again offered patient consult with [facility] oncology to see if they would be more comfortable performing the procedure in the office. Patient declines this and agrees to proceed in the operating room. Decision for surgery today. See HANDP note. Dre Buenrostro [facility]09-27-2024 History of Present illness Narrative* Dre Buenrostro MD - 01/06/2024 12:24 PM EDT Aniya Lovett is a 38 year old female who presents for problem visit for HSIL. HPI: 38-year old female with history of HSIL of the cervix. Has a history of cryo before her C-sections. Has a very high and difficult to access cervix. Presents to discuss options. OB History T3 L3 SAB0 IAB0 Ectopic0 Multiple0 Live Births3 Residence Supervisor History LMP: 05/18/2023 (Exact Date), Having periods Age at Menarche: Age at First : Age at Menopause: Residence Supervisor History Comments: Sexual Activity: Yes; Male Contraception: [...] 120/70 Pulse 86 Resp 20 Ht 5' 5.748" (1.67m) Wt 219 lb 6.4 oz (99.5kg) SpO2 96% LMP 05/18/2023 BMI 35.68 kg/(m^2). GENERAL: pleasant, female in no apparent distress H ASSESSMENT AND PLAN: Reviweed LEEP and HRHPV and High-grade squamous intraepithelial lesion of the cervix, difficult to access cervix. Risk benefitsand alternatives to LEEP in the operating room were discussed with the patient, her questions were answered to her satisfaction she desires to proceed. She is anxious about being in surgery and risksof anesthesia and being in the operating room. I again offered patient consult with [facility] oncology tosee if they would be more comfortable performing the procedure in the office. Patient declines thisand agrees to proceed in the operating room. Decision for surgery today. See H&P note. Dre Buenrostro MD documented in this encounterNationwide Children'S Hospital09-13-2024 Telephone encounter Note * Telephone Encounter - Marychuy Roger RN - 12/23/2023 2:27 PM EDT fingernail technician notified and surgery changed. Recreational Programs Director will notify patient. Marychuy Roger RN [facility]09-13-2024 Miscellaneous Notes* Telephone Encounter - Marychuy Roger RN - 12/23/2023 2:27 PM EDT fingernail technician notified and surgery changed. Recreational Programs Director will notify patient. Marychuy Roger RN * Telephone Encounter - Dre Buenrostro MD - 12/23/2023 12:31 PM EDT Would probably be better if not at height of menstrual flow but at end would be ok. Please move it to suit her when I have OR time. [place] in [place] I have openings as well. Dre Buenrostro MD * Telephone Encounter - Sheree Dumont RN - 12/23/2023 10:26 AM EDT Patient is wanting her LEEP moved 1-2 weeks out because she will be on her menses. Advised that shecan most likely be on her menses, but patient would not feel comfortable with this. Sheree Dumont RN documented in this encounterNationwide Children'S Hospital09-13-2024 Telephone encounter Note * Telephone Encounter - Dre Buenrostro MD - 12/23/2023 12:31 PM EDT Would probably be better if not at height of menstrual flow but at end would be ok. Please move it to suit her when I have OR time. [place] in [place] I have openings as well. Dre Buenrostro MD [facility]09-13-2024 Telephone encounter Note* Telephone Encounter - Sheree Dumont RN - 12/23/2023 10:26 AM EDT Patient is wanting her LEEP moved 1-2 weeks out because she will be on her menses. Advised that shecan most likely be on her menses, but patient would not feel comfortable with this. Sheree Dumont RN [facility]08-21-2024 Telephone encounter Note* Telephone Encounter - Mary Viera RN - 11/30/2023 9:37 AM EDT Surgery sheet placed in crop production advisor's mailbox. Mary Viera RN [facility]08-21-2024 Miscellaneous Notes* Telephone Encounter - Mary Viera RN - 11/30/2023 9:37 AM EDT Surgery sheet placed in crop production advisor's mailbox. Mary Viera RN * Telephone Encounter - Dre Buenrostro MD - 11/30/2023 9:27 AM EDT done. Dre Buenrostro MD * Telephone Encounter - Mary Viera RN - 11/30/2023 9:18 AM EDT Spoke to patient to clarify. She does want to proceed with LEEP in OR as previously discussed with RR. Surgery sheet to provider to complete. She wants [facility] and is flexible with next available date. Mary Viera RN * Telephone Encounter - Brigida Mathews - 11/30/2023 9:10 AM EDT Patient called requesting an order for a leep procedure please advise documented in this encounterNationwide Children'S Hospital08-21-2024 Telephone encounter Note * Telephone Encounter - Dre Buenrostro MD - 11/30/2023 9:27 AM EDT done. Dre Buenrostro MD [facility]08-21-2024 Telephone encounter Note* Telephone Encounter - Mary Viera RN - 11/30/2023 9:18 AM EDT Spoke to patient to clarify. She does want to proceed with LEEP in OR as previously discussed with RR. Surgery sheet to provider to complete. She wants [facility] and is flexible with next available date. Mary Viera RN [facility]08-21-2024 Telephone encounter Note* Telephone Encounter - Brigida Mathews - 11/30/2023 9:10 AM EDT Patient called requesting an order for a leep procedure please advise [facility] Work Phone: 1(402) 214-946702-08-2024 NoteHNO ID: [id number] Author: DRE BUENROSTRO MD Service: ? Author [...] L3 SAB0 IAB0 Ectopic0 Multiple0 Live Births3 Residence Supervisor History LMP: 05/18/2023 (Exact Date), Having periods Age at Menarche: Age at First : Age at Menopause: Residence Supervisor History Comments: Sexual Activity: Yes; Male Contraception: [...] 108/70 Pulse 110 Resp 16 Ht 5' 6" (1.68m) Wt 240 lb (108.9kg) SpO2 98% [...] gardasil series in the past Dre Buenrostro [facility]02-08-2024 History of Present illness Narrative* Dre Buenrostro MD - 05/19/2023 12:18 PM EST Aniya Lovett is a 37 year old female who presents for problem visit for f/u LEEP. HPI: did well after surgery. Has a h/o of 3 c/s and prior cryo. Had cryo before c/s and in office. Wants to have in office LEEP. Denies abnormal dsicharge or problems after colp and bxs. No other c/otoday. OB History T3 L3 SAB0 IAB0 Ectopic0 Multiple0 Live Births3 Residence Supervisor History LMP: 05/18/2023 (Exact Date), Having periods Age at Menarche: Age at First : Age at Menopause: Residence Supervisor History Comments: Sexual Activity: Yes; Male Contraception: No contraception data on record PAST MEDICAL HISTORY Diagnosis Date Cervical high risk human papillomavirus (HPV) DNA test positive 03/202103/24/2023 GERD (gastroesophageal reflux disease) HSIL (high grade squamous intraepithelial lesion) on Pap smear of cervix 03/202103/24/2023 PAST SURGICAL HISTORY Procedure Laterality Date EGD W/O [facility] SPEC VARICIES INJ GERD VAGINOSCOPY [...] 108/70 Pulse 110 Resp 16 Ht 5' 6" (1.68m) Wt 240 lb (108.9kg) SpO2 98% LMP 05/18/2023 BMI 38.76 kg/(m^2). GENERAL: pleasant, female in no apparent distress ASSESSMENT AND PLAN: high grade cervical dysplasia Risk benefits and alternatives to resection with LEEP were reviewed. I discussed with her because of the position and difficulty in getting to her cervix high in her vagina, likely due to scarring ofher uterus from previous sections, not for comfortable [...] past Dre Buenrostro MD documented [facility] encounterN[facility] History and physical note * Dre Buenrostro MD - 05/19/2023 11:34 AM EST v documented in this encounterNation[facility]01-11-2024 NoteHNO ID: [id number] Author: DRE BUENROSTRO MD Service: ? Author [...] and up to her left Dre Buenrostro [facility]12-14-2023 History of Present illness Narrative* Dre Buenrostro MD - 03/24/2023 2:52 PM EST Aniya is a 37 year old who presents for an annual gynecologic exam without complaints. Hash/o abnormal paps and 2 colps. Did not have treatment of abnormal paps that she can remember. Menses: cycles every 28-30 days and 5-6 days of flow. first 2 days heavy Contraception: planning vasectomy HPV vaccine: done age 17 Last Pap: abnormal, HSIl History of abnormal pap: No Last mammogram: never Sexually active: Yes OB History T3 L3 SAB0 IAB0 Ectopic0 Multiple0 Live Births3 Residence Supervisor History LMP: 02/28/2023 (Exact Date), Having periods Age at Menarche: Age at First : Age at Menopause: Residence Supervisor History Comments: Sexual Activity: Yes; Male Contraception: [...] medication updated:Yes EXAM: BP 116/78 Ht 5' 6" (1.68m) Wt 236 lb (107.0kg) LMP 02/28/2023 [...] external genitalia normal, normal Bartholin's glands, urethra, [place]'s glands, no vulvar lesions, no cervical lesions, [...] needed Dre Buenrostro MD documented in this encounterNationwide [facility]11-02-2020 History of Present illness Narrative* Agueda ScalesRt)Hunter - 02/11/2020 7:40 PM EST Radiology Service Progress Note PATIENT NAME: Aniya Lovett DATE OF SERVICE: February 11, 2020 TIME: 7:46 PM PATIENT IDENTITY VERIFICATION COMPLETED USING TWO (2) IDENTIFIERS: Name and Date of confirmedby patient verbally. FALL SCREENING: Has the patient had 2 falls in the last year or 1 fall with injury or currently using an Ambulatory Assistive Device (Walker, Cane, Wheelchair, Crutches, etc.)? Yes, Patient High Riskfor Falls What interventions were put in place to prevent falls during this visit? Instructed Patient to Callfor Help if Needed, Offered Assistance with Transfers/Clothing and Increased Observations by Caregivers PATIENT GENDER DATA: Female. status: : No status: NO. PATIENT RELEVANT IMPLANT DATA REVIEWED: Yes RADIOLOGY DEPARTMENT: General X-ray: Exam(s) Completed: Lower Extremity X- Ray(s): Ankle, Right: PERIPHERAL IV DATA: Not applicable SIGNED BY: RT Yesenia February 11, 2020 7:46 PM documented in this encounterNationwide Children'S HospitalEvaluation noteNo assessment information availableWCleveland Clinic [facility]cre[facility] Work Phone: Evaluation note* Diagnosis Encounter for gynecological examination (general) (routine) [...] acne Other acne documented in this encounter [facility]* Diagnosis High grade squamous intraepithelial lesion (HGSIL), grade 3 DOLORES, on biopsy of cervix- Primary documented in this encounter [facility]* Diagnosis Cervical high risk HPV (human papillomavirus) test positive- Primary Cervical high risk human papillomavirus (HPV) DNA test positive High grade squamous intraepithelial cervical dysplasia documented in this encounter [facility]* Diagnosis Injury of left ankle, initial encounter- Primary Ankle injuries, right, initial encounter documented in this encounter [facility]* Diagnosis Acute right ankle pain documented in this encounter [facility]* Diagnosis High grade squamous intraepithelial lesion (HGSIL), grade 3 DOLORES, on biopsy of cervix- Primary documented in this encounter [facility]* Diagnosis Post-operative state- Primary Other postprocedural status Encounter for gynecological examination (general) (routine) without abnormal findings Encounter for screening mammogram for breast cancer documented in this encounter [facility]* Diagnosis Influenza A- Primary Influenza with other respiratory manifestations documented in this encounter [facility]* Diagnosis Onset Date Resolution Status Admit Date Segmental and somatic dysfunction of cervical region acute A ugust 2024 2:29pm Segmental and somatic dysfunction of lumbar region acute Aug ust 2024 2:29pm Segmental and somatic dysfunction of pelvic region acute Aug ust 2024 2:29pm Segmental and somatic dysfunction of thoracic region acute A ugust 2024 2:29pm [employer] Work Phone: Reason for referral (narrative)* Outpatient Procedure (Routine) - Authorized Specialty Diagnoses / Procedures Referred By Juana davis [facility] Diagnoses HSIL on Pap smear of cervix Procedures COLPOSCOPY COLPOSCOPY CERVIX BX CERVIX & ENDOCRV CURRETAGE Dre Buenrostro MD [address] [place] [address] [facility] [address] [place] [address] Referral ID Status Reason Start Date Expiration Date Visits Requested Visits Authorized [id number] Authorized Auto-Generat ed Referral 3 03/23/2024 1 1 [facility] for referral (narrative)* Diagnostic Procedure Only (Urgent) - Closed Specialty Diagnoses / Procedures Referred By Contac t Referred To Contact XR IMAGING Diagnoses Injury of left ankle, initial encounter Ankle injuries, right, initial encounter Procedures XR ANKLE GENERAL 3V AP/LAT/OBL BILATERAL RADEX ANKLE COMPLETE MINIMUM 3 VIEWS Francesco Ny APRN.SOCIAL MEDIA DEVELOPER [address] [place] [address] [place] [address] Referral ID Status Reason Start Date Expiration Date V isits Requested Visits Authorized [id number] Closed Auto-Generate d Referral 01/09/2024 02/07/2025 1 1 * Diagnostic Procedure Only (Urgent) - Closed Specialty Diagnoses / Procedures Referred By Contac t Referred To Contact XR IMAGING Diagnoses Ankle injuries, right, initial encounter Procedures XR ANKLE GENERAL 3V AP/LAT/OBL RIGHT RADEX ANKLE COMPLETE MINIMUM 3 VIEWS Francesco Ny APRN.SOCIAL MEDIA DEVELOPER [address] [place] [address] [place] [address] Referral ID Status Reason Start Date Expiration Date V isits Requested Visits Authorized [id number] Closed Auto-Generate d Referral 01/09/2024 02/07/2025 1 1 * Diagnostic Procedure Only (Urgent) - Closed Specialty Diagnoses / Procedures Referred By Contac t Referred To Contact XR IMAGING Diagnoses Injury of left ankle, initial encounter Procedures XR ANKLE GENERAL 3V AP/LAT/OBL LEFT RADEX ANKLE COMPLETE MINIMUM 3 VIEWS Francesco Ny APRN.SOCIAL MEDIA DEVELOPER [address] [place] [address] [place] [address] Referral ID Status Reason Start Date Expiration Date V isits Requested Visits Authorized [id number] Closed Auto-Generate d Referral 01/09/2024 02/07/2025 1 1 [facility] for referral (narrative)* Diagnostic Procedure Only (Routine) - New Request Specialty Diagnoses / Procedures Referred By Juana davis Referred To Contact [facility] Diagnoses Encounter for screening mammogram for breast cancer Procedures ADENIKE SCREENING W DOM SCREENING DIGITAL BREAST TOMOSYNTHESIS BI SCREENING MAMMOGRAPHY BI 2-VIEW BREAST INC CAD Dre Buenrostro MD [address] [place] [address] [facility] [address] [place] [address] Referral ID Status Reason Start Date Expiration Date Visits Requested Visits Authorized [id number] New Request Auto-Generat ed Referral 03/28/2025 1 1 [facility] for referral (narrative)No reason for referral information availableWCleveland Clinic Hillcrest Hospital Work Phone: Rejrnw for visit Narrative* Diagnostic Procedure Only (Urgent) - Closed Specialty Diagnoses / Procedures Referred By Juana davis Referred To Contact XR IMAGING Diagnoses Ankle injuries, right, initial encounter Procedures XR ANKLE GENERAL 3V AP/LAT/OBL RIGHT RADEX ANKLE COMPLETE MINIMUM 3 VIEWS Francesco Ny APRN.SOCIAL MEDIA DEVELOPER [address] [place] [address] [place] [address] Referral ID Status Reason Start Date Expiration Date V isits Requested Visits Authorized [id number] Closed Auto-Generate d Referral 01/09/2024 02/07/2025 1 1 [facility] Summary Purpose Family History No Family History Records Found Relationship Condition Age at Onset Recorded Date/T regina Unknown Family History?No pertinent history Unkno wn August 12, 2015 9:22am Family History?No pertinent history Unkno wn August 12, 2015 9:22am Relationship Condition Age at Onset Recorded Date/T regina Unknown Family History?No pertinent history Unkno wn August 12, 2015 9:22am Family History?No pertinent history Unkno wn November 12, 2024 8:56am Advance Directives No Advanced Directives Records Found Advance Directive Response Recorded Date/ Time Living Will No October 08, 2021 10:29am Power of Visual Arts Teacher No October 08 10:29am Chief Complaint and Reason for Visit Chief Complaint ABD FULLNESS & PAIN (DR Brenda PINA) Chief Complaint Admit Date REEVAL November 19, 2024 2: 29pm Reason for Visit Admit Date Segmental and somatic dysfunction of cer vical region November 19, 2024 2:29pm Segmental and somatic dysfunction of lum bar region November 19, 2024 2:29pm Segmental and somatic dysfunction of pel moris region November 19, 2024 2:29pm Segmental and somatic dysfunction of tho racic region November 19, 2024 2:29pm Chief Complaint Admit Date REEVAL November 19, 2024 2: 29pm SCREENING December 18, 2024 10:28am Reason for Visit Admit Date Segmental and somatic dysfunction of cer vical region November 19, 2024 2:29pm Segmental and somatic dysfunction of tho racic region November 19, 2024 2:29pm Additional Source Comments INFORMATION SOURCE (unrecogn ized section and content) DATE CREATED AUTHOR 02/03/2018 [facility] DATE CREATED AUTHOR AUTHOR'S ORGANIZ ATION 04/02/2024 [facility] DATE CREATED AUTHOR AUTHOR'S ORGANIZ ATION 12/28/2024 [facility] Source Comments (unrecognize d section and content) In the event this informatio n is protected by the Federal Confidentiality of Alcohol and Drug Abuse Patient Records regulations: The Federal rules restrict any use of the information to criminally investigate or prosecute any alcohol or drug abuse patient.[facility] HospitalIn the event this information is protected by the Federal Confidentiality of Alcohol and Drug Abuse Patient Records regulations: The Federal rules restrict any use of the information to criminally investigate or prosecute any alcohol or drug abuse patient.[facility] HospitalIn the event this information is protected by the Federal Confidentiality of Alcohol and Drug Abuse Patient Records regulations: The Federal rules restrict any use of the information to criminally investigate or prosecute any alcohol or drug abuse patient.[facility] HospitalIn the event this information is protected by the Federal Confidentiality of Alcohol and Drug Abuse Patient Records regulations: The Federal rules restrict any use of the information to criminally investigate or prosecute any alcohol or drug abuse patient.[facility] HospitalIn the event this information is protected by the Federal Confidentiality of Alcohol and Drug Abuse Patient Records regulations: The Federal rules restrict any use of the information to criminally investigate or prosecute any alcohol or drug abuse patient.[facility] HospitalIn the event this information is protected by the Federal Confidentiality of Alcohol and Drug Abuse Patient Records regulations: The Federal rules restrict any use of the information to criminally investigate or prosecute any alcohol or drug abuse patient.[facility] HospitalIn the event this information is protected by the Federal Confidentiality of Alcohol and Drug Abuse Patient Records regulations: The Federal rules restrict any use of the information to criminally investigate or prosecute any alcohol or drug abuse patient.[facility] HospitalIn the event this information is protected by the Federal Confidentiality of Alcohol and Drug Abuse Patient Records regulations: The Federal rules restrict any use of the information to criminally investigate or prosecute any alcohol or drug abuse patient.[facility] HospitalIn the event this information is protected by the Federal Confidentiality of Alcohol and Drug Abuse Patient Records regulations: The Federal rules restrict any use of the information to criminally investigate or prosecute any alcohol or drug abuse patient.[facility] HospitalIn the event this information is protected by the Federal Confidentiality of Alcohol and Drug Abuse Patient Records regulations: The Federal rules restrict any use of the information to criminally investigate or prosecute any alcohol or drug abuse patient.[facility] HospitalIn the event this information is protected by the Federal Confidentiality of Alcohol and Drug Abuse Patient Records regulations: The Federal rules restrict any use of the information to criminally investigate or prosecute any alcohol or drug abuse patient.[facility] HospitalIn the event this information is protected by the Federal Confidentiality of Alcohol and Drug Abuse Patient Records regulations: The Federal rules restrict any use of the information to criminally investigate or prosecute any alcohol or drug abuse patient.[facility] HospitalIn the event this information is protected by the Federal Confidentiality of Alcohol and Drug Abuse Patient Records regulations: The Federal rules restrict any use of the information to criminally investigate or prosecute any alcohol or drug abuse patient.[facility] HospitalIn the event this information is protected by the Federal Confidentiality of Alcohol and Drug Abuse Patient Records regulations: The Federal rules restrict any use of the information to criminally investigate or prosecute any alcohol or drug abuse patient.[facility] HospitalIn the event this information is protected by the Federal Confidentiality of Alcohol and Drug Abuse Patient Records regulations: The Federal rules restrict any use of the information to criminally investigate or prosecute any alcohol or drug abuse patient.[facility] Reason for Visit (unrecogniz ed section and [...] Care Teams (unrecognized sec tion and content) Election Supervisor Relationship Specialty Start Date End Date Olaf Pina MD PCP - General Family Medicine 02/20/17 Election Supervisor Relationship Specialty Start Date End Date Olaf Pina MD PCP - General Family Medicine 02/20/17 Election Supervisor Relationship Specialty Start Date End Date Olaf Pina MD PCP - General Family Medicine 02/20/17 Election Supervisor Relationship Specialty Start Date End Date Olaf Pina MD PCP - General Family Medicine 02/20/17 Election Supervisor Relationship Specialty Start Date End Date Olaf Pina MD PCP - General Family Medicine 02/20/17 Election Supervisor Relationship Specialty Start Date End Date Olaf Pina MD PCP - General Family Medicine 02/20/17 Election Supervisor Relationship Specialty Start Date End Date Olaf Pina MD PCP - General Family Medicine 02/20/17 Election Supervisor Relationship Specialty Start Date End Date Olaf Pina MD PCP - General Family Medicine 02/20/17 Election Supervisor Relationship Specialty Start Date End Date Olaf Pina MD PCP - General Family Medicine 02/20/17 Election Supervisor Relationship Specialty Start Date End Date Olaf Pina MD PCP - General Family Medicine 02/20/17 Election Supervisor Relationship Specialty Start Date End Date Olaf Pina MD PCP - General Family Medicine 02/20/17 Team Status: Active Member Role/Relationship Status Dates Dr. Olaf Pina MD Family Provider Active Dr. Olaf Pina MD Primary Care Provider Active Team Status: Inactive Member Role/Relationship Status Dates Dr. Olaf Pina MD Primary Care Provider Active Start: October 18, 2024 End: October 18, 2024 Dr. Olaf Pina MD Attending Provider Active Start: October 18, 2024 End: October 18, 2024 Dr. Olaf Pina MD Referring Provider Active Start: October 18, 2024 End: October 18, 2024 Election Supervisor Relationship Specialty Start Date End Date Olaf Pina MD PCP - General Family Medicine 02/20/17 Team Status: Inactive Member Role/Relationship Status Dates Dr. Olaf Pina MD Primary Care Provider Active Start: November 19, 2024 End: November 19, 2024 Dr. Olaf Pina MD Referring Provider Active Start: November 19, 2024 End: November 19, 2024 Dr. Jailene Ruano DC Attending Provider Active S tart: November 19, 2024 End: November 19, 2024 Team Status: Active Member Role/Relationship Status Dates Dr. Olaf Pina MD Primary care physician Active Team Status: Inactive Member Role/Relationship Status Dates Dr. Olaf Pina MD Primary care physician Active Start: October 18, 2024 End: October 18, 2024 Dr. Olaf Pina MD Attending physician Active Start: October 18, 2024 End: October 18, 2024 Dr. Olaf Pina MD Referring Provider Active Start: October 18, 2024 End: October 18, 2024 Team Status: Inactive Member Role/Relationship Status Dates Dr. Olaf Pina MD Primary care physician Active Start: November 19, 2024 End: November 19, 2024 Dr. Olaf Pina MD Referring Provider Active Start: November 19, 2024 End: November 19, 2024 Dr. Jailene Ruano DC Attending physician Active Start: November 19, 2024 End: November 19, 2024 Team Status: Inactive Member Role/Relationship Status Dates Dr. Olaf Pina MD Primary care physician Active Start: December 18, 2024 End: December 18, 2024 Dr. Dre Buenrostro MD Attending physician Active Start: December 18, 2024 End: December 18, 2024 Dr. Dre Buenrostro MD Referring Provider Active Start: December 18, 2024 End: December 18, 2024 FOR RECORDS PERTAINING TO PATIENTS WHO ARE [...] BE BASED ON THE PRIMARY CLINICAL RECORDS. [facility]. provides no warranty or guarantee of the accuracy or completeness of information in this document.
[2025-02-01 10:19] VITALS: BP 109/75; PULSE 83; RESP 16; TEMP 36.4; O2SAT 99
== END 2025-02-01 10:20 | disposition home or self-care (01) ==
PROVIDERS: Emergency Provider Emergency Medicine; PCP Family Medicine; Visit Provider Emergency Medicine
DX: R51.9 Headache, unspecified (principal); J32.9 Chronic sinusitis, unspecified; R53.83 Other fatigue; K21.9 Gastro-esophageal reflux disease without esophagitis; Z79.84 Long term (current) use of oral hypoglycemic drugs; Z87.891 Personal history of nicotine dependence
CPT/HCPCS: 70450; 99282

== ENCOUNTER → 2025-03-06 | Outpatient (CLI) | payer OTHER, SELFPAY ==
[2025-03-06 13:13] LABS: AST(SGOT) 16 U/L (<=31); Alanine Aminotransfer ALT/SGPT 15 U/L (<=34); Cholesterol 161 mg/dL (<=200); Low Density Lipoprotein Calc. 103 mg/dL; Triglycerides 138 mg/dL; Very Low Density Lipoprotein 28 mg/dL (5-40); cholesterol:hdl ratio screen 4.86
== END | disposition home or self-care (01) ==
LOC: MTLAB 08:11
PROVIDERS: PCP Family Medicine; Referring Provider Dermatology; Visit Provider Dermatology
DX: L70.0 Acne vulgaris (principal)
CPT/HCPCS: 36415; 80061; 84450; 84460